=== PATIENT | female | born 1975 | race Caucasian/White ===

== ENCOUNTER 2016-05-23 21:46 | Inpatient (IN) | payer OTHER ==
[~2016-05-23] VITALS: Ht 162.6 cm; Wt 83.9 kg
[~2016-05-23 21:46] MED LIST: ALLO100T PO; CIPR-255 PO; EPP3/2 IM; FLM4 PO; HYG/25 PO
[2016-05-23] MEDS ORDERED: MoRPHine SULFATE 4 MG/ML 1 ML CARP\\VIAL IV STA (21:54)
[2016-05-23] MEDS ORDERED: SODIUM CHLORIDE 0.9% 1000ML 1,000 ML IV STA (21:54)
[2016-05-23] MEDS ORDERED: SODIUM CHLORIDE 0.9% 500ML 500 ML IV STA (21:54)
[2016-05-23] MEDS ORDERED: ONDANSETRON INJ 2 MG/ML 2 ML VIAL IV STA (21:54)
[2016-05-23 22:22] LABS: BASO % 0.1 %; BASO ABS # 0.01 K/uL (0-0.2); COMPLETE YES; EOS % 2.2 %; HEMATOCRIT 42.8 % (37-47); IG% 0.2 %; LYMPH % 12.8 %; LYMPH ABS # 1.54 K/uL (1.2-3.4); MEAN CELL VOLUME 82.8 fL (80-100); MEAN CORPUSCULAR HEMOGLOBIN 27.7 pg (25-34); MEAN CORPUSCULAR HGB CONC 33.4 g/dl (32-36); MEAN PLATELET VOLUME 11.4 fL (7.4-10.4); MONO % 6.1 %; NEUT % 78.6 %; PLATELET COUNT 168 K/uL (130-400); RED BLOOD COUNT 5.17 M/uL (4.2-5.4); WHITE BLOOD COUNT 12.06 K/uL (4.8-10.8)
[2016-05-23 22:31] LABS: URINE APPEARANCE CLOUDY (CLEAR); URINE BILIRUBIN NEG (NEG); URINE COLOR YELLOW; URINE EPITHELIAL CELL AUTO >30 /lpf (0-5); URINE NITRITE POS (NEG); URINE SPECIFIC GRAVITY 1.014 (1.000-1.030); UROBILINOGEN NEG (NEG); ZZUR CULT IF INDIC CLEAN CATCH YES
[2016-05-23 22:35] LABS: MANUAL MICROSCOPIC REQUIRED? NO; REVIEW REQ? NO
[2016-05-23 22:39] LABS: ALT/SGPT 25 U/L (12-78); BLOOD UREA NITROGEN 15 mg/dl (7-18); BUN/CREATININE RATIO 13.9 (10-20); CALCIUM 9.2 mg/dl (8.5-10.1); CARBON DIOXIDE 24 mmol/L (21-32); CHLORIDE 105 mmol/L (98-107); GLUCOSE 124 mg/dl (70-99); POTASSIUM 3.6 mmol/L (3.5-5.1); SODIUM 143 mmol/L (136-145)
[2016-05-23 22:42] LABS: ALKALINE PHOSPHATASE 79 U/L (45-117); AST/SGOT 16 U/L (15-37)
--- NOTE | 2016-05-23 22:56 | DIAGNOSTIC IMAGING REPORT ---
ULTRASOUND KIDNEYS AND BLADDER CLINICAL HISTORY: Flank pain. COMPARISON STUDY: Abdominal CT dated 08/19/2015. TECHNIQUE: Real-time, grayscale, and color flow sonography of the kidneys and bladder is performed. Images are reviewed in the transverse and longitudinal planes. FINDINGS: Kidneys: The kidneys are normal in size and echotexture. The right kidney measures 12.1 cm in length and the left kidney measures 11.0 cm in length. There is moderate right-sided hydronephrosis. No hydronephrosis is seen in the left kidney. There are numerous shadowing right renal calculi. A 1.1 cm shadowing calculus is present in the right proximal ureter just below the ureteropelvic junction. The distal right ureter appears dilated. Shadowing left renal calculi are also identified. There is no sonographic evidence of contour deforming renal mass lesion. There is trace right-sided perinephric fluid. Bladder: The bladder is decompressed and not evaluated. Ureteral jets were not seen. IMPRESSION: 1. There are numerous bilateral shadowing renal calculi. 2. There is moderate right hydronephrosis, and a 1.1 cm shadowing stone is seen within the right proximal ureter. 3. There is no left-sided hydronephrosis. 4. The bladder was decompressed and not well assessed. Electronically signed by: Irvin Anderson M.D. 05/23/2016 10:54 PM Dictated Date/Time: 05/23/2016 10:52 PM
[2016-05-23] MEDS ORDERED: HYDROmorphone INJ 1 MG/ML SYR IV STA (23:03)
[2016-05-23] MEDS ORDERED: CEFTRIAXONE SOD INJ 1 GM ADDVIAL IV STA (23:04)
[2016-05-23 23:07] LABS: PREG INTERNAL NEGATIVE QC NEG CLEAR BACKGROUND; PREG INTERNAL POSITIVE QC POS CONTROL LINE
[2016-05-23] MEDS ORDERED: TAMSULOSIN HCL 0.4 MG CAP PO ONE (23:30)
[2016-05-24] VITALS (9 sets, daily range): BP systolic 97–133; BP diastolic 58–86; PULSE 79–92; TEMP 36.5–37.4; O2SAT 91–95; Ht 162.6 cm; Wt 83.9 kg
--- NOTE | 2016-05-24 00:14 | History and Physical ---
History & Physical Date & Time of Service: May 24, 2016 at 00:09 Chief Complaint: Kidney Stones Primary Care Physician: No Doctor, Assigned History of Present Illness Source: patient Mayra Guerra is a 41 yo F with history of kidney stones, pt of Dr Ryan, who presents with intractable right sided back / abdominal pain since 5pm today. She reports she took Oxycodone and Tamsulosin today and did not have much relief. She received multiple pain meds in the ED and reports they are currently wearing off. She reports her pain is now a 6/10. She reports her pain is sharp, on the right side, radiating to the back, and has no improvement with position. The pain is associated with nausea and she was vomiting at home initially. She has not had any fevers at any point. Past Medical/Surgical History Medical Problems: (1) Employee exposure to body fluids Status: Resolved (2) Exposure to blood or body fluid Status: Resolved (3) Kidney stone Status: Resolved Family History No pertinent family history Social History Smoking Status: Never Smoker Drug Use: none Marital Status: Housing status: lives with family Occupational Status: employed Immunizations History of Influenza Vaccine: Yes History of Tetanus Vaccine?: Yes History of Pneumococcal: No History of Hepatitis B Vaccine: No Multi-Drug Resistant Organisms History of MDRO: No Allergies Coded Allergies: NUTS (Verified Allergy, Severe, ANAPHYLAXIS, 01/08/15) Cat Dander (Verified Allergy, Unknown, CAT/DOG-ITCHY EYES RUNNY NOSE, 01/08) NO KNOWN DRUG ALLERGIES (Verified Allergy, Unknown, NONE, 01/08/15) Home Medications Scheduled Allopurinol (Zyloprim), 100 MG PO DAILY Chlorthalidone (Hygroton), 25 MG PO QAM Scheduled PRN Epinephrine (Epipen), 0.3 MG IM UD PRN for ALLERGIC REACTION Review of Systems See HPI for pertinent positives & negatives. A total of 10 systems reviewed and were otherwise negative. Physical Exam Vital Signs Date Time Temp Pulse Resp B/P Pulse Ox O2 Delivery O2 Flow Rate FiO2 05/23/16 22:57 84 05/23/16 22:55 84 18 113/70 100 Room Air 05/23/16 22:23 97 Room Air 05/23/16 21:50 36.6 79 18 118/82 97 Room Air General Appearance: WD/WN, + mild distress Head: normocephalic, atraumatic Eyes: normal inspection ENT: hearing grossly normal Neck: supple, no JVD Respiratory/Chest: lungs clear, normal breath sounds, no respiratory distress Cardiovascular: regular rate, rhythm, no murmur Abdomen/GI: soft, + tenderness, + pertinent finding (R CVA tenderness) Neurologic/Psych: alert, normal mood/affect, oriented x 3 Skin: no rash Diagnostics Laboratory Results Results Past 24 Hours Test 05/23/16 21:36 05/23/16 22:00 Range/Units White Blood Count 12.06 4.8-10.8 K/uL Red Blood Count 5.17 4.2-5.4 M/uL Hemoglobin 14.3 12.0-16.0 g/dL Hematocrit 42.8 37-47 % Mean Corpuscular Volume 82.8 80-100 fL Mean Corpuscular Hemoglobin 27.7 25-34 pg Mean Corpuscular Hemoglobin Concent 33.4 32-36 g/dl Platelet Count 168 130-400 K/uL Mean Platelet Volume 11.4 7.4-10.4 fL Neutrophils (%) (Auto) 78.6 % Lymphocytes (%) (Auto) 12.8 % Monocytes (%) (Auto) 6.1 % Eosinophils (%) (Auto) 2.2 % Basophils (%) (Auto) 0.1 % Neutrophils # (Auto) 9.50 1.4-6.5 K/uL Lymphocytes # (Auto) 1.54 1.2-3.4 K/uL Monocytes # (Auto) 0.73 0.11-0.59 K/uL Eosinophils # (Auto) 0.26 0-0.5 K/uL Basophils # (Auto) 0.01 0-0.2 K/uL RDW Standard Deviation 40.5 36.4-46.3 fL RDW Coefficient of Variation 13.4 11.5-14.5 % Immature Granulocyte % (Auto) 0.2 % Immature Granulocyte # (Auto) 0.02 0.00-0.02 K/uL Sodium Level 143 136-145 mmol/L Potassium Level 3.6 3.5-5.1 mmol/L Chloride Level 105 98-107 mmol/L Carbon Dioxide Level 24 21-32 mmol/L Anion Gap 14.0 3-11 mmol/L Blood Urea Nitrogen 15 7-18 mg/dl Creatinine 1.10 0.60-1.20 mg/dl Est Creatinine Clear Calc Drug Dose 69.1 ml/min Estimated GFR () 71.2 Estimated GFR (Non- 61.4 BUN/Creatinine Ratio 13.9 10-20 Random Glucose 124 70-99 mg/dl Calcium Level 9.2 8.5-10.1 mg/dl Total Bilirubin 0.3 0.2-1 mg/dl Direct Bilirubin < 0.1 0-0.2 mg/dl Aspartate Amino Transf (AST/SGOT) 16 15-37 U/L Alanine Aminotransferase (ALT/SGPT) 25 12-78 U/L Alkaline Phosphatase 79 45-117 U/L Total Protein 7.0 6.4-8.2 gm/dl Albumin 3.9 3.4-5.0 gm/dl Lipase 147 73-393 U/L Human Chorionic Gonadotropin, Qual NEG NEG Urine Color YELLOW Urine Appearance CLOUDY CLEAR Urine pH 6.0 4.5-7.5 Urine Specific [place] 1.014 1.000-1.030 Urine Protein 1+ NEG Urine Glucose (UA) NEG NEG Urine Ketones NEG NEG Urine Occult Blood 2+ NEG Urine Nitrite POS NEG Urine Bilirubin NEG NEG Urine Urobilinogen NEG NEG Urine Leukocyte Esterase MODERATE NEG Urine WBC (Auto) >30 0-5 /hpf Urine RBC (Auto) >30 0-4 /hpf Urine Hyaline Casts (Auto) 5-10 0-5 /lpf Urine Epithelial Cells (Auto) >30 0-5 /lpf Urine Bacteria (Auto) NEG NEG Microbiology Results 05/23/16 Urine Culture, Received Pending Diagnostic Radiology US: IMPRESSION: 1. There are numerous bilateral shadowing renal calculi. 2. There is moderate right hydronephrosis, and a 1.1 cm shadowing stone is seen within the right proximal ureter. 3. There is no left-sided hydronephrosis. 4. The bladder was decompressed and not well assessed. Impression Assessment and Plan 41 yo F with known nephrolithiasis, with intractable pain from a large R sided kidney stone. Plan: Kidney stone with hydronephrosis: Admit to Med/Surg NPO with IV fluids Continue Tamsulosin daily Dilaudid 0.5-1mg q2h for pain Zofran for nausea Hypertension: Hold home chlorthalidone Gout: Hold allopurinol VTE: SCDs CODE STATUS: FULL CODE DISPO: MED SURG VTE Prophylaxis VTE Risk Assessment Done? Y/N: Yes Risk Level: Moderate Resident Tracking Resident Involvement: Resident Care Provided Care Provided: [facility] Assessment and Plan ATTENDING ADDENDUM: I have seen and examined this patient, have directed their medical care, have supervised the resident and agree with the H&P as noted above. History Of Present Illness: The patient is a 41 old female with a known history of kidney stones, who was recently cleaned out by Dr. James Ryan from urology, who developed acute onset of intractable right sided back pain radiating toward the abdomen that began at 5 PM today prior to arrival. She tried her oxycodone and tamsulosin at home but did not have any significant relief, and thus presents emergency department for assessment. Imaging studies showed a 1.1 cm right proximal ureteral stone, and was thus presented to the hospitalist service for assessment admission. The pain was significant enough to cause nausea and vomiting as well, but the patient feels that she did not have any issues with aspiration. Review of Systems: The patient denies chest pain, palpitations, shortness of breath, cough, lower extremity swelling, vision change, hearing change, sore throat, fevers, chills, sweats, weight change, blood in urine or stool, dysuria, urinary frequency or urgency, memory loss, rash, abnormal bruising or bleeding, imbalance, focal or generalized weakness, numbness or tingling in arms or legs, neck pain, night sweats, or allergy symptoms. The review of systems is otherwise negative other than for that already noted above, and at least 10 systems have been reviewed. Past Medical History: Urolithiasis. Past Surgical History: Placement of ureteral stents. Allergies: Nuts Cat Dander No known drug allergies Medications on Admission: Allopurinol 100 mg by mouth daily. Chlorthalidone 25 mg by mouth every morning. EpiPen 0.3 mg IM as directed when necessary allergic reaction. Physical Examination: The patient is awake, well-developed and adequately nourished, alert and oriented 3, normocephalic and atraumatic, lying in bed and in no acute distress. HEENT--PERRL, mucous membranes moist, and oropharynx normal. Neck--supple, no JVD or bruits, thyroid normal, trachea midline, no adenopathy. Heart--normal S1 and S2, no extra beats, no murmurs, rubs or gallops. Lungs--clear bilaterally, no respiratory distress, no accessory muscle use. Abdomen--normal bowel sounds and soft, nontender and nondistended, no hernias or masses, no organomegaly. Extremities--no cyanosis, clubbing or edema. There are good distal pulses b/l. Dermatologic--normal skin turgor, normal color, warm and dry, no abnormal lymph nodes, no rash. Neurologic--cranial nerves II through XII grossly intact, motor and sensory examination normal. Rheumatologic--normal range of motion, nontender, muscles and joints. Psychiatric--normal affect. Imaging Studies: Renal ultrasound--1.1 cm proximal right ureteral obstructing stone with moderate right hydronephrosis. Assessment and Plan: 1.1 cm right proximal obstructing ureteral stone with moderate right hydronephrosis--patient will be admitted to the medical surgical floor, and made nothing by mouth status. We'll consult her urologist Dr. James Ryan for assessment and probable stent placement. We'll place her on ceftriaxone 1 g IV daily, normal saline with potassium chloride 20 mEq at 100 mils per hour, Zofran 4 mg IV every 6 hours when necessary nausea, and pantoprazole 40 mg IV daily. We will hold allopurinol 100 mg by mouth daily and chlorthalidone 25 mg by mouth until after surgery.
--- NOTE | 2016-05-24 00:14 | EMERGENCY ROOM VISIT NOTE ---
History First contact with patient: 21:51 Chief Complaint: KIDNEY STONE Stated Complaint: KIDNEY STONES History of Present Illness The patient is a 41 year old female who presents to the Emergency Room with complaints of sudden onset of right flank pain that radiates to her groin prescription as aching, ranging in severity 8 out of 10. Nothing makes it better or worse. Dr. Ryan is her urologist. She said multiple stones in the past along with lithotripsy and stents in the past. Patient denies chest pain, dyspnea, fever, chills, diarrhea, urinary symptoms, weakness. She is tolerated by mouth fluids and food. No injury to the area. Review of Systems See HPI for pertinent positives & negatives. A total of 10 systems reviewed and were otherwise negative. Past Medical/Surgical History Medical Problems: (1) Employee exposure to body fluids (2) Exposure to blood or body fluid (3) Hydroureter on right (4) Kidney stone (5) Right distal ureteral calculus Family History No pertinent family history Social History Smoking Status: Never Smoker Drug Use: none Marital Status: Housing Status: lives with family Occupation Status: employed Current/Historical Medications Scheduled Allopurinol (Zyloprim), 100 MG PO DAILY Chlorthalidone (Hygroton), 25 MG PO QAM Scheduled PRN Epinephrine (Epipen), 0.3 MG IM UD PRN for ALLERGIC REACTION Allergies Coded Allergies: NUTS (Verified Allergy, Severe, ANAPHYLAXIS, 01/08/15) Cat Dander (Verified Allergy, Unknown, CAT/DOG-ITCHY EYES RUNNY NOSE, 01/08) NO KNOWN DRUG ALLERGIES (Verified Allergy, Unknown, NONE, 01/08/15) Physical Exam Vital Signs Date Time Temp Pulse Resp B/P Pulse Ox O2 Delivery O2 Flow Rate FiO2 05/23/16 22:57 84 05/23/16 22:55 84 18 113/70 100 Room Air 05/23/16 22:23 97 Room Air 05/23/16 21:50 36.6 79 18 118/82 97 Room Air Physical Exam VITALS: Vitals are noted on the nurse's note and reviewed by myself. Vital signs stable. GENERAL: Pleasant female writhing in pain, nondiaphoretic, well-developed well- nourished. SKIN: The skin was without rashes, erythema, edema, or bruising. There is no tenting of the skin. Capillary reflex less than 2 seconds. HEAD: Normocephalic atraumatic. EARS: External auditory canals clear, tympanic membranes pearly [place] without erythema or effusion bilaterally. EYES: Pupils equal round and reactive to light and accommodation. Conjunctivae without injection, sclerae without icterus. Extraocular movements intact. NOSE: Patent, turbinates without inflammation or discharge. MOUTH: Mucous membranes moist. Pharynx without erythema or exudate. Uvula midline. Airway patent. Tongue does not deviate. NECK: Supple without nuchal rigidity. No lymphadenopathy. No thyromegaly. Cervical spine is nontender. No JVD. HEART: Regular rate and rhythm without murmurs gallops or rubs. LUNGS: Clear to auscultation bilaterally without wheezes, rales or rhonchi. No dullness to percussion. No retractions or accessory muscle use. ABDOMEN: Positive bowel sounds x 4. Normal tympanic percussion. Soft, nontender, without masses or organomegaly. Hdez sign negative. No guarding or rebound tenderness. No CVA tenderness MUSCULOSKELETAL: No muscle atrophy, erythema, or edema noted. NEURO: Patient was alert and oriented to person place and time. Normal sensation to light and sharp touch. No focal neurological deficits. Medical Decision & Procedures Laboratory Results 05/23/16 21:36 Red Blood Count 5.17, Mean Corpuscular Volume 82.8, Mean Corpuscular Hemoglobin 27.7, Mean Corpuscular Hemoglobin Concent 33.4, Mean Platelet Volume 11.4, Neutrophils (%) (Auto) 78.6, Lymphocytes (%) (Auto) 12.8, Monocytes (%) (Auto) 6.1, Eosinophils (%) (Auto) 2.2, Basophils (%) (Auto) 0.1, Neutrophils # (Auto) 9.50, Lymphocytes # (Auto) 1.54, Monocytes # (Auto) 0.73, Eosinophils # (Auto) 0.26, Basophils # (Auto) 0.01 05/23/16 21:36 Test 05/23/16 21:36 05/23/16 22:00 White Blood Count 12.06 K/uL (4.8-10.8) Red Blood Count 5.17 M/uL (4.2-5.4) Hemoglobin 14.3 g/dL (12.0-16.0) Hematocrit 42.8 % (37-47) Mean Corpuscular Volume 82.8 fL (80-100) Mean Corpuscular Hemoglobin 27.7 pg (25-34) Mean Corpuscular Hemoglobin Concent 33.4 g/dl (32-36) Platelet Count 168 K/uL (130-400) Mean Platelet Volume 11.4 fL (7.4-10.4) Neutrophils (%) (Auto) 78.6 % Lymphocytes (%) (Auto) 12.8 % Monocytes (%) (Auto) 6.1 % Eosinophils (%) (Auto) 2.2 % Basophils (%) (Auto) 0.1 % Neutrophils # (Auto) 9.50 K/uL (1.4-6.5) Lymphocytes # (Auto) 1.54 K/uL (1.2-3.4) Monocytes # (Auto) 0.73 K/uL (0.11-0.59) Eosinophils # (Auto) 0.26 K/uL (0-0.5) Basophils # (Auto) 0.01 K/uL (0-0.2) RDW Standard Deviation 40.5 fL (36.4-46.3) RDW Coefficient of Variation 13.4 % (11.5-14.5) Immature Granulocyte % (Auto) 0.2 % Immature Granulocyte # (Auto) 0.02 K/uL (0.00-0.02) Anion Gap 14.0 mmol/L (3-11) Est Creatinine Clear Calc Drug Dose 69.1 ml/min Estimated GFR () 71.2 Estimated GFR (Non- 61.4 BUN/Creatinine Ratio 13.9 (10-20) Calcium Level 9.2 mg/dl (8.5-10.1) Total Bilirubin 0.3 mg/dl (0.2-1) Direct Bilirubin < 0.1 mg/dl (0-0.2) Aspartate Amino Transf (AST/SGOT) 16 U/L (15-37) Alanine Aminotransferase (ALT/SGPT) 25 U/L (12-78) Alkaline Phosphatase 79 U/L (45-117) Total Protein 7.0 gm/dl (6.4-8.2) Albumin 3.9 gm/dl (3.4-5.0) Lipase 147 U/L (73-393) Human Chorionic Gonadotropin, Qual NEG (NEG) Urine Color YELLOW Urine Appearance CLOUDY (CLEAR) Urine pH 6.0 (4.5-7.5) Urine Specific [place] 1.014 (1.000-1.030) Urine Protein 1+ (NEG) Urine Glucose (UA) NEG (NEG) Urine Ketones NEG (NEG) Urine Occult Blood 2+ (NEG) Urine Nitrite POS (NEG) Urine Bilirubin NEG (NEG) Urine Urobilinogen NEG (NEG) Urine Leukocyte Esterase MODERATE (NEG) Urine WBC (Auto) >30 /hpf (0-5) Urine RBC (Auto) >30 /hpf (0-4) Urine Hyaline Casts (Auto) 5-10 /lpf (0-5) Urine Epithelial Cells (Auto) >30 /lpf (0-5) Urine Bacteria (Auto) NEG (NEG) Medications Administered Medications (Trade) Dose Ordered Sig/[place] Route Start Time Stop Time Status Last Admin Dose Admin Ondansetron HCl 4 mg 4 mg NOW STAT IV 05/23/16 21:54 05/23/16 21:56 DC 05/23/16 22:18 4 MG Sodium Chloride 1,000 ml @ 125 mls/hr Q8H STAT IV 05/23/16 21:54 05/24/16 05:53 05/23/16 22:19 125 MLS/HR Sodium Chloride (Nss 500ml) 500 ml @ 999 mls/hr Q31M STAT IV 05/23/16 21:54 05/23/16 22:24 DC 05/23/16 22:18 999 MLS/HR Morphine Sulfate (MoRPHine SULFATE INJ) 4 mg NOW STAT IV 05/23/16 21:54 05/23/16 21:56 DC 05/23/16 22:17 4 MG Hydromorphone HCl (Dilaudid Inj) 1 mg NOW STAT IV 05/23/16 23:03 05/23/16 23:04 DC 05/23/16 23:12 1 MG Ceftriaxone Sodium (Rocephin Inj) 1 gm NOW STAT IV 05/23/16 23:04 05/23/16 23:05 DC 05/23/16 23:13 1 GM Tamsulosin HCl (Flomax Cap) 0.4 mg NOW ONCE PO 05/23/16 23:30 05/23/16 23:31 DC 05/23/16 23:39 0.4 MG ED Course Prior records/ancillary studies reviewed. Triage Nursing notes reviewed. The patient's history was concerning for right flank pain. Differential diagnosis: Etiologies such as renal colic, appendicitis, diverticulitis, mesenteric ischemia, aortic pathology, infections, inflammatory bowel disease, PUD, biliary pathology, UTI, as well as others were entertained. Physical examination findings: As above. ER treatment provided: Morphine Zofran, IV fluids On reassessment the patient felt better. Diagnostic interpretation by me: The labs revealed leukocytosis, hyperglycemia without DKA. Urinalysis revealed UTI and sent for culture Imaging studies: CT of the abdomen and pelvis was reviewed from prior and shows multiple bilateral kidney stones ULTRASOUND KIDNEYS AND BLADDER CLINICAL HISTORY: Flank pain. COMPARISON STUDY: Abdominal CT dated 08/19/2015. TECHNIQUE: Real-time, grayscale, and color flow sonography of the kidneys and bladder is performed. Images are reviewed in the transverse and longitudinal planes. FINDINGS: Kidneys: The kidneys are normal in size and echotexture. The right kidney measures 12.1 cm in length and the left kidney measures 11.0 cm in length. There is moderate right-sided hydronephrosis. No hydronephrosis is seen in the left kidney. There are numerous shadowing right renal calculi. A 1.1 cm shadowing calculus is present in the right proximal ureter just below the ureteropelvic junction. The distal right ureter appears dilated. Shadowing left renal calculi are also identified. There is no sonographic evidence of contour deforming renal mass lesion. There is trace right-sided perinephric fluid. Bladder: The bladder is decompressed and not evaluated. Ureteral jets were not seen. IMPRESSION: 1. There are numerous bilateral shadowing renal calculi. 2. There is moderate right hydronephrosis, and a 1.1 cm shadowing stone is seen within the right proximal ureter. 3. There is no left-sided hydronephrosis. 4. The bladder was decompressed and not well assessed. Electronically signed by: Irvin Anderson M.D. 05/23/2016 10:54 PM Dictated Date/Time: 05/23/2016 10:52 PM Consultation: A consultation was placed with Dr. Palacios, hospitalist. The case was discussed and diagnostics were reviewed. The patient was evaluated in the ER for further treatment. It appears that the patient has isolated renal colic from a right sided stone. Patient also has UTI. She was still in severe amount of pain. She will be evaluated by medicine for possible admission. She started on Rocephin and urine was sent for culture. Patient has had multiple stents in the past. She follows with Dr. Ryan. By the evaluation outlined above emergent etiologies such as appendicitis, diverticulitis, mesenteric ischemia, aortic pathology inflammatory bowel disease, PUD, biliary pathology,as well as others were deemed relatively unlikely. The pt informed about the findings as listed above. All questions were answered and pleased with the treatment. Case reviewed with my attending Medical Decision As above Impression Primary Impression: Renal colic on right side Additional Impression: UTI (urinary tract infection) Departure Information Dispostion Being Evaluated By Hospitalist Condition FAIR Referrals No Doctor, Assigned (PCP) Patient Instructions My [facility] Problem Qualifiers Additional Impression: UTI (urinary tract infection) Urinary tract infection type: acute cystitis Hematuria presence: with hematuria Qualified Codes: N30.01 - Acute cystitis with hematuria
[2016-05-24] MEDS ORDERED: POLYETHYLENE (MIRALAX) 17 GM PACK PO PRN ×2 (00:15→08:45)
[2016-05-24] MEDS ORDERED: ACETAMINOPHEN 325 MG TAB PO PRN ×2 (00:15→08:45)
[2016-05-24] MEDS ORDERED: ALUMINUM/MAGNESIUM/SIMETH (MAALOX MAX) 30 ML UDC PO PRN ×2 (00:15→08:45)
[2016-05-24] MEDS ORDERED: ZOLPIDEM TARTRATE 5 MG TAB PO PRN ×2 (00:15→08:45)
[2016-05-24] MEDS: HYDROmorphone INJ 0.5 MG/0.5 ML SYR IV PRN ×3 (01:31→07:25)
[2016-05-24] MEDS: ONDANSETRON INJ 2 MG/ML 2 ML VIAL IV PRN ×2 (01:39→07:25)
[2016-05-24] MEDS ORDERED: NURSING VERBAL MED ORDER ONE (02:30)
[2016-05-24] MEDS ORDERED: SODIUM CHLOR 0.45% + 20MEQ KCL 1,000 ML IV SCH (02:45)
[2016-05-24] MEDS ORDERED: CIPROFLOXACIN 400MG / 200ML D5W IV SCH (06:00)
[2016-05-24] MEDS ORDERED: HydrALAZINE HCL 20 MG/ML VIAL IV PRN (08:00)
--- NOTE | 2016-05-24 08:36 | DIAGNOSTIC IMAGING REPORT ---
KUB CLINICAL HISTORY: Renal calculi COMPARISON STUDY: Renal ultrasound dated 05/23/2016 FINDINGS: There is no pathologic bowel dilatation. There are innumerable bilateral renal calculi. There is an equivocal 18 mm calculus within the right renal pelvis. There is a 4 mm calcification at the L3-4 level to the right of midline, possibly representing a proximal right ureteral calculus. IMPRESSION: 1. Extensive bilateral nephrolithiasis 2. Possible 18 mm calculus within the right renal pelvis 3. Possible 4 mm calculus within the proximal right ureter the L3-4 level. Electronically signed by: Jairo Dao M.D. 05/24/2016 8:34 AM Dictated Date/Time: 05/24/2016 8:32 AM
[2016-05-24] MEDS ORDERED: HYDROmorphone INJ 1 MG/ML SYR IV PRN (08:45)
[2016-05-24] MEDS ORDERED: HYDROmorphone INJ 0.5 MG/0.5 ML SYR IV PRN (08:45)
[2016-05-24] MEDS ORDERED: ONDANSETRON INJ 2 MG/ML 2 ML VIAL IV PRN ×2 (08:45→16:30)
--- NOTE | 2016-05-24 08:57 | Urology Consultation ---
History General Date of Service: May 24, 2016. Chief Complaint: R intractable flank pain and emesis Primary Care Physician: No Doctor, Assigned Pt seen a urologist before?: Yes If yes, why?: Myself for stone History of Present Illness 41 yo female, well known to our service, last intervention was in Jul 2015 in the form of R uscope and stent, last seen in the office Dec 2015 here for acute onset of intractable R flank pain and emesis. She has a longstanding history of stone disease, well known. Images reviewed, past notes reviewed. She currently has R hydro on US and a >1 cm R upper ureteral stone. She denies UTI or stone passage or pain since being seen in the Fall. She continues to follow with nephrology and is compliant with her outpatient therapy. Urology consultation is sought out to assist with her care. HPI - Stones Number: [id number] Size: Largest ~18 mm R UPJ Location: right, kidney, ureter, UPJ Pain: right flank, constant Patient has: + emesis, + nausea ER Visits: number (1) Prior stone composition: unknown (carbonate apatite) Imaging Imaging: [facility], Ultrasound Laboratory Last 24 Hours Test 05/23/16 21:36 05/23/16 22:00 White Blood Count 12.06 K/uL Red Blood Count 5.17 M/uL Hemoglobin 14.3 g/dL Hematocrit 42.8 % Mean Corpuscular Volume 82.8 fL Mean Corpuscular Hemoglobin 27.7 pg Mean Corpuscular Hemoglobin Concent 33.4 g/dl Platelet Count 168 K/uL Mean Platelet Volume 11.4 fL Neutrophils (%) (Auto) 78.6 % Lymphocytes (%) (Auto) 12.8 % Monocytes (%) (Auto) 6.1 % Eosinophils (%) (Auto) 2.2 % Basophils (%) (Auto) 0.1 % Neutrophils # (Auto) 9.50 K/uL Lymphocytes # (Auto) 1.54 K/uL Monocytes # (Auto) 0.73 K/uL Eosinophils # (Auto) 0.26 K/uL Basophils # (Auto) 0.01 K/uL RDW Standard Deviation 40.5 fL RDW Coefficient of Variation 13.4 % Immature Granulocyte % (Auto) 0.2 % Immature Granulocyte # (Auto) 0.02 K/uL Sodium Level 143 mmol/L Potassium Level 3.6 mmol/L Chloride Level 105 mmol/L Carbon Dioxide Level 24 mmol/L Anion Gap 14.0 mmol/L Blood Urea Nitrogen 15 mg/dl Creatinine 1.10 mg/dl Est Creatinine Clear Calc Drug Dose 69.1 ml/min Estimated GFR () 71.2 Estimated GFR (Non- 61.4 BUN/Creatinine Ratio 13.9 Random Glucose 124 mg/dl Calcium Level 9.2 mg/dl Total Bilirubin 0.3 mg/dl Direct Bilirubin < 0.1 mg/dl Aspartate Amino Transf (AST/SGOT) 16 U/L Alanine Aminotransferase (ALT/SGPT) 25 U/L Alkaline Phosphatase 79 U/L Total Protein 7.0 gm/dl Albumin 3.9 gm/dl Lipase 147 U/L Human Chorionic Gonadotropin, Qual NEG Urine Color YELLOW Urine Appearance CLOUDY Urine pH 6.0 Urine Specific [place] 1.014 Urine Protein 1+ Urine Glucose (UA) NEG Urine Ketones NEG Urine Occult Blood 2+ Urine Nitrite POS Urine Bilirubin NEG Urine Urobilinogen NEG Urine Leukocyte Esterase MODERATE Urine WBC (Auto) >30 /hpf Urine RBC (Auto) >30 /hpf Urine Hyaline Casts (Auto) 5-10 /lpf Urine Epithelial Cells (Auto) >30 /lpf Urine Bacteria (Auto) NEG Problem List Medical Problems: (1) Renal colic on right side Status: Acute (2) Right lower quadrant abdominal pain Status: Acute (3) UTI (urinary tract infection) Status: Acute (4) UTI (urinary tract infection) Status: Acute Past History GERD, kidney stones, urinary tract infection, other Pt had a problem w anesthesia?: No Past Surgical History: lithotripsy, tubal ligation, ureteral stent, other Family History No pertinent family history Father with stones Social History Hx Tobacco Use In Past Year?: No Smoking: non-smoker Alcohol: never Drug use: none Marital status: Housing status: lives with family Occupation status: employed Immunizations History of Influenza Vaccine: Yes History of Tetanus Vaccine?: Yes History of Pneumococcal: No History of Hepatitis B Vaccine: No History of MDRO No Allergies Coded Allergies: NUTS (Verified Allergy, Severe, ANAPHYLAXIS, 01/08/15) Cat Dander (Verified Allergy, Unknown, CAT/DOG-ITCHY EYES RUNNY NOSE, 01/08) NO KNOWN DRUG ALLERGIES (Verified Allergy, Unknown, NONE, 01/08/15) Medications Home Medications: Home Meds and Scripts Medications Dose Route/Sig Max Daily Dose Days Date Category Epipen (Epinephrine) 0.3 Mg/0.3 Ml Inj 0.3 Mg IM UD PRN 12/25/14 Reported [place] (Chlorthalidone) 25 Mg Tab 25 Mg PO QAM 12/25/14 Reported Zyloprim (Allopurinol) 100 Mg Tab 100 Mg PO DAILY 12/25/14 Reported Inpatient Medications: Current Inpatient Medications Medications (Trade) Dose Ordered Sig/[place] Route Start Time Stop Time Status Last Admin Dose Admin Sodium Chloride (Nss 1000ml) 1,000 ml @ 200 mls/hr Q5H IV 05/24/16 08:00 06/23/16 07:59 Hydralazine HCl (HydrALAZINE INJ) 10 mg Q4H PRN IV 05/24/16 08:00 06/23/16 07:59 Acetaminophen (Tylenol Tab) 650 mg Q4H PRN PO 05/24/16 08:45 06/23/16 08:44 Al Hydrox/Mg Hydrox/Simethicone (Maalox Max Susp) 15 ml Q4H PRN PO 05/24/16 08:45 06/23/16 08:44 Polyethylene (Miralax Powder Packet) 17 gm DAILY PRN PO 05/24/16 08:45 06/23/16 08:44 Zolpidem Tartrate (Ambien Tab) 5 mg HSZ PRN PO 05/24/16 08:45 06/23/16 08:44 Ondansetron HCl (Zofran Inj) 4 mg Q6H PRN IV 05/24/16 08:45 06/23/16 08:44 Hydromorphone HCl (Dilaudid Inj) 0.5 mg Q2H PRN IV 05/24/16 08:45 06/07/16 08:44 Hydromorphone HCl (Dilaudid Inj) 1 mg Q2H PRN IV 05/24/16 08:45 06/07/16 08:44 Review of Systems Review of Systems Constitutional: No fever Eyes: No double vision, No eye pain Neurological: + dizzy, No numbness/tingling Endocrine: + tired/sluggish Gastrointestinal: + abdominal pain, + nausea, + vomiting Cardiovascular: No irregular heartbeat, No palpitations Respiratory: No coughing up blood Skin: No boils Musculoskeletal: + back pain Blood / Lymphatic: No bruise easily, No swollen glands Ears / Nose / Throat: No hoarse voice, No sinus Psychologic / Mental: No trouble remembering Female : + kidney stones, + see HPI Physical Exam Vital Signs: Vital Signs Past 12 Hours Date Time Temp Pulse Resp B/P Pulse Ox O2 Delivery O2 Flow Rate FiO2 05/24/16 07:04 36.5 92 18 120/72 92 Room Air 05/24/16 01:25 Room Air 05/24/16 01:25 36.6 79 16 133/86 Room Air 05/24/16 01:10 36.6 79 16 133/86 91 Room Air 05/24/16 01:03 72 16 117/70 92 Room Air 05/23/16 22:57 84 05/23/16 22:55 84 18 113/70 100 Room Air 05/23/16 22:23 97 Room Air 05/23/16 21:50 36.6 79 18 118/82 97 Room Air Physical Exam: General Appearance: WD/WN, + moderate distress ENT: normal ENT inspection, hearing grossly normal Neck: supple, no adenopathy Respiratory/Chest: no respiratory distress, no accessory muscle use Cardiovascular: no JVD Gastrointestinal: Abdomen: normal abdomen Bladder: normal bladder Renal: cva tenderness (right) Liver: normal liver Spleen: normal spleen Extremities: non-tender Neurologic/Psychiatric: alert, oriented x 3 Skin: normal color Assessment & Plan Assessment & Plan Treatment Planned: ureteroscopy w/ laser A/P 41 yo female with intractable symptoms, R large proximal ureteral stone. Findings reviewed. Will add on for OR later today - stent, possible uscope, laser. Will ensure antibiotic coverage, arrange for preop labs. Case by myself or Dr. Jane depending on logistics. Consent obtained, patient vocalizes understanding of the treatment plan.
[2016-05-24] MEDS ORDERED: METOCLOPRAMIDE HCL INJ 20 MG in SODIUM CHLORIDE 0.9% 50ML 50 ML IV PRN (09:00)
[2016-05-24] MEDS: SODIUM CHLORIDE 0.9% 1000ML 1,000 ML IV SCH ×4 (09:37→23:11)
--- NOTE | 2016-05-24 10:49 | DIAGNOSTIC IMAGING REPORT ---
CHEST 2 VIEWS ROUTINE CLINICAL HISTORY: Preop COMPARISON STUDY: 08/21/2014 FINDINGS: The heart is the upper limits of normal in size. There is no failure. There is no focal pulmonary consolidation. There are no significant pleural effusions.[ IMPRESSION: No active disease in the chest. Electronically signed by: Jairo Dao M.D. 05/24/2016 10:47 AM Dictated Date/Time: 05/24/2016 10:46 AM
[2016-05-24] MEDS ORDERED: KETOROLAC TROMETHAMINE 30 MG/ML VIAL IV STA (12:31)
[2016-05-24] MEDS ORDERED: MIDAZOLAM HCL 1 MG/ML 2ML VIAL ONE (15:38)
[2016-05-24] MEDS ORDERED: ONDANSETRON INJ 2 MG/ML 2 ML VIAL ONE (15:38)
[2016-05-24] MEDS ORDERED: LIDOCAINE HCL 2% 2 ML VIAL (20MG/ML) ONE (15:38)
[2016-05-24] MEDS ORDERED: DEXAMETHASONE SOD INJ 4 MG/ML VIAL ONE (15:38)
[2016-05-24] MEDS ORDERED: PROPOFOL IV EMULSION 10 MG/ML 20 ML VIAL IV ONE ×4 (15:38→16:51)
[2016-05-24] MEDS ORDERED: FENTANYL CITRATE INJ 50 MCG/1 ML 2 ML VIAL ONE ×2 (15:39→16:45)
--- NOTE | 2016-05-24 16:13 | Progress Note ---
Subjective Date of Service: May 24, 2016. Subjective pt was seen pre procedure she is looking forward to having renal colic resolved , planned for cystoscopy this afternoon Problem List Medical Problems: (1) Renal colic on right side Status: Acute (2) Right lower quadrant abdominal pain Status: Acute (3) UTI (urinary tract infection) Status: Acute (4) UTI (urinary tract infection) Status: Acute Review of Systems Constitutional: No chills, No fever Respiratory: No cough, No shortness of breath Cardiac: No chest pain, No edema Abdomen: + nausea, + pain, No constipation, No diarrhea, No vomiting Female : + dysuria, + hematuria Neurologic: No memory loss, No paralysis Objective Vital Signs Date Time Temp Pulse Resp B/P Pulse Ox O2 Delivery O2 Flow Rate FiO2 05/24/16 07:04 36.5 92 18 120/72 92 Room Air 05/24/16 01:25 Room Air 05/24/16 01:25 36.6 79 16 133/86 Room Air 05/24/16 01:10 36.6 79 16 133/86 91 Room Air 05/24/16 01:03 72 16 117/70 92 Room Air 05/23/16 22:57 84 05/23/16 22:55 84 18 113/70 100 Room Air 05/23/16 22:23 97 Room Air 05/23/16 21:50 36.6 79 18 118/82 97 Room Air Physical Exam General Appearance: WD/WN, + moderate distress Neck: supple, no JVD Respiratory/Chest: chest non-tender, lungs clear, + decreased breath sounds ( bases) Cardiovascular: regular rate, rhythm, no murmur Abdomen: normal bowel sounds, soft, + guarding, + tenderness Extremities: no pedal edema, no calf tenderness Laboratory Results Last 24 Hours Test 05/23/16 21:36 05/23/16 22:00 White Blood Count 12.06 K/uL Red Blood Count 5.17 M/uL Hemoglobin 14.3 g/dL Hematocrit 42.8 % Mean Corpuscular Volume 82.8 fL Mean Corpuscular Hemoglobin 27.7 pg Mean Corpuscular Hemoglobin Concent 33.4 g/dl Platelet Count 168 K/uL Mean Platelet Volume 11.4 fL Neutrophils (%) (Auto) 78.6 % Lymphocytes (%) (Auto) 12.8 % Monocytes (%) (Auto) 6.1 % Eosinophils (%) (Auto) 2.2 % Basophils (%) (Auto) 0.1 % Neutrophils # (Auto) 9.50 K/uL Lymphocytes # (Auto) 1.54 K/uL Monocytes # (Auto) 0.73 K/uL Eosinophils # (Auto) 0.26 K/uL Basophils # (Auto) 0.01 K/uL RDW Standard Deviation 40.5 fL RDW Coefficient of Variation 13.4 % Immature Granulocyte % (Auto) 0.2 % Immature Granulocyte # (Auto) 0.02 K/uL Sodium Level 143 mmol/L Potassium Level 3.6 mmol/L Chloride Level 105 mmol/L Carbon Dioxide Level 24 mmol/L Anion Gap 14.0 mmol/L Blood Urea Nitrogen 15 mg/dl Creatinine 1.10 mg/dl Est Creatinine Clear Calc Drug Dose 69.1 ml/min Estimated GFR () 71.2 Estimated GFR (Non- 61.4 BUN/Creatinine Ratio 13.9 Random Glucose 124 mg/dl Calcium Level 9.2 mg/dl Total Bilirubin 0.3 mg/dl Direct Bilirubin < 0.1 mg/dl Aspartate Amino Transf (AST/SGOT) 16 U/L Alanine Aminotransferase (ALT/SGPT) 25 U/L Alkaline Phosphatase 79 U/L Total Protein 7.0 gm/dl Albumin 3.9 gm/dl Lipase 147 U/L Human Chorionic Gonadotropin, Qual NEG Urine Color YELLOW Urine Appearance CLOUDY Urine pH 6.0 Urine Specific [place] 1.014 Urine Protein 1+ Urine Glucose (UA) NEG Urine Ketones NEG Urine Occult Blood 2+ Urine Nitrite POS Urine Bilirubin NEG Urine Urobilinogen NEG Urine Leukocyte Esterase MODERATE Urine WBC (Auto) >30 /hpf Urine RBC (Auto) >30 /hpf Urine Hyaline Casts (Auto) 5-10 /lpf Urine Epithelial Cells (Auto) >30 /lpf Urine Bacteria (Auto) NEG Assessment and Plan 41 yo F with known nephrolithiasis, with intractable pain from a large R sided kidney stone. Kidney stone with hydronephrosis: NPO with IV fluids for possible cysto, Tamsulosin. parenteral pain/nausea control imaging suggests some perinephric inflammation, culture pending, given rocephin Hypertension: Hold chlorthalidone; prn hydralazine Gout:Hold allopurinol VTE: SCDs
[2016-05-24] MEDS ORDERED: SCOPOLAMINE 1.5 MG TDSY TD ONE (16:15)
[2016-05-24] MEDS ORDERED: ATROPINE SULFATE 0.1 MG/ML 5ML SYR IV PRN ×2 (16:30)
[2016-05-24] MEDS ORDERED: PROMETHAZINE HCL INJ 12.5 MG in SODIUM CHLORIDE 0.9% 50ML 50 ML IV PRN (16:30)
[2016-05-24] MEDS ORDERED: FENTANYL CITRATE INJ 50 MCG/1 ML 2 ML VIAL IV PRN (16:30)
[2016-05-24] MEDS ORDERED: EpHEDrine SULFATE INJ 50 MG/ML AMP IV PRN (16:30)
[2016-05-24] MEDS ORDERED: HYDROmorphone INJ 2 MG/ML SYR/VIAL IV PRN (16:30)
[2016-05-24] MEDS ORDERED: METOCLOPRAMIDE HCL INJ 5 MG/ML 2 ML VIAL ONE (16:52)
[2016-05-24] MEDS ORDERED: DiphenhydrAMINE HCL 50 MG/ML VIAL ONE (16:52)
[2016-05-24] MEDS ORDERED: CONRAY 30% 150ML BOTTLE INSTIL ONE (17:11)
--- NOTE | 2016-05-24 17:27 | [facility] Post Operative Brief Note ---
Immediate Operative Summary Operative Date May 24, 2016. Pre-Operative Diagnosis Left ureteral and renal stones Post-Operative Diagnosis Same as preop. Procedure(s) Performed Cystoscopy, Retrograde, Right Ureteroscopy, Laser Lithotripsy, right stent placement ([id number] looped) Surgeon Dr. Jane Processing Clerk Surgeon(s) None Estimated Blood Loss 5 ml Findings Large, soft stone pushed retrograde into the renal pelvis. Smaller stones present in the renal pelvis as well. Some matrix/protein stone around the main stones. All true stones were fragmented completely. Careful exit ureteroscopy without evidence of other ureteral stones. Specimens None. Drains 6F x24cm looped stent Anesthesia Gen Complication(s) None Disposition Recovery Room / PACU (stable)
--- NOTE | 2016-05-24 17:51 | Anesthesiology Progress Note ---
Anesthesia Post Op Note Date & Time May 24, 2016 at 17:50 Vital Signs Vital Signs Past 12 Hours Date Time Temp Pulse Resp B/P Pulse Ox O2 Delivery O2 Flow Rate FiO2 05/24/16 17:45 77 16 98/60 100 Mask 10 05/24/16 17:35 75 16 97/61 100 Mask 10 05/24/16 17:25 38.1 86 16 80/56 100 Mask 10 05/24/16 08:00 Room Air 05/24/16 07:04 36.5 92 18 120/72 92 Room Air Notes Mental Status: alert / awake / arousable, participated in evaluation Pt Amnestic to Procedure: Yes Nausea / Vomiting: adequately controlled Pain: adequately controlled Airway Patency, RR, SpO2: stable & adequate BP & HR: stable & adequate Hydration State: stable & adequate Anesthetic Complications: no major complications apparent
--- NOTE | 2016-05-24 20:26 | OPERATIVE REPORT ---
DATE OF OPERATION: 05/24/2016 PREOPERATIVE DIAGNOSIS: Right renal and ureteral calculi. POSTOPERATIVE DIAGNOSIS: Same. PROCEDURE PERFORMED: Cystoscopy, right ureteroscopy, right laser lithotripsy, right retrograde pyelogram and right ureteral stent placement. ANESTHESIA: General. ESTIMATED BLOOD LOSS: 5 mL. URINE OUTPUT: Not recorded. SPECIMENS: There no specimens. COMPLICATIONS: There are no complications. DRAINS: Includes a 6 Welsh x 24 cm looped stent. DESCRIPTION OF THE PROCEDURE: Mayra Guerra was identified in the preoperative holding area, appropriate informed consents were reviewed and completed and the patient was transported to the operating suite. Upon arrival, she received appropriate preoperative antibiotics in the form of ciprofloxacin. Adequate general anesthesia was achieved and she was placed in dorsal lithotomy position where she was sterilely prepped and draped in standard fashion. I began the case by passing a 22-Welsh cystoscope per urethra. Inspection of the urethra and bladder revealed no evidence of any mucosal abnormalities or other abnormalities. Ureteral orifices were in orthotopic position. I cannulated the right ureteral orifice with a 10-Welsh double-lumen catheter and a sensor wire. The wire was advanced to the kidney without difficulty. Of note, there were 2 moderately dense radiopaque stones in the presumed location of the proximal ureter. I then utilized a second wire via the second port of the 10-Welsh double lumen catheter and I passed this to the kidney as well. After removing the 10-Welsh double lumen catheter, I passed a flexible ureteroscope over one of the wires serving the other safety wire. There was no difficulty in passing the scope and upon encountering the stones, there was no resistance and these stones moved easily back retrograde into the kidney. I then performed a full renoscopy which revealed a very large yellow appearing calculus in the mid renal pelvis as well as a significant amount of what I would call matrix stone or protein debris around the stone. There were 2 several other smaller calculi floating around the kidney in other locations. After performing a full renoscopy, I passed a 400 micron laser fiber and I fragmented all the hard stones into dust. After additionally tried to break up the matrix stone as much as possible before concluding my kidney portion of the case. I performed a repeat renoscopy and saw no other large retained stone before performing a careful exit ureteroscopy which again revealed no ureteral stones and no significant evidence of ureteral trauma. After withdrawing the scope, I performed a retrograde pyelogram confirming dilation of the renal pelvis and proximal ureter and appropriate position of the wire. I placed a 6-Welsh x 24 cm looped stent with a curl seen going into the lower pole of the kidney as well as the loops protruding into the bladder. I emptied her bladder and concluded the case. The patient tolerated the procedure very well and was extubated and taken to the PACU in stable condition. I attest to the content of the Intraoperative Record and any orders documented therein. Any exceptio ns are noted below.
[2016-05-25] MEDS: SODIUM CHLORIDE 0.9% 1000ML 1,000 ML IV SCH (01:40)
[2016-05-25 04:05] VITALS: BP 100/58; PULSE 79; TEMP 36.9; O2SAT 92
[2016-05-25] MEDS ORDERED: SODIUM CHLORIDE 0.9% 1000ML 1,000 ML IV SCH (06:30)
[2016-05-25 06:50] VITALS: BP 90/58; PULSE 73; TEMP 36.8; O2SAT 93
[2016-05-25] MEDS ORDERED: RXC5 PO (07:36)
[2016-05-25] MEDS ORDERED: ONDA4TAB65 PO (07:36)
--- NOTE | 2016-05-25 07:38 | Discharge Instructions ---
Discharge Instructions Admission Reason for Admission: Kidney Stones Discharge Discharge Diagnosis / Problem: right kidney stone, laser destruction of stone, ureteral stent placement Discharge Goals Goal(s): Diagnostic testing, Therapeutic intervention Activity Recommendations Activity Limitations: as noted below Lifting Limitations: gradually increase as tolerated Exercise/Sports Limitations: gradually increase as tolerated . Current Hospital Diet Patient's current hospital diet: Regular Diet Discharge Diet Recommended Diet: Regular Diet Procedures Procedures Performed: Cystoscopy, Retrograde, Right Ureteroscopy, Laser Lithotripsy, right stent placement ([id number] looped) Pending Studies Studies pending at discharge: yes List of pending studies: Urine culture Medical Emergencies . Who to Call and When: Medical Emergencies: If at any time you feel your situation is an emergency, please call 911 immediately. . Non-Emergent Contact Non-Emergency issues call your: Urologist Call Non-Emergent contact if: temperature is above 101, your pain is worsening . . "Provider Documentation" section prepared by kT Billings. VTE Core Measure Inpt VTE Proph given/why not?: SCD's
--- NOTE | 2016-05-25 08:15 | Progress Note ---
Subjective Date of Service: May 25, 2016. (Umm Cassidy CRNP) Subjective Pt evaluation today including: conversation w/ patient, chart review, lab review Voiding: no voiding problems 41 yo female s/p right URS. Pt doing well this morning. Denies pain. Denies n/v. + gross hematuria. Noted to be hypotensive at 90/58. (Umm Cassidy CRNP) Problem List Medical Problems: (1) Renal colic on right side Status: Acute (2) Right lower quadrant abdominal pain Status: Acute (3) UTI (urinary tract infection) Status: Acute (4) UTI (urinary tract infection) Status: Acute (Umm Cassidy CRNP) Review of Systems Constitutional: No chills, No fever Respiratory: No shortness of breath Cardiac: No chest pain Abdomen: No nausea, No pain, No vomiting Female : + hematuria Heme: No abnormal bleeding/bruising (Umm Cassidy CRNP) Objective Vital Signs Date Time Temp Pulse Resp B/P Pulse Ox O2 Delivery O2 Flow Rate FiO2 05/25/16 06:50 36.8 73 18 90/58 93 Room Air 05/25/16 04:05 36.9 79 14 100/58 92 Room Air 05/24/16 23:34 37.4 80 16 99/58 93 Room Air 05/24/16 23:15 Room Air 05/24/16 21:50 37.0 80 16 107/67 91 Room Air 05/24/16 20:38 36.8 85 20 102/64 95 Room Air 05/24/16 19:23 36.9 85 16 97/62 94 Room Air 05/24/16 19:11 37.1 86 16 103/68 94 Room Air 05/24/16 18:16 Room Air 05/24/16 18:02 36.9 05/24/16 17:55 77 16 96/69 94 Room Air 05/24/16 17:45 77 16 98/60 100 Mask 10 05/24/16 17:35 75 16 97/61 100 Mask 10 05/24/16 17:25 38.1 86 16 80/56 100 Mask 10 05/24/16 16:00 95 Room Air (Umm Cassidy CRNP) Physical Exam General Appearance: no apparent distress Eyes: normal inspection ENT: hearing grossly normal Neck: no JVD Respiratory/Chest: no respiratory distress, no accessory muscle use Cardiovascular: no JVD Extremities: normal inspection Neurologic/Psychiatric: alert, normal mood/affect, oriented x 3 Skin: normal color (Umm Cassidy CRNP) Laboratory Results Last 24 Hours Test 05/25/16 07:33 (Umm Cassidy CRNP) Assessment and Plan POD #1 s/p right URS. Pt doing well post-op. Encouraged PO fluids. Management of hypotension per primary service. Pt OK for d/c home from [facility] when OK with primary service. Recommend d /c home on Colace, Pyridium, oral pain medication, and 3 days of Cipro. Can also d/c home with Flomax if hypotension improves. Will arrange for outpatient f/u in 7-[address] Ryan for a cysto, stent removal. Discharge planning: home (Umm Cassidy CRNP) Doing much better this AM. Should be set for d/c home later today - tolerating the stent well so far. (Duong Jane M.D.)
[2016-05-25 08:21] LABS: HEMATOCRIT 36.5 % (37-47); MEAN CELL VOLUME 84.5 fL (80-100); MEAN CORPUSCULAR HEMOGLOBIN 27.8 pg (25-34); MEAN CORPUSCULAR HGB CONC 32.9 g/dl (32-36); MEAN PLATELET VOLUME 11.5 fL (7.4-10.4); PLATELET COUNT 127 K/uL (130-400); RED BLOOD COUNT 4.32 M/uL (4.2-5.4); WHITE BLOOD COUNT 8.34 K/uL (4.8-10.8)
[2016-05-25 08:56] LABS: BUN/CREATININE RATIO 11.3 (10-20); CALCIUM 8.2 mg/dl (8.5-10.1); CREATININE 0.98 mg/dl (0.60-1.20); POTASSIUM 3.8 mmol/L (3.5-5.1)
[2016-05-25 08:58] VITALS: BP 117/74; PULSE 65
[2016-05-25] MEDS: CHECK SCOPOLAMINE PATCH PLACEMENT SCH ×2 (08:59)
--- NOTE | 2016-05-25 10:25 | Anesthesiology Progress Note ---
Anesthesia Post Op Note Date & Time May 25, 2016 at 10:25 Vital Signs Pain Intensity: 4.0 Vital Signs Past 12 Hours Date Time Temp Pulse Resp B/P Pulse Ox O2 Delivery O2 Flow Rate FiO2 05/25/16 08:58 65 117/74 05/25/16 06:50 36.8 73 18 90/58 93 Room Air 05/25/16 04:05 36.9 79 14 100/58 92 Room Air 05/24/16 23:34 37.4 80 16 99/58 93 Room Air 05/24/16 23:15 Room Air Notes Mental Status: alert / awake / arousable, participated in evaluation Pt Amnestic to Procedure: Yes Nausea / Vomiting: adequately controlled Pain: adequately controlled Airway Patency, RR, SpO2: stable & adequate BP & HR: stable & adequate Hydration State: stable & adequate Anesthetic Complications: no major complications apparent
[2016-05-25 11:39] VITALS: BP 117/74; PULSE 65; TEMP 36.8; O2SAT 93
--- NOTE | 2016-05-25 14:58 | Discharge Summary ---
Discharge Summary Admission Date: May 24, 2016 at 00:08 Discharge Date: May 25, 2016 Discharge Disposition: Home Principal Diagnosis: right renal colic Immunizations: Have You Had Influenza Vaccine: Yes History of Tetanus Vaccine?: Yes History of Pneumococcal: No History of Hepatitis B Vaccine: No Medication Reconciliation New Medications: Ondansetron Hcl (Zofran) 4 Mg Tab 4 MG PO PRN PRN for Nausea, #20 TAB may substitute odt if no regular available Oxycodone HCl (Oxycodone HCl) 5 Mg Tab 5-10 MG PO Q6H PRN for Pain, #20 Continued Medications: Allopurinol (Zyloprim) 100 Mg Tab 100 MG PO DAILY, TAB Chlorthalidone (Hygroton) 25 Mg Tab 25 MG PO QAM, TAB Epinephrine (Epipen) 0.3 Mg/0.3 Ml Inj 0.3 MG IM UD PRN for ALLERGIC REACTION Discharge Exam Review of Systems: Constitutional: No chills, No fever Respiratory: No cough, No sputum Cardiovascular: No PND, No chest pain, No orthopnea Abdomen: No nausea, No pain Musculoskeletal: No joint pain, No muscle pain Genitourinary - Female: + hematuria, + urinary frequency, No dysuria Physical Exam: General Appearance: WD/WN, + mild distress ENT: normal ENT inspection, pharynx normal Neck: supple, no JVD Respiratory/Chest: chest non-tender, lungs clear, normal breath sounds Cardiovascular: regular rate, rhythm, no murmur Abdomen / GI: normal bowel sounds, non tender, soft Extremities: no pedal edema, normal range of motion Hospital Course 41 yo F with known nephrolithiasis, with intractable pain from a large R sided kidney stone. Kidney stone with hydronephrosis: cystoscopy by Dr Jane, stone destruction with laser, stent placed, Tamsulosin. parenteral pain/nausea control culture pending at time of discharge, given rx of oxycodone and zofran Hypertension: Hold chlorthalidone; prn hydralazine Gout: allopurinol Total Time Spent: Greater than 30 minutes This includes examination of the patient, discharge planning, medication reconciliation, and communication with other providers. Discharge Instructions Please refer to the electronic Patient Visit Report (Discharge Instructions) for additional information.
== END 2016-05-25 12:00 | disposition home or self-care (01) | DRG 694 ==
LOC: ENRESERVDT → ENRESERVTM → C.EDB 21:47 → C.MSW 05-24 00:08
PROVIDERS: ADMIT Hospitalist; ATTEND Internal Medicine
PROC: 0T768DZ Dilation of Right Ureter with Intraluminal Device, Via Natural or Artificial Opening Endoscopic (ICD-10-PCS; principal; 2016-05-24 16:15)
PROC: BT1D0ZZ Fluoroscopy of Right Kidney, Ureter and Bladder using High Osmolar Contrast (ICD-10-PCS; principal; 2016-05-24 16:15)
PROC: 0TF38ZZ Fragmentation in Right Kidney Pelvis, Via Natural or Artificial Opening Endoscopic (ICD-10-PCS; principal; 2016-05-24 16:15)
DX: N13.2 Hydronephrosis with renal and ureteral calculous obstruction (principal); I10 Essential (primary) hypertension; M10.9 Gout, unspecified; Z87.442 Personal history of urinary calculi; Z79.899 Other long term (current) drug therapy

== ENCOUNTER → 2016-06-10 | Outpatient (CLI) | payer OTHER ==
[~2016-06-10] MED LIST changes: -CIPR-255 PO; -FLM4 PO; +RXC5 PO
== END | disposition home or self-care (01) ==
LOC: C.LABSPEC 15:01
PROVIDERS: ATTEND Urology
DX: N20.1 Calculus of ureter (principal); N20.0 Calculus of kidney; N39.0 Urinary tract infection, site not specified

== ENCOUNTER → 2016-06-10 | Outpatient (CLI) | payer OTHER ==
--- NOTE | 2016-06-10 11:23 | DIAGNOSTIC IMAGING REPORT ---
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 Fragmentation of the large calcification previously described in the right paravertebral line. Several poorly defined calcifications adjacent to the distal aspect of the right ureteral stent. Multiple bilateral nonobstructing renal calcifications bilaterally. IMPRESSION: 1. Interval placement of a right ureteral stent. 2. Large calcification previous described medial to the right kidney has been fragmented with several closely aligned residual fragments within the distal right ureter Electronically signed by: Vickey Sutton M.D. 06/10/2016 11:21 AM Dictated Date/Time: 06/10/2016 11:20 AM
== END | disposition home or self-care (01) ==
LOC: C.RAD 10:52
PROVIDERS: ATTEND Nurse Practitioner Adult Health
DX: N20.0 Calculus of kidney (principal)

== ENCOUNTER → 2016-08-03 | Outpatient (CLI) | payer OTHER ==
[~2016-08-03] MED LIST changes: +OPTIRAY 300 IV PRN
[2016-08-03 10:10] LABS: BLOOD UREA NITROGEN 17 mg/dl (7-18); BUN/CREATININE RATIO 19.4 (10-20); CREATININE 0.88 mg/dl (0.60-1.20)
--- NOTE | 2016-08-03 14:49 | DIAGNOSTIC IMAGING REPORT ---
IVP W/OR W/O TOMOGRAMS CLINICAL HISTORY: Nephrolithiasis. COMPARISON STUDY: KUB 06/10/2016. FINDINGS: Icu Specialist images demonstrate extensive bilateral nephrolithiasis. Dominant stone within the right kidney measures 6 mm. No ureteral or bladder calculi identified. Following the intravenous administration of contrast there is prompt and symmetric perfusion of the kidneys. The kidneys are normal in size. No hydronephrosis. No suspicious filling defects seen within the bilateral renal collecting systems, ureters, or bladder. No significant post void residual. IMPRESSION: Extensive bilateral nephrolithiasis consistent with medullary nephrocalcinosis. No ureteral stones or hydronephrosis. Electronically signed by: Alex Valenzuela M.D. 08/03/2016 2:47 PM Dictated Date/Time: 08/03/2016 2:45 PM
== END | disposition home or self-care (01) ==
LOC: C.RAD 07:18
PROVIDERS: ATTEND Urology
DX: Z00.00 Encounter for general adult medical examination without abnormal findings (principal); N20.0 Calculus of kidney

== ENCOUNTER → 2017-01-26 | Outpatient (CLI) | payer OTHER ==
[~2017-01-26] MED LIST changes: -OPTIRAY 300 IV PRN
--- NOTE | 2017-01-26 13:53 | DIAGNOSTIC IMAGING REPORT ---
KUB CLINICAL HISTORY: N20.0 LEFT URETERAL CALCULUS COMPARISON STUDY: IVP dated 08/03/2016 FINDINGS: There are innumerable bilateral renal calculi. There are 2 new tangential pelvic basin calcifications on the left, each of which measuring 3 mm. The findings are viewed as suspicious for distal left ureteral calculi. There is no pathologic bowel dilatation. IMPRESSION: 1. Extensive bilateral nephrolithiasis 2. 2 new tangential left pelvic basin calcifications, each of which measures 3 mm. The findings are viewed as suspicious for distal left ureteral calculi Electronically signed by: Jairo Dao M.D. 01/26/2017 1:52 PM Dictated Date/Time: 01/26/2017 1:48 PM
== END | disposition home or self-care (01) ==
LOC: C.LAB 13:07
PROVIDERS: ATTEND Urology
DX: N20.0 Calculus of kidney (principal); N28.89 Other specified disorders of kidney and ureter

== ENCOUNTER → 2017-06-27 | Outpatient (CLI) | payer OTHER ==
[2017-06-27 12:12] LABS: BASO % 0.3 %; BASO ABS # 0.02 K/uL (0-0.2); EOS ABS # 0.28 K/uL (0-0.5); HEMATOCRIT 42.3 % (37-47); HEMOGLOBIN 14.5 g/dL (12.0-16.0); IG# 0.01 K/uL (0.00-0.02); LYMPH % 23.4 %; LYMPH ABS # 1.63 K/uL (1.2-3.4); MEAN CELL VOLUME 84.4 fL (80-100); MEAN CORPUSCULAR HEMOGLOBIN 28.9 pg (25-34); MEAN CORPUSCULAR HGB CONC 34.3 g/dl (32-36); MONO % 7.4 %; MONO ABS # 0.52 K/uL (0.11-0.59); NEUT % 64.8 %; NEUT ABS # 4.52 K/uL (1.4-6.5); PLATELET COUNT 188 K/uL (130-400); RED CELL DISTRIBUTION WIDTH CV 13.5 % (11.5-14.5); RED CELL DISTRIBUTION WIDTH SD 41.4 fL (36.4-46.3); WHITE BLOOD COUNT 6.98 K/uL (4.8-10.8)
[2017-06-27 12:29] LABS: ALBUMIN 3.8 gm/dl (3.4-5.0); ALT/SGPT 40 U/L (12-78); AST/SGOT 21 U/L (15-37); BLOOD UREA NITROGEN 14 mg/dl (7-18); CALCIUM 9.1 mg/dl (8.5-10.1); CARBON DIOXIDE 26 mmol/L (21-32); CHOLESTEROL 185 mg/dl (0-200); GLUCOSE 89 mg/dl (70-99); POTASSIUM 4.1 mmol/L (3.5-5.1); SODIUM 138 mmol/L (136-145)
[2017-06-27 12:39] LABS: ALKALINE PHOSPHATASE 90 U/L (45-117); LDL CHOLESTEROL (DIRECT) 112 mg/dl; TOTAL PROTEIN 7.2 gm/dl (6.4-8.2)
== END | disposition home or self-care (01) ==
LOC: C.LAB 10:09
PROVIDERS: ATTEND Physician Assistant Medical
DX: Z00.00 Encounter for general adult medical examination without abnormal findings (principal)

== ENCOUNTER → 2017-07-06 | Outpatient (CLI) | payer OTHER | END | disposition home or self-care (01) | LOC: C.LAB 12:50 | PROVIDERS: ATTEND Physician Assistant Medical | DX: Z11.59 Encounter for screening for other viral diseases (principal) ==

== ENCOUNTER 2017-08-13 22:24 | Emergency (ER) | payer OTHER ==
[~2017-08-13] VITALS: Ht 162.6 cm; Wt 86.5 kg
[2017-08-13 22:26] VITALS: TEMP 36.7; Ht 162.6 cm; Wt 86.5 kg
[2017-08-13] MEDS ORDERED: KETOROLAC TROMETHAMINE 30 MG/ML VIAL IV STA (22:36)
[2017-08-13] MEDS ORDERED: MoRPHine SULFATE 4 MG/ML 1 ML CARP\\VIAL IV STA (22:36)
[2017-08-13] MEDS ORDERED: ONDANSETRON INJ 2 MG/ML 2 ML VIAL IV STA (22:36)
[2017-08-13] MEDS ORDERED: ONDANSETRON HOME PACK 4MG OD TAB PO ONE (22:45)
[2017-08-13 23:00] LABS: BASO % 0.4 %; BASO ABS # 0.03 K/uL (0-0.2); EOS % 5.2 %; EOS ABS # 0.43 K/uL (0-0.5); HEMATOCRIT 41.8 % (37-47); HEMOGLOBIN 14.1 g/dL (12.0-16.0); IG# 0.02 K/uL (0.00-0.02); LYMPH % 26.6 %; LYMPH ABS # 2.19 K/uL (1.2-3.4); MEAN CELL VOLUME 83.6 fL (80-100); MEAN CORPUSCULAR HEMOGLOBIN 28.2 pg (25-34); MEAN CORPUSCULAR HGB CONC 33.7 g/dl (32-36); MONO % 6.9 %; MONO ABS # 0.57 K/uL (0.11-0.59); NEUT % 60.7 %; PLATELET COUNT 180 K/uL (130-400); RED CELL DISTRIBUTION WIDTH CV 13.5 % (11.5-14.5); RED CELL DISTRIBUTION WIDTH SD 40.8 fL (36.4-46.3); WHITE BLOOD COUNT 8.24 K/uL (4.8-10.8)
[2017-08-13 23:16] LABS: CALCIUM 8.6 mg/dl (8.5-10.1); POTASSIUM 3.7 mmol/L (3.5-5.1)
[2017-08-14] MEDS ORDERED: ONDA4TAB10 SL (00:28)
[2017-08-14] MEDS ORDERED: OXYC1TAB3 PO ×2 (00:28→10:39)
[2017-08-14] MEDS ORDERED: ONDANSETRON HOME PACK 4MG OD TAB PO ONE (00:30)
[2017-08-14] MEDS ORDERED: OXYCODONE IR HOME PACK PO ONE (00:30)
[2017-08-14 00:52] VITALS: BP 132/85; PULSE 66; O2SAT 99
--- NOTE | 2017-08-14 04:54 | EMERGENCY ROOM VISIT NOTE ---
History First contact with patient: 22:31 Chief Complaint: KIDNEY STONE Stated Complaint: KIDNEY STONES R SIDE History of Present Illness The patient is a 42 year old female who presents to the Emergency Room with complaints of sudden onset of right flank pain described as aching, ranging severity 8 out of 10. Nothing makes it better or worse. It occasionally radiates to her groin. She has a history of kidney stones and sees Dr. Ryan. She has had lithotripsy and stents before. She tried OxyIR with minimal relief of symptoms. Patient denies chest pain, dyspnea, fever, chills, diarrhea , dysuria, urinary frequency or urgency, vaginal itching or discharge, abdominal pain. Review of Systems An 10 system review of systems was completed with positives and pertinent negatives listed in the HPI. Past Medical/Surgical History Medical Problems: (1) Employee exposure to body fluids (2) Exposure to blood or body fluid (3) Hydroureter on right (4) Kidney stone (5) Right distal ureteral calculus Family History No pertinent family history Social History Smoking Status: Never Smoker Drug Use: none Marital Status: Housing Status: lives with family Occupation Status: employed Current/Historical Medications Scheduled Allopurinol (Zyloprim), 100 MG PO DAILY Chlorthalidone (Hygroton), 25 MG PO QAM Ondasetron Odt (Zofran Odt), 4 MG SL Q6H Scheduled PRN Epinephrine (Epipen), 0.3 MG IM UD PRN for ALLERGIC REACTION Oxycodone Immediate Rel Tab (Roxicodone Ir), 1-2 TAB PO Q4H PRN for Severe Pain Physical Exam Vital Signs Date Time Temp Pulse Resp B/P (MAP) Pulse Ox O2 Delivery O2 Flow Rate FiO2 08/14/17 00:52 66 20 132/85 99 Room Air 08/13/17 22:26 36.7 68 20 137/89 99 Room Air Physical Exam VITALS: Vitals are noted on the nurse's note and reviewed by myself. Vital signs stable. GENERAL: Pleasant female who appears in pain, in no acute distress, nondiaphoretic, well-developed well-nourished. SKIN: Capillary reflex less than 2 seconds. HEENT: Normocephalic. PERRLA. EOMI. Nares patent. Mucous membranes moist. Neck is supple without nuchal rigidity. HEART: Regular rate and rhythm without murmurs gallops or rubs. LUNGS: Clear to auscultation bilaterally without wheezes, rales or rhonchi. No retractions or accessory muscle use. ABDOMEN: Positive bowel sounds x 4. Normal tympanic percussion. Soft, nontender, without masses or organomegaly. Hdez sign negative. No guarding or rebound tenderness. No CVA tenderness MUSCULOSKELETAL: No gross musculoskeletal defects. No pedal edema. No calf tenderness. NEURO: Patient was alert and oriented to person place and time. Normal sensation to light and sharp touch. No focal neurological deficits. Medical Decision & Procedures Laboratory Results 08/13/17 22:45 Red Blood Count 5.00, Mean Corpuscular Volume 83.6, Mean Corpuscular Hemoglobin 28.2, Mean Corpuscular Hemoglobin Concent 33.7, Mean Platelet Volume 11.0, Neutrophils (%) (Auto) 60.7, Lymphocytes (%) (Auto) 26.6, Monocytes (%) (Auto) 6.9, Eosinophils (%) (Auto) 5.2, Basophils (%) (Auto) 0.4, Neutrophils # (Auto) 5.00, Lymphocytes # (Auto) 2.19, Monocytes # (Auto) 0.57, Eosinophils # (Auto) 0.43, Basophils # (Auto) 0.03 08/13/17 22:45 Test 08/13/17 22:36 08/13/17 22:40 08/13/17 22:45 Urine Test NEG (NEG) Urine Color YELLOW Urine Appearance CLEAR (CLEAR) Urine pH 6.0 (4.5-7.5) Urine Specific [place] 1.017 (1.000-1.030) Urine Protein NEG (NEG) Urine Glucose (UA) NEG (NEG) Urine Ketones NEG (NEG) Urine Occult Blood NEG (NEG) Urine Nitrite POS (NEG) Urine Bilirubin NEG (NEG) Urine Urobilinogen NEG (NEG) Urine Leukocyte Esterase SMALL (NEG) Urine WBC (Auto) 10-30 /hpf (0-5) Urine RBC (Auto) 0-4 /hpf (0-4) Urine Hyaline Casts (Auto) 1-5 /lpf (0-5) Urine Epithelial Cells (Auto) 20-30 /lpf (0-5) Urine Bacteria (Auto) NEG (NEG) White Blood Count 8.24 K/uL (4.8-10.8) Red Blood Count 5.00 M/uL (4.2-5.4) Hemoglobin 14.1 g/dL (12.0-16.0) Hematocrit 41.8 % (37-47) Mean Corpuscular Volume 83.6 fL (80-100) Mean Corpuscular Hemoglobin 28.2 pg (25-34) Mean Corpuscular Hemoglobin Concent 33.7 g/dl (32-36) Platelet Count 180 K/uL (130-400) Mean Platelet Volume 11.0 fL (7.4-10.4) Neutrophils (%) (Auto) 60.7 % Lymphocytes (%) (Auto) 26.6 % Monocytes (%) (Auto) 6.9 % Eosinophils (%) (Auto) 5.2 % Basophils (%) (Auto) 0.4 % Neutrophils # (Auto) 5.00 K/uL (1.4-6.5) Lymphocytes # (Auto) 2.19 K/uL (1.2-3.4) Monocytes # (Auto) 0.57 K/uL (0.11-0.59) Eosinophils # (Auto) 0.43 K/uL (0-0.5) Basophils # (Auto) 0.03 K/uL (0-0.2) RDW Standard Deviation 40.8 fL (36.4-46.3) RDW Coefficient of Variation 13.5 % (11.5-14.5) Immature Granulocyte % (Auto) 0.2 % Immature Granulocyte # (Auto) 0.02 K/uL (0.00-0.02) Anion Gap 4.0 mmol/L (3-11) Est Creatinine Clear Calc Drug Dose 76.4 ml/min Estimated GFR () 79.4 Estimated GFR (Non- 68.5 BUN/Creatinine Ratio 14.2 (10-20) Calcium Level 8.6 mg/dl (8.5-10.1) Medications Administered Medications (Trade) Dose Ordered Sig/[place] Route Start Time Stop Time Status Last Admin Dose Admin Ketorolac Tromethamine (Toradol Inj) 10 mg NOW STAT IV 08/13/17 22:36 08/13/17 22:39 DC 08/13/17 22:57 10 MG Morphine Sulfate (MoRPHine SULFATE INJ) 4 mg NOW STAT IV 08/13/17 22:36 08/13/17 22:39 DC 08/13/17 22:59 4 MG Ondansetron HCl (Zofran Inj) 4 mg NOW STAT IV 08/13/17 22:36 08/13/17 22:39 DC 08/13/17 22:55 4 MG Ondansetron HCl (ZOFRAN ODT 4MG Home Pack) 1 homepack UD ONCE PO 08/13/17 22:45 08/13/17 22:46 DC 08/14/17 00:45 1 HOMEPACK Oxycodone HCl (Roxicodone Immediate Rel 5MG Home Pack) 1 homepack UD ONCE PO 08/14/17 00:30 08/14/17 00:31 DC 08/14/17 00:45 1 HOMEPACK ED Course Prior records/ancillary studies reviewed. Triage Nursing notes reviewed. The patient's history was concerning for right flank pain. Differential diagnosis: Etiologies such as renal colic, appendicitis, diverticulitis, mesenteric ischemia, aortic pathology, infections, inflammatory bowel disease, PUD, biliary pathology, UTI, as well as others were entertained. Physical examination findings: As above. ER treatment provided: Toradol, morphine, Zofran, home back OxyIR and Zofran On reassessment the patient felt better. Diagnostic interpretation by me: The labs revealed stable H&H. Urinalysis revealed no signs of infection. Imaging studies: Ultrasound concerning for right hydronephrosis per stat radiology It appears that the patient has isolated renal colic from a right sided stone. Patient's pain was under control. She is a long-standing history of stones. She follows with Dr. Ryan. She is advised to follow-up with him this week and take medications as directed. She is advised to continue to strain her urine. She is advised to return to the ER immediately for severe pain, fevers, vomiting, worsening signs or symptoms or as needed. By the evaluation outlined above emergent etiologies such as appendicitis, diverticulitis, mesenteric ischemia, aortic pathology, infections, inflammatory bowel disease, PUD, biliary pathology, UTI, as well as others were deemed relatively unlikely. The pt informed about the findings as listed above. All questions were answered and pleased with the treatment. Return instructions were outlined and the patient was discharged in stable condition. Outpatient prescription management: Oxy IR 5mg 1-2 po Q4 hrs prn Zofran Referral: The pt was referred to [facility] for follow up care regarding their stone. or The patient was referred back to their primary care physician for follow-up in 2 to 3 days for a recheck of the current condition. Case reviewed with my attending The chart was completed utilizing [employer] Speech voice recognition software. Grammatical errors, random word insertions, pronoun errors, and incomplete sentences are an occassional consequence of this system due to software limitations, ambient noise, and hardware issues. Any formal questions or concerns about the content, text, or information contained within the body of this dictation should be directly addressed to the physician credit assistant for clarification. Medical Decision As above [place] Drug Monitoring Program Search Results: patient reviewed within database, no issues identified Medication Reconcilliation Current Medication List: was personally reviewed by me Blood Pressure Screening Patient's blood pressure: Normal blood pressure Impression Primary Impression: Renal colic on right side Additional Impression: Hydroureter on right Departure Information Dispostion Home / Self-Care Condition GOOD Prescriptions Oxycodone Immediate Rel Tab (ROXICODONE IR) 5 Mg Tab 1-2 TAB PO Q4H Y for Severe Pain, #24 TAB initial course Prov: Mayra Riojas .APARNA 08/14/17 Ondasetron Odt (ZOFRAN ODT) 4 Mg Tab 4 MG SL Q6H, #10 TAB Prov: Mayra Riojas .APARNA 08/14/17 Forms HOME CARE DOCUMENTATION FORM, IMPORTANT VISIT INFORMATION Patient Instructions Kidney Stones - [facility], My [facility] Additional Instructions DO NOT drive, drink alcohol, operate machinery, or perform dangerous activities today. You were given medications in the ER that can affect your ability to safely function or operate a vehicle. Oxycodone Immediate Release (OxyIR) 5mg: Take 1-2 pills every four hours for pain. Avoid alcohol, operating machinery or dangerous equipment, working on ladders or roofs, DRIVING, or situations where being under the influence may be dangerous. It is recommended to use an [id number] stool softener such as Colace, 100mg twice daily while taking this medication to avoid constipation. Zofran 4 mg: Take one every six hours as needed for nausea. Avoid alcohol, operating machinery or dangerous equipment, working on ladders or roofs, DRIVING , or situations where being under the influence may be dangerous. Ibuprofen(Motrin, Advil) may be used for fever or pain. Use 600mg every six hours as needed. Take with food. Avoid using more than 2400mg in a 24 hour period. Do not use 2400mg per day for more than three consecutive days without physician direction. Prolonged inappropriate use can lead to stomach upset or ulcers. This medication can be taken if you need to drive, work, or perform activities which may be dangerous when taking narcotic pain medication. (AND/OR) Acetaminophen(Tylenol) may be used for fever or pain. Use 1000mg every six hours as needed. Avoid using more than 3000mg in a 24 hour period. This medication can be taken if you need to drive, work, or perform activities which may be dangerous when taking narcotic pain medication. Strain your urine and collect all the stones or debris for the urologists. Rest and avoid strenuous activity until your stone passes and symptoms resolve. Drink plenty of fluids. Continue current medications. Return to the ER for worsening abdominal or back pain, vomiting, fevers, passing out, or as needed. Follow up with your urology in 2-3 days, call for an appointment. Problem Qualifiers
--- NOTE | 2017-08-14 07:29 | DIAGNOSTIC IMAGING REPORT ---
RENAL ULTRASOUND HISTORY: right flank pain COMPARISON: KUB 01/26/2017. Renal ultrasound 05/23/2016. FINDINGS: Right kidney: 10.7 cm. Multiple small stones consistent with medullary nephrocalcinosis. Trace perinephric fluid. Moderate cortical renal thinning. Moderate hydronephrosis. Left kidney: 11.6 cm. No hydronephrosis. Multiple small stones consistent with medullary nephrocalcinosis. Moderate cortical thinning. Bladder: Not well visualized due to decompression. Miscellaneous: The spleen measures 13.5 cm in length. IMPRESSION: 1. Moderate right hydronephrosis. 2. Medullary nephrocalcinosis demonstrated by multiple bilateral renal calculi. 3. Splenomegaly. Electronically signed by: lAex Valenzuela M.D. 08/14/2017 7:28 AM Dictated Date/Time: 08/14/2017 7:19 AM
[2017-08-14] MEDS ORDERED: CIPR-255 PO (10:39)
[2017-08-14] MEDS ORDERED: TAMS0.4C38 PO (10:39)
[2017-08-14] MEDS ORDERED: PHEN-775 PO (10:39)
[2017-08-14] MEDS ORDERED: KETO10TA PO (10:39)
[2017-08-16] MEDS ORDERED: OXYC1TAB3 PO (14:50)
[2017-08-16] MEDS ORDERED: ALLO100T PO (14:50)
[2017-08-16] MEDS ORDERED: EPP3/2 IM (14:50)
[2017-08-16] MEDS ORDERED: ONDA4TAB46 PO (14:50)
[2017-08-16] MEDS ORDERED: HYG25 PO (14:50)
== END 2017-08-14 00:55 | disposition home or self-care (01) ==
LOC: C.EDB 22:25 → C.EDC 08-14 00:55
DX: N20.0 Calculus of kidney (principal); Z87.442 Personal history of urinary calculi

== ENCOUNTER → 2017-08-14 | Day surgery (SDC) | payer OTHER ==
[~2017-08-14] VITALS: Ht 162.6 cm; Wt 85.0 kg
[~2017-08-14] MED LIST changes: +ATROPINE SULFATE 0.1 MG/ML 5ML SYR IV PRN; +CIPR-255 PO; +CIPROFLOXACIN 400MG / 200ML D5W IV ONE; +Cysto-Conray II 17.2% 250ML BOTTLE ONE; +DEXAMETHASONE SOD INJ 4 MG/ML VIAL ONE; +EpHEDrine SULFATE INJ 50 MG/ML AMP IV PRN; +FENTANYL CITRATE INJ 50 MCG/1 ML 2 ML VIAL IV PRN; +FENTANYL CITRATE INJ 50 MCG/1 ML 2 ML VIAL ONE; +HYG25 PO; +KETO10TA PO; +LIDOCAINE HCL 2% 2 ML VIAL (20MG/ML) ONE; +METOCLOPRAMIDE HCL INJ 5 MG/ML 2 ML VIAL ONE; +MIDAZOLAM HCL 1 MG/ML 2ML VIAL ONE; +NURSING VERBAL MED ORDER ONE; +ONDA4TAB10 SL; +ONDA4TAB46 PO; +ONDANSETRON INJ 2 MG/ML 2 ML VIAL IV PRN; +ONDANSETRON INJ 2 MG/ML 2 ML VIAL ONE; +OXYC1TAB3 PO; +OXYCODONE/ACETAMINOPHEN 7.5-325 TAB PO PRN; +PHEN-775 PO; +PROPOFOL IV EMULSION 10 MG/ML 20 ML VIAL IV ONE; +RANITIDINE HCL 25 MG/ML INJ ONE; -RXC5 PO; +SCOPOLAMINE 1.5 MG TDSY TD ONE; +TAMS0.4C38 PO
[2017-08-14 10:36] VITALS: BP 116/65; PULSE 82; TEMP 36.5; Ht 162.6 cm; Wt 85.0 kg
--- NOTE | 2017-08-14 11:05 | History and Physical ---
History Date of Service: Aug 14, 2017. Chief Complaint: right flank pain Primary Care Physician: No Doctor, Assigned Pt seen a urologist before?: Yes (Dr. James Ryan) If yes, why?: nephrolithiais History of Present Illness 42 yo female with extenstive hx of nephrolithiasis presents with c/o right flank pain and n/v that started last evening. KUB this morning showing a 1cm proximal right ureteral stone. She has a hx of stones requiring multiple procedures for ESWL, URS, and stent placement in the past. She denies any dysuria, hematuria, or fevers today. Imaging KUB Laboratory Labs were reviewed and are within normal limits unless listed below. Labs are available in the chart and at [facility] Problem List Medical Problems: (1) Renal colic on right side Status: Acute (2) Renal colic on right side Status: Acute (3) Right lower quadrant abdominal pain Status: Acute (4) UTI (urinary tract infection) Status: Acute (5) UTI (urinary tract infection) Status: Acute Past History Past Medical History: GERD, kidney stones, urinary tract infection, other ( gastric ulcer) Pt had a problem w anesthesia?: No Past Surgical History: lithotripsy, tubal ligation, ureteral stent Family History No pertinent family history Social History Hx Tobacco Use In Past Year?: No Smoking: non-smoker Alcohol: never Drug use: none Marital status: Housing status: lives with family Occupation status: employed Immunizations History of Influenza Vaccine: Yes History of Tetanus Vaccine?: Yes History of Pneumococcal: No History of Hepatitis B Vaccine: No History of MDRO No Allergies Coded Allergies: NUTS (Verified Allergy, Severe, ANAPHYLAXIS, 08/13/17) Cat Dander (Verified Allergy, Unknown, CAT/DOG-ITCHY EYES RUNNY NOSE, 08/13) NO KNOWN DRUG ALLERGIES (Verified Allergy, Unknown, NONE, 08/13/17) Medications Home Medications: Home Meds and Scripts Medications Dose Route/Sig Max Daily Dose Days Date Category Dose Instructions Toradol (Ketorolac Tromethamine) 10 Mg Tab 10 Mg PO Q6 08/14/17 Rx Pyridium (Phenazopyridine Hcl) 200 Mg Tab 200 Mg PO TID 08/14/17 Rx Flomax (Tamsulosin Hcl) 0.4 Mg Cap 0.4 Mg PO DAILY 08/14/17 Rx Cipro (Ciprofloxacin Hcl) 500 Mg Tab 500 Mg PO BID 08/14/17 Rx Roxicodone Ir (Oxycodone HCl) 5 Mg Tab 1-2 Tab PO Q4H PRN 4 08/14/17 Rx initial course Zofran Odt (Ondansetron HCl) 4 Mg Tab 4 Mg SL Q6H 08/14/17 Rx Epipen (Epinephrine) 0.3 Mg/0.3 Ml Inj 0.3 Mg IM UD PRN 12/25/14 Reported Hygroton (Chlorthalidone) 25 Mg Tab 25 Mg PO QAM 12/25/14 Reported Zyloprim (Allopurinol) 100 Mg Tab 100 Mg PO DAILY 12/25/14 Reported Review of Systems Review of Systems Constitutional: No fever, No chills Eyes: No blurred vision, No double vision Neurological: No dizzy Endocrine: No excessive thirst Gastrointestinal: + abdominal pain, + nausea, + vomiting Cardiovascular: No chest pain Respiratory: No shortness of breath Skin: No rash Musculoskeletal: + back pain (right back ) Female : + kidney stones, No painful urination, No blood in urine Physical Exam Physical Exam: General Appearance: no apparent distress Eyes: bilateral eyes normal inspection ENT: hearing grossly normal Neck: supple, no JVD Respiratory/Chest: lungs clear, normal breath sounds, no respiratory distress, no accessory muscle use Cardiovascular: regular rate, rhythm, no JVD Extremities: normal inspection Neurologic/Psychiatric: alert, normal mood/affect, oriented x 3 Skin: normal color Assessment & Plan Assessment & Plan Treatment Planned: cystoscopy w/ stent A/P: 1cm proximal right ureteral stone Will plan to proceed to the OR for a cysto with right ureteral stent placement. Risks and benefits of the procedure discussed with the pt. All questions answered. Pt agrees to the procedure at this time. Will order Cipro pre-op. She will be discharged home today. Plan for outpatient ESWL this Monday on 08-18.
[2017-08-14] MEDS: KETOROLAC TROMETHAMINE 30 MG/ML VIAL ONE ×2 (11:32→11:35)
--- NOTE | 2017-08-14 11:33 | Medical Student: [facility] ---
Med Student History & Physical Date & Time of Service: Aug 14, 2017 at 11:08 Chief Complaint: Kidney Stones Primary Care Physician: No Doctor, Assigned History of Present Illness Source: patient, clinic records, hospital records Ms. Guerra is a 42yo female with a hx of medullary sponge kidney, nephrolithiasis requiring bilateral stent placement, ESWL and URS in the past. She developed right flank pain last evening approximately 8pm, chills/nausea/ vomitting. KUB reveals 1cm obstructing proximal ureteral stone. 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 [employer] Smoking Status: Never Smoker Drug Use: none Marital Status: Housing status: lives with family Occupational Status: employed Immunizations History of Influenza Vaccine: Yes History of Tetanus Vaccine?: Yes History of Pneumococcal: No History of Hepatitis B Vaccine: No Allergies Coded Allergies: NUTS (Verified Allergy, Severe, ANAPHYLAXIS, 08/13/17) Cat Dander (Verified Allergy, Unknown, CAT/DOG-ITCHY EYES RUNNY NOSE, 08/13) NO KNOWN DRUG ALLERGIES (Verified Allergy, Unknown, NONE, 08/13/17) Medications Allopurinol (Zyloprim), 100 MG PO DAILY Chlorthalidone (Hygroton), 25 MG PO QAM Ciprofloxacin Hcl (Cipro), 500 MG PO BID Epinephrine (Epipen), 0.3 MG IM UD PRN for ALLERGIC REACTION Ketorolac Tromethamine (Toradol), 10 MG PO Q6 Ondasetron Odt (Zofran Odt), 4 MG SL Q6H Oxycodone Immediate Rel Tab (Roxicodone Ir), 1-2 TAB PO Q4H PRN for Severe Pain Phenazopyridine Hcl (Pyridium), 200 MG PO TID Tamsulosin Hcl (Flomax), 0.4 MG PO DAILY Review of Systems Constitutional: + chills, No fever, No sweats Respiratory: No shortness of breath Cardiovascular: No chest pain Abdomen: + nausea, + vomiting, No pain, No diarrhea, No constipation Genitourinary - Female: No dysuria, No urinary frequency, No urinary urgency, No hematuria Endocrine: No fatigue Allergic / Immunologic: + food allergies (nuts) Physical Exam Vital Signs (24 Hours) Date Time Temp Pulse Resp B/P (MAP) Pulse Ox O2 Delivery O2 Flow Rate FiO2 08/14/17 10:36 36.5 82 20 116/65 (82) Room Air General Appearance: WD/WN, + mild distress (renal colic ) ENT: hearing grossly normal Neck: no JVD Respiratory/Chest: chest non-tender, lungs clear, normal breath sounds, no respiratory distress Cardiovascular: regular rate, rhythm, no murmur Abdomen/GI: non tender, soft Back: + pertinent finding (right flank pain ) Neurologic/Psych: alert, normal mood/affect, oriented x 3 Skin: normal color, warm/dry, no rash Lymphatic: no adenopathy Diagnostics Diagnostic Radiology CXR and EKG not needed per anesthesia, Elmer Petersen CRNA Impression Assessment and Plan A/P: 1 cm right proximal ureteral stone Plan: Cystoscopy with right retrograde, ureteral stent placement - EKG and CXR not needed per anesthesia - Cipro IV to be given preoperatively Plan for ESWL on Monday08/18/17
--- NOTE | 2017-08-14 12:31 | DIAGNOSTIC IMAGING REPORT ---
RETROGRADE INCLUDES KUB CLINICAL HISTORY: RT CYSTO/LASER/STENT stent placement TECHNIQUE: Image intensifier COMPARISON STUDY: None FINDINGS: Image intensifier was utilized for retrograde placement of a right ureteral stent. Stent is in good position on the final 2 images. IMPRESSION: Successful right ureteral stent placement. The above report was generated using voice recognition software. It may contain grammatical, syntax or spelling errors. Electronically signed by: Vickey Sutton M.D. 08/14/2017 12:30 PM Dictated Date/Time: 08/14/2017 12:28 PM
[2017-08-14 13:15] VITALS: BP 111/59; PULSE 69; TEMP 37; O2SAT 96
--- NOTE | 2017-08-14 13:29 | Anesthesiology Progress Note ---
Anesthesia Post Op Note Date & Time Aug 14, 2017 at 13:29 Vital Signs Pain Intensity: 0 Vital Signs Past 12 Hours Date Time Temp Pulse Resp B/P (MAP) Pulse Ox O2 Delivery O2 Flow Rate FiO2 08/14/17 13:00 37.1 74 16 107/70 96 Room Air 08/14/17 12:50 68 14 110/71 98 Room Air 08/14/17 12:40 71 15 106/59 100 Oxymask 10 08/14/17 12:30 75 15 95/65 (75) 100 Oxymask 10 08/14/17 12:23 37.0 78 16 95/64 (75) 95 Oxymask 10 08/14/17 10:36 36.5 82 20 116/65 (82) Room Air Notes Mental Status: alert / awake / arousable, participated in evaluation Pt Amnestic to Procedure: Yes Nausea / Vomiting: adequately controlled Pain: adequately controlled Airway Patency, RR, SpO2: stable & adequate BP & HR: stable & adequate Hydration State: stable & adequate Anesthetic Complications: no major complications apparent
[2017-08-14 13:45] VITALS: BP 110/61; PULSE 85; TEMP 37; O2SAT 94
[2017-08-14 14:15] VITALS: BP 112/61; PULSE 84; TEMP 37; O2SAT 95
== END | disposition home or self-care (01) ==
LOC: C.ACU 17:00
PROVIDERS: ATTEND Urology
DX: N20.1 Calculus of ureter (principal); K21.9 Gastro-esophageal reflux disease without esophagitis; K25.9 Gastric ulcer, unspecified as acute or chronic, without hemorrhage or perforation; Z91.010 Allergy to peanuts; Z79.899 Other long term (current) drug therapy

== ENCOUNTER → 2017-08-14 | Outpatient (CLI) | payer OTHER ==
[~2017-08-14] MED LIST changes: -ATROPINE SULFATE 0.1 MG/ML 5ML SYR IV PRN; -CIPROFLOXACIN 400MG / 200ML D5W IV ONE; -Cysto-Conray II 17.2% 250ML BOTTLE ONE; -DEXAMETHASONE SOD INJ 4 MG/ML VIAL ONE; -EpHEDrine SULFATE INJ 50 MG/ML AMP IV PRN; -FENTANYL CITRATE INJ 50 MCG/1 ML 2 ML VIAL IV PRN; -FENTANYL CITRATE INJ 50 MCG/1 ML 2 ML VIAL ONE; -LIDOCAINE HCL 2% 2 ML VIAL (20MG/ML) ONE; -METOCLOPRAMIDE HCL INJ 5 MG/ML 2 ML VIAL ONE; -MIDAZOLAM HCL 1 MG/ML 2ML VIAL ONE; -NURSING VERBAL MED ORDER ONE; -ONDANSETRON INJ 2 MG/ML 2 ML VIAL IV PRN; -ONDANSETRON INJ 2 MG/ML 2 ML VIAL ONE; -PROPOFOL IV EMULSION 10 MG/ML 20 ML VIAL IV ONE; -RANITIDINE HCL 25 MG/ML INJ ONE; -SCOPOLAMINE 1.5 MG TDSY TD ONE
--- NOTE | 2017-08-14 09:28 | DIAGNOSTIC IMAGING REPORT ---
KUB HISTORY: Right hydronephrosis. N20.0 [id number] COMPARISON: KUB 01/26/2017. Renal ultrasound 08/13/2017. FINDINGS: The bowel gas pattern is unremarkable. There are no dilated loops of small bowel to suggest an obstruction. Multiple bilateral renal calculi consistent with medullary nephrocalcinosis. There is a 1 cm stone within the proximal right ureter. This overlies the right L3 transverse process. This is new from the prior study. No pneumoperitoneum or pneumatosis. IMPRESSION: 1. A 1 cm stone within the proximal right ureter. 2. Multiple bilateral renal calculi consistent with medullary nephrocalcinosis. Electronically signed by: Alex Valenzuela M.D. 08/14/2017 9:26 AM Dictated Date/Time: 08/14/2017 9:25 AM
--- NOTE | 2017-08-14 10:41 | Discharge Instructions ---
Discharge Instructions Date of Service Aug 14, 2017. Admission Reason for Admission: N20.0 Discharge Discharge Diagnosis / Problem: Right Stone Discharge Goals Goal(s): Decrease discomfort, Improve function Activity Recommendations Activity Limitations: resume your previous activity Lifting Limitations: gradually increase as tolerated Exercise/Sports Limitations: gradually increase as tolerated Shower/Bathe: no limitations . Instructions / Follow-Up Instructions / Follow-Up May have blood in urine. May have pelvic discomfort. Call if any fevers or chills. Current Hospital Diet Patient's current hospital diet: Discharge Diet Recommended Diet: Regular Diet Procedures Procedures Performed: Cystoscopy with Right Stent Pending Studies Studies pending at discharge: no Laboratory Results Lipid Panel Test 06/27/17 10:17 Range/Units Triglycerides Level 103 0-150 mg/dl Cholesterol Level 185 0-200 mg/dl HDL Cholesterol 46 mg/dl LDL Cholesterol Direct 112 mg/dl Cholesterol/HDL Ratio 4.0 LDL Cholesterol, Calculated mg/dl Medical Emergencies . Who to Call and When: Medical Emergencies: If at any time you feel your situation is an emergency, please call 911 immediately. . Non-Emergent Contact Non-Emergency issues call your: Primary Care Provider, Urologist Call Non-Emergent contact if: you have a fever, temperature is above 101, temperature is above 101.5, your pain is not controlled, your pain is worsening , your pain is unusual for you . . "Provider Documentation" section prepared by Ketan Bhakta. .
--- NOTE | 2017-08-14 12:17 | [facility] Operative Report ---
Operative Report Operative Date Aug 14, 2017. Pre-Operative Diagnosis Stone, right proximal ureter Post-Operative Diagnosis Same Procedure(s) Performed Cystoscopy with right retrograde pyelogram and right stent placement Surgeon Yony Estimated Blood Loss Minimal Findings Large proximal right stone with large purulent debris Specimens Urine Right kidney Drains 6 Fr Multilength Stent on Right Anesthesia Type MAC Complication(s) none Disposition Recovery Room / PACU Indications Large obstructing stone with severe pain. Risks and benefits discussed at length. Description of Procedure Patient was consented and brought back to the operating room. Patient was placed under anesthesia in the supine position and moved to the dorsal lithotomy position. Patient was prepped and draped in the regular sterile fashion. A time out was completed. A 30degree Cystoscope was placed into the bladder and the entire bladder was examined. The UO's were identified. The Right was cannulized with a catheter, an aspiration was completed, and a retrograde pyelogram was completed. The urine behind the obstructed stone had a purulent debris. A wire was then placed. With the wire in place, a 6 Fr Multilength Double J stent was placed. It was confirmed with fluoroscopy. With the stent in place, the bladder was emptied. The scope was removed. The patient was cleaned, aroused from anesthesia, and transferred to the pacu in stable condition having tolerated the procedure well with no complications. I was present and participated in all aspects of the procedure. The patient will be monitored in the PACU until transferred. I attest to the content of the Intraoperative Record and any orders documented therein. Any exceptions are noted below.
== END | disposition home or self-care (01) ==
LOC: C.RAD 09:02
PROVIDERS: ATTEND Urology
DX: N20.0 Calculus of kidney (principal); N20.1 Calculus of ureter

== ENCOUNTER → 2017-08-24 | Outpatient (CLI) | payer OTHER ==
[~2017-08-24] MED LIST changes: -CIPR-255 PO; -HYG/25 PO; -KETO10TA PO; -ONDA4TAB10 SL; -OXYCODONE/ACETAMINOPHEN 7.5-325 TAB PO PRN; -PHEN-775 PO; -TAMS0.4C38 PO
--- NOTE | 2017-08-24 12:46 | DIAGNOSTIC IMAGING REPORT ---
KUB CLINICAL HISTORY: N20.0 [id number] COMPARISON STUDY: 08/14/2017 FINDINGS: There are innumerable bilateral renal calculi. There is been interval placement of a right-sided nephroureteral stent. There is a 9 mm proximal right ureteral calculus at the L3 level. There is a second calculus measuring approximately 2 mm at the L2-3 level. IMPRESSION: 1. Innumerable bilateral renal calculi consistent with medullary nephrocalcinosis 2. There are 2 proximal right ureteral calculi the largest of which measures 9 mm 3. Interval placement of a right-sided nephroureteral stent Electronically signed by: Jairo Dao M.D. 08/24/2017 12:45 PM Dictated Date/Time: 08/24/2017 12:44 PM
== END | disposition home or self-care (01) ==
LOC: C.RAD 12:19
PROVIDERS: ATTEND Urology
DX: N20.2 Calculus of kidney with calculus of ureter (principal)

== ENCOUNTER → 2017-08-25 | Day surgery (SDC) | payer OTHER ==
--- NOTE | 2017-08-14 16:14 | [facility] History and Physical ---
History General Date of Service: Aug 14, 2017. Chief Complaint: right flank pain Primary Care Physician: No Doctor, Assigned Pt seen a urologist before?: Yes (Dr. James Ryan) If yes, why?: nephrolithiasis History of Present Illness 42 yo female with hx of medullary sponge kidney presents with right flank pain and n/v that started last evening. She was seen at [facility] ED for this issue last evening. Pain persists today. KUB showing a 1cm proximal right ureteral stone. Denies dysuria, hematuria, or fevers. She is s/p right ureteral stent placement with Dr. Bhakta earlier today. She has an extensive hx of stones requiring URS, ESWL, and stent placement in the past. Imaging Imaging: KUB Laboratory Labs were reviewed and are within normal limits unless listed below. Labs are available in the chart and at [facility] Problem List Medical Problems: (1) Renal colic on right side Status: Acute (2) Renal colic on right side Status: Acute (3) Right lower quadrant abdominal pain Status: Acute (4) UTI (urinary tract infection) Status: Acute (5) UTI (urinary tract infection) Status: Acute Past History Past Medical History: GERD, kidney stones, urinary tract infection, other ( gastric ulcer) Pt had a problem w anesthesia?: No Past Surgical History: lithotripsy, tubal ligation, ureteral stent Family History diabetes, other Social History Hx Tobacco Use In Past Year?: No Smoking Status: Never Smoker Alcohol: never Drug use: none Marital status: Housing status: lives with family Occupation status: employed Immunizations History of Influenza Vaccine: Yes History of Tetanus Vaccine?: Yes History of Pneumococcal: No History of Hepatitis B Vaccine: No History of MDRO No Allergies Coded Allergies: NUTS (Verified Allergy, Severe, ANAPHYLAXIS, 08/13/17) Cat Dander (Verified Allergy, Unknown, CAT/DOG-ITCHY EYES RUNNY NOSE, 08/13) NO KNOWN DRUG ALLERGIES (Verified Allergy, Unknown, NONE, 08/13/17) Medications Home Medications: Home Meds and Scripts Medications Dose Route/Sig Max Daily Dose Days Date Category Dose Instructions Roxicodone Ir (Oxycodone HCl) 5 Mg Tab 1-2 Tab PO Q4H PRN 4 08/14/17 Rx initial course Zofran Odt (Ondansetron HCl) 4 Mg Tab 4 Mg SL Q6H 08/14/17 Rx Epipen (Epinephrine) 0.3 Mg/0.3 Ml Inj 0.3 Mg IM UD PRN 12/25/14 Reported Hygroton (Chlorthalidone) 25 Mg Tab 25 Mg PO QAM 12/25/14 Reported Zyloprim (Allopurinol) 100 Mg Tab 100 Mg PO DAILY 12/25/14 Reported Review of Systems Review of Systems Constitutional: + chills, No fever Eyes: No double vision Neurological: No dizzy Endocrine: No excessive thirst Gastrointestinal: + abdominal pain (RLQ), + nausea, + vomiting Cardiovascular: No chest pain Respiratory: No shortness of breath Skin: No rash Musculoskeletal: + back pain (right low back ) Female : + kidney stones, No painful urination, No blood in urine Physical Exam Physical Exam: General Appearance: no apparent distress Eyes: bilateral eyes normal inspection ENT: hearing grossly normal Neck: supple, no JVD Respiratory/Chest: lungs clear, normal breath sounds, no respiratory distress, no accessory muscle use Cardiovascular: regular rate, rhythm Gastrointestinal: Abdomen: normal abdomen, pertinent finding (bowel sounds present all four quadrants, no HSM on exam) Extremities: normal inspection Neurologic/Psychiatric: alert, normal mood/affect, oriented x 3 Skin: normal color Assessment & Plan Assessment & Plan Treatment Planned: ESWL Assessment & Plan: A/P: 1cm proximal right ureteral stone S/p right ureteral stent placement earlier today. Will plan for right ESWL later this week on 08-18-17. Risks and benefits of the procedure discussed with the pt. All questions answered. Pt agrees to the procedure at this time.
--- NOTE | 2017-08-16 14:45 | DIAGNOSTIC IMAGING REPORT ---
CHEST 2 VIEWS ROUTINE CLINICAL HISTORY: N20.0 Nephrolithiasis nephrocalcinosis. COMPARISON STUDY: 05/24/2016 FINDINGS: The bones soft tissues and hemidiaphragms are normal. The cardiomediastinal silhouette is normal. The lungs are clear. The pulmonary vasculature is normal. IMPRESSION: Negative chest. The above report was generated using voice recognition software. It may contain grammatical, syntax or spelling errors. Electronically signed by: Vickey Sutton M.D. 08/16/2017 2:44 PM Dictated Date/Time: 08/16/2017 2:44 PM
[2017-08-16 14:50] VITALS: Ht 162.6 cm; Wt 84.5 kg
[~2017-08-25] VITALS: Ht 162.6 cm; Wt 84.5 kg
[~2017-08-25] MED LIST changes: +ATROPINE SULFATE 0.1 MG/ML 5ML SYR IV PRN; +DEXAMETHASONE SOD INJ 4 MG/ML VIAL ONE; +EpHEDrine SULFATE INJ 50 MG/ML AMP IV PRN; +FENTANYL CITRATE INJ 50 MCG/1 ML 2 ML VIAL IV PRN; +KETOROLAC TROMETHAMINE 30 MG/ML VIAL ONE; +LACTATED RINGER'S 1000ML 1,000 ML IV SCH; +LIDOCAINE HCL 2% 2 ML VIAL (20MG/ML) ONE; +METOCLOPRAMIDE HCL INJ 5 MG/ML 2 ML VIAL ONE; +MIDAZOLAM HCL 1 MG/ML 2ML VIAL ONE; +ONDANSETRON INJ 2 MG/ML 2 ML VIAL IV PRN; +ONDANSETRON INJ 2 MG/ML 2 ML VIAL ONE; +OXYCODONE/ACETAMINOPHEN 5-325 TAB PO PRN; +PROPOFOL IV EMULSION 10 MG/ML 20 ML VIAL IV ONE; +RANITIDINE HCL 25 MG/ML INJ ONE; +SCOPOLAMINE 1.5 MG TDSY TD ONE; +VANCOMYCIN HCL 1000MG/20ML VIAL IV SCH; +WATER, STERILE FOR INJ 10 ML VIAL ONE
--- NOTE | 2017-08-25 09:11 | History & Physical Bridge Note ---
H&P Re-Evaluation Bridge Note: I have examined the patient, reviewed the History & Physical and in the interval since the performance of the History & Physical I have noted the following changes of clinical significance: No changes noted
--- NOTE | 2017-08-25 10:13 | Discharge Instructions ---
Discharge Instructions Date of Service Aug 25, 2017. Admission Reason for Admission: Stones Discharge Discharge Diagnosis / Problem: R Stone Discharge Goals Goal(s): Decrease discomfort, Improve function Activity Recommendations Activity Limitations: resume your previous activity Lifting Limitations: gradually increase as tolerated Exercise/Sports Limitations: gradually increase as tolerated . Instructions / Follow-Up Instructions / Follow-Up May have blood in urine. May have pain. May have flank pain. Call if any fevers or chills. Current Hospital Diet Patient's current hospital diet: Discharge Diet Recommended Diet: Regular Diet Procedures Procedures Performed: R ESWL Pending Studies Studies pending at discharge: no Laboratory Results Lipid Panel Test 06/27/17 10:17 Range/Units Triglycerides Level 103 0-150 mg/dl Cholesterol Level 185 0-200 mg/dl HDL Cholesterol 46 mg/dl LDL Cholesterol Direct 112 mg/dl Cholesterol/HDL Ratio 4.0 LDL Cholesterol, Calculated mg/dl Medical Emergencies . Who to Call and When: Medical Emergencies: If at any time you feel your situation is an emergency, please call 911 immediately. . Non-Emergent Contact Non-Emergency issues call your: Primary Care Provider, Urologist Call Non-Emergent contact if: you have a fever, temperature is above 101, temperature is above 101.5, your pain is not controlled, your pain is worsening . . "Provider Documentation" section prepared by Ketan Bahkta. .
--- NOTE | 2017-08-25 11:13 | [facility] Operative Report ---
Operative Report Operative Date Aug 25, 2017. Pre-Operative Diagnosis Right Ureteral Stone Post-Operative Diagnosis Same Procedure(s) Performed R ESWL Surgeon Yony Estimated Blood Loss None Findings Large proximal ureteral stone on right. Drains None Anesthesia Type General Complication(s) none Disposition Recovery Room / PACU Indications Large right stone with stent in place. Patient had course of antibiotics. Here for stone treatment. Description of Procedure Patient was consented and brought back to the operating room. Patient was placed under anesthesia in the supine position. Patient was prepped and draped in the regular sterile fashion. A time out was completed. With the time out completed, The patient was assessed with fluoroscopy. The stone was identified and position was triangulated. At this point, the shock waves commenced. The stone was monitored throughout the process with fluoroscopy to assess progression and maintain position. The stone was pulverized with 2500 shocks at a maximum voltage of 5 with a total fluoroscopic time of 1:52. With the stone treated, the procedure ended. The patient was cleaned, aroused from anesthesia, and transferred to the pacu in stable condition having tolerated the procedure well with no complications. I was present and participated in all aspects of the procedure. The patient will be monitored in the PACU until transferred. I attest to the content of the Intraoperative Record and any orders documented therein. Any exceptions are noted below.
--- NOTE | 2017-08-25 11:35 | Anesthesia Progress Nt - [facility] ---
Anesthesia Post Op Note Date & Time Aug 25, 2017 at 11:35 Vital Signs Pain Intensity: 0 Vital Signs Past 12 Hours Date Time Temp Pulse Resp B/P (MAP) Pulse Ox O2 Delivery O2 Flow Rate FiO2 08/25/17 11:18 36.6 63 16 116/76 100 Mask 6 08/25/17 08:28 37.2 68 16 122/79 (93) 98 Room Air Notes Mental Status: alert / awake / arousable, participated in evaluation Pt Amnestic to Procedure: Yes Nausea / Vomiting: adequately controlled Pain: adequately controlled Airway Patency, RR, SpO2: stable & adequate BP & HR: stable & adequate Hydration State: stable & adequate Anesthetic Complications: no major complications apparent
[2017-08-25 12:02] VITALS: TEMP 36.6
[2017-08-25 12:24] VITALS: BP 109/71; PULSE 64; O2SAT 96
== END | disposition home or self-care (01) ==
LOC: X.SURG 07:48
PROVIDERS: ATTEND Urology
DX: N20.1 Calculus of ureter (principal); N39.0 Urinary tract infection, site not specified; K21.9 Gastro-esophageal reflux disease without esophagitis; Z83.3 Family history of diabetes mellitus; E78.5 Hyperlipidemia, unspecified

== ENCOUNTER → 2017-09-05 | Outpatient (CLI) | payer OTHER ==
[~2017-09-05] MED LIST changes: -ATROPINE SULFATE 0.1 MG/ML 5ML SYR IV PRN; -DEXAMETHASONE SOD INJ 4 MG/ML VIAL ONE; -EpHEDrine SULFATE INJ 50 MG/ML AMP IV PRN; -FENTANYL CITRATE INJ 50 MCG/1 ML 2 ML VIAL IV PRN; -KETOROLAC TROMETHAMINE 30 MG/ML VIAL ONE; -LACTATED RINGER'S 1000ML 1,000 ML IV SCH; -LIDOCAINE HCL 2% 2 ML VIAL (20MG/ML) ONE; -METOCLOPRAMIDE HCL INJ 5 MG/ML 2 ML VIAL ONE; -MIDAZOLAM HCL 1 MG/ML 2ML VIAL ONE; -ONDANSETRON INJ 2 MG/ML 2 ML VIAL IV PRN; -ONDANSETRON INJ 2 MG/ML 2 ML VIAL ONE; -OXYCODONE/ACETAMINOPHEN 5-325 TAB PO PRN; -PROPOFOL IV EMULSION 10 MG/ML 20 ML VIAL IV ONE; -RANITIDINE HCL 25 MG/ML INJ ONE; -SCOPOLAMINE 1.5 MG TDSY TD ONE; -VANCOMYCIN HCL 1000MG/20ML VIAL IV SCH; -WATER, STERILE FOR INJ 10 ML VIAL ONE
--- NOTE | 2017-09-05 13:45 | DIAGNOSTIC IMAGING REPORT ---
KUB HISTORY: Follow-up study in a patient with nephrolithiasis N20.0 [id number] Ureteral [id number] NephrolithiasisRA COMPARISON: KUB 08/24/2017 FINDINGS: The bowel gas pattern is non-obstructive. There is no organomegaly. Calcifications of the medullary pyramids redemonstrated compatible with medullary nephrocalcinosis. Right-sided ureteral stent appears to be in satisfactory positioning. The proximal calculi seen on prior study are not definitively seen. There are tiny punctate calculi along the course of the distal right ureter. No pneumoperitoneum or pneumatosis. No fracture. IMPRESSION: 1. Right ureteral stent in satisfactory positioning with several punctate calculi along the distal portion of the stent. 2. Medullary nephrocalcinosis. Electronically signed by: Rustam Small M.D. 09/05/2017 1:43 PM Dictated Date/Time: 09/05/2017 1:41 PM
== END | disposition home or self-care (01) ==
LOC: C.RAD 13:20
PROVIDERS: ATTEND Urology
DX: E83.59 Other disorders of calcium metabolism (principal); N29 Other disorders of kidney and ureter in diseases classified elsewhere

== ENCOUNTER → 2017-09-05 | Outpatient (CLI) | payer OTHER | END | disposition home or self-care (01) | LOC: C.LABSPEC 10:36 | PROVIDERS: ATTEND Urology | DX: N20.0 Calculus of kidney (principal); N20.1 Calculus of ureter; N39.0 Urinary tract infection, site not specified ==

== ENCOUNTER 2018-10-15 17:08 | Inpatient (IN) ==
[2018-10-15 18:19] LABS: Basophils # (auto) 0.03 K/uL (0-0.2); Basophils % (auto) 0.3 %; Eosinophils # (auto) 0.31 K/uL (0-0.5); Eosinophils % (auto) 2.7 %; Hematocrit (blood only) 43.7 % (37-47); Immature Granulocytes # (auto) 0.03 K/uL (0.00-0.02); Immature Granulocytes % (auto) 0.3 %; Lymphocytes # (auto) 1.89 K/uL (1.2-3.4); Lymphocytes % (auto) 16.5 %; Mean Corpuscular Volume 83.2 fL (80-100); Mean Platelet Volume 11.6 fL (7.4-10.4); Monocytes # (auto) 0.76 K/uL (0.11-0.59); Monocytes % (auto) 6.6 %; Neutrophils # (auto) 8.43 K/uL (1.4-6.5); Neutrophils % (auto) 73.6 %; Platelet Count 226 K/uL (130-400); RDW Coefficient of Variation 14.4 % (11.5-14.5); RDW Standard Deviation 43.9 fL (36.4-46.3); Red Blood Count 5.25 M/uL (4.2-5.4); White Blood Count 11.45 K/uL (4.8-10.8)
[2018-10-15] MEDS ORDERED: ONDANSETRON INJ 2 MG/ML 2 ML VIAL IV STA (18:27)
[2018-10-15] MEDS ORDERED: SODIUM CHLORIDE 0.9% 1000ML 1,000 ML IV ONE (18:27)
[2018-10-15] MEDS ORDERED: KETOROLAC 30 MG/ML VIAL IV STA (18:27)
[2018-10-15] MEDS: HYDROmorphone INJ 1 MG/ML SYRINGE IV PRN ×2 (18:31→19:48)
[2018-10-15 18:34] LABS: Albumin Level 3.8 gm/dl (3.4-5.0); Calcium 9.6 mg/dl (8.5-10.1); Creatinine Clr Calc Pharmacy 77.5 ml/min; Est GFR (African American) 79.8; Est GFR (Non-African American) 68.8; Potassium 4.2 mmol/L (3.5-5.1)
[2018-10-15 18:37] LABS: Bilirubin,Total 0.3 mg/dl (0.2-1); Globulin 3.6 gm/dl (2.5-4.0); Total Protein 7.4 gm/dl (6.4-8.2)
[2018-10-15] MEDS ORDERED: IOVERSOL 100ml IV PRN (18:47)
--- NOTE | 2018-10-15 18:57 | CT Scan Report ---
CT abd pelvis IV con only CT DOSE: 599.72 mGy.cm HISTORY: Flank pain Pt c/o Rt sided flank pain TECHNIQUE: Multiaxial CT images of the abdomen and pelvis were performed following the use of intrave nous contrast. A dose lowering technique was utilized adhering to the principles of ALARA. COMPARISON STUDY: 01/12/2018 FINDINGS: Lung bases are clear. Liver spleen and pancreas are unremarkable. Bilateral nonobstructing renal calcifications which of been described previously. Moderate right hydroureteronephrosis. 5 mm obstructing calculus proximal right ureter. This is unchan ged in location from the prior study. Nonobstructive bowel pattern. Normal appendix. Uterus is anteflexed. Endometrium is somewhat prominen t level of uterine fundus. Small bilateral ovarian follicular cyst. Normal appendix. IMPRESSION: 1. 5 mm obstructing calculus proximal right ureter most likely unchanged from the prior study. 2. Chronic right hydroureteronephrosis with several nonobstructing calcifications within the posterio r aspect of the distended renal pelvis. 3. Bilateral nonobstructing renal cortical calcifications unchanged. 4. Nonobstructive bowel pattern. The above report was generated using voice recognition software. It may contain grammatical, syntax or spelling errors. Electronically signed by: Vickey Sutton M.D. 10/15/2018 6:56 PM
[2018-10-15 19:21] LABS: iSTAT Creatinine 0.9 mg/dl (0.6-1.3); iSTAT Ionized Calcium 1.26 mmol/l (1.12-1.32); iSTAT Potassium 4.1 mEq/L (3.3-5.0)
[2018-10-15 19:37] LABS: Appearance Urine Clear (Clear); Bacteria Urine Automated 1+ (Negative); Bilirubin Urine Negative (Negative); Blood Urine 3+ (Negative); Color Urine Yellow; Glucose Urine UA Negative (Negative); Ketones Urine Negative (Negative); Leukocyte Esterase Urine 1+ (Negative); Nitrite Urine Positive (Negative); Protein Urine Negative (Negative); RBC Urine Automated >30 /hpf (0-4); Specific Gravity Urine 1.041 (1.000-1.030); Urobilinogen Urine Negative (Negative); WBC Urine Automated >30 /hpf (0-5)
[2018-10-15] MEDS ORDERED: METOCLOPRAMIDE HCL INJ 5 MG/ML 2 ML VIAL IV STA (19:40)
[2018-10-15] MEDS ORDERED: cefTRIAXone SODIUM 1,000 MG/50 ML BAG IV STA (19:49)
--- NOTE | 2018-10-15 20:47 | History & Physical Report ---
Date of Service October 15, 2018 Assessment & Plan (1) UTI (urinary tract infection): 43 yo F with history of kidney stones, on Allopurinol, chlorthalidone presenting with right flank pain, n/v. Patient reports 2 wk history of progressive right flank pain. Patient arrived afebrile, VSS, mild leukocytosis (WBC Ct 11.45), bmp unremarkable, UA consistent with UTI, CT abdomen showing 5m obstructing calculus, chronic , right hydroureteronephrosis. Patient was given Dilaudid, Reglan, Zofran, IV NS x 1 L bolus,Toradol, Rocpehin in ED. -UTI in setting of obstructing ureteral stone -Start Rocephin -IV NS at 125 mls/hr -Urology consulted -Urine strainer ordered -Continue Allopurinol, Chlorthalidone -Toradol prn for pain, Zofran prn for nausea (2) Hydronephrosis concurrent with and due to calculi of kidney and ureter: as above (3) Calculus of proximal left ureter: as above History of Present Illness Chief Complaint: Right flank pain Primary Care Provider: NO PCP This is a 43 yo F with history of kidney stones, on Allopurinol, chlorthalidone presenting with right flank pain, n/v.Patient reports 2 wk history of progressive right flank pain described as burning sensation . Pain is constant, around 4/10.intensity. She denies urinary urgency, frequency dysuria, hematuria. She denies fevers, chills, diarrhea, abdominal pain. She reports 1 episode n/v only while in the ED. Patient reports 15 yr history of stones. In the ED, patient arrived afebrile, VSS, mild leukocytosis (WBC Ct 11.45), bmp unremarkable, UA consistent with UTI, CT abdomen showing 5m obstructing calculus, chronic , right hydroureteronephrosis. Patient was given Rocpehin, Dilaudid, Reglan, Zofran, IV NS x 1 L bolus,Toradol. Patient was admitted 01/2018 for left flank pain, with finding of 8 mm left ureteral stone found and managed with, uteroscopy with Laser lithotripsy by Dr. Ryan. Allergies Allergy/AdvReac Type Severity Reaction Status Date / Time nut - unspecified Allergy Severe ANAPHYLAXIS Verified 10/15/18 18:12 cat dander Allergy Intermediate CAT/DOG-ITCHY Verified 10/15/18 18:12 EYES RUNNY NOSE Home Medications Home Medications Medication Instructions Recorded Confirmed Type allopurinol 100 mg PO DAILY 01/12/18 10/15/18 History chlorthalidone 25 mg PO DAILY 01/12/18 10/15/18 History epinephrine [EpiPen] 0.3 mg IM Q3H PRN 01/12/18 10/15/18 History Past Med/Surg History Medical History Kidney stone (Acute) Calculus of proximal right ureter (Inactive) Family history of reaction to anesthesia MOTHER NAUSEA Kidney stones Nausea and vomiting after administration of anesthetic agent Surgical History H/O lithotripsy Right ESWL 12/2017-LMA #4 used without complications History of bilateral tubal ligation History of tooth extraction Uterine polyp Family History Family/Other Family hx of colon cancer Social History Preferred Language: [place] Communication Ability: Effective Visual Impairment: No Limitations Lasting Floorworker Required: No Beliefs That Will Affect Care: None Current Living Situation: Spouse Current Living Situation Comment: CHILDREN Other Information That Helps Us Care for You: No Feels Safe at Home: Yes Safety Concerns: Feels Safe At This Time Smoking Status: Never smoker Do You Dip or Chew Tobacco: No Second Hand Exposure: No Hx Alcohol Use: No Hx Substance Use: No Review of Systems Review of Systems: All systems reviewed & are unremarkable except as noted in HPI & below Physical Exam Physical Exam: GENERAL APPEARANCE: alert and cooperative, and appears to be in no acute distress. HEAD: normocephalic. EYES: PERRL, EOMI. vision is grossly intact. EARS: hearing grossly intact. NOSE: No nasal discharge. NECK: Neck supple, non-tender without lymphadenopathy CARDIAC: Normal S1 and S2. No S3, S4 or murmurs. Rhythm is regular LUNGS: Clear to auscultation and percussion without rales, rhonchi, wheezing or diminished breath sounds. ABDOMEN: Positive bowel sounds. Soft, nondistended, nontender. No guarding or rebound. No masses. BACK: no cva tenderness EXTREMITIES: No edema. NEUROLOGICAL: CN II-XII grossly intact. Strength and sensation symmetric and grossly intact throughout. SKIN: Skin normal color, texture and turgor with no lesions or eruptions. Results & Data Vital Signs (Past 12 Hours) Vital Signs Temp Pulse Pulse Resp BP BP Pulse Ox 10/15/18 20:44 68 16 116/70 95 10/15/18 18:53 77 78 20 95 10/15/18 17:10 36.8 C 79 20 145/88 H 99 Laboratory Results Laboratory Results WBC 11.45 K/uL (4.8-10.8) H 10/15/18 18:07 RBC 5.25 M/uL (4.2-5.4) 10/15/18 18:07 Hgb 14.0 g/dL (12.0-16.0) 10/15/18 18:07 POC Hgb 15.0 g/dl (12.0-16.0) 10/15/18 18:12 Hct 43.7 % (37-47) 10/15/18 18:07 POC Hct 44 % (37-47) 10/15/18 18:12 MCV 83.2 fL (80-100) 10/15/18 18:07 MCH 26.7 pg (25-34) 10/15/18 18:07 MCHC 32.0 g/dL (32-36) 10/15/18 18:07 RDW Std Deviation 43.9 fL (36.4-46.3) 10/15/18 18:07 RDW Coeff of Agusto 14.4 % (11.5-14.5) 10/15/18 18:07 Plt Count 226 K/uL (130-400) 10/15/18 18:07 MPV 11.6 fL (7.4-10.4) H 10/15/18 18:07 Immature Gran % (Auto) 0.3 % 10/15/18 18:07 Neut % (Auto) 73.6 % 10/15/18 18:07 Lymph % (Auto) 16.5 % 10/15/18 18:07 [place] % (Auto) 6.6 % 10/15/18 18:07 Eos % (Auto) 2.7 % 10/15/18 18:07 Baso % (Auto) 0.3 % 10/15/18 18:07 Immature Gran # (Auto) 0.03 K/uL (0.00-0.02) H 10/15/18 18:07 Neut # (Auto) 8.43 K/uL (1.4-6.5) H 10/15/18 18:07 Lymph # (Auto) 1.89 K/uL (1.2-3.4) 10/15/18 18:07 [place] # (Auto) 0.76 K/uL (0.11-0.59) H 10/15/18 18:07 Eos # (Auto) 0.31 K/uL (0-0.5) 10/15/18 18:07 Baso # (Auto) 0.03 K/uL (0-0.2) 10/15/18 18:07 POC Sodium 140 mEq/L (135-144) 10/15/18 18:12 Sodium 141 mmol/L (136-145) 10/15/18 18:07 POC Potassium 4.1 mEq/L (3.3-5.0) 10/15/18 18:12 Potassium 4.2 mmol/L (3.5-5.1) 10/15/18 18:07 POC Chloride 105 mEq/L (101-112) 10/15/18 18:12 Chloride 108 mmol/L (98-107) H 10/15/18 18:07 Carbon Dioxide 26 mmol/L (21-32) 10/15/18 18:07 POC Total CO2 24 mEq/l (24-31) 10/15/18 18:12 Anion Gap 7.0 (3-11) 10/15/18 18:07 POC Anion Gap 17.0 mmol/L (16-25) 10/15/18 18:12 POC BUN 18 mg/dl (7-18) 10/15/18 18:12 BUN 17 mg/dl (7-18) 10/15/18 18:07 Creatinine 0.99 mg/dl (0.6-1.2) 10/15/18 18:07 POC Creatinine 0.9 mg/dl (0.6-1.3) 10/15/18 18:12 Est Cr Clr Drug Dosing 77.5 ml/min 10/15/18 18:07 Est GFR ( Amer) 79.8 10/15/18 18:07 Est GFR (Non-Af Amer) 68.8 10/15/18 18:07 BUN/Creatinine Ratio 17.0 (10-20) 10/15/18 18:07 Glucose 100 mg/dl (70-99) H 10/15/18 18:07 POC Glucose (other) 104 mg/dl (70-99) H 10/15/18 18:12 Calcium 9.6 mg/dl (8.5-10.1) 10/15/18 18:07 POC Ioniz Calcium Ruma 1.26 mmol/l (1.12-1.32) 10/15/18 18:12 Total Bilirubin 0.3 mg/dl (0.2-1) 10/15/18 18:07 AST 19 U/L (15-37) 10/15/18 18:07 ALT 35 U/L (12-78) 10/15/18 18:07 Alkaline Phosphatase 96 U/L (45-117) 10/15/18 18:07 Total Protein 7.4 gm/dl (6.4-8.2) 10/15/18 18:07 Albumin 3.8 gm/dl (3.4-5.0) 10/15/18 18:07 Globulin 3.6 gm/dl (2.5-4.0) 10/15/18 18:07 Albumin/Globulin Ratio 1.0 (0.9-2) 10/15/18 18:07 Lipase 180 U/L (73-393) 10/15/18 18:07 Urine Color Yellow 10/15/18 19:05 Urine Appearance Clear (Clear) 10/15/18 19:05 Urine pH 6.0 (4.5-7.5) 10/15/18 19:05 Ur Specific [place] 1.041 (1.000-1.030) H 10/15/18 19:05 Urine Protein Negative (Negative) 10/15/18 19:05 Urine Glucose (UA) Negative (Negative) 10/15/18 19:05 Urine Ketones Negative (Negative) 10/15/18 19:05 Urine Blood 3+ (Negative) H 10/15/18 19:05 Urine Nitrite Positive (Negative) A 10/15/18 19:05 Urine Bilirubin Negative (Negative) 10/15/18 19:05 Urine Urobilinogen Negative (Negative) 10/15/18 19:05 Ur Leukocyte Esterase 1+ (Negative) H 10/15/18 19:05 Urine WBC (Auto) >30 /hpf (0-5) H 10/15/18 19:05 Urine RBC (Auto) >30 /hpf (0-4) H 10/15/18 19:05 U Hyaline Cast (Auto) 5-10 /lpf (0-5) H 10/15/18 19:05 U Epithel Cells (Auto) 5-10 /lpf (0-5) H 10/15/18 19:05 Urine Bacteria (Auto) 1+ (Negative) H 10/15/18 19:[address] abd pelvis IV con only CT DOSE: 599.72 mGy.cm HISTORY: Flank pain Pt c/o Rt sided flank pain TECHNIQUE: Multiaxial CT images of the abdomen and pelvis were performed following the use of intravenous contrast. A dose lowering technique was utilized adhering to the principles of ALARA. COMPARISON STUDY: 01/12/2018 FINDINGS: Lung bases are clear. Liver spleen and pancreas are unremarkable. Bilateral nonobstructing renal calcifications which of been described previously. Moderate right hydroureteronephrosis. 5 mm obstructing calculus proximal right ureter. This is unchanged in location from the prior study. Nonobstructive bowel pattern. Normal appendix. Uterus is anteflexed. Endometrium is somewhat prominent level of uterine fundus. Small bilateral ovarian follicular cyst. Normal appendix. IMPRESSION: 1. 5 mm obstructing calculus proximal right ureter most likely unchanged from the prior study. 2. Chronic right hydroureteronephrosis with several nonobstructing calcifications within the posterior aspect of the distended renal pelvis. 3. Bilateral nonobstructing renal cortical calcifications unchanged. 4. Nonobstructive bowel pattern. Medications Administered Discontinued Medications Hydromorphone HCl (Dilaudid) 1 mg IV Q15M PRN PRN Reason: Pain Stop: 10/29/18 18:26 Last Admin: 10/15/18 19:48 Dose: 1 mg Documented by: [id number] Admin: 10/15/18 18:31 Dose: 1 mg Documented by: [id number] Sodium Chloride (Nss 1000ml) 1,000 mls @ 999 mls/hr IV .Q1H1M ONE Stop: 10/15/18 19:27 Last Admin: 10/15/18 18:31 Dose: 999 mls/hr Documented by: [id number] Ceftriaxone Sodium (Rocephin) 1,000 mg in 50 mls @ 100 mls/hr IV NOW STA Stop: 10/15/18 20:18 Last Infusion: 10/15/18 21:15 Dose: 0 mls/hr Documented by: [id number] Admin: 10/15/18 20:45 Dose: 100 mls/hr Documented by: [id number] Ioversol (Optiray 320 100ml) 91 ml IV ONCE PRN PRN Reason: Interaction Checking Stop: 10/19/18 18:46 Last Admin: 10/15/18 18:50 Dose: 91 ml Documented by: [id number] Ketorolac Tromethamine (Toradol) 30 mg IV NOW STA Stop: 10/15/18 18:28 Last Admin: 10/15/18 18:31 Dose: 30 mg Documented by: [id number] Metoclopramide HCl (Reglan) 10 mg IV NOW STA Stop: 10/15/18 19:41 Last Admin: 10/15/18 19:48 Dose: 10 mg Documented by: [id number] Ondansetron HCl (Zofran) 4 mg IV NOW STA Stop: 10/15/18 18:28 Last Admin: 10/15/18 18:31 Dose: 4 mg Documented by: [id number] ECG Rate (beats per minute): 83 Rhythm: normal sinus Findings: + nonspecific-ST abn Comparison ECG Date: from (May 24 2016) Change: no significant change Code Status & VTE Plan Code Status Full code VTE Prophylaxis Plan VTE Prophylaxis will be ordered: Yes Supervising Physician Co-Signing Physician Notes Pt sen/examined in conjunction with resident MD Emilie Fong. Orders and plan of admission formulated with resident. 43 y/o with an extensive history of nephrolithiasis. Presenting with progressive R flank pain over 2 wks, one episode of N/V. A CT of the abdomen confirmed a 5mm stone in the R ureter. A UA was +. OE AAO x 3 S1,2 R CTAB NT No R CVA tenderness No CCE No deficits P: IVF, analgesics, antiemetics Urology consult requested Placed on Ceftriaxone PG Care Time/CCT Total # of Minutes Spent Total Time Spent with Patient: Total time spent is greater than 50% in coordination of care (as documented) at patient's floor/unit and/or counseling patient: Resident Activity Tracking Resident Involvement: Resident Care Provided Care Provided: Adult Hospital Medicine (1) UTI (urinary tract infection) Hematuria presence: with hematuria Urinary tract infection type: site unspecified Qualified Code(s): N39.0 - Urinary tract infection, site not specified; R31.9 - Hematuria, unspecified
[2018-10-15] MEDS ORDERED: ACETAMINOPHEN 325 MG TAB PO PRN (22:07)
[2018-10-15] MEDS ORDERED: ONDANSETRON INJ 2 MG/ML 2 ML VIAL IV PRN (22:07)
[2018-10-15] MEDS ORDERED: POLYETHYLENE (MIRALAX) 17 GM PACK PO PRN (22:07)
[2018-10-15] MEDS ORDERED: ALUMINUM/MAGNESIUM SUSP 30 ML UDC PO PRN (22:07)
[2018-10-15] MEDS: SODIUM CHLORIDE 0.9% 1000ML 1,000 ML IV SCH (23:32)
--- NOTE | 2018-10-16 00:20 | Emergency Department Note ---
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 The patient states that she was referred by Dr. Celis for her flank pain. She states that she has had a history of kidney stones, but this pain is not similar. She reports that her pain radiates to the right side of her abdomen. The patient notes that she has been experiencing nausea and vomiting. Home Medications Home Medications Medication Instructions Recorded Confirmed Type allopurinol 100 mg PO DAILY 01/12/18 10/15/18 History chlorthalidone 25 mg PO DAILY 01/12/18 10/15/18 History epinephrine [EpiPen] 0.3 mg IM Q3H PRN 01/12/18 10/15/18 History Allergies Allergy/AdvReac Type Severity Reaction Status Date / Time nut - unspecified Allergy Severe ANAPHYLAXIS Verified 10/15/18 18:12 cat dander Allergy Intermediate CAT/DOG-ITCHY Verified 10/15/18 18:12 EYES RUNNY NOSE Past Med/Surg History Medical History Kidney stone (Acute) Calculus of proximal right ureter (Inactive) Family history of reaction to anesthesia MOTHER NAUSEA Kidney stones Nausea and vomiting after administration of anesthetic agent Surgical History H/O lithotripsy Right ESWL 12/2017-LMA #4 used without complications History of bilateral tubal ligation History of tooth extraction Uterine polyp Family History Family/Other Family hx of colon cancer Social History Preferred Language: Mauritian Communication Ability: Effective Visual Impairment: No Limitations 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 and A total of 10 systems reviewed and were otherwise negative Physical Exam Vital Signs Vital Signs - 24 hr 10/15/18 17:10 10/15/18 18:53 10/15/18 20:44 Temperature 36.8 C Temperature Source Oral Sepsis Recent Fever Within 48 Hours No Sepsis New/Unexplained Change in Mental Status No Sepsis Action Taken by Nursing No Action Required Pulse Rate 79 77 Pulse Rate [Right] 78 68 Pulse Rhythm Regular Pulse Strength Normal Respiratory Rate 20 20 16 Respiratory Effort / Characteristics Non-Labored Spontaneous Non-Labored Non-Labored Spontaneous Respiratory Depth Normal Normal Normal Respiratory Pattern Regular Blood Pressure 145/88 H Blood Pressure [Left Arm] 116/70 Blood Pressure Mean 107 Blood Pressure Mean [Left Arm] 85 Blood Pressure Position Sitting Blood Pressure Position [Left Arm] Lying Pulse Oximetry 99 95 95 Oxygen Delivery Method Room Air Room Air Room Air GENERAL: Awake, alert, actively vomiting, well-appearing, in no acute distress HENT: Normocephalic, atraumatic. Oropharynx unremarkable. EYES: Normal conjunctiva. Sclera non-icteric. NECK: Supple. No nuchal rigidity. FROM. No JVD. RESPIRATORY: Clear to auscultation. CARDIAC: Regular rate, normal rhythm. Extremities warm and well perfused. Pulses equal. ABDOMEN: Soft, non-distended. No tenderness to palpation. No rebound or guarding. No masses. RECTAL: Deferred. MUSCULOSKELETAL: Chest examination reveals no tenderness. The back is symmetrical on inspection without obvious abnormality. There is no CVA tenderne ss to palpation. No joint edema. LOWER EXTREMITIES: Calves are equal size bilaterally and non-tender. No edema. No discoloration. NEURO: Normal sensorium. No sensory or motor deficits noted. SKIN: No rash or jaundice noted. Course 1757: The patient was evaluated in room D7, and a complete history and physical examination were performed. 1954: I [facility] the [facility] He will evaluate the patient for further management. Consultations Consultation #1: Dr. Andino- [facility] Hospitalist Time: 19:55 Administered Medications Sodium Chloride (Nss 1000ml) 1,000 mls @ 125 mls/hr IV .Q8H ISABELLA Stop: 11/14/18 22:19 Last Admin: 10/15/18 23:32 Dose: 125 mls/hr Documented by: [id number] Discontinued Medications Hydromorphone HCl (Dilaudid) 1 mg IV Q15M PRN PRN Reason: Pain Stop: 10/29/18 18:26 Last Admin: 10/15/18 19:48 Dose: 1 mg Documented by: [id number] Admin: 10/15/18 18:31 Dose: 1 mg Documented by: [id number] Sodium Chloride (Nss 1000ml) 1,000 mls @ 999 mls/hr IV .Q1H1M ONE Stop: 10/15/18 19:27 Last Infusion: 10/15/18 23:55 Dose: 0 mls/hr Documented by: [id number] Admin: 10/15/18 18:31 Dose: 999 mls/hr Documented by: [id number] Ceftriaxone Sodium (Rocephin) 1,000 mg in 50 mls @ 100 mls/hr IV NOW STA Stop: 10/15/18 20:18 Last Infusion: 10/15/18 21:15 Dose: 0 mls/hr Documented by: [id number] Admin: 10/15/18 20:45 Dose: 100 mls/hr Documented by: [id number] Ioversol (Optiray 320 100ml) 91 ml IV ONCE PRN PRN Reason: Interaction Checking Stop: 10/19/18 18:46 Last Admin: 10/15/18 18:50 Dose: 91 ml Documented by: [id number] Ketorolac Tromethamine (Toradol) 30 mg IV NOW STA Stop: 10/15/18 18:28 Last Admin: 10/15/18 18:31 Dose: 30 mg Documented by: [id number] Metoclopramide HCl (Reglan) 10 mg IV NOW STA Stop: 10/15/18 19:41 Last Admin: 10/15/18 19:48 Dose: 10 mg Documented by: [id number] Ondansetron HCl (Zofran) 4 mg IV NOW STA Stop: 10/15/18 18:28 Last Admin: 10/15/18 18:31 Dose: 4 mg Documented by: [id number] Medical Decision Making Differential Diagnosis Differential diagnosis: Etiologies such as renal colic, appendicitis, diverticulitis, mesenteric ischemia, aortic pathology, infections, inflammatory bowel disease, PUD, biliary pathology, UTI, as well as others were entertained. Medical Records Attestation: I reviewed the patient's medical records. Home Medications Current Medication List: was personally reviewed by me Laboratory Data Attestation: I reviewed the patient's lab results. Result diagrams: 10/15/18 18:07 10/15/18 18:07 Lab Results 10/15/18 10/15/18 10/15/18 Range/Units 18:07 18:07 18:12 WBC 11.45 H (4.8-10.8) K/uL RBC 5.25 (4.2-5.4) M/uL Hgb 14.0 (12.0-16.0) g/dL POC Hgb 15.0 (12.0-16.0) g/dl Hct 43.7 (37-47) % POC Hct 44 (37-47) % MCV 83.2 (80-100) fL MCH 26.7 (25-34) pg MCHC 32.0 (32-36) g/dL RDW Std Deviation 43.9 (36.4-46.3) fL RDW Coeff of Agusto 14.4 (11.5-14.5) % Plt Count 226 (130-400) K/uL MPV 11.6 H (7.4-10.4) fL Immature Gran % (Auto) 0.3 % Neut % (Auto) 73.6 % Lymph % (Auto) 16.5 % Roane % (Auto) 6.6 % Eos % (Auto) 2.7 % Baso % (Auto) 0.3 % Immature Gran # (Auto) 0.03 H (0.00-0.02) K/uL Neut # (Auto) 8.43 H (1.4-6.5) K/uL Lymph # (Auto) 1.89 (1.2-3.4) K/uL [place] # (Auto) 0.76 H (0.11-0.59) K/uL Eos # (Auto) 0.31 (0-0.5) K/uL Baso # (Auto) 0.03 (0-0.2) K/uL POC Sodium 140 (135-144) mEq/L Sodium 141 (136-145) mmol/L POC Potassium 4.1 (3.3-5.0) mEq/L Potassium 4.2 (3.5-5.1) mmol/L POC Chloride 105 (101-112) mEq/L Chloride 108 H (98-107) mmol/L Carbon Dioxide 26 (21-32) mmol/L POC Total CO2 24 (24-31) mEq/l Anion Gap 7.0 (3-11) POC Anion Gap 17.0 (16-25) mmol/L POC BUN 18 (7-18) mg/dl BUN 17 (7-18) mg/dl Creatinine 0.99 (0.6-1.2) mg/dl POC Creatinine 0.9 (0.6-1.3) mg/dl Est Cr Clr Drug Dosing 77.5 ml/min Est GFR ( Amer) 79.8 Est GFR (Non-Af Amer) 68.8 BUN/Creatinine Ratio 17.0 (10-20) Glucose 100 H (70-99) mg/dl POC Glucose (other) 104 H (70-99) mg/dl Calcium 9.6 (8.5-10.1) mg/dl POC Ioniz Calcium Ruma 1.26 (1.12-1.32) mmol/l Total Bilirubin 0.3 (0.2-1) mg/dl AST 19 (15-37) U/L ALT 35 (12-78) U/L Alkaline Phosphatase 96 (45-117) U/L Total Protein 7.4 (6.4-8.2) gm/dl Albumin 3.8 (3.4-5.0) gm/dl Globulin 3.6 (2.5-4.0) gm/dl Albumin/Globulin Ratio 1.0 (0.9-2) Lipase 180 (73-393) U/L Urine Color Urine Appearance (Clear) Urine pH (4.5-7.5) Ur Specific [place] (1.000-1.030) Urine Protein (Negative) Urine Glucose (UA) (Negative) Urine Ketones (Negative) Urine Blood (Negative) Urine Nitrite (Negative) Urine Bilirubin (Negative) Urine Urobilinogen (Negative) Ur Leukocyte Esterase (Negative) Urine WBC (Auto) (0-5) /hpf Urine RBC (Auto) (0-4) /hpf U Hyaline Cast (Auto) (0-5) /lpf U Epithel Cells (Auto) (0-5) /lpf Urine Bacteria (Auto) (Negative) 10/15/18 Range/Units 19:05 WBC (4.8-10.8) K/uL RBC (4.2-5.4) M/uL Hgb (12.0-16.0) g/dL POC Hgb (12.0-16.0) g/dl Hct (37-47) % POC Hct (37-47) % MCV (80-100) fL MCH (25-34) pg MCHC (32-36) g/dL RDW Std Deviation (36.4-46.3) fL RDW Coeff of Agusto (11.5-14.5) % Plt Count (130-400) K/uL MPV (7.4-10.4) fL Immature Gran % (Auto) % Neut % (Auto) % Lymph % (Auto) % [place] % (Auto) % Eos % (Auto) % Baso % (Auto) % Immature Gran # (Auto) (0.00-0.02) K/uL Neut # (Auto) (1.4-6.5) K/uL Lymph # (Auto) (1.2-3.4) K/uL [place] # (Auto) (0.11-0.59) K/uL Eos # (Auto) (0-0.5) K/uL Baso # (Auto) (0-0.2) K/uL POC Sodium (135-144) mEq/L Sodium (136-145) mmol/L POC Potassium (3.3-5.0) mEq/L Potassium (3.5-5.1) mmol/L POC Chloride (101-112) mEq/L Chloride (98-107) mmol/L Carbon Dioxide (21-32) mmol/L POC Total CO2 (24-31) mEq/l Anion Gap (3-11) POC Anion Gap (16-25) mmol/L POC BUN (7-18) mg/dl BUN (7-18) mg/dl Creatinine (0.6-1.2) mg/dl POC Creatinine (0.6-1.3) mg/dl Est Cr Clr Drug Dosing ml/min Est GFR ( Amer) Est GFR (Non-Af Amer) BUN/Creatinine Ratio (10-20) Glucose (70-99) mg/dl POC Glucose (other) (70-99) mg/dl Calcium (8.5-10.1) mg/dl POC Ioniz Calcium Ruma (1.12-1.32) mmol/l Total Bilirubin (0.2-1) mg/dl AST (15-37) U/L ALT (12-78) U/L Alkaline Phosphatase (45-117) U/L Total Protein (6.4-8.2) gm/dl Albumin (3.4-5.0) gm/dl Globulin (2.5-4.0) gm/dl Albumin/Globulin Ratio (0.9-2) Lipase (73-393) U/L Urine Color Yellow Urine Appearance Clear (Clear) Urine pH 6.0 (4.5-7.5) Ur Specific [place]de 1.041 H (1.000-1.030) Urine Protein Negative (Negative) Urine Glucose (UA) Negative (Negative) Urine Ketones Negative (Negative) Urine Blood 3+ H (Negative) Urine Nitrite Positive A (Negative) Urine Bilirubin Negative (Negative) Urine Urobilinogen Negative (Negative) Ur Leukocyte Esterase 1+ H (Negative) Urine WBC (Auto) >30 H (0-5) /hpf Urine RBC (Auto) >30 H (0-4) /hpf U Hyaline Cast (Auto) 5-10 H (0-5) /lpf U Epithel Cells (Auto) 5-10 H (0-5) /lpf Urine Bacteria (Auto) 1+ H (Negative) Imaging Data Radiologist's Impression: Radiology results as stated below per my review and the radiologist's interpretation: CT abd pelvis IV con only CT DOSE: 599.72 mGy.cm HISTORY: Flank pain Pt c/o Rt sided flank pain TECHNIQUE: Multiaxial CT images of the abdomen and pelvis were performed following the use of intravenous contrast. A dose lowering technique was utilized adhering to the principles of ALARA. COMPARISON STUDY: 01/12/2018 FINDINGS: Lung bases are clear. Liver spleen and pancreas are unremarkable. Bilateral nonobstructing renal calcifications which of been described previously. Moderate right hydroureteronephrosis. 5 mm obstructing calculus proximal right ureter. This is unchanged in location from the prior study. Nonobstructive bowel pattern. Normal appendix. Uterus is anteflexed. Endometrium is somewhat prominent level of uterine fundus. Small bilateral ovarian follicular cyst. Normal appendix. IMPRESSION: 1. 5 mm obstructing calculus proximal right ureter most likely unchanged from the prior study. 2. Chronic right hydroureteronephrosis with several nonobstructing calcifications within the posterior aspect of the distended renal pelvis. 3. Bilateral nonobstructing renal cortical calcifications unchanged. 4. Nonobstructive bowel pattern. The above report was generated using voice recognition software. It may contain grammatical, syntax or spelling errors. Electronically signed by: Vickey Sutton M.D. 10/15/2018 6:56 PM Blood Pressure Blood Pressure Findings: Elevated blood pressure Blood Pressure Disposition: elevated BP felt to be situational MDM Narrative This is a 43-year-old female who presents emergency department complaining of severe right flank pain. Using shared medical decision-making with the patient the decision was made to send patient for CAT scan of the abdomen pelvis. This was concerning for a chronic stone in the right ureter. The patient does have an elevation in her white blood cell count and her urine is concerning for infection for this reason the patient was started on IV antibiotics. She was given Dilaudid Toradol and Zofran in the emergency department. Repeat examination revealed improvement patient's symptoms. Unfortunately the patient began vomiting and was unable to keep any medicines down for this reason I did discuss the case with the hospitalist service who agreed to admit the patient. Patient was in agreement with the treatment plan. Impression & Plan Pyelonephritis Discharge Plan Visit Data *Final* Discharge Date/Time: 10/15/18 21:49 Chief Complaint: Flank Pain Stated Complaint: R FLANK PAIN ED Provider: Francois Fontanez Discharge Problem: Pyelonephritis Patient Disposition: Admitted As Inpatient Discharge Instructions Interventions: ED Discharge Assessment Last Done: 10/15/18 21:49 The scribe's documentation has been prepared under my direction and personally reviewed by me in its entirety. I confirm that the note above accurately reflects all work, treatment, procedures, and medical decision making performed by me.
[2018-10-16] MEDS: KETOROLAC 30 MG/ML VIAL IV PRN ×2 (00:54→07:54)
[2018-10-16] MEDS ORDERED: HYDROmorphone INJ 1 MG/ML SYRINGE IV PRN (03:21)
[2018-10-16] MEDS: SODIUM CHLORIDE 0.9% 1000ML 1,000 ML IV SCH ×2 (07:50→21:17)
--- NOTE | 2018-10-16 08:07 | Urology Consultation ---
Date of Consultation October 16, 2018 Assessment & Plan (1) Ureteral stone: Obstructing right proximal ureteral stone with resulting hydronephrosis, UTI. Patient is febrile and looks unwell, tearful, chilled, nauseated, pain. Will add to OR schedule promptly for ureteral stent placement. Understands that stone likely not treated at this time due to infection. History of Present Illness Attending Physician: Nicholas Freitas History of Present Illness 43 YO female, known history of stones with a 5mm obstructing proximal right ureteral stone and likely UTI. Established with Dr. Ryan. Patient is recently febrile this morning. She is chilled and very uncomfortable upon my evaluation. Remains on empiric Rocephin. Remains NPO. Allergies Allergy/AdvReac Type Severity Reaction Status Date / Time nut - unspecified Allergy Severe ANAPHYLAXIS Verified 10/15/18 18:12 cat dander Allergy Intermediate CAT/DOG-ITCHY Verified 10/15/18 18:12 EYES RUNNY NOSE Home Medications Home Medications Medication Instructions Recorded Confirmed Type allopurinol 100 mg PO DAILY 01/12/18 10/15/18 History chlorthalidone 25 mg PO DAILY 01/12/18 10/15/18 History epinephrine [EpiPen] 0.3 mg IM Q3H PRN 01/12/18 10/15/18 History Patient History Medical History Kidney stone (Acute) Calculus of proximal right ureter (Inactive) Family history of reaction to anesthesia MOTHER NAUSEA Kidney stones Nausea and vomiting after administration of anesthetic agent Surgical History H/O lithotripsy Right ESWL 12/2017-LMA #4 used without complications History of bilateral tubal ligation History of tooth extraction Uterine polyp Family History Family/Other Family hx of colon cancer Social History Preferred Language: Emirati Communication Ability: Effective Visual Impairment: No Limitations Group Tester Required: No Beliefs That Will Affect Care: None Current Living Situation: Spouse Current Living Situation Comment: CHILDREN Other Information That Helps Us Care for You: No Feels Safe at Home: Yes Safety Concerns: Feels Safe At This Time Smoking Status: Never smoker Do You Dip or Chew Tobacco: No Second Hand Exposure: No Hx Alcohol Use: No Hx Substance Use: No Review of Systems Constitutional: + fever and + chills Eyes: no worsening vision Ear, Nose, Mouth, Throat: no hearing loss Respiratory: no dyspnea Cardiovascular: no chest pain Gastrointestinal: + abdominal pain, + nausea and + vomiting Genitourinary: no difficulty urinating Musculoskeletal: + back pain Neurologic: no tingling and no numbness Psychiatric: + anxiety Endocrine: no fatigue Physical Exam Physical Exam: +Mild distress. Resp effort normal. No JVD. Abd soft +diffusely tender. : bladder non distended. A&O x3, +anxious +tearful Results & Data Vital Signs (Past 12 Hours) Vital Signs Temp Pulse Pulse Pulse Resp BP BP 10/16/18 07:02 37.8 C H 104 H 19 114/76 10/15/18 22:00 36.6 C 78 20 131/78 10/15/18 21:49 75 18 128/60 10/15/18 20:44 68 16 116/70 Pulse Ox 10/16/18 07:02 97 10/15/18 22:00 95 10/15/18 21:49 99 10/15/18 20:44 95
--- NOTE | 2018-10-16 08:27 | History & Physical Bridge Note ---
Date of Service October 16, 2018 History & Physical Bridge Note I have examined the patient, reviewed the History & Physical and in the interval since the performance of the History & Physical I have noted the following changes of clinical significance: no changes noted
--- NOTE | 2018-10-16 08:32 | Anesthesiology Consultation ---
Date of Service October 16, 2018 Assessment & Plan (1) Encounter for pre-operative examination: Chart Review Chart Review: Acceptable Risk for Surgery and Patient NOT seen in Pre Admission Testing Consults Requested none History Surgery Operation Date: 10/16/18 07:00 Proposed Procedures p Cystoscopy, Right Ureteral Stent Insertion - Aramis Jane MD Height/Weight Height: 5 ft 4 in Weight: 89 kg Allergies Allergy/AdvReac Type Severity Reaction Status Date / Time nut - unspecified Allergy Severe ANAPHYLAXIS Verified 10/15/18 18:12 cat dander Allergy Intermediate CAT/DOG-ITCHY Verified 10/15/18 18:12 EYES RUNNY NOSE Medications Home Medications Medication Instructions Recorded Confirmed Last Taken allopurinol 100 mg PO DAILY 01/12/18 10/15/18 02/27/18 chlorthalidone 25 mg PO DAILY 01/12/18 10/15/18 10/15/18 epinephrine [EpiPen] 0.3 mg IM Q3H PRN 01/12/18 10/15/18 Unknown Active Medications Generic Name Dose Route Start Last Admin Trade Name Freq PRN Reason Stop Dose Admin Hydromorphone HCl 1 mg 10/16/18 03:21 10/16/18 04:03 Dilaudid IV 10/30/18 03:20 1 mg Q4H PRN Administration Pain Sodium Chloride 1,000 mls @ 125 mls/hr 10/15/18 22:20 10/16/18 07:50 Nss 1000ml IV 11/14/18 22:19 125 mls/hr .Q8H ISABELLA Administration Ketorolac Tromethamine 30 mg 10/15/18 22:07 10/16/18 07:54 Toradol IV 10/20/18 22:06 30 mg Q6H PRN Administration Pain Ondansetron HCl 4 mg 10/15/18 22:07 10/16/18 07:54 Zofran IV 11/14/18 22:06 4 mg Q6H PRN Administration Nausea NPO Date Last Intake of Fluids: 10/16/18 Time Last Intake of Fluids: 00:00 Date Last Intake of Solids: 10/16/18 Time Last Intake of Solids: 00:00 Past Medical History Medical History Kidney stone (Acute) Calculus of proximal right ureter (Inactive) Family history of reaction to anesthesia MOTHER NAUSEA Kidney stones Nausea and vomiting after administration of anesthetic agent Exercise / Class Metabolic Activity II 4-5 Yardwork/Stairs/Walk up hill Past Family History Family History Family/Other Family hx of colon cancer Past Surgical History Surgical History H/O lithotripsy Right ESWL 12/2017-LMA #4 used without complications History of bilateral tubal ligation History of tooth extraction Uterine polyp Past Anesthesia History No Hx of Anesthesia Complications and No Family Hx of Anesthesia Complications History of PONV No Hx of PONV and No Hx of Motion Sickness Social History Smoking Status: Never smoker Do You Dip or Chew Tobacco: No Hx Alcohol Use: No Hx Substance Use: No substance use type: does not use Physical Exam Vital Signs Last Vital Signs Temp 37.8 C H 10/16/18 07:02 Pulse 104 H 10/16/18 07:02 Resp 19 10/16/18 07:02 BP 114/76 10/16/18 07:02 Pulse Ox 97 10/16/18 07:02 Testing Laboratory Results 10/15/18 18:07 10/15/18 18:07 Urine Color Yellow 10/15/18 19:05 Urine Appearance Clear (Clear) 10/15/18 19:05 Urine pH 6.0 (4.5-7.5) 10/15/18 19:05 Ur Specific [place] 1.041 (1.000-1.030) H 10/15/18 19:05 Urine Protein Negative (Negative) 10/15/18 19:05 Urine Glucose (UA) Negative (Negative) 10/15/18 19:05 Urine Ketones Negative (Negative) 10/15/18 19:05 Urine Nitrite Positive (Negative) A 10/15/18 19:05 Ur Leukocyte Esterase 1+ (Negative) H 10/15/18 19:05 Urine WBC (Auto) >30 /hpf (0-5) H 10/15/18 19:05 Urine RBC (Auto) >30 /hpf (0-4) H 10/15/18 19:05 U Hyaline Cast (Auto) 5-10 /lpf (0-5) H 10/15/18 19:05 U Epithel Cells (Auto) 5-10 /lpf (0-5) H 10/15/18 19:05 Urine Bacteria (Auto) 1+ (Negative) H 10/15/18 19:05
[2018-10-16] MEDS ORDERED: ePHEDrine sulfate 50 MG/ML AMP IV PRN (08:39)
[2018-10-16] MEDS ORDERED: fentaNYL citrate 100 MCG/2 ML VIAL IV PRN (08:39)
[2018-10-16] MEDS ORDERED: ATROPINE SULFATE 0.1 MG/ML 10ML SYR IV PRN (08:39)
[2018-10-16] MEDS ORDERED: ONDANSETRON INJ 2 MG/ML 2 ML VIAL IV PRN (08:39)
[2018-10-16] MEDS ORDERED: SCOPOLAMINE 1.5 MG TDSY ONE (08:39)
[2018-10-16] MEDS ORDERED: PROMETHAZINE HCL 12.5 MG in SODIUM CHLORIDE 0.9% 50 ML IV PRN (08:39)
[2018-10-16] MEDS ORDERED: SCOPOLAMINE 1.5 MG TDSY TD STA (08:40)
[2018-10-16] MEDS ORDERED: MIDAZOLAM HCL 1 MG/ML 2ML VIAL ONE (08:44)
[2018-10-16] MEDS ORDERED: IOTHALAMATE MEGLUMINE II 17.2% 250 ML VIAL ONE (08:45)
[2018-10-16] MEDS ORDERED: fentaNYL citrate 100 MCG/2 ML VIAL ONE ×2 (08:45→09:07)
[2018-10-16] MEDS ORDERED: PROPOFOL IV EMULSION 10 MG/ML 20 ML VIAL IV ONE (08:46)
[2018-10-16] MEDS ORDERED: SUCCINYLCHOLINE CHLORIDE 20 MG/ML 10 ML VIAL ONE (08:46)
[2018-10-16] MEDS ORDERED: METOCLOPRAMIDE HCL INJ 5 MG/ML 2 ML VIAL ONE (09:12)
[2018-10-16] MEDS ORDERED: ONDANSETRON INJ 2 MG/ML 2 ML VIAL ONE (09:12)
[2018-10-16] MEDS ORDERED: LIDOCAINE HCL 2% 2 ML VIAL/AMP(20MG/ML) INFIL ONE (09:12)
[2018-10-16] MEDS ORDERED: DEXAMETHASONE SOD INJ 4 MG/ML VIAL ONE (09:12)
[2018-10-16] MEDS ORDERED: DiphenhydrAMINE HCL 50 MG/ML VIAL ONE (09:12)
--- NOTE | 2018-10-16 09:19 | Operative Report ---
Post Operative Report Pre & Post Diagnosis Operation Date: 10/16/18 07:00 Pre-Op Diagnosis: URETERAL STONE,UTI Post-Op Diagnosis: URETERAL STONE,UTI Procedure Operation Date: 10/16/18 07:00 Actual Procedures p Cystoscopy, Right Ureteral Stent Insertion(Right) - Aramis Jane MD Surgeon Duong Jane MD [employer] none Estimated Blood Loss 0 Findings Consistent with Post-Op Diagnosis Specimens none Description of Procedure The patient was identified in the preopertive holding area, appropriate informed consents were reviewed and completed and the patient was transferred to the operative suite. Upon arrival, appropriate antibiotics (she received a dose of ceftriaxone prior to surgery) and anesthesia were administered and the patient was placed in dorsal lithotomy position and prepped and draped in sterile fashion. To begin the case I passed a 22 [place]an cystoscope with 30 degree lens and inspected the bladder. Inspection revealed some debris within the bladder, but no stones. Ureteral orifices were in orthotopic position. I turned my attention of the right ureteral orifice and cannulated with a 5 [place]an open-ende d catheter and sensor wire. Of note, on fluoroscopy she still had contrast within the right collecting system opacifying the entire upper tract. I was able to pass a wire beyond the stone into the upper pole of the kidney and then placed a 6 [place]an by 24 cm looped ureteral stent. There was good curl felt towards the lower pole as well as a good letter. Bladder and concluded the case. She was extubated and taken to the PACU in stable condition. I attest to the content of the Intraoperative Record and any orders documented therein. Any exceptions are noted below.
--- NOTE | 2018-10-16 09:50 | Fluoroscopy Report ---
FL KUB CLINICAL HISTORY: STONES COMPARISON STUDY: 06/24/2018 FLUOROSCOPY TIME: 6 seconds. NUMBER OF FLUOROSCOPIC IMAGES: 1 FINDINGS: A single fluoroscopic spot image demonstrates the proximal pigtail of a right-sided nephrou reteral stent. There is contrast within the right collecting system which demonstrates mild calyceal distention. IMPRESSION: Intraprocedural fluoroscopic spot image demonstrating the proximal portion of a right-si ded nephroureteral stent Electronically signed by: Jairo Dao M.D. 10/16/2018 9:48 AM
--- NOTE | 2018-10-16 09:54 | Anesthesiology Progress Note ---
Date of Service October 16, 2018 Anesthesia Post Procedure Vital Signs Vital Signs: Temp Pulse Pulse Pulse Pulse Resp BP 10/16/18 09:50 104 H 19 10/16/18 09:40 107 H 20 10/16/18 09:30 111 H 27 H 10/16/18 09:22 38.0 C H 122 H 22 10/16/18 08:47 37.8 C H 106 H 20 10/16/18 07:02 37.8 C H 104 H 19 10/15/18 22:00 36.6 C 78 20 10/15/18 21:49 75 18 128/60 10/15/18 20:44 68 16 10/15/18 18:53 77 78 20 10/15/18 17:10 36.8 C 79 20 145/88 H BP Pulse Ox 10/16/18 09:50 91/59 L 97 10/16/18 09:40 87/53 L 97 10/16/18 09:30 93/54 L 96 10/16/18 09:22 78/49 L 93 10/16/18 08:47 129/71 96 10/16/18 07:02 114/76 97 10/15/18 22:00 131/78 95 10/15/18 21:49 99 10/15/18 20:44 116/70 95 10/15/18 18:53 95 10/15/18 17:10 99 Pain Intensity Right Flank: Pain Intensity: 7 Transfer of Care Handoff Completed per policy Notes Mental Status: alert / awake / arousable and participated in evaluation Patient Amnestic to Procedure: Yes Nausea / Vomiting: adequately controlled Pain: adequately controlled Airway Patency, RR, SpO2: stable & adequate BP & HR: stable & adequate Hydration State: stable & adequate Anesthetic Complications: no major complications apparent and Pt Satisfied with anesthetic care Notes: hr improving with fluid replacement, bp improving as well
[2018-10-16] MEDS: cefTRIAXone SODIUM 2,000 MG in DEXTROSE 5% 50 ML IV SCH (11:06)
[2018-10-16 11:24] LABS: Hemoglobin 11.7 g/dL (12.0-16.0); Mean Corpuscular Hgb Conc 32.5 g/dL (32-36); Mean Corpuscular Volume 81.4 fL (80-100); Mean Platelet Volume 11.6 fL (7.4-10.4); Platelet Count 124 K/uL (130-400); RDW Coefficient of Variation 14.1 % (11.5-14.5); RDW Standard Deviation 42.6 fL (36.4-46.3); Red Blood Count 4.42 M/uL (4.2-5.4); White Blood Count 16.81 K/uL (4.8-10.8)
[2018-10-16 11:45] LABS: BUN Creatinine Ratio 11.8 (10-20); Calcium 8.5 mg/dl (8.5-10.1); Est GFR (African American) 64.5; Est GFR (Non-African American) 55.7; Potassium 3.9 mmol/L (3.5-5.1)
[2018-10-16] MEDS: ALLOPURINOL 100 MG TAB PO SCH (12:46)
[2018-10-16] MEDS: CHLORTHALIDONE 25 MG TAB PO SCH (12:48)
--- NOTE | 2018-10-16 13:37 | Hospitalist Progress Note ---
Date of Service October 16, 2018 Assessment & Plan (1) Pyelonephritis: - Febrile, tachycardic, right flank pain with +urinalysis on admission. - Urine is pending; no blood cultures were collected. - Continue Ceftriaxone 1 gm IV q24hr. - IV fluid hydration with NS at 80 cc/hr. - Urology following, appreciate input. (2) Ureteral stone: - 5 mm obstructing calculus of the proximal right ureter; chronic right hydroureteronephrosis with several nonobstructing calcifications within renal pelvis. - Urology consulted, s/p right sided stent placement today. - Continue home allopurinol as prescribed. - Tylenol, Toradol and Dilaudid for pain. - Zofran prn nausea/vomiting. (3) Leukocytosis: - Related to UTI, monitor CBC qAM. (4) HTN (hypertension): - Continue home Chlorthalidone as prescribed. (5) DVT prophylaxis: - SCDs; holding pharmacologic ppx for procedure. Dispo: Med/surg; discharge possibly on 10/17/18 pending improvement in fevers, tachycardia. Supervising Physician Co-Signing Physician Notes Attending Attestation: Chart reviewed, care plan d/w LANRE Huang. I agree w/ the cisneros components of her documentation. Obstructing right-sided kidney stone s/p stent placement today. Remains on antibiotics for suspected UTI/questionable right-sided pyelonephritis. Labs in am. Follow cultures. Nicholas Freitas MD Subjective Pt. is lethargic following procedure. She denies flank pain, chest pain, SOB, N/V. Plan to monitor over next 24 hours. Review of Systems Review of Systems: All systems reviewed & are unremarkable except as noted in HPI & below Constitutional: no fever, no chills, no fatigue, no weakness and no anorexia Respiratory: no cough, no dyspnea, no dyspnea on exertion and no wheezing Cardiovascular: no chest pain, no palpitations and no edema Gastrointestinal: no abdominal pain, no nausea, no vomiting, no constipation and no diarrhea/loose stools Genitourinary: no dysuria, no difficulty urinating, no hematuria and no flank pain Musculoskeletal: no back pain and no joint pain Integumentary: no non-healing lesions Allergy / Immunological: no rash Physical Exam Physical Exam: General: Resting comfortably in no apparent distress HEENT: NC/AT; PERRLA with EOMI; [place] conjunctiva, MMM. No erythema of posterior pharynx Neck: Supple and nontender Cardiac: RRR w/o murmurs, gallops or rubs Lungs: CTA bilaterally; No rhonchi, wheezing, or rales Abdomen: Bowel normoactive X 4; Nontender to palpation Extremities: Warm. No edema present Neuro: No focal weakness Skin: No rash Results & Data Vital Signs (Past 12 Hours) Vital Signs Temp Pulse Pulse Resp BP Pulse Ox 10/16/18 12:46 36.3 C L 95 H 16 109/70 95 10/16/18 11:31 36.8 C 89 16 109/69 95 10/16/18 11:05 36.9 C 97 H 16 110/65 94 10/16/18 10:37 36.9 C 105 H 18 113/64 94 10/16/18 10:15 101 H 22 104/61 95 10/16/18 10:10 102 H 20 102/57 L 96 10/16/18 10:02 37.3 C 108 H 24 112/53 L 96 10/16/18 09:50 104 H 19 91/59 L 97 10/16/18 09:40 107 H 20 87/53 L 97 10/16/18 09:30 111 H 27 H 93/54 L 96 10/16/18 09:22 38.0 C H 122 H 22 78/49 L 93 10/16/18 08:47 37.8 C H 106 H 20 129/71 96 10/16/18 07:02 37.8 C H 104 H 19 114/76 97 Laboratory Results 10/16/18 10/16/18 10/15/18 Range/Units 11:10 11:10 19:05 WBC 16.81 H (4.8-10.8) K/uL RBC 4.42 (4.2-5.4) M/uL Hgb 11.7 L (12.0-16.0) g/dL POC Hgb (12.0-16.0) g/dl Hct 36.0 L (37-47) % POC Hct (37-47) % MCV 81.4 (80-100) fL MCH 26.5 (25-34) pg MCHC 32.5 (32-36) g/dL RDW Std Deviation 42.6 (36.4-46.3) fL RDW Coeff of Agusto 14.1 (11.5-14.5) % Plt Count 124 L (130-400) K/uL MPV 11.6 H (7.4-10.4) fL Immature Gran % (Auto) % Neut % (Auto) % Lymph % (Auto) % Alexander % (Auto) % Eos % (Auto) % Baso % (Auto) % Immature Gran # (Auto) (0.00-0.02) K/uL Neut # (Auto) (1.4-6.5) K/uL Lymph # (Auto) (1.2-3.4) K/uL Alexander # (Auto) (0.11-0.59) K/uL Eos # (Auto) (0-0.5) K/uL Baso # (Auto) (0-0.2) K/uL POC Sodium (135-144) mEq/L Sodium 139 (136-145) mmol/L POC Potassium (3.3-5.0) mEq/L Potassium 3.9 (3.5-5.1) mmol/L POC Chloride (101-112) mEq/L Chloride 111 H (98-107) mmol/L Carbon Dioxide 23 (21-32) mmol/L POC Total CO2 (24-31) mEq/l Anion Gap 5.0 (3-11) POC Anion Gap (16-25) mmol/L POC BUN (7-18) mg/dl BUN 14 (7-18) mg/dl Creatinine 1.18 (0.6-1.2) mg/dl POC Creatinine (0.6-1.3) mg/dl Est Cr Clr Drug Dosing 65.0 ml/min Est GFR ( Amer) 64.5 Est GFR (Non-Af Amer) 55.7 BUN/Creatinine Ratio 11.8 (10-20) Glucose 111 H (70-99) mg/dl POC Glucose (other) (70-99) mg/dl Calcium 8.5 (8.5-10.1) mg/dl POC Ioniz Calcium Ruma (1.12-1.32) mmol/l Total Bilirubin (0.2-1) mg/dl AST (15-37) U/L ALT (12-78) U/L Alkaline Phosphatase (45-117) U/L Total Protein (6.4-8.2) gm/dl Albumin (3.4-5.0) gm/dl Globulin (2.5-4.0) gm/dl Albumin/Globulin Ratio (0.9-2) Lipase (73-393) U/L Urine Color Yellow Urine Appearance Clear (Clear) Urine pH 6.0 (4.5-7.5) Ur Specific George 1.041 H (1.000-1.030) Urine Protein Negative (Negative) Urine Glucose (UA) Negative (Negative) Urine Ketones Negative (Negative) Urine Blood 3+ H (Negative) Urine Nitrite Positive A (Negative) Urine Bilirubin Negative (Negative) Urine Urobilinogen Negative (Negative) Ur Leukocyte Esterase 1+ H (Negative) Urine WBC (Auto) >30 H (0-5) /hpf Urine RBC (Auto) >30 H (0-4) /hpf U Hyaline Cast (Auto) 5-10 H (0-5) /lpf U Epithel Cells (Auto) 5-10 H (0-5) /lpf Urine Bacteria (Auto) 1+ H (Negative) 10/15/18 10/15/18 10/15/18 Range/Units 18:12 18:07 18:07 WBC 11.45 H (4.8-10.8) K/uL RBC 5.25 (4.2-5.4) M/uL Hgb 14.0 (12.0-16.0) g/dL POC Hgb 15.0 (12.0-16.0) g/dl Hct 43.7 (37-47) % POC Hct 44 (37-47) % MCV 83.2 (80-100) fL MCH 26.7 (25-34) pg MCHC 32.0 (32-36) g/dL RDW Std Deviation 43.9 (36.4-46.3) fL RDW Coeff of Agusto 14.4 (11.5-14.5) % Plt Count 226 (130-400) K/uL MPV 11.6 H (7.4-10.4) fL Immature Gran % (Auto) 0.3 % Neut % (Auto) 73.6 % Lymph % (Auto) 16.5 % Alexander % (Auto) 6.6 % Eos % (Auto) 2.7 % Baso % (Auto) 0.3 % Immature Gran # (Auto) 0.03 H (0.00-0.02) K/uL Neut # (Auto) 8.43 H (1.4-6.5) K/uL Lymph # (Auto) 1.89 (1.2-3.4) K/uL Alexander # (Auto) 0.76 H (0.11-0.59) K/uL Eos # (Auto) 0.31 (0-0.5) K/uL Baso # (Auto) 0.03 (0-0.2) K/uL POC Sodium 140 (135-144) mEq/L Sodium 141 (136-145) mmol/L POC Potassium 4.1 (3.3-5.0) mEq/L Potassium 4.2 (3.5-5.1) mmol/L POC Chloride 105 (101-112) mEq/L Chloride 108 H (98-107) mmol/L Carbon Dioxide 26 (21-32) mmol/L POC Total CO2 24 (24-31) mEq/l Anion Gap 7.0 (3-11) POC Anion Gap 17.0 (16-25) mmol/L POC BUN 18 (7-18) mg/dl BUN 17 (7-18) mg/dl Creatinine 0.99 (0.6-1.2) mg/dl POC Creatinine 0.9 (0.6-1.3) mg/dl Est Cr Clr Drug Dosing 77.5 ml/min Est GFR ( Amer) 79.8 Est GFR (Non-Af Amer) 68.8 BUN/Creatinine Ratio 17.0 (10-20) Glucose 100 H (70-99) mg/dl POC Glucose (other) 104 H (70-99) mg/dl Calcium 9.6 (8.5-10.1) mg/dl POC Ioniz Calcium Ruma 1.26 (1.12-1.32) mmol/l Total Bilirubin 0.3 (0.2-1) mg/dl AST 19 (15-37) U/L ALT 35 (12-78) U/L Alkaline Phosphatase 96 (45-117) U/L Total Protein 7.4 (6.4-8.2) gm/dl Albumin 3.8 (3.4-5.0) gm/dl Globulin 3.6 (2.5-4.0) gm/dl Albumin/Globulin Ratio 1.0 (0.9-2) Lipase 180 (73-393) U/L Urine Color Urine Appearance (Clear) Urine pH (4.5-7.5) Ur Specific George (1.000-1.030) Urine Protein (Negative) Urine Glucose (UA) (Negative) Urine Ketones (Negative) Urine Blood (Negative) Urine Nitrite (Negative) Urine Bilirubin (Negative) Urine Urobilinogen (Negative) Ur Leukocyte Esterase (Negative) Urine WBC (Auto) (0-5) /hpf Urine RBC (Auto) (0-4) /hpf U Hyaline Cast (Auto) (0-5) /lpf U Epithel Cells (Auto) (0-5) /lpf Urine Bacteria (Auto) (Negative) PG Care Time/CCT Total # of Minutes Spent Total Time Spent with Patient: Total time spent is greater than 50% in coordination of care (as documented) at patient's floor/unit and/or counseling patient:
--- NOTE | 2018-10-16 15:22 | Progress Note ---
Date of Service October 16, 2018 Subjective Patient seen in PM rounds. Pain improved. Currently afebrile, + temp this AM. She reports she feels better, no nausea, pain improved, no stent discomfort. NAD S1 S2 Good respiratory excursion. A/P 43 yo female POD#0 s/p cysto, R stent Doing well Monitor until afebrile x 24 hours. Outpatient antibiotics x 1-2 weeks for complex UTI with stone. Will plan on outpatient definitive stone management. Results & Data Vital Signs (Past 12 Hours) Vital Signs Temp Pulse Pulse Resp BP Pulse Ox 10/16/18 15:13 36.9 C 101 H 16 95/59 L 95 10/16/18 13:30 95 H 18 100/64 92 10/16/18 12:46 36.3 C L 95 H 16 109/70 95 10/16/18 11:31 36.8 C 89 16 109/69 95 10/16/18 11:05 36.9 C 97 H 16 110/65 94 10/16/18 10:37 36.9 C 105 H 18 113/64 94 10/16/18 10:15 101 H 22 104/61 95 10/16/18 10:10 102 H 20 102/57 L 96 10/16/18 10:02 37.3 C 108 H 24 112/53 L 96 10/16/18 09:50 104 H 19 91/59 L 97 10/16/18 09:40 107 H 20 87/53 L 97 10/16/18 09:30 111 H 27 H 93/54 L 96 10/16/18 09:22 38.0 C H 122 H 22 78/49 L 93 10/16/18 08:47 37.8 C H 106 H 20 129/71 96 10/16/18 07:02 37.8 C H 104 H 19 114/76 97
[2018-10-16] MEDS: CHECK SCOPOLAMINE PATCH PLACEMENT SCH ×2 (16:47→23:20)
[2018-10-17] MEDS: SODIUM CHLORIDE 0.9% 1000ML 1,000 ML IV SCH (05:44)
[2018-10-17 07:31] LABS: Hematocrit (blood only) 35.5 % (37-47); Hemoglobin 11.2 g/dL (12.0-16.0); Mean Corpuscular Hgb Conc 31.5 g/dL (32-36); Mean Corpuscular Volume 82.4 fL (80-100); Mean Platelet Volume 11.8 fL (7.4-10.4); Platelet Count 127 K/uL (130-400); RDW Coefficient of Variation 14.4 % (11.5-14.5); RDW Standard Deviation 43.8 fL (36.4-46.3); Red Blood Count 4.31 M/uL (4.2-5.4); White Blood Count 12.09 K/uL (4.8-10.8)
[2018-10-17 08:06] LABS: BUN Creatinine Ratio 14.6 (10-20); Calcium 8.6 mg/dl (8.5-10.1); Est GFR (African American) 77.9; Est GFR (Non-African American) 67.2; Potassium 3.5 mmol/L (3.5-5.1)
--- NOTE | 2018-10-17 08:06 | Anesthesiology Progress Note ---
Date of Service October 17, 2018 Anesthesia Post Procedure Vital Signs Vital Signs: Temp Pulse Pulse Resp BP Pulse Ox 10/17/18 03:29 36.8 C 75 16 106/61 94 10/16/18 23:14 37.0 C 85 16 99/64 L 93 10/16/18 19:17 36.9 C 89 16 108/65 94 10/16/18 15:13 36.9 C 101 H 16 95/59 L 95 10/16/18 13:30 95 H 18 100/64 92 10/16/18 12:46 36.3 C L 95 H 16 109/70 95 10/16/18 11:31 36.8 C 89 16 109/69 95 10/16/18 11:05 36.9 C 97 H 16 110/65 94 10/16/18 10:37 36.9 C 105 H 18 113/64 94 10/16/18 10:15 101 H 22 104/61 95 10/16/18 10:10 102 H 20 102/57 L 96 10/16/18 10:02 37.3 C 108 H 24 112/53 L 96 10/16/18 09:50 104 H 19 91/59 L 97 10/16/18 09:40 107 H 20 87/53 L 97 10/16/18 09:30 111 H 27 H 93/54 L 96 10/16/18 09:22 38.0 C H 122 H 22 78/49 L 93 10/16/18 08:47 37.8 C H 106 H 20 129/71 96 Pain Intensity Right Flank: Pain Intensity: 0 Notes Mental Status: alert / awake / arousable and participated in evaluation Nausea / Vomiting: adequately controlled Pain: adequately controlled Airway Patency, RR, SpO2: stable & adequate BP & HR: stable & adequate Hydration State: stable & adequate Anesthetic Complications: Pt Satisfied with anesthetic care
[2018-10-17] MEDS: cefTRIAXone SODIUM 2,000 MG in DEXTROSE 5% 50 ML IV SCH (08:48)
[2018-10-17] MEDS: ALLOPURINOL 100 MG TAB PO SCH (08:49)
[2018-10-17] MEDS: CHECK SCOPOLAMINE PATCH PLACEMENT SCH (08:49)
[2018-10-17] MEDS: CHLORTHALIDONE 25 MG TAB PO SCH (08:50)
--- NOTE | 2018-10-17 11:53 | Discharge Summary ---
Date of Service October 17, 2018 Admission HPI Per Admitting Provider This is a 43 yo F with history of kidney stones, on Allopurinol, chlorthalidone presenting with right flank pain, n/v.Patient reports 2 wk history of progressive right flank pain described as burning sensation . Pain is constant, around 4/10.intensity. She denies urinary urgency, frequency dysuria, hematuria. She denies fevers, chills, diarrhea, abdominal pain. She reports 1 episode n/v only while in the ED. Patient reports 15 yr history of stones. In the ED, patient arrived afebrile, VSS, mild leukocytosis (WBC Ct 11.45), bmp unremarkable, UA consistent with UTI, CT abdomen showing 5m obstructing jc culus, chronic , right hydroureteronephrosis. Patient was given Rocpehin, Dilaudid, Reglan, Zofran, IV NS x 1 L bolus,Toradol. Patient was admitted 01/2018 for left flank pain, with finding of 8 mm left ureteral stone found and managed with, uteroscopy with Laser lithotripsy by Dr. Ryan. Admission Exam Per Admitting Provider GENERAL APPEARANCE: alert and cooperative, and appears to be in no acute distress. HEAD: normocephalic. EYES: PERRL, EOMI. vision is grossly intact. EARS: hearing grossly intact. NOSE: No nasal discharge. NECK: Neck supple, non-tender without lymphadenopathy CARDIAC: Normal S1 and S2. No S3, S4 or murmurs. Rhythm is regular LUNGS: Clear to auscultation and percussion without rales, rhonchi, wheezing or diminished breath sounds. ABDOMEN: Positive bowel sounds. Soft, nondistended, nontender. No guarding or rebound. No masses. BACK: no cva tenderness EXTREMITIES: No edema. NEUROLOGICAL: CN II-XII grossly intact. Strength and sensation symmetric and grossly intact throughout. SKIN: Skin normal color, texture and turgor with no lesions or eruptions. Principal Diagnosis Right ureter stone, UTI Discharge Exam General: Resting comfortably in no apparent distress HEENT: NC/AT; PERRLA with EOMI; [place] conjunctiva, MMM. No erythema of posterior pharynx Neck: Supple and nontender Cardiac: RRR w/o murmurs, gallops or rubs Lungs: CTA bilaterally; No rhonchi, wheezing, or rales Abdomen: Bowel normoactive X 4; Nontender to palpation Extremities: Warm. No edema present Neuro: No focal weakness Skin: No rash Discharge Data Allergies Allergy/AdvReac Type Severity Reaction Status Date / Time nut - unspecified Allergy Severe ANAPHYLAXIS Verified 10/15/18 18:12 cat dander Allergy Intermediate CAT/DOG-ITCHY Verified 10/15/18 18:12 EYES RUNNY NOSE Consultations 10/15/18 19:55 ED Decision to Admit Stat 10/15/18 22:07 Consult Case Management - Discharge Planning Routine Consult Urology Routine Procedures Performed Operation Date: 10/16/18 07:00 Actual Procedures p Cystoscopy, Right Ureteral Stent Insertion(Right) - Aramis Jane MD Ordered Studies 10/15/18 17:15 CT abd pelvis IV con only Stat 10/16/18 08:12 FL KUB Routine 10/16/18 09:41 FL fluoroscopy <1hr Routine Hospital Course (1) Pyelonephritis: Febrile, tachycardic, right flank pain with +urinalysis on admission -- tachycardia now resolved, afebrile >24 hours. Urine is negative; no blood cultures were collected. Ceftriaxone 1 gm IV q24hr -- will convert to PO abx at discharge and complete 2 week course. Received IV fluid hydration. Urology following, appreciate input. Will need to follow up as outpatient. (2) Ureteral stone: 5 mm obstructing calculus of the proximal right ureter; chronic right hydroureteronephrosis with several nonobstructing calcifications within renal pelvis. Urology consulted, s/p right sided stent placement on 10/16/18. Continued home allopurinol. Tylenol, Toradol and Dilaudid for pain. Zofran prn nausea/vomiting. (3) Leukocytosis: Related to UTI, now trending down. (4) HTN (hypertension): Continued home Chlorthalidone as prescribed. (5) DVT prophylaxis: SCDs; held pharmacologic ppx for procedure. Discharge to home today, will need to follow up with urology. Total Time Total Time Spent Total Time Spent (In Minutes): >30 minutes Total Time Includes: Examination of the Patient, Discharge Planning, Medication Reconciliation, Communication With Other Providers and Other Discharge Plan Discharge Items Patient Disposition: Home - Self-Care Reason For Visit: URETERAL STONE,UTI Discharge Diagnosis: Right ureter stone, UTI Condition: Good Discharge Goals: Decrease discomfort, Diagnostic testing, Improve disease control, Improve function, Increase independence and Therapeutic intervention Activity: As commented below Exercise/Sports: Wait until after follow-up appointment Non-emergency contact: Primary Care Provider and Urologist Call non-emergency contact if: you have any medication questions, your symptoms worsen, your pain is not controlled, your pain is worsening, your pain is unusual for you, your pain is concerning for you and you have a fever Follow-up/Referrals: PCP,NO [Primary Care Provider] - Diet: Regular Addtl Provider Instructions: 1. Pyelonephritis/Right ureter stone * Please follow up with urology as scheduled for stone removal/stent removal. * Please continue Keflex 500 mg every 12 hours for coverage of UTI. You will need to complete a 14 day course. Prescription was sent to your pharmacy. * Continue to drink plenty of fluids at home - at least 8-10 glasses of water per day. * Continue Tylenol 650 mg every 4-6 hours for pain relief; avoid NSAIDs (Ibuprofen, Aleve, Motrin, etc) as you will likely need procedure next week - can increase risk of bleeding. Prescriptions: New acetaminophen [Mapap (acetaminophen)] 325 mg Tablet 650 mg PO Q4H PRN (Reason: mild pain) Qty: 1 RF: 0 cephalexin [Keflex] 500 mg capsule 500 mg PO BID 14 Days Qty: 28 RF: 0 Continued chlorthalidone 25 mg Tablet 25 mg PO DAILY RF: 0 allopurinol 100 mg Tablet 100 mg PO DAILY RF: 0 epinephrine [EpiPen] 0.3 mg/0.3 mL Auto-Injector 0.3 mg IM Q3H PRN (Reason: Allergic Reaction) RF: 0 Stand-Alone Forms: [employer], Work/School Release (Inpt) [employer]/Other Patient Handouts: Stents Ureteral, Pyelonephritis Dc Discharge Orders: Discharge Order (Routine); Ordered 10/17/18 Ordered By: Vero Huang Admission Data Admit Date/Time: 10/15/18 21:10 Attending Provider: Nicholas Freitas Admit Provider: Jameson Andino Primary Care Provider: PCP,NO Other Providers: Aramis Jane Service: Medical Other Interventions: Discharge Summary Assessment (RN) Last Done: 10/17/18 15:05 Pending Studies at Discharge: Yes Studies:: Urine culture is pending. DC Date/Time DO NOT enter until pt leaves facility: 10/17/18 16:00 Supervising Physician Co-Signing Physician Notes Attending Attestation and Discharge Note: Pt seen/examined, chart reviewed, care plan d/w LANRE Huang. I agree w/ the cisneros components of her discharge documentation. 43yo female with past h/o kidney stones. Presented with obstructing right-sided kidney stone s/p stent placement. Received antibiotics for suspected UTI/questionable right-sided pyelonephritis but urine cx ultimately was negative. [id number] we elected to continue Rx for UTI. Creatinine stable at 1 at discharge. She will f/u with urology post-d/c for stone & stent management. Discharge exam - gen - NAD heart - RRR, s1, s2 lungs - CTA b/l abd - soft, NT, no flank pain, BS+, no HSM ext - no edema Nicholas Freitas MD
--- NOTE | 2018-10-17 12:22 | Urology Progress Note ---
Date of Service October 17, 2018 Assessment & Plan (1) Ureteral stone: POD #1 s/p cysto, ureteral stent placement. Tolerating stent. Continue antibiotics. Outpatient URO follow up has been arranged. Thank you for allowing us to participate in the inpatient care of Ms. Guerra. Please contact our service if we can be of further assistance during hospitalization. (2) Renal colic on right side: Subjective 43 YO female POD #1 s/p cystoscopy, right ureteral stent placement. Patient reports feeling much better this morning. No pain. Stent is not bothersome. Urinating spontaneously without difficulty. Has remained afebrile. No nausea/vomiting. Review of Systems Review of Systems: All systems reviewed & are unremarkable except as noted in HPI & below Physical Exam Physical Exam: WN/WD NAD. Resp effort normal. No JVD. Abd soft, nontender. : bladder nondistended. A&O x3, appropriate affect. Results & Data Vital Signs (Past 12 Hours) Vital Signs Temp Pulse Resp BP Pulse Ox 10/17/18 08:06 36.9 C 82 18 103/68 95 10/17/18 03:29 36.8 C 75 16 106/61 94
[2018-10-17] MEDS: KETOROLAC 30 MG/ML VIAL IV PRN (13:48)
== END 2018-10-17 16:00 | disposition home or self-care (01) | DRG 661 ==
LOC: ED 17:08 → SUATTDRO 21:10 → 3W 21:10
DX: Z79.899 Other long term (current) drug therapy; N13.6 Pyonephrosis; I10 Essential (primary) hypertension; Z91.018 Allergy to other foods; Z91.048 Other nonmedicinal substance allergy status; Z87.442 Personal history of urinary calculi

== ENCOUNTER 2018-11-26 22:03 | Inpatient (IN) ==
[2018-11-26] MEDS ORDERED: SODIUM CHLORIDE 0.9% 1000ML 1,000 ML IV ONE (22:21)
[2018-11-26] MEDS ORDERED: ONDANSETRON INJ 2 MG/ML 2 ML VIAL IV STA (22:21)
[2018-11-26] MEDS ORDERED: KETOROLAC TROMETHAMINE 15 MG/ML VIAL IV STA (22:21)
[2018-11-26 23:00] LABS: Basophils # (auto) 0.02 K/uL (0-0.2); Basophils % (auto) 0.2 %; Eosinophils % (auto) 0.8 %; Hematocrit (blood only) 41.4 % (37-47); Hemoglobin 13.6 g/dL (12.0-16.0); Immature Granulocytes # (auto) 0.01 K/uL (0.00-0.02); Immature Granulocytes % (auto) 0.1 %; Lymphocytes # (auto) 1.14 K/uL (1.2-3.4); Lymphocytes % (auto) 9.2 %; Mean Corpuscular Hgb Conc 32.9 g/dL (32-36); Mean Corpuscular Volume 80.7 fL (80-100); Mean Platelet Volume 11.3 fL (7.4-10.4); Monocytes # (auto) 0.58 K/uL (0.11-0.59); Monocytes % (auto) 4.7 %; Neutrophils # (auto) 10.54 K/uL (1.4-6.5); Platelet Count 213 K/uL (130-400); RDW Coefficient of Variation 13.6 % (11.5-14.5); RDW Standard Deviation 40.3 fL (36.4-46.3); Red Blood Count 5.13 M/uL (4.2-5.4); White Blood Count 12.39 K/uL (4.8-10.8)
[2018-11-26 23:05] LABS: Appearance Urine Cloudy (Clear); Bacteria Urine Automated Negative (Negative); Bilirubin Urine Negative (Negative); Blood Urine Trace (Negative); Color Urine Yellow; Glucose Urine UA Negative (Negative); Ketones Urine Negative (Negative); Leukocyte Esterase Urine 2+ (Negative); Nitrite Urine Positive (Negative); Protein Urine Trace (Negative); Specific Gravity Urine 1.016 (1.000-1.030); Urobilinogen Urine Negative (Negative); WBC Urine Automated >30 /hpf (0-5)
--- NOTE | 2018-11-26 23:07 | Emergency Department Note ---
History of Present Illness General Chief complaint: Flank Pain Stated complaint: RT HYDRONEPHROLASIS Source: patient Mode of arrival: ambulatory Limitations: no limitations History of Present Illness Maximum Pain Intensity: 8 This patient is a 43-year-old female who presents the emergency department complaining of right flank pain. The patient states that she had recent stent placement and stone extraction due to kidney stones. She states her last surgery was 2 weeks ago. Over the past 1 week, she has had gradually worsening right flank and right upper abdominal pain. She denies urinary symptoms or fevers. She had some vomiting today. 1 dose of oxycodone without relief. She rates her current discomfort a 7/10. She states that this feels similar to when she has had hydronephrosis in the past. She states she sees Dr. Jane. She contacted him and he was going to order her a KUB. She states that the pain was too severe and she decided to come in. Home Medications Home Medications Medication Instructions Recorded Confirmed Type allopurinol 100 mg PO DAILY 01/12/18 11/26/18 History chlorthalidone 25 mg PO DAILY 01/12/18 11/26/18 History epinephrine [EpiPen] 0.3 mg IM DIRECTED PRN 01/12/18 11/26/18 History Allergies Allergy/AdvReac Type Severity Reaction Status Date / Time nut - unspecified Allergy Severe Anaphylaxis Verified 11/26/18 22:38 cat dander Allergy Intermediate CAT/DOG-ITCHY Verified 11/26/18 22:38 EYES RUNNY NOSE cephalexin Allergy Intermediate Hives Verified 11/26/18 22:39 Past Med/Surg History Medical History Calculus of proximal right ureter Kidney stones Obesity Urinary tract infection Surgical History H/O lithotripsy History of bilateral tubal ligation History of tooth extraction Nausea and vomiting after administration of anesthetic agent Social History Preferred Language: Albanian Communication Ability: Effective Visual Impairment: No Limitations Box Sorter Required: No Beliefs That Will Affect Care: None marital status: Current Living Situation: Spouse Current Living Situation Comment: CHILDREN Feels Safe at Home: Yes Safety Concerns: Feels Safe At This Time Smoking Status: Never smoker Second Hand Exposure: No Hx Alcohol Use: No Hx Substance Use: No Review of Systems A total of 10 systems reviewed and were otherwise negative Physical Exam Vital Signs Vital Signs - 24 hr 11/26/18 22:05 11/26/18 23:52 11/27/18 00:53 Temperature 36.4 C L Temperature Source Oral Sepsis Recent Fever Within 48 Hours No Sepsis Action Taken by Nursing No Action Required Pulse Rate 72 Pulse Rate [Finger] 78 76 Respiratory Rate 16 20 12 Respiratory Effort / Characteristics Non-Labored Spontaneous Non-Labored Spontaneous Respiratory Depth Normal Normal Normal Respiratory Pattern Regular Regular Blood Pressure 119/77 Blood Pressure [Right Arm] 114/72 106/57 L Blood Pressure Mean 91 Blood Pressure Mean [Right Arm] 86 73 Blood Pressure Position [Right Arm] Sitting Lying Pulse Oximetry 98 95 97 Oxygen Delivery Method Room Air Room Air Room Air VITALS: Vitals are noted on the nurse's note and reviewed by myself. Vital signs stable. GENERAL: This is a 43-year-old female, in no acute distress, nondiaphoretic, well-developed well-nourished. SKIN: The skin was without rashes. EYES: Pupils equal round and reactive to light and accommodation. MOUTH: Mucous membranes moist. Tonsils are not enlarged. Pharynx without erythema or exudate. NECK: Supple without nuchal rigidity. No lymphadenopathy. HEART: Regular rate and rhythm without murmurs gallops or rubs. LUNGS: Clear to auscultation bilaterally without wheezes, rales or rhonchi. ABDOMEN: Positive bowel sounds x 4. Soft, mild tenderness to palpation in the right upper quadrant. No guarding or rebound tenderness. No CVA tenderness. NEURO: Patient was alert and oriented to person place and time. Course Reevaluation(s) Reevaluation #1: I was notified by nursing staff that the patient had return of pain after returning from ultrasound. A dose of morphine was ordered. Reevaluation #2: Patient was reevaluated and is feeling much better. She is agreeable to admission. Consultations Consultation #1: I spoke with Dr. Jane regarding the patient. He states that he would like the patient to be [facility]. Consultation #2: Dr. Sina Espinal [facility] [place] hospitalist Administered Medications Potassium Chloride/Dextrose/Sod Cl (D5nss + 20meq Kcl) 20 meq in 1,000 mls @ 150 mls/hr IV .Q6H40M ISABELLA Stop: 11/27/18 15:49 Last Admin: 11/27/18 02:50 Dose: 150 mls/hr Documented by: [id number] Ondansetron HCl (Zofran) 4 mg IV Q6H PRN PRN Reason: Nausea Stop: 12/27/18 02:11 Last Admin: 11/27/18 02:25 Dose: 4 mg Documented by: [id number] Discontinued Medications Sodium Chloride (Nss 1000ml) 1,000 mls @ 999 mls/hr IV .Q1H1M ONE Stop: 11/26/18 23:21 Last Infusion: 11/27/18 00:01 Dose: 0 mls/hr Documented by: [id number] Admin: 11/26/18 23:00 Dose: 999 mls/hr Documented by: [id number] Ciprofloxacin (Cipro) 400 mg in 200 mls @ 200 mls/hr IV NOW STA Stop: 11/27/18 01:41 Last Infusion: 11/27/18 01:59 Dose: 0 mls/hr Documented by: [id number] Admin: 11/27/18 00:48 Dose: 200 mls/hr Documented by: [id number] Ketorolac Tromethamine (Toradol) 15 mg IV NOW STA Stop: 11/26/18 22:22 Last Admin: 11/26/18 23:00 Dose: 15 mg Documented by: [id number] Morphine Sulfate (Morphine Sulfate) 6 mg IV NOW STA Stop: 11/26/18 23:53 Last Admin: 11/26/18 23:57 Dose: 6 mg Documented by: [id number] Morphine Sulfate (Morphine Sulfate) Confirm Administered Dose 2 mg .ROUTE .STK- MED ONE Stop: 11/26/18 23:56 Last Admin: 11/26/18 23:58 Dose: Not Given Documented by: [id number] Morphine Sulfate (Morphine Sulfate) Confirm Administered Dose 4 mg .ROUTE .STK- MED ONE Stop: 11/26/18 23:57 Last Admin: 11/26/18 23:58 Dose: Not Given Documented by: [id number] Ondansetron HCl (Zofran) 4 mg IV NOW STA Stop: 11/26/18 22:22 Last Admin: 11/26/18 23:00 Dose: 4 mg Documented by: [id number] Medical Decision Making Differential Diagnosis Differential diagnosis includes kidney stone, UTI, pyelonephritis, cholecystitis, peptic ulcer disease, herpes zoster, among others. Medical Records Attestation: I reviewed the patient's medical records. Home Medications Current Medication List: was personally reviewed by me Laboratory Data Attestation: I reviewed the patient's lab results. Result diagrams: 11/26/18 22:41 11/26/18 22:41 Lab Results 11/26/18 11/26/18 11/26/18 Range/Units 22:41 22:41 22:49 WBC 12.39 H (4.8-10.8) K/uL RBC 5.13 (4.2-5.4) M/uL Hgb 13.6 (12.0-16.0) g/dL Hct 41.4 (37-47) % MCV 80.7 (80-100) fL MCH 26.5 (25-34) pg MCHC 32.9 (32-36) g/dL RDW Std Deviation 40.3 (36.4-46.3) fL RDW Coeff of Agusto 13.6 (11.5-14.5) % Plt Count 213 (130-400) K/uL MPV 11.3 H (7.4-10.4) fL Immature Gran % (Auto) 0.1 % Neut % (Auto) 85.0 % Lymph % (Auto) 9.2 % [place] % (Auto) 4.7 % Eos % (Auto) 0.8 % Baso % (Auto) 0.2 % Immature Gran # (Auto) 0.01 (0.00-0.02) K/uL Neut # (Auto) 10.54 H (1.4-6.5) K/uL Lymph # (Auto) 1.14 L (1.2-3.4) K/uL [place] # (Auto) 0.58 (0.11-0.59) K/uL Eos # (Auto) 0.10 (0-0.5) K/uL Baso # (Auto) 0.02 (0-0.2) K/uL Sodium 140 (136-145) mmol/L Potassium 3.4 L (3.5-5.1) mmol/L Chloride 100 (98-107) mmol/L Carbon Dioxide 31 (21-32) mmol/L Anion Gap 9.0 (3-11) BUN 12 (7-18) mg/dl Creatinine 0.98 (0.6-1.2) mg/dl Est Cr Clr Drug Dosing 77.1 ml/min Est GFR ( Amer) 80.7 Est GFR (Non-Af Amer) 69.7 BUN/Creatinine Ratio 12.5 (10-20) Glucose 130 H (70-99) mg/dl Calcium 9.1 (8.5-10.1) mg/dl Total Bilirubin 0.5 (0.2-1) mg/dl AST 17 (15-37) U/L ALT 28 (12-78) U/L Alkaline Phosphatase 104 (45-117) U/L Total Protein 7.5 (6.4-8.2) gm/dl Albumin 4.1 (3.4-5.0) gm/dl Globulin 3.4 (2.5-4.0) gm/dl Albumin/Globulin Ratio 1.2 (0.9-2) Urine Color Urine Appearance (Clear) Urine pH (4.5-7.5) Ur Specific [place] (1.000-1.030) Urine Protein (Negative) Urine Glucose (UA) (Negative) Urine Ketones (Negative) Urine Blood (Negative) Urine Nitrite (Negative) Urine Bilirubin (Negative) Urine Urobilinogen (Negative) Ur Leukocyte Esterase (Negative) Urine WBC (Auto) (0-5) /hpf Urine RBC (Auto) (0-4) /hpf U Hyaline Cast (Auto) (0-5) /lpf U Epithel Cells (Auto) (0-5) /lpf Urine Bacteria (Auto) (Negative) POC Ur Test NEG (NEG) 11/26/18 Range/Units 22:49 WBC (4.8-10.8) K/uL RBC (4.2-5.4) M/uL Hgb (12.0-16.0) g/dL Hct (37-47) % MCV (80-100) fL MCH (25-34) pg MCHC (32-36) g/dL RDW Std Deviation (36.4-46.3) fL RDW Coeff of Agusto (11.5-14.5) % Plt Count (130-400) K/uL MPV (7.4-10.4) fL Immature Gran % (Auto) % Neut % (Auto) % Lymph % (Auto) % [place] % (Auto) % Eos % (Auto) % Baso % (Auto) % Immature Gran # (Auto) (0.00-0.02) K/uL Neut # (Auto) (1.4-6.5) K/uL Lymph # (Auto) (1.2-3.4) K/uL [place] # (Auto) (0.11-0.59) K/uL Eos # (Auto) (0-0.5) K/uL Baso # (Auto) (0-0.2) K/uL Sodium (136-145) mmol/L Potassium (3.5-5.1) mmol/L Chloride (98-107) mmol/L Carbon Dioxide (21-32) mmol/L Anion Gap (3-11) BUN (7-18) mg/dl Creatinine (0.6-1.2) mg/dl Est Cr Clr Drug Dosing ml/min Est GFR ( Amer) Est GFR (Non-Af Amer) BUN/Creatinine Ratio (10-20) Glucose (70-99) mg/dl Calcium (8.5-10.1) mg/dl Total Bilirubin (0.2-1) mg/dl AST (15-37) U/L ALT (12-78) U/L Alkaline Phosphatase (45-117) U/L Total Protein (6.4-8.2) gm/dl Albumin (3.4-5.0) gm/dl Globulin (2.5-4.0) gm/dl Albumin/Globulin Ratio (0.9-2) Urine Color Yellow Urine Appearance Cloudy A (Clear) Urine pH 7.0 (4.5-7.5) Ur Specific [place] 1.016 (1.000-1.030) Urine Protein Trace H (Negative) Urine Glucose (UA) Negative (Negative) Urine Ketones Negative (Negative) Urine Blood Trace H (Negative) Urine Nitrite Positive A (Negative) Urine Bilirubin Negative (Negative) Urine Urobilinogen Negative (Negative) Ur Leukocyte Esterase 2+ H (Negative) Urine WBC (Auto) >30 H (0-5) /hpf Urine RBC (Auto) 5-10 H (0-4) /hpf U Hyaline Cast (Auto) 10-30 H (0-5) /lpf U Epithel Cells (Auto) 10-20 H (0-5) /lpf Urine Bacteria (Auto) Negative (Negative) POC Ur Test (NEG) Imaging Data Attestation: I personally reviewed and interpreted this imaging study as follows: My Impression: KUB: Possible right UPJ stone. Moderate constipation. No free air or bowel obstruction. Radiologist's Impression: US RENAL: 1 cm stone in the proximal right ureter. Hydronephrosis is present. Radiologist: Juanito Sarmiento MD Blood Pressure Blood Pressure Findings: Normal blood pressure Blood Pressure Disposition: did not require urgent referral MDM Narrative The patient is a 43-year-old female who presents today complaining of right flank pain. Labs revealed a mild leukocytosis of 12,000 which appears to be fairly baseline for the patient. Creatinine within normal limits. Urinalysis does show positive nitrite, leukocyte esterase, and white blood cells but negative bacteria. On review of the patient's records, it seems that her urinalysis is typically similar to this. Her last several cultures have not bee n positive. Ultrasound and KUB were performed and show a 1 cm stone in the proximal ureter. I did speak with the patient's urologist, Dr. Jane, who recommended that the patient be admitted for surgery in the morning. Patient was given 1 dose of ciprofloxacin in the emergency department. [facility] and care. Impression & Plan Calculus of proximal right ureter Discharge Plan Visit Data *Final* Discharge Date/Time: 11/27/18 01:57 Chief Complaint: Flank Pain Stated Complaint: RT HYDRONEPHROLASIS ED Provider: Francois Fontanez ED Midlevel Provider: Joya Champagne Discharge Problem: Calculus of proximal right ureter Patient Disposition: Admitted As Inpatient Discharge Instructions Interventions: ED Discharge Assessment Last Done: 11/27/18 01:57
[2018-11-26 23:18] LABS: Albumin Level 4.1 gm/dl (3.4-5.0); BUN Creatinine Ratio 12.5 (10-20); Calcium 9.1 mg/dl (8.5-10.1); Creatinine Clr Calc Pharmacy 77.1 ml/min; Est GFR (African American) 80.7; Est GFR (Non-African American) 69.7; Potassium 3.4 mmol/L (3.5-5.1)
[2018-11-26 23:21] LABS: Albumin Globulin Ratio 1.2 (0.9-2); Bilirubin,Total 0.5 mg/dl (0.2-1); Globulin 3.4 gm/dl (2.5-4.0); Total Protein 7.5 gm/dl (6.4-8.2)
[2018-11-26] MEDS ORDERED: MoRPHine SULFATE 10 MG/ML CARP/VIAL IV STA (23:52)
[2018-11-26] MEDS ORDERED: MoRPHine SULFATE 2 MG/ML CARP ONE (23:55)
[2018-11-26] MEDS ORDERED: MoRPHine SULFATE 4 MG/ML 1 ML CARP\\VIAL ONE (23:56)
[2018-11-27] MEDS ORDERED: CIPROFLOXACIN 400 MG/200 ML BAG IV STA (00:42)
--- NOTE | 2018-11-27 00:56 | History & Physical Report ---
Date of Service November 27, 2018 Assessment & Plan (1) UTI (urinary tract infection): 43 y/o F Hx gout, nephrolithiasis with multiple ureteral obstructions requiring stenting/lithotripsy. Last underwent lithotripsy 11/16. Presents with R flank pain. An US confirms a 1cm proximal R ureteral stone. UA is +. 1) Obstructing calculus - IVF, pain control, antiemetic - urology consulted as unfortunately she is likely to need intervention again. 2) UTI - placed on Cipro 3) Gout - cont Allopurinol Full code - SCDs Total time for this admit including review of labs, meds, imaging, records - discussion with pt and ER attending - 33 min Present on Admission?: Yes History of Present Illness Chief Complaint: R flank pain Primary Care Provider: NO PCP 43 y/o F Hx gout, nephrolithiasis with multiple ureteral obstructions requiring stenting/lithotripsy. Last underwent lithotripsy 11/16. Presents with R flank pain. An US confirms a 1cm proximal R ureteral stone. UA is +. PMH: 1) Nephrolithiasis, multiple obstructions 2) PUD 3) Gout Surgical: Multiple ureteral stents, lithotripsy Social: Does not smoke or drink Family: Parents alive and well Allergies Allergy/AdvReac Type Severity Reaction Status Date / Time nut - unspecified Allergy Severe Anaphylaxis Verified 11/26/18 22:38 cat dander Allergy Intermediate CAT/DOG-ITCHY Verified 11/26/18 22:38 EYES RUNNY NOSE cephalexin Allergy Intermediate Hives Verified 11/26/18 22:39 Home Medications Home Medications Medication Instructions Recorded Confirmed Type allopurinol 100 mg PO DAILY 01/12/18 11/26/18 History chlorthalidone 25 mg PO DAILY 01/12/18 11/26/18 History epinephrine [EpiPen] 0.3 mg IM DIRECTED PRN 01/12/18 11/26/18 History Past Med/Surg History Medical History Calculus of proximal right ureter Kidney stones Obesity Urinary tract infection Surgical History H/O lithotripsy History of bilateral tubal ligation History of tooth extraction Nausea and vomiting after administration of anesthetic agent Social History Preferred Language: Algerian Communication Ability: Effective Visual Impairment: No Limitations Beliefs That Will Affect Care: None marital status: Current Living Situation: Spouse Current Living Situation Comment: CHILDREN Feels Safe at Home: Yes Smoking Status: Never smoker Second Hand Exposure: No Hx Alcohol Use: No Hx Substance Use: No Review of Systems Review of Systems: Gen: Denies fevers, night sweats - chills confirmed ENT: Denies congestion, throat pain, hearing loss Eyes: Denies acute visual changes CV: Denies CP, palpitations Pulmonary: Denies SOB, cough, wheezing GI: Denies N/V, diarrhea, constipation : R flank pain Neuro: Denies acute or unilateral weakness, acute gait impairment, headache or acute visual changes Musculoskeletal: Denies joint pain, inflammation Endocrine: Denies polydipsia, polyuria Skin: Denies acute rashes or ulcers Physical Exam Physical Exam: General: AAO x 3, no distress ENT: No erythema or exudates, no thrush Eyes: EMANUEL, EOMI Head and neck: Normocephalic, atraumatic, No JVD, neck is supple. Chest/heart: Nontender, S1,2, RRR, no murmurs, no gallops Lungs: CTAB, no wheezing or crackles Abdomen: Mild R flank tenderness Neuro: AAO x 3, speech is clear, no unilateral weakness or loss of sensation, coordination intact Musculoskeletal: No joint inflammation, muscle tenderness, FROM Skin: No acute rashes or ulcers Extremities: No clubbing, cyanosis, edema Results & Data Vital Signs (Past 12 Hours) Vital Signs Temp Pulse Pulse Resp BP BP Pulse Ox 11/27/18 00:53 76 12 106/57 L 97 11/26/18 23:52 78 20 114/72 95 11/26/18 22:05 97.5 F L 72 16 119/77 98 Diagnostic Findings Renal US: 1 CM proximal R ureteral stone PG Care Time/CCT Total # of Minutes Spent Total Time Spent with Patient: Total time spent is greater than 50% in coordination of care (as documented) at patient's floor/unit and/or counseling patient: (1) UTI (urinary tract infection) Hematuria presence: with hematuria Urinary tract infection type: site unspecified Qualified Code(s): N39.0 - Urinary tract infection, site not specified; R31.9 - Hematuria, unspecified
[2018-11-27] MEDS ORDERED: ONDANSETRON INJ 2 MG/ML 2 ML VIAL IV PRN ×2 (02:12→11:07)
[2018-11-27] MEDS ORDERED: ACETAMINOPHEN 325 MG TAB PO PRN (02:12)
[2018-11-27] MEDS ORDERED: HYDROmorphone INJ 0.5 MG/0.5 ML SYR IV PRN (02:12)
[2018-11-27] MEDS: D5NSS + 20MEQ KCL 20 MEQ/1,000 ML BAG IV SCH ×2 (02:50→09:06)
[2018-11-27] MEDS ORDERED: CIPROFLOXACIN 400 MG/200 ML BAG IV SCH ×2 (06:00→12:00)
[2018-11-27 07:22] LABS: Basophils # (auto) 0.02 K/uL (0-0.2); Basophils % (auto) 0.2 %; Eosinophils # (auto) 0.11 K/uL (0-0.5); Eosinophils % (auto) 1.3 %; Hematocrit (blood only) 37.4 % (37-47); Hemoglobin 11.9 g/dL (12.0-16.0); Immature Granulocytes # (auto) 0.02 K/uL (0.00-0.02); Immature Granulocytes % (auto) 0.2 %; Lymphocytes # (auto) 1.24 K/uL (1.2-3.4); Lymphocytes % (auto) 14.3 %; Mean Corpuscular Hgb Conc 31.8 g/dL (32-36); Mean Corpuscular Volume 81.3 fL (80-100); Mean Platelet Volume 11.2 fL (7.4-10.4); Monocytes # (auto) 0.65 K/uL (0.11-0.59); Monocytes % (auto) 7.5 %; Neutrophils # (auto) 6.65 K/uL (1.4-6.5); Neutrophils % (auto) 76.5 %; Platelet Count 191 K/uL (130-400); RDW Coefficient of Variation 13.8 % (11.5-14.5); RDW Standard Deviation 41.1 fL (36.4-46.3); White Blood Count 8.69 K/uL (4.8-10.8)
--- NOTE | 2018-11-27 07:35 | XRay Report ---
KUB HISTORY: right flank pain COMPARISON: KUB 10/29/2018. FINDINGS: The bowel gas pattern is unremarkable. There are no dilated loops of small bowel to suggest an obstruction. Bilateral nephrolithiasis. There is a 1 cm stone at the right ureteropelvic junctio n. Calcifications in the right deep pelvis remains stable and likely represent phleboliths. The urete ral stent has been removed. No pneumoperitoneum or pneumatosis. IMPRESSION: 1. A 1 cm stone within the right ureteropelvic junction. 2. Extensive bilateral nephrolithiasis. Electronically signed by: Alex Valenzuela M.D. 11/27/2018 7:34 AM
--- NOTE | 2018-11-27 07:37 | Ultrasound Report ---
RENAL ULTRASOUND HISTORY: right flank pain COMPARISON: KUB 11/26/2018. Abdomen and pelvis CT 10/15/2018. FINDINGS: Right kidney: 11.0 cm. Mild right hydronephrosis. There is a 1 cm stone at the right ureteropelvic ju nction. Moderate cortical thinning. Multiple stones and increased echogenicity within the renal sinus consistent with medullary nephrocalcinosis. Left kidney: 11.2 cm. No hydronephrosis. Moderate cortical thinning. Multiple stones and increased ec hogenicity within the renal sinus consistent with medullary nephrocalcinosis. Bladder: Not well-distended. No bladder wall thickening. The ureteral jets are not identified at this time. IMPRESSION: 1. Mild right hydronephrosis with a 1 cm stone at the right ureteropelvic junction. 2. Moderate cortical thinning. Multiple bilateral renal calculi and increased echogenicity within the renal sinuses consistent with medullary nephrocalcinosis. Electronically signed by: Alex Valenzuela M.D. 11/27/2018 7:36 AM
[2018-11-27 07:52] LABS: BUN Creatinine Ratio 11.6 (10-20); Calcium 8.4 mg/dl (8.5-10.1); Creatinine Clr Calc Pharmacy 80.7 ml/min; Est GFR (African American) 84.9; Est GFR (Non-African American) 73.3; Potassium 3.4 mmol/L (3.5-5.1)
--- NOTE | 2018-11-27 07:53 | Urology Consultation ---
Date of Consultation November 27, 2018 Assessment & Plan (1) Calculus of proximal right ureter: 43yo F with 1cm Right UPJ stone, mild hydro. Afebrile, VSS stable. Pain controlled with IV medication. UA nitrite positive Continue IV ciprofloxacin. Findings reviewed with Dr. Jane, Given her illl appearance and required IV pain control in the context of an obstructing right stone, will proceed with OR for cysto, right RPG and right stent placement, possible ureteroscopy, laser litho, stone basketing, possible dilation depending on findings. Risks and benefits to be reviewed with patient by Dr. Jane. OR notified. Will cover with IV ciprofloxacin preoperatively. ADDENDUM: discussed options with Alysha - plan for OR now, attempt to treat stone if urine is not grossly purulent. History of Present Illness Reason for Consultation: obstructing right stone Requesting Physician: Dr. Andino Attending Physician: Jameson Andino MD History of Present Illness 43yo F welll known to our practicewith nephrolithiasis presents to [facility] last evening with R flank pain and R abdominal pain, persisting for a couple days, then worsening last evening prompting admission. Recent right sided lithotripsy for extensive right sided stone burden by Dr. Jane on 10/30 with stent subsequently stent removal in office on 11/07. Pt denies fever/chills/n/v. Denies dysuria, urgency/frequency. Denies gross hematuria. ANGI and KUB reveal obstructing 1cm stone to right UPJ, bilateral stones, mild hydro. Pt currently afebrile, VS stable. UA nitrite positive - on Ciprofloxacin empirically. Allergies Allergy/AdvReac Type Severity Reaction Status Date / Time nut - unspecified Allergy Severe Anaphylaxis Verified 11/26/18 22:38 cat dander Allergy Intermediate CAT/DOG-ITCHY Verified 11/26/18 22:38 EYES RUNNY NOSE cephalexin Allergy Intermediate Hives Verified 11/26/18 22:39 Home Medications Home Medications Medication Instructions Recorded Confirmed Type allopurinol 100 mg PO DAILY 01/12/18 11/26/18 History chlorthalidone 25 mg PO DAILY 01/12/18 11/26/18 History epinephrine [EpiPen] 0.3 mg IM DIRECTED PRN 01/12/18 11/26/18 History Patient History Medical History Calculus of proximal right ureter Kidney stones Obesity Urinary tract infection Surgical History H/O lithotripsy History of bilateral tubal ligation History of tooth extraction Nausea and vomiting after administration of anesthetic agent Family History Family/Other Family hx of colon cancer Social History Preferred Language: Hungarian Communication Ability: Effective Visual Impairment: No Limitations [employer] Required: No Beliefs That Will Affect Care: None marital status: Current Living Situation: Spouse Current Living Situation Comment: CHILDREN Feels Safe at Home: Yes Safety Concerns: Feels Safe At This Time Smoking Status: Never smoker Second Hand Exposure: No Hx Alcohol Use: No Hx Substance Use: No Review of Systems Review of Systems: All systems reviewed & are unremarkable except as noted in HPI & below Physical Exam Physical Exam: A&Ox3, ill appearing RRR abd soft, nontender on palpation - mildly distended right CVA tenderness no Le edema Results & Data Vital Signs (Past 12 Hours) Vital Signs Temp Pulse Pulse Resp BP BP Pulse Ox 11/27/18 07:18 36.6 C 58 L 16 102/70 96 11/27/18 02:16 36.4 C L 67 16 117/77 96 11/27/18 00:53 76 12 106/57 L 97 11/26/18 23:52 78 20 114/72 95 11/26/18 22:05 36.4 C L 72 16 119/77 98 Laboratory Results Laboratory Results - last 48 hr 11/26/18 11/26/18 11/26/18 22:41 22:41 22:49 WBC 12.39 H RBC 5.13 Hgb 13.6 Hct 41.4 MCV 80.7 MCH 26.5 MCHC 32.9 RDW Std Deviation 40.3 RDW Coeff of Agusto 13.6 Plt Count 213 MPV 11.3 H Immature Gran % (Auto) 0.1 Neut % (Auto) 85.0 Lymph % (Auto) 9.2 [place] % (Auto) 4.7 Eos % (Auto) 0.8 Baso % (Auto) 0.2 Immature Gran # (Auto) 0.01 Neut # (Auto) 10.54 H Lymph # (Auto) 1.14 L [place] # (Auto) 0.58 Eos # (Auto) 0.10 Baso # (Auto) 0.02 Sodium 140 Potassium 3.4 L Chloride 100 Carbon Dioxide 31 Anion Gap 9.0 BUN 12 Creatinine 0.98 Est Cr Clr Drug Dosing 77.1 Est GFR ( Amer) 80.7 Est GFR (Non-Af Amer) 69.7 BUN/Creatinine Ratio 12.5 Glucose 130 H Calcium 9.1 Total Bilirubin 0.5 AST 17 ALT 28 Alkaline Phosphatase 104 Total Protein 7.5 Albumin 4.1 Globulin 3.4 Albumin/Globulin Ratio 1.2 Urine Color Urine Appearance Urine pH Ur Specific [place] Urine Protein Urine Glucose (UA) Urine Ketones Urine Blood Urine Nitrite Urine Bilirubin Urine Urobilinogen Ur Leukocyte Esterase Urine WBC (Auto) Urine RBC (Auto) U Hyaline Cast (Auto) U Epithel Cells (Auto) Urine Bacteria (Auto) POC Ur Test NEG 11/26/18 11/27/18 22:49 07:09 WBC 8.69 RBC 4.60 Hgb 11.9 L Hct 37.4 MCV 81.3 MCH 25.9 MCHC 31.8 L RDW Std Deviation 41.1 RDW Coeff of Agusto 13.8 Plt Count 191 MPV 11.2 H Immature Gran % (Auto) 0.2 Neut % (Auto) 76.5 Lymph % (Auto) 14.3 [place] % (Auto) 7.5 Eos % (Auto) 1.3 Baso % (Auto) 0.2 Immature Gran # (Auto) 0.02 Neut # (Auto) 6.65 H Lymph # (Auto) 1.24 [place] # (Auto) 0.65 H Eos # (Auto) 0.11 Baso # (Auto) 0.02 Sodium Potassium Chloride Carbon Dioxide Anion Gap BUN Creatinine Est Cr Clr Drug Dosing Est GFR ( Amer) Est GFR (Non-Af Amer) BUN/Creatinine Ratio Glucose Calcium Total Bilirubin AST ALT Alkaline Phosphatase Total Protein Albumin Globulin Albumin/Globulin Ratio Urine Color Yellow Urine Appearance Cloudy A Urine pH 7.0 Ur Specific [place] 1.016 Urine Protein Trace H Urine Glucose (UA) Negative Urine Ketones Negative Urine Blood Trace H Urine Nitrite Positive A Urine Bilirubin Negative Urine Urobilinogen Negative Ur Leukocyte Esterase 2+ H Urine WBC (Auto) >30 H Urine RBC (Auto) 5-10 H U Hyaline Cast (Auto) 10-30 H U Epithel Cells (Auto) 10-20 H Urine Bacteria (Auto) Negative POC Ur Test
[2018-11-27] MEDS ORDERED: ALLOPURINOL 100 MG TAB PO SCH (09:00)
[2018-11-27] MEDS ORDERED: POTASSIUM CHLORIDE 20 MEQ TABCR PO ONE (09:00)
[2018-11-27] MEDS ORDERED: IOTHALAMATE MEGLUMINE II 17.2% 250 ML VIAL ONE (10:18)
[2018-11-27] MEDS ORDERED: MIDAZOLAM HCL 1 MG/ML 2ML VIAL ONE (10:45)
[2018-11-27] MEDS ORDERED: LIDOCAINE HCL 2% 2 ML VIAL/AMP(20MG/ML) INFIL ONE ×3 (10:45→11:41)
[2018-11-27] MEDS ORDERED: PROPOFOL IV EMULSION 10 MG/ML 20 ML VIAL IV ONE ×4 (10:45→12:01)
[2018-11-27] MEDS ORDERED: fentaNYL citrate 100 MCG/2 ML VIAL ONE ×2 (10:46→12:08)
[2018-11-27] MEDS ORDERED: SCOPOLAMINE 1.5 MG TDSY ONE (10:55)
--- NOTE | 2018-11-27 11:03 | Anesthesiology Consultation ---
Date of Service November 27, 2018 Assessment & Plan Chart Review Chart Review: Acceptable Risk for Surgery and Patient NOT seen in Pre Admission Testing Consults Requested none ASA ASA2 Proposed Anesthesia Anesthesia Type: General Risk / Benefits Reviewed With: PT / POA / Parent / Guardian, Accepts Plan and Informed Consent Obtained History Surgery Operation Date: 11/27/18 07:00 Proposed Procedures p Cystoscopy ,Right Retrograde Pyelogram, Right Stent Placement, Laser Litotripsy, Possible Ureteroscopy - Aramis Jane MD Height/Weight Height: 5 ft 4 in Weight: 87.1 kg Allergies Allergy/AdvReac Type Severity Reaction Status Date / Time nut - unspecified Allergy Severe Anaphylaxis Verified 11/26/18 22:38 cat dander Allergy Intermediate CAT/DOG-ITCHY Verified 11/26/18 22:38 EYES RUNNY NOSE cephalexin Allergy Intermediate Hives Verified 11/26/18 22:39 Medications Home Medications Medication Instructions Recorded Confirmed Last Taken allopurinol 100 mg PO DAILY 01/12/18 11/26/18 10/28/18 08:00 chlorthalidone 25 mg PO DAILY 01/12/18 11/26/18 10/28/18 08:00 epinephrine [EpiPen] 0.3 mg IM DIRECTED PRN 01/12/18 11/26/18 Unknown Active Medications Generic Name Dose Route Start Last Admin Trade Name Freq PRN Reason Stop Dose Admin Allopurinol 100 mg 11/27/18 09:00 11/27/18 09:04 Zyloprim PO 12/27/18 08:59 100 mg DAILY ISABELLA Administration Potassium Chloride/Dextrose/Sod Cl 20 meq in 1,000 mls @ 150 mls/hr 11/27/18 02:30 11/27/18 09:06 D5nss + 20meq Kcl IV 11/27/18 15:49 150 mls/hr .Q6H40M ISABELLA Administration Ondansetron HCl 4 mg 11/27/18 02:12 11/27/18 02:25 Zofran IV 12/27/18 02:11 4 mg Q6H PRN Administration Nausea NPO Date Last Intake of Fluids: 11/27/18 Time Last Intake of Fluids: 20:00 Last Intake of Fluids Comment: prior to admission to floor. Date Last Intake of Solids: 11/27/18 Time Last Intake of Solids: 19:30 Last Intake of Solids Comment: prior to admission to floor. Past Medical History Medical History Calculus of proximal right ureter Kidney stones Obesity Urinary tract infection Exercise / Class Metabolic Activity II 4-5 Yardwork/Stairs/Walk up hill Past Family History Family History Family/Other Family hx of colon cancer Past Surgical History Surgical History H/O lithotripsy History of bilateral tubal ligation History of tooth extraction Nausea and vomiting after administration of anesthetic agent Past Anesthesia History No Hx of Anesthesia Complications and No Family Hx of Anesthesia Complications History of PONV History of PONV and Hx of Motion Sickness Social History Smoking Status: Never smoker Hx Alcohol Use: No Hx Substance Use: No substance use type: does not use Review of Systems no chest pain or sob Physical Exam Vital Signs Last Vital Signs Temp 36.7 C 11/27/18 10:31 Pulse 72 11/27/18 10:31 Resp 20 11/27/18 10:31 BP 127/73 11/27/18 10:31 Pulse Ox 99 11/27/18 10:31 Constitutional + obese ENMT Mouth: no TMJ abnormality Thyromental Distance: > or= 3.5 Finger Breadths Mallampati Class: II Neck normal visual inspection Respiratory normal respiratory effort Auscultation: lungs clear to auscultation bilaterally Cardiovascular Rate/Rhythm: regular rate and regular rhythm Musculoskeletal Spine: normal cervical ROM Neurologic moves all extremities Psychiatric Orientation: alert and oriented x 3 Testing Laboratory Results 11/27/18 07:09 11/27/18 07:09 Urine Color Yellow 11/26/18 22:49 Urine Appearance Cloudy (Clear) A 11/26/18 22:49 Urine pH 7.0 (4.5-7.5) 11/26/18 22:49 Ur Specific [place] 1.016 (1.000-1.030) 11/26/18 22:49 Urine Protein Trace (Negative) H 11/26/18 22:49 Urine Glucose (UA) Negative (Negative) 11/26/18 22:49 Urine Ketones Negative (Negative) 11/26/18 22:49 Urine Nitrite Positive (Negative) A 11/26/18 22:49 Ur Leukocyte Esterase 2+ (Negative) H 11/26/18 22:49 Urine WBC (Auto) >30 /hpf (0-5) H 11/26/18 22:49 Urine RBC (Auto) 5-10 /hpf (0-4) H 11/26/18 22:49 U Hyaline Cast (Auto) 10-30 /lpf (0-5) H 11/26/18 22:49 U Epithel Cells (Auto) 10-20 /lpf (0-5) H 11/26/18 22:49 Urine Bacteria (Auto) Negative (Negative) 11/26/18 22:49 11/26/18 22:49 POC Ur Test NEG
[2018-11-27] MEDS ORDERED: fentaNYL citrate 100 MCG/2 ML VIAL IV PRN (11:07)
[2018-11-27] MEDS ORDERED: LABETALOL HCL IV 5 MG/ML 20ML IV PRN (11:07)
[2018-11-27] MEDS ORDERED: ATROPINE SULFATE 0.1 MG/ML 10ML SYR IV PRN (11:07)
[2018-11-27] MEDS ORDERED: MEPERIDINE HCL 25 MG/ML CARP IV PRN (11:07)
[2018-11-27] MEDS ORDERED: ePHEDrine sulfate 50 MG/ML AMP IV PRN (11:07)
[2018-11-27] MEDS ORDERED: PROMETHAZINE HCL INJ 25 MG/ML 1 ML VIAL ONE (11:33)
[2018-11-27] MEDS ORDERED: DEXAMETHASONE SOD INJ 4 MG/ML VIAL ONE (11:33)
[2018-11-27] MEDS ORDERED: ONDANSETRON INJ 2 MG/ML 2 ML VIAL ONE ×2 (11:33→12:05)
[2018-11-27] MEDS ORDERED: PHENYLEPHRINE 100MCG/ML 5ML SYR ONE (11:45)
[2018-11-27] MEDS ORDERED: KETOROLAC 30 MG/ML VIAL ONE (12:28)
--- NOTE | 2018-11-27 12:40 | Operative Report ---
Post Operative Report Pre & Post Diagnosis Operation Date: 11/27/18 07:00 Pre-Op Diagnosis: Obstructing right ureteral stone Post-Op Diagnosis: Obstructing right ureteral stone Procedure Operation Date: 11/27/18 07:00 Actual Procedures p Cystoscopy ,Right Ureteroscopy, Right Stent Placement, Laser Litotripsy(Right) - Aramis Jane MD Surgeon Duong Jane MD Graining Operator none Estimated Blood Loss 0 Findings Consistent with Post-Op Diagnosis Specimens none Description of Procedure The patient was identified in the preopertive holding area, appropriate informed consents were reviewed and completed and the patient was transferred to the operative suite. Upon arrival, appropriate antibiotics and anesthesia were administered and the patient was placed in dorsal lithotomy position and prepped and draped in sterile fashion. Inserted a 20 [place] cystoscope and performed a full cystoscopy. There were no abnormalities of the bladder. Cannulated the right UO and advanced a wire to the kidney. And then passed a semirigid ureteroscope and encountered a yellow appearing calculus in the mid ureter. Utilizing a 270 m laser fiber I fragmented the stone and irrigated all pieces out of the ureter. Then advanced the scope to its maximal extent identifying a calculus at the UPJ. Unfortunately, I could not quite reach this with this semirigid scope so I exchanged it for a flexible ureteroscope. I moved the stone retrograde into the kidney and I fragmented it. It was a large calculus of at least 1 cm. There were other moderate-sized calculi in several calyces. I attempted to fragment all visible stones in the pieces deemed safe for spontaneous passage. I then performed a very careful exit ureteroscopy identifying no retained stones within the ureter. I placed a 6 [place] by 24 cm loop ureteral stent and concluded the case. She was extubated and taken to the PACU in stable condition. There were no complications. I attest to the content of the Intraoperative Record and any orders documented therein. Any exceptions are noted below.
--- NOTE | 2018-11-27 12:55 | Anesthesiology Progress Note ---
Date of Service November 27, 2018 Anesthesia Post Procedure Vital Signs Vital Signs: Temp Pulse Pulse Pulse Resp BP BP 11/27/18 12:50 36.7 C 61 16 103/58 L 11/27/18 12:40 59 L 16 104/64 11/27/18 12:30 57 L 16 102/61 11/27/18 12:22 36.2 C L 61 12 95/67 L 11/27/18 10:31 36.7 C 72 20 127/73 11/27/18 07:18 36.6 C 58 L 16 102/70 11/27/18 02:16 36.4 C L 67 16 117/77 11/27/18 00:53 76 12 106/57 L 11/26/18 23:52 78 20 114/72 11/26/18 22:05 36.4 C L 72 16 119/77 Pulse Ox 11/27/18 12:50 100 11/27/18 12:40 100 11/27/18 12:30 100 11/27/18 12:22 100 11/27/18 10:31 99 11/27/18 07:18 96 11/27/18 02:16 96 11/27/18 00:53 97 11/26/18 23:52 95 11/26/18 22:05 98 Pain Intensity Right Flank: Pain Intensity: 3 Transfer of Care Handoff Completed per policy Notes Mental Status: alert / awake / arousable Patient Amnestic to Procedure: Yes Nausea / Vomiting: adequately controlled Pain: adequately controlled Airway Patency, RR, SpO2: stable & adequate BP & HR: stable & adequate Hydration State: stable & adequate Anesthetic Complications: no major complications apparent and Pt Satisfied with anesthetic care
--- NOTE | 2018-11-27 14:40 | Fluoroscopy Report ---
FL KUB HISTORY: 43 years-old Female RT STONE right-sided cystourethrogram COMPARISON: KUB 11/26/2018 TECHNIQUE: 3 spot fluoroscopic images of the right abdomen and pelvis were obtained utilizing 6.0 sec onds fluoroscopy time FINDINGS: Guidewire noted about the right ureter. Subsequent images show deployment of a right ureteral stent, proximal portion appearing to be in satisfactory positioning. The distal portion of the stent is not imaged. Bilateral nephrolithiasis is better appreciated on comparison studies. IMPRESSION: Fluoroscopic assistance as above. Please see procedural report for further details. The above report was generated using voice recognition software. It may contain grammatical, syntax o r spelling errors. Electronically signed by: Rustam Small M.D. 11/27/2018 2:39 PM
--- NOTE | 2018-11-27 18:12 | Discharge Summary ---
Date of Service November 27, 2018 Admission HPI Per Admitting Provider 43 y/o F Hx gout, nephrolithiasis with multiple ureteral obstructions requiring stenting/lithotripsy. Last underwent lithotripsy 11/16. Presents with R flank pain. An US confirms a 1cm proximal R ureteral stone. UA is +. Admission Exam Per Admitting Provider General: AAO x 3, no distress ENT: No erythema or exudates, no thrush Eyes: EMANUEL, EOMI Head and neck: Normocephalic, atraumatic, No JVD, neck is supple. Chest/heart: Nontender, S1,2, RRR, no murmurs, no gallops Lungs: CTAB, no wheezing or crackles Abdomen: Mild R flank tenderness Neuro: AAO x 3, speech is clear, no unilateral weakness or loss of sensation, coordination intact Musculoskeletal: No joint inflammation, muscle tenderness, FROM Skin: No acute rashes or ulcers Extremities: No clubbing, cyanosis, edema Principal Diagnosis Right kidney stone Discharge Exam General: Resting comfortably HEENT: NC/AT; PERRLA with EOMI; [place] conjunctiva, MMM. No erythema of posterior pharynx Neck: Supple and nontender Cardiac: RRR Lungs: CTA bilaterally; No rhonchi, wheezing, or rales Abdomen: Bowel normoactive X 4; Nontender to palpation Extremities: Warm. No edema present Neuro: No focal weakness Skin: No rash Discharge Data Allergies Allergy/AdvReac Type Severity Reaction Status Date / Time nut - unspecified Allergy Severe Anaphylaxis Verified 11/26/18 22:38 cat dander Allergy Intermediate CAT/DOG-ITCHY Verified 11/26/18 22:38 EYES RUNNY NOSE cephalexin Allergy Intermediate Hives Verified 11/26/18 22:39 Consultations 11/27/18 00:42 ED Decision to Admit Stat 11/27/18 02:12 Consult Urology Routine Procedures Performed Operation Date: 11/27/18 07:00 Actual Procedures p Cystoscopy ,Right Ureteroscopy, Laser Litotripsy(Right) - Aramis Jane MD s Right Stent Placement(Right) - Aramis Jane MD Ordered Studies 11/26/18 22:19 US renal/blad retro comp Urgent KUB 11/27/18 10:30 FL KUB Routine 11/27/18 10:45 FL fluoroscopy <1hr Routine Hospital Course (1) Calculus of proximal right ureter: Mild right hydronephrosis with 1 cm stone at right UPJ. S/p right sided lithotripsy and right stent placement this afternoon. UC is pending. Will continue Cipro 500 mg BID for 10 day course. F/u with urology. Continue chlorthalidone and allopurinol as prescribed. (2) Electrolyte abnormality: Replaced as needed. Pt. was stable for discharge on 11/27/18. Total Time Total Time Spent Total Time Spent (In Minutes): >30 minutes Total Time Includes: Examination of the Patient, Discharge Planning, Medication Reconciliation, Communication With Other Providers and Other Discharge Plan Discharge Items Patient Disposition: Home - Self-Care Reason For Visit: OBSTRUCTING STONE Discharge Diagnosis: Right Kidney Stone Condition: Good Discharge Goals: Diagnostic testing, Improve disease control, Improve function, Increase independence and Prevent disease Activity: As commented below Exercise/Sports: Wait until after follow-up appointment Non-emergency contact: Primary Care Provider and Urologist Call non-emergency contact if: you have any medication questions, your symptoms worsen, your pain is not controlled, your pain is worsening, your pain is unusual for you, your pain is concerning for you and you have a fever Follow-up/Referrals: PCP,NO [Primary Care Provider] - Diet: Regular Addtl Provider Instructions: 1. Right Kidney Stone * Please take Ciprofloxacin 500 mg twice daily for treatment of UTI. * Please follow up with urology as an outpatient for evaluation. * Drink plenty of fluids at home to avoid dehydration. * Advance to regular diet as tolerated. 2. Please schedule a follow up appointment with your primary care provider in 7- 10 days. Prescriptions: New ciprofloxacin HCl [Cipro] 500 mg tablet 500 mg PO BID Qty: 20 RF: 0 Continued chlorthalidone 25 mg Tablet 25 mg PO DAILY RF: 0 allopurinol 100 mg Tablet 100 mg PO DAILY RF: 0 epinephrine [EpiPen] 0.3 mg/0.3 mL Auto-Injector 0.3 mg IM DIRECTED PRN (Reason: Allergic Reaction) RF: 0 Stand-Alone Forms: [employer]/Other Patient Handouts: Kidney Stones Discharge Orders: Discharge Order (Routine); Ordered 11/27/18 Ordered By: Heather Bass Admission Data Admit Date/Time: 11/27/18 01:05 Attending Provider: Heather Bass Admit Provider: Jameson Andino Primary Care Provider: PCP,NO Other Providers: Aramis Jane ; Jameson Andino Service: Surgical Services Other Interventions: Discharge Summary Assessment (RN) Last Done: 11/27/18 18:28 Pending Studies at Discharge: Yes Studies:: Urine culture is pending. DC Date/Time DO NOT enter until pt leaves facility: 11/27/18 19:17 Supervising Physician Co-Signing Physician Notes PA Supervision Note: I personally saw and examined the patient. I verified all cisneros points and agree with LANRE Huang with the following exceptions and/or additions: Doing well, no pain, soraya po, no N/V Vitals reviewed NAD RRR no mgr CTAB no wcr Abd soft NT ND +BS Ext no calf pain or edema Stable for dc to home with Urology f/u, continue CIpro until stent removed
== END 2018-11-27 19:17 | disposition home or self-care (01) | DRG 661 ==
LOC: ED 22:03 → 3W 11-27 01:05 → SUATTDRO 11-27 01:05 → 3W 11-27 01:57

== ENCOUNTER 2020-06-12 14:02 | Inpatient (IN) ==
[2020-06-12] MEDS ORDERED: MoRPHine SULFATE 10 MG/ML CARP/VIAL IV PRN (14:12)
[2020-06-12] MEDS ORDERED: ONDANSETRON INJ 2 MG/ML 2 ML VIAL IV STA (14:12)
[2020-06-12 14:39] LABS: Hematocrit (blood only) 40.8 % (37-47); Hemoglobin 12.9 g/dL (12.0-16.0); Mean Corpuscular Hemoglobin 25.7 pg (25-34); Mean Corpuscular Hgb Conc 31.6 g/dL (32-36); Mean Corpuscular Volume 81.4 fL (80-100); Mean Platelet Volume 11.6 fL (7.4-10.4); Platelet Count 260 K/uL (130-400); RDW Coefficient of Variation 14.2 % (11.5-14.5); RDW Standard Deviation 42.1 fL (36.4-46.3); Red Blood Count 5.01 M/uL (4.2-5.4); White Blood Count 10.77 K/uL (4.8-10.8)
[2020-06-12] MEDS ORDERED: METOCLOPRAMIDE HCL INJ 5 MG/ML 2 ML VIAL IV STA (14:51)
[2020-06-12] MEDS ORDERED: HYDROmorphone INJ 1 MG/ML SYRINGE IV PRN (14:51)
[2020-06-12] MEDS ORDERED: ACETAMINOPHEN 1,000 MG/100 ML VIAL IV STA (14:51)
[2020-06-12 14:53] LABS: BUN Creatinine Ratio 11.9 (10-20); Blood Urea Nitrogen 12 mg/dl (7-18); Calcium 9.3 mg/dl (8.5-10.1); Carbon Dioxide 26 mmol/L (21-32); Chloride 106 mmol/L (98-107); Est GFR (African American) 75.9; Est GFR (Non-African American) 65.5; Glucose 105 mg/dl (70-99); Potassium 3.6 mmol/L (3.5-5.1); Sodium 139 mmol/L (136-145)
--- NOTE | 2020-06-12 15:11 | Emergency Department Note ---
History of Present Illness General Chief complaint: Kidney Stone Stated complaint: KIDNEY STONES VOMITING Time Seen by Provider: 06/12/20 14:47 Source: patient, RN notes reviewed and old records reviewed Mode of arrival: ambulatory Limitations: no limitations History of Present Illness Provider complaint: Rt sided flank pain Onset (ago): day(s) 1 Location: abdomen Radiation: flank Severity: severe Pain Consistency: + intermittent Maximum Pain Intensity: 8 Current Pain Intensity: 8 Quality: + aching Relieved By: + none Exacerbated By: + none Associated symptoms: + nausea/vomiting; no cough, no fever/chills, no headaches, no shortness of breath and no weakness Treatments prior to arrival: none This is a 45-year-old feel female who presents emergency department complaining of right-sided flank pain. The patient reports she has a history of kidney stones. She reports she began having flank pain yesterday. She was sent for a KUB by her urologist today. She began vomiting due to the pain and came to the emergency department. She describes the pain as an ache with radiation into her back. She denies any fevers or chills. She reports nothing makes the pain better or worse. She has not taken anything for the pain prior to arrival. Home Medications Medication Instructions Recorded Confirmed Type sulfamethoxazole 400 1 tab PO DAILY #90 tab 05/18/20 06/12/20 Rx mg-trimethoprim 80 mg tablet chlorthalidone 25 mg PO DAILY 05/28/20 06/12/20 History multivitamin 1 tab PO DAILY 05/28/20 06/12/20 History Allergies Allergy/AdvReac Type Severity Reaction Status Date / Time cat dander Allergy Unknown CAT/DOG-ITCHY Verified 06/12/20 15:36 EYES RUNNY NOSE cephalexin Allergy Unknown Hives Verified 06/12/20 15:36 tree nut Allergy Unknown Anaphylaxis Verified 06/12/20 15:36 ciprofloxacin [From Cipro] AdvReac Unknown HIVES, Verified 06/12/20 15:36 THROAT SWELLING Past Med/Surg History Medical History Bilateral nephrolithiasis HX KIDNEY STONES - MULTIPLE ? IF ANY PRESENT CURRENTLY -NO PROBLEM WITH CURRENTLY Duodenal ulcer NO CURRENT PROBLEM WITH Fibrocystic breast disease (FCBD) in female Gynecological complaint ABNORMAL PAP, HEAVY MENSTRUAL BLEEDING WITH PERIODS - REASON FOR UPCOMING PROCEDURE Obesity Surgical History H/O lithotripsy MULTIPLE HX LASER LITHO History of bilateral tubal ligation History of tooth extraction wisdom teeth History of ureter stent Hx of cystoscopy MULTIPLE Nausea and vomiting after administration of anesthetic agent Family History Family/Other No problems noted. Uncle Family hx of colon cancer Social History Smoking Status: Never smoker Second Hand Exposure: No; Hx Alcohol Use: No Hx Substance Use: No Preferred Language: Samoan Communication Ability: Effective Visual Impairment: No Limitations Collective Bargaining Specialist Required: No Beliefs That Will Affect Care: None marital status: Current Living Situation: Spouse Current Living Situation Comment: CHILDREN Other Information That Helps Us Care for You: No Feels Safe at Home: Yes Safety Concerns: Feels Safe At This Time Assistive Devices: Glasses Review of Systems A total of 10 systems reviewed and were otherwise negative Physical Exam Vital Signs Vital Signs - 24 hr 06/12/20 14:09 06/12/20 15:10 06/12/20 15:25 Temperature 36.1 C L Temperature Source Temporal Artery Scan Pulse Rate 99 H Pulse Rate [Apical] Pulse Rate [Left Finger] 76 81 Pulse Rhythm [Apical] Respiratory Rate 18 18 16 Respiratory Effort / Characteristics Non-Labored Spontaneous Respiratory Depth Normal Respiratory Pattern Blood Pressure 132/88 Blood Pressure [Left Arm] 152/82 H 131/80 Blood Pressure [Right Arm] Blood Pressure Mean 102 Blood Pressure Mean [Left Arm] 105 97 Blood Pressure Mean [Right Arm] Blood Pressure Position Sitting Blood Pressure Position [Right Arm] Pulse Oximetry 97 99 82 L Oxygen Delivery Method Room Air Room Air Room Air Oxygen Flow Rate 4 Sepsis Recent Fever Within 48 Hours No Sepsis New/Unexplained Change in Mental Status No Sepsis Action Taken by Nursing No Action Required 06/12/20 16:00 06/12/20 16:33 06/12/20 16:46 Temperature 36.7 C Temperature Source Oral Pulse Rate 80 Pulse Rate [Apical] Pulse Rate [Left Finger] 84 85 Pulse Rhythm [Apical] Respiratory Rate 18 18 20 Respiratory Effort / Characteristics Respiratory Depth Respiratory Pattern Blood Pressure 134/86 Blood Pressure [Left Arm] 135/77 117/67 Blood Pressure [Right Arm] Blood Pressure Mean Blood Pressure Mean [Left Arm] 96 83 Blood Pressure Mean [Right Arm] Blood Pressure Position Blood Pressure Position [Right Arm] Pulse Oximetry 93 93 95 Oxygen Delivery Method Room Air Room Air Room Air Oxygen Flow Rate Sepsis Recent Fever Within 48 Hours Sepsis New/Unexplained Change in Mental Status Sepsis Action Taken by Nursing 06/12/20 18:05 06/12/20 18:15 06/12/20 18:20 Temperature 36.2 C L 36.4 C L Temperature Source Temporal Artery Scan Temporal Artery Scan Pulse Rate Pulse Rate [Apical] 92 H 81 86 Pulse Rate [Left Finger] Pulse Rhythm [Apical] Regular Regular Regular Respiratory Rate 16 15 18 Respiratory Effort / Characteristics Non-Labored Spontaneous Non-Labored Spontaneous Non-Labored Spontaneous Respiratory Depth Normal Normal Normal Respiratory Pattern Regular Regular Regular Blood Pressure Blood Pressure [Left Arm] Blood Pressure [Right Arm] 100/79 94/65 L 97/71 L Blood Pressure Mean Blood Pressure Mean [Left Arm] Blood Pressure Mean [Right Arm] 86 74 79 Blood Pressure Position Blood Pressure Position [Right Arm] Semi-fowlers Semi-fowlers Semi-fowlers Pulse Oximetry 92 96 97 Oxygen Delivery Method Room Air Nasal Cannula Nasal Cannula Oxygen Flow Rate 2 2 2 Sepsis Recent Fever Within 48 Hours Sepsis New/Unexplained Change in Mental Status Sepsis Action Taken by Nursing 06/12/20 18:35 06/12/20 18:50 Temperature Temperature Source Pulse Rate Pulse Rate [Apical] 74 85 Pulse Rate [Left Finger] Pulse Rhythm [Apical] Regular Regular Respiratory Rate 16 17 Respiratory Effort / Characteristics Non-Labored Spontaneous Non-Labored Spontaneous Respiratory Depth Normal Normal Respiratory Pattern Regular Regular Blood Pressure Blood Pressure [Left Arm] Blood Pressure [Right Arm] 99/51 L 106/77 Blood Pressure Mean Blood Pressure Mean [Left Arm] Blood Pressure Mean [Right Arm] 67 86 Blood Pressure Position Blood Pressure Position [Right Arm] Semi-fowlers Semi-fowlers Pulse Oximetry 99 96 Oxygen Delivery Method Nasal Cannula Room Air Oxygen Flow Rate 2 Sepsis Recent Fever Within 48 Hours Sepsis New/Unexplained Change in Mental Status Sepsis Action Taken by Nursing VITAL SIGNS - Vital signs and nursing notes were reviewed. GENERAL - 45-year-old female appearing stated age who is in no acute distress. Communicates well with provider and answers questions appropriately. SKIN - Without rashes. HEAD - NC/AT. EYES - PERRL with EOMI bilaterally. Sclera anicteric. Palpebral conjunctiva pink and moist with no injection noted. EARS - No deformities of external structures noted on gross examination bilaterally. NOSE - Midline and without cyanosis. No epistaxis or purulent drainage noted. Septum midline without deviation or septal hematoma noted. MOUTH/OROPHARYNX - Without perioral cyanosis. Buccal mucosa pink and moist and without leukoplakia. Tongue midline with equal elevation of palate bilaterally. No tonsillar hypertrophy, erythema, or exudates noted. dentition noted. NECK - Neck with FROM. Supple to palpation. lymphadenopathy noted. No nuchal rigidity. LUNGS - Chest wall symmetric without accessory muscle use, intercostals retractions, or central cyanosis. Normal vesicular breath sounds CTA B/L. No wheezes, rales, or rhonchi appreciated. CARDIAC - RRR with S1/S2. No murmur, rubs, or gallops appreciated. ABDOMEN - Abdominal contour without pulsations or visible masses. BS normoactive all four quadrants. No tenderness, palpable masses, hepatosplenomegaly, or ascites noted. EXTREMITIES - No clubbing or peripheral cyanosis. No pretibial edema present. +3/5 radial, posterior tibial, and dorsalis pedis pulses palpated throughout. +5/5 strength noted in UE/LE bilaterally. NEUROLOGIC - Cranial nerves II through XII grossly intact. Sensory intact to light touch throughout. Patellar reflexes +2/4. PSYCH - A&Ox3 and cooperates fully with examiner. Pt is very pleasant and interacts well with examiner. Course Administered Medications Diatrizoate Meglumine (Diatrizoate Meglumine 30% 100ml Vial) 10 ml INSTIL UD PRN PRN Reason: surgical Stop: 06/16/20 17:55 Last Admin: 06/12/20 17:57 Dose: 10 ml Documented by: [id number] Hydromorphone HCl (Hydromorphone Inj 1 Mg/Ml Syringe) 1 mg IV Q15M PRN PRN Reason: Pain Stop: 06/26/20 14:50 Last Admin: 06/12/20 15:04 Dose: 1 mg Documented by: [id number] Morphine Sulfate (Morphine Sulfate 10 Mg/Ml Carp/Vial) 6 mg IV Q10M PRN PRN Reason: Pain Last Admin: 06/12/20 14:24 Dose: 6 mg Documented by: [id number] Discontinued Medications Acetaminophen (Ofirmev) 1,000 mg in 100 mls @ 400 mls/hr IV NOW STA Stop: 06/12/20 15:05 Last Infusion: 06/12/20 15:33 Dose: 0 mls/hr Documented by: [id number] Admin: 06/12/20 15:07 Dose: 400 mls/hr Documented by: [id number] Gentamicin Sulfate 80 mg/ (Dextrose) 102 mls @ 100 mls/hr IV PREOP@1650 ISABELLA Stop: 06/12/20 17:52 Last Admin: 06/12/20 17:36 Dose: 100 mls/hr Documented by: [id number] Ketorolac Tromethamine (Ketorolac 30 Mg/Ml Vial) 30 mg IV NOW ONE Stop: 06/12/20 16:09 Last Admin: 06/12/20 20:13 Dose: Not Given Documented by: [id number] Metoclopramide HCl (Metoclopramide Hcl Inj 5 Mg/Ml 2 Ml Vial) 10 mg IV NOW STA Stop: 06/12/20 14:52 Last Admin: 06/12/20 15:04 Dose: 10 mg Documented by: [id number] Ondansetron HCl (Ondansetron Inj 2 Mg/Ml 2 Ml Vial) 4 mg IV NOW STA Stop: 06/12/20 14:13 Last Admin: 06/12/20 14:24 Dose: 4 mg Documented by: [id number] Tamsulosin HCl (Tamsulosin Hcl 0.4 Mg Cap) 0.4 mg PO NOW ONE Stop: 06/12/20 16:11 Last Admin: 06/12/20 20:14 Dose: Not Given Documented by: [id number] Medical Decision Making Differential Diagnosis Appendicitis, ovarian cyst, ovarian torsion, ectopic , TOA, PID, infections, diverticulitis, UTI, obstruction, mesenteric ischemia, aortic pathology, inflammatory bowel disease, renal colic, PUD, pancreatitis, biliary pathology, hernia, volvulus, constipation, as well as other pathologies. Medical Records Attestation: I reviewed the patient's medical records. Home Medications Current Medication List: was personally reviewed by me Laboratory Data Attestation: I reviewed the patient's lab results. Result diagrams: 06/12/20 14:15 06/12/20 14:15 Lab Results 06/12/20 06/12/20 06/12/20 Range/Units 14:15 14:15 16:24 WBC 10.77 (4.8-10.8) K/uL RBC 5.01 (4.2-5.4) M/uL Hgb 12.9 (12.0-16.0) g/dL Hct 40.8 (37-47) % MCV 81.4 (80-100) fL MCH 25.7 (25-34) pg MCHC 31.6 L (32-36) g/dL RDW Std Deviation 42.1 (36.4-46.3) fL RDW Coeff of Agusto 14.2 (11.5-14.5) % Plt Count 260 (130-400) K/uL MPV 11.6 H (7.4-10.4) fL Sodium 139 (136-145) mmol/L Potassium 3.6 (3.5-5.1) mmol/L Chloride 106 (98-107) mmol/L Carbon Dioxide 26 (21-32) mmol/L Anion Gap 7.0 (3-11) BUN 12 (7-18) mg/dl Creatinine 1.02 (0.6-1.2) mg/dl Est Cr Clr Drug Dosing Not Reportable Est GFR ( Amer) 75.9 Est GFR (Non-Af Amer) 65.5 BUN/Creatinine Ratio 11.9 (10-20) Glucose 105 H (70-99) mg/dl Calcium 9.3 (8.5-10.1) mg/dl Urine Color Yellow Urine Appearance Clear (Clear) Urine pH 7.0 (4.5-7.5) POC Urine pH (4.5-7.5) Ur Specific [place] 1.016 (1.000-1.030) Urine Protein Negative (Negative) POC Urine Protein (Negative) Urine Glucose (UA) Negative (Negative) POC Ur Glucose (UA) (Normal) Urine Ketones 1+ H (Negative) POC Urine Ketones (Negative) Urine Blood 3+ H (Negative) POC Urine Blood (Negative) Urine Nitrite Positive A (Negative) POC Urine Nitrite (Negative) Urine Bilirubin Negative (Negative) POC Urine Bilirubin (Negative) Urine Urobilinogen Negative (Negative) POC Urine Urobilinogen (Normal) Ur Leukocyte Esterase 1+ H (Negative) POC U Leukocyte Esteras (Negative) Urine WBC (Auto) >30 H (0-5) /hpf Urine RBC (Auto) 10-30 H (0-4) /hpf U Hyaline Cast (Auto) 1-5 (0-5) /lpf U Epithel Cells (Auto) >30 H (0-5) /lpf Urine Bacteria (Auto) Negative (Negative) Urine Yeast Not Reportable POC Ur Test (NEG) COVID-19 Eval Order SARS-CoV-2, RNA, NAAT (NEGATIVE) 06/12/20 06/12/20 06/12/20 Range/Units 16:24 16:30 16:30 WBC (4.8-10.8) K/uL RBC (4.2-5.4) M/uL Hgb (12.0-16.0) g/dL Hct (37-47) % MCV (80-100) fL MCH (25-34) pg MCHC (32-36) g/dL RDW Std Deviation (36.4-46.3) fL RDW Coeff of Agusto (11.5-14.5) % Plt Count (130-400) K/uL MPV (7.4-10.4) fL Sodium (136-145) mmol/L Potassium (3.5-5.1) mmol/L Chloride (98-107) mmol/L Carbon Dioxide (21-32) mmol/L Anion Gap (3-11) BUN (7-18) mg/dl Creatinine (0.6-1.2) mg/dl Est Cr Clr Drug Dosing Est GFR ( Amer) Est GFR (Non-Af Amer) BUN/Creatinine Ratio (10-20) Glucose (70-99) mg/dl Calcium (8.5-10.1) mg/dl Urine Color Urine Appearance (Clear) Urine pH (4.5-7.5) POC Urine pH 7 (4.5-7.5) Ur Specific [place] (1.000-1.030) Urine Protein (Negative) POC Urine Protein Negative (Negative) Urine Glucose (UA) (Negative) POC Ur Glucose (UA) Normal (Normal) Urine Ketones (Negative) POC Urine Ketones 2+ (Moderate) H (Negative) Urine Blood (Negative) POC Urine Blood 250 H (Negative) Urine Nitrite (Negative) POC Urine Nitrite Positive A (Negative) Urine Bilirubin (Negative) POC Urine Bilirubin Negative (Negative) Urine Urobilinogen (Negative) POC Urine Urobilinogen Normal (Normal) Ur Leukocyte Esterase (Negative) POC U Leukocyte Esteras 1+ H (Negative) Urine WBC (Auto) (0-5) /hpf Urine RBC (Auto) (0-4) /hpf U Hyaline Cast (Auto) (0-5) /lpf U Epithel Cells (Auto) (0-5) /lpf Urine Bacteria (Auto) (Negative) Urine Yeast POC Ur Test NEG (NEG) COVID-19 Eval Order Covid19 IDNow [facility] SARS-CoV-2, RNA, NAAT NEGATIVE (NEGATIVE) Imaging Data Attestation: I personally reviewed and interpreted this imaging study as follows: My Impression: KUB from earlier today was reviewed. [facility], [id number] Ultrasound Report Patient: AROLDO TOLLIVER Date: 06/12/20MR#: [id number]: [address] RDAcct ID:[id number]: Date: 1975[facility] Zip: [place] [id number]: 45Location: EDSex: FRoom/Bed:Att Phy:Diagnosis: KIDNEY STONES VOMITINGPri Phy: PCP,NOService Date: 06/12/20Fam Phy:Interpreting Phy: Herb Kaiser MDAdmit Phy: Ordering Phy: Francois Fontanez MD cc: ~ RENAL ULTRASOUND CLINICAL HISTORY: Right flank pain. COMPARISON STUDY: CT of the abdomen and pelvis February 14, 2020. KUB performed earlier today. TECHNIQUE: Sonography of the kidneys and the urinary bladder was performed. FINDINGS: Innumerable bilateral renal calculi are noted. The right kidney star sures 11.3 x 6.6 x 5.9 cm and the left measures 10.3 x 4.8 x 5.3 cm. There is no left hydronephrosis. Note is made of mild to moderate right hydronephrosis. Neither ureteral jet was identified. No ureteral calculi are identified although these are often occult by sonography. IMPRESSION: 1. Mild to moderate right hydronephrosis. No ureteral calculi identified although these are often occult by sonography. 2. Extensive bilateral nephrolithiasis. ACT 112: Negative or not required by law. Electronically signed by: Herb Kaiser M.D. 06/12/2020 3:57 PM Dictated: 06/12/20 1555Transcribed: 06/12/20 1555 [facility] Narrative Patient was seen and evaluated as above in room D8. Review was performed of nursing notes and vital signs. I did review pertinent previous visits and patient history. After obtaining a thorough history and physical examination the above work up was performed. This is a 45-year-old female who presents with intractable nausea vomiting and pain from a kidney stone. She is using shared medical decision making with the patient she was sent for an ultrasound which shows right-sided hydronephrosis. She does not show any evidence of a kidney stone. She was given a normal saline bolus as well as Tylenol and Dilaudid. Repeat examination revealed no improvement the patient's symptoms. I did discuss the case with Dr. Jane who did agree to admit the patient. The patient does have a slight elevation in her white blood cell count however her kidney function remains normal. An order was placed for continuous cardiac monitoring. The monitor shows a rate of 74 with Normal SInus rhythm. The patient was evaluated during a period of high volume and high acuity while the hospital was at overcapacity during the global COVID-19 pandemic, and that diagnosis was suspected/considered upon their initial presentation. Their evaluation, treatment and testing was consistent with current guidelines for patients who present with complaints or symptoms that may be related to COVID- 19. Impression & Plan Abdominal pain, Kidney stone Discharge Plan Visit Data Chief Complaint: Kidney Stone Stated Complaint: KIDNEY STONES VOMITING ED Provider: Francois Fontanez Discharge Problem: Abdominal pain, Kidney stone Patient Disposition: Still a Patient Discharge Instructions Interventions: ED Discharge Assessment Last Done: 06/12/20 16:33 Discharge Problem: Abdominal pain Qualifiers: Abdominal location: unspecified location Qualified Code(s): R10.9 - Unspecified abdominal pain
--- NOTE | 2020-06-12 15:58 | Ultrasound Report ---
RENAL ULTRASOUND CLINICAL HISTORY: Right flank pain. COMPARISON STUDY: CT of the abdomen and pelvis February 14, 2020. KUB performed earlier today. TECHNIQUE: Sonography of the kidneys and the urinary bladder was performed. FINDINGS: Innumerable bilateral renal calculi are noted. The right kidney measures 11.3 x 6.6 x 5.9 c m and the left measures 10.3 x 4.8 x 5.3 cm. There is no left hydronephrosis. Note is made of mild to moderate right hydronephrosis. Neither ureteral jet was identified. No ureteral calculi are identifi ed although these are often occult by sonography. IMPRESSION: 1. Mild to moderate right hydronephrosis. No ureteral calculi identified although these are often occ ult by sonography. 2. Extensive bilateral nephrolithiasis. ACT 112: Negative or not required by law. Electronically signed by: Herb Kaiser M.D. 06/12/2020 3:57 PM
[2020-06-12] MEDS ORDERED: KETOROLAC 30 MG/ML VIAL IV ONE (16:08)
[2020-06-12] MEDS ORDERED: TAMSULOSIN HCL 0.4 MG CAP PO ONE (16:10)
--- NOTE | 2020-06-12 16:21 | Urology Consultation ---
Date of Consultation June 12, 2020 Assessment & Plan (1) Bilateral nephrolithiasis: Extensive kidney stone history Right renal colic Plan for cystoscopy right ureteral stent placement now Risks, benefits, expectations discussed We will hold on a CT Obtain Covid testing, plan for OR immediately History of Present Illness History of Present Illness Very well-known to our serviceextensive kidney stone history She was working today and started to feel symptoms of kidney stone again Severe nausea and vomiting Severe right flank pain Evaluated in the ERKUB does not definitively show ureteral stone despite her symptoms Ultrasound does show hydronephrosis on the right Continues to feel ill overall Allergies Allergy/AdvReac Type Severity Reaction Status Date / Time cat dander Allergy Unknown CAT/DOG-ITCHY Verified 06/12/20 15:36 EYES RUNNY NOSE cephalexin Allergy Unknown Hives Verified 06/12/20 15:36 tree nut Allergy Unknown Anaphylaxis Verified 06/12/20 15:36 ciprofloxacin [From Cipro] AdvReac Unknown HIVES, Verified 06/12/20 15:36 THROAT SWELLING Home Medications Medication Instructions Recorded Confirmed Type sulfamethoxazole 400 1 tab PO DAILY #90 tab 05/18/20 06/12/20 Rx mg-trimethoprim 80 mg tablet chlorthalidone 25 mg PO DAILY 05/28/20 06/12/20 History multivitamin 1 tab PO DAILY 05/28/20 06/12/20 History Patient History Medical History Bilateral nephrolithiasis HX KIDNEY STONES - MULTIPLE ? IF ANY PRESENT CURRENTLY -NO PROBLEM WITH CURRENTLY Duodenal ulcer NO CURRENT PROBLEM WITH Fibrocystic breast disease (FCBD) in female Gynecological complaint ABNORMAL PAP, HEAVY MENSTRUAL BLEEDING WITH PERIODS - REASON FOR UPCOMING PROCEDURE Obesity Surgical History H/O lithotripsy MULTIPLE HX LASER LITHO History of bilateral tubal ligation History of tooth extraction wisdom teeth History of ureter stent Hx of cystoscopy MULTIPLE Nausea and vomiting after administration of anesthetic agent Family History Family/Other No problems noted. Uncle Family hx of colon cancer Social History Smoking Status: Never smoker Second Hand Exposure: No; Hx Alcohol Use: Yes Hx Substance Use: No Preferred Language: Azeri Communication Ability: Effective Visual Impairment: No Limitations Section Hand Required: No Beliefs That Will Affect Care: None marital status: Current Living Situation: Spouse and Family Current Living Situation Comment: CHILDREN Feels Safe at Home: Yes Assistive Devices: Glasses Review of Systems Constitutional: no fever, no chills and no fatigue Eyes: no worsening vision Ear, Nose, Mouth, Throat: no facial pain and no pain with swallowing Respiratory: no cough and no dyspnea Cardiovascular: no chest pain and no palpitations Gastrointestinal: + abdominal pain, + nausea and + vomiting Genitourinary: + problem reported; no dysuria, no difficulty urinating, no urinary frequency and no hematuria Musculoskeletal: no back pain Integumentary: no rash and no urticaria Neurologic: no gait abnormality and no unsteadiness Psychiatric: no behavioral changes and no depression Endocrine: no fatigue Physical Exam Constitutional: well developed and well nourished Uncomfortable appearing Neck: neck nontender Respiratory: normal respiratory effort; no respiratory distress and does not use accessory muscles Cardiovascular: Rate/Rhythm: regular rate Vessels: radial pulses present Extremities: no edema Gastrointestinal (Abdomen): Inspection/Auscultation: abdomen normal to inspection Percussion/Palpation: abdomen soft; abdomen nontender and no guarding Musculoskeletal: Head/Neck/Chest: normocephalic and head atraumatic Extremities: extremities normal to inspection Skin: no rashes and no lesions Trauma: no evidence of skin trauma Neurologic: awake; not obtunded Speech / Cognition: normal speech Motor/Sensory: no tremor Psychiatric: Orientation: alert and oriented x 3 Lymphatic: no lymphadenopathy Results & Data ([facility]) Vital Signs (Past 12 Hours) Vital Signs Temp Pulse Pulse Resp BP BP Pulse Ox 06/12/20 16:00 84 18 135/77 93 06/12/20 15:25 81 16 131/80 82 L 06/12/20 15:10 76 18 152/82 H 99 06/12/20 14:09 36.1 C L 99 H 18 132/88 97 PG Care Time/CCT Total # of Minutes Spent Total Time Spent with Patient: Total time spent is greater than 50% in coordination of care (as documented) at patient's floor/unit and/or counseling patient: Coding Level of Care Code 05376 Inpt Consult Level 3 Diagnoses Bilateral nephrolithiasis N20.0
[2020-06-12 16:33] LABS: POC Urine Bilirubin Negative (Negative); POC Urine Blood 250 (Negative); POC Urine Glucose Normal (Normal); POC Urine Leukocytes 1+ (Negative); POC Urine Nitrite Positive (Negative); POC Urine Protein Negative (Negative); POC Urine Urobilinogen Normal (Normal); POC Urine pH 7 (4.5-7.5)
[2020-06-12 16:41] LABS: Appearance Urine Clear (Clear); Bacteria Urine Automated Negative (Negative); Bilirubin Urine Negative (Negative); Blood Urine 3+ (Negative); Color Urine Yellow; Epithelial Cell Urine Auto >30 /lpf (0-5); Glucose Urine UA Negative (Negative); Ketones Urine 1+ (Negative); Leukocyte Esterase Urine 1+ (Negative); Nitrite Urine Positive (Negative); Protein Urine Negative (Negative); Specific Gravity Urine 1.016 (1.000-1.030); Urobilinogen Urine Negative (Negative); WBC Urine Automated >30 /hpf (0-5)
[2020-06-12] MEDS ORDERED: GENTAMICIN SULFATE 80 MG in DEXTROSE 5% 100 ML IV SCH (16:50)
--- NOTE | 2020-06-12 16:57 | Anesthesiology Consultation ---
Date of Service June 12, 2020 Assessment & Plan (1) Encounter for pre-operative examination: Chart Review Chart Review: Acceptable Risk for Surgery History Surgery Operation Date: 06/12/20 15:55 Proposed Procedures p Cystoscopy Right Stent Insertion - Aramis Jane MD Height/Weight Height: 5 ft 4 in Weight: 87 kg Allergies Allergy/AdvReac Type Severity Reaction Status Date / Time cat dander Allergy Unknown CAT/DOG-ITCHY Verified 06/12/20 15:36 EYES RUNNY NOSE cephalexin Allergy Unknown Hives Verified 06/12/20 15:36 tree nut Allergy Unknown Anaphylaxis Verified 06/12/20 15:36 ciprofloxacin [From Cipro] AdvReac Unknown HIVES, Verified 06/12/20 15:36 THROAT SWELLING Medications Home Medications Medication Instructions Recorded Confirmed Last Taken sulfamethoxazole 400 1 tab PO DAILY #90 tab 05/18/20 06/12/20 06/12/20 mg-trimethoprim 80 mg tablet chlorthalidone 25 mg PO DAILY 05/28/20 06/12/20 06/11/20 multivitamin 1 tab PO DAILY 05/28/20 06/12/20 06/11/20 Active Medications Generic Name Dose Route Start Last Admin Trade Name Freq PRN Reason Stop Dose Admin Hydromorphone HCl 1 mg 06/12/20 14:51 06/12/20 15:04 Hydromorphone Inj 1 Mg/Ml Syringe IV 06/26/20 14:50 1 mg Q15M PRN Administration Pain Morphine Sulfate 6 mg 06/12/20 14:12 06/12/20 14:24 Morphine Sulfate 10 Mg/Ml Carp/Vial IV 6 mg Q10M PRN Administration Pain NPO Date Last Intake of Fluids: 06/12/20 Time Last Intake of Fluids: 12:00 Date Last Intake of Solids: 06/12/20 Time Last Intake of Solids: 12:00 Past Medical History Medical History Bilateral nephrolithiasis HX KIDNEY STONES - MULTIPLE ? IF ANY PRESENT CURRENTLY -NO PROBLEM WITH CURRENTLY Duodenal ulcer NO CURRENT PROBLEM WITH Fibrocystic breast disease (FCBD) in female Gynecological complaint ABNORMAL PAP, HEAVY MENSTRUAL BLEEDING WITH PERIODS - REASON FOR UPCOMING PROCEDURE Obesity Past Family History Family History Family/Other No problems noted. Uncle Family hx of colon cancer Past Surgical History Surgical History H/O lithotripsy MULTIPLE HX LASER LITHO History of bilateral tubal ligation History of tooth extraction wisdom teeth History of ureter stent Hx of cystoscopy MULTIPLE Nausea and vomiting after administration of anesthetic agent Social History Smoking Status: Never smoker Hx Alcohol Use: Yes alcohol intake frequency: holidays/special occasions only Hx Substance Use: No substance use type: does not use Physical Exam Vital Signs Last Vital Signs Temp 36.7 C 06/12/20 16:46 Pulse 85 06/12/20 16:46 Resp 20 06/12/20 16:46 BP 117/67 06/12/20 16:46 Pulse Ox 95 06/12/20 16:46 Testing Laboratory Results 06/12/20 14:15 06/12/20 14:15 Urine Color Yellow 06/12/20 16:24 Urine Appearance Clear (Clear) 06/12/20 16:24 Urine pH 7.0 (4.5-7.5) 06/12/20 16:24 Ur Specific [place] 1.016 (1.000-1.030) 06/12/20 16:24 Urine Protein Negative (Negative) 06/12/20 16:24 Urine Glucose (UA) Negative (Negative) 06/12/20 16:24 Urine Ketones 1+ (Negative) H 06/12/20 16:24 Urine Nitrite Positive (Negative) A 06/12/20 16:24 Ur Leukocyte Esterase 1+ (Negative) H 06/12/20 16:24 Urine WBC (Auto) >30 /hpf (0-5) H 06/12/20 16:24 Urine RBC (Auto) 10-30 /hpf (0-4) H 06/12/20 16:24 U Hyaline Cast (Auto) 1-5 /lpf (0-5) 06/12/20 16:24 U Epithel Cells (Auto) >30 /lpf (0-5) H 06/12/20 16:24 Urine Bacteria (Auto) Negative (Negative) 06/12/20 16:24 06/12/20 16:24 POC Ur Test NEG
[2020-06-12] MEDS ORDERED: fentaNYL citrate 100 MCG/2 ML VIAL ONE (16:58)
[2020-06-12] MEDS ORDERED: PROPOFOL IV EMULSION 10 MG/ML 20 ML VIAL IV ONE ×2 (16:58→17:48)
[2020-06-12] MEDS ORDERED: ONDANSETRON INJ 2 MG/ML 2 ML VIAL ONE (16:58)
[2020-06-12] MEDS ORDERED: MIDAZOLAM HCL 1 MG/ML 2ML VIAL ONE (16:58)
[2020-06-12] MEDS ORDERED: PROMETHAZINE HCL 12.5 MG in SODIUM CHLORIDE 0.9% 50 ML IV PRN (17:14)
[2020-06-12] MEDS ORDERED: ONDANSETRON INJ 2 MG/ML 2 ML VIAL IV PRN (17:14)
[2020-06-12] MEDS ORDERED: ATROPINE SULFATE 0.1 MG/ML 10ML SYR IV PRN (17:14)
[2020-06-12] MEDS ORDERED: fentaNYL citrate 100 MCG/2 ML VIAL IV PRN (17:14)
[2020-06-12] MEDS ORDERED: KETOROLAC 30 MG/ML VIAL ONE (17:46)
[2020-06-12] MEDS ORDERED: METOCLOPRAMIDE HCL INJ 5 MG/ML 2 ML VIAL ONE (17:46)
[2020-06-12] MEDS ORDERED: DIATRIZOATE MEGLUMINE 30% 100ML VIAL INSTIL PRN (17:56)
--- NOTE | 2020-06-12 18:03 | Operative Report ---
[facility] Post Operative Report Pre & Post Diagnosis Operation Date: 06/12/20 15:55 Pre-Op Diagnosis: Right Ureteral Stone Post-Op Diagnosis: Right Ureteral Stone I identified the patient and participated in the time-out.: Yes Procedure Operation Date: 06/12/20 15:55 Actual Procedures p Cystoscopy Right Stent Insertion(Right) - Aramis Jane MD Surgeon Duong Jane MD Case Resolution Specialist none Estimated Blood Loss 0 Findings Consistent with Post-Op Diagnosis Specimens none Description of Procedure Alysha was identified in the preoperative holding area, appropriate informed consents were reviewed and completed. Upon arrival in the operative suite she received gentamicin and sedation. After sterile prep and drape ice passed a 22 Kenyan cystoscope with 30 degree lens. Inspection revealed a healthy-appearing bladder. I cannulated the right UO with a 5 Kenyan open-ended catheter. I could feel resistance several centimeters above the UO. This felt consistent with a stone. The stone was not readily appreciated on fluoroscopy, however it was also overlying the bone. I did opacify the collecting system with a small amount of contrast. I then positioned a wire into the kidney and placed a 6 Kenyan by 24 cm double-J stent seeing a good curl in the kidney as well as the bladder. The case was subsequently concluded and she was reversed of anesthesia and taken to the recovery room in stable condition. There were no complications. I attest to the content of the Intraoperative Record and any orders documented therein. Any exceptions are noted below.
--- NOTE | 2020-06-12 18:15 | Anesthesiology Progress Note ---
Date of Service June 12, 2020 Anesthesia Post Procedure Vital Signs Vital Signs: Temp Pulse Pulse Pulse Resp BP BP 06/12/20 18:05 36.2 C L 92 H 16 06/12/20 16:46 36.7 C 85 20 117/67 06/12/20 16:33 80 18 134/86 06/12/20 16:00 84 18 135/77 06/12/20 15:25 81 16 131/80 06/12/20 15:10 76 18 152/82 H 06/12/20 14:09 36.1 C L 99 H 18 132/88 BP Pulse Ox 06/12/20 18:05 100/79 92 06/12/20 16:46 95 06/12/20 16:33 93 06/12/20 16:00 93 06/12/20 15:25 82 L 06/12/20 15:10 99 06/12/20 14:09 97 Pain Intensity Right Abdomen: Pain Intensity: 3 Transfer of Care Handoff Completed per policy Notes Mental Status: alert / awake / arousable Patient Amnestic to Procedure: Yes Nausea / Vomiting: adequately controlled Pain: adequately controlled Airway Patency, RR, SpO2: stable & adequate BP & HR: stable & adequate Hydration State: stable & adequate Anesthetic Complications: no major complications apparent and Pt Satisfied with anesthetic care
--- NOTE | 2020-06-12 18:19 | Fluoroscopy Report ---
FL retrograde includes kub CLINICAL HISTORY: CYSTO RT SIDE COMPARISON STUDY: KUB dated 06/12/2020 FLUOROSCOPY TIME: 18 seconds. NUMBER OF FLUOROSCOPIC IMAGES: 2 FINDINGS: 2 intraprocedural fluoroscopic spot images reveal a double pigtail right-sided nephroureter al stent IMPRESSION: Intraprocedural fluoroscopic spot images demonstrating a double pigtail right-sided neph roureteral stent ACT 112: Negative or not required by law. Electronically signed by: Jairo Dao M.D. 06/12/2020 6:18 PM
[2020-06-12] MEDS ORDERED: HYDROCODONE/ACETAMOPHEN 5/325MG TAB PO PRN (20:10)
[2020-06-12] MEDS ORDERED: ACETAMINOPHEN 500 MG TAB PO PRN (20:10)
[2020-06-12] MEDS ORDERED: KETOROLAC TROMETHAMINE 15 MG/ML VIAL IV PRN (20:10)
[2020-06-12] MEDS: LACTATED RINGER'S 1,000 ML IV SCH (21:28)
[2020-06-12] MEDS: SULFAMETHOXAZOLE/TRIMETHOPRIM DS 800/160MG TAB PO SCH (22:27)
[2020-06-13] MEDS: LACTATED RINGER'S 1,000 ML IV SCH (01:30)
[2020-06-13 07:16] LABS: Basophils # (auto) 0.02 K/uL (0-0.2); Basophils % (auto) 0.2 %; Eosinophils % (auto) 2.4 %; Hematocrit (blood only) 36.1 % (37-47); Hemoglobin 11.3 g/dL (12.0-16.0); Immature Granulocytes # (auto) 0.02 K/uL (0.00-0.02); Immature Granulocytes % (auto) 0.2 %; Lymphocytes # (auto) 1.22 K/uL (1.2-3.4); Lymphocytes % (auto) 14.6 %; Mean Corpuscular Hemoglobin 25.7 pg (25-34); Mean Corpuscular Hgb Conc 31.3 g/dL (32-36); Mean Platelet Volume 11.4 fL (7.4-10.4); Monocytes # (auto) 0.61 K/uL (0.11-0.59); Monocytes % (auto) 7.3 %; Neutrophils % (auto) 75.3 %; Platelet Count 176 K/uL (130-400); RDW Coefficient of Variation 14.2 % (11.5-14.5); RDW Standard Deviation 42.8 fL (36.4-46.3); White Blood Count 8.37 K/uL (4.8-10.8)
[2020-06-13 07:45] LABS: BUN Creatinine Ratio 8.9 (10-20); Calcium 8.7 mg/dl (8.5-10.1); Creatinine Clr Calc Pharmacy 79.8 ml/min; Est GFR (African American) 83.7; Est GFR (Non-African American) 72.2; Potassium 3.7 mmol/L (3.5-5.1)
--- NOTE | 2020-06-13 08:44 | Urology Progress Note ---
Date of Service June 13, 2020 Assessment & Plan (1) Kidney stone: POD#1 s/p stent - recovering appropriately - plan for d/c home this AM Admission and Anticipated Discharge Date Admission Date: June 12, 2020 Subjective substantially improved this AM moderate stent discomfort no vomiting anxious to go home Physical Exam Constitutional: well developed and well nourished Respiratory: no respiratory distress Cardiovascular: Extremities: no pedal edema Gastrointestinal (Abdomen): Inspection/Auscultation: abdomen normal to inspection Results & Data ([facility]) Vital Signs (Past 12 Hours) Vital Signs Temp Pulse Resp BP BP Pulse Ox 06/13/20 07:35 37.0 C 80 16 120/74 94 06/13/20 06:18 36.6 C 78 18 109/76 94 06/13/20 01:52 36.7 C 82 14 111/69 95 06/13/20 01:38 36.6 C 75 17 98/58 L 06/12/20 23:58 90/55 L 06/12/20 22:29 98/67 L 06/12/20 22:11 36.9 C 89 17 97/66 L 94 06/12/20 21:30 105/68 06/12/20 21:20 99/61 L 06/12/20 21:19 94/59 L 06/12/20 21:16 36.4 C L 84 17 81/50 L 93 PG Care Time/CCT Total # of Minutes Spent Total Time Spent with Patient: Total time spent is greater than 50% in coordination of care (as documented) at patient's floor/unit and/or counseling patient: Coding Level of Care Code 98485 Subseq Hosp Care Lvl 2 Diagnoses Kidney stone N20.0
--- NOTE | 2020-06-13 08:59 | Discharge Summary ---
Date of Service June 13, 2020 Admission HPI Per Admitting Provider admitted through the ER with severe right renal colic and hydro - long hx of stones with very similar presentation Principal Diagnosis kidney stones Discharge Data Allergies Allergy/AdvReac Type Severity Reaction Status Date / Time cat dander Allergy Unknown CAT/DOG-ITCHY Verified 06/12/20 15:36 EYES RUNNY NOSE cephalexin Allergy Unknown Hives Verified 06/12/20 15:36 tree nut Allergy Unknown Anaphylaxis Verified 06/12/20 15:36 ciprofloxacin [From Cipro] AdvReac Unknown HIVES, Verified 06/12/20 15:36 THROAT SWELLING Consultations 06/12/20 16:19 ED Decision to Admit Stat Procedures Performed Operation Date: 06/12/20 15:55 Actual Procedures p Cystoscopy Right Stent Insertion(Right) - Aramis Jane MD Ordered Studies 06/12/20 [place] retrograde includes kub Routine 06/12/20 14:51 US renal/blad retro comp Stat Hospital Course (1) Kidney stone: obstructing right ureteral stone - taken for emergency ureteral stent placement - stabilized overnight and was discharged home on the morning of POD #1 Total Time Total Time Spent Total Time Spent (In Minutes): 5 Total Time Includes: Examination of the Patient, Discharge Planning, Medication Reconciliation, Communication With Other Providers and Other Discharge Plan Discharge Items Patient Disposition: Home - Self-Care Reason For Visit: KIDNEY STONES VOMITING Discharge Diagnosis: kidney stones Activity: Resume your previous activity Lifting: Gradually increase as tolerated Bathing: No limitations Sexual Activity: When tolerated Exercise/Sports: Gradually increase as tolerated Driving/Machine Use: No limitations Non-emergency contact: Urologist Call non-emergency contact if: you have any medication questions, your pain is worsening, you have a fever and your temperature is above 101.5 Follow-up/Referrals: PCP,NO [Primary Care Provider] - Diet: Regular Addtl Attending Provider Instructions: Please take all medications as prescribed and keep all follow-ups as scheduled. Please call our office at [phone] with any questions, concerns or need to reschedule appointments for any reason. We are happy to assist you. While you have a ureteral stent in place: Some discomfort is normal. Certain movements may trigger pain or a feeling that you need to urinate. You may also feel mild soreness or pressure before or during urination. These symptoms should go away a few days after the stent is removed. Your urine may be slightly pink or red. This is due to bleeding caused by minor irritation from the stent. This may happen on and off while you have the stent, it is not harmful and is to be expected. Medication to help minimize discomfort or bladder spasms, or to prevent infection may be prescribed. Take this as directed. Drink plenty of fluids to help flush out your urinary tract. If you go home with a catheter, wash with soapy water and a fresh washcloth twice daily. We recommend mild bar soap such as Dial or Dove. How long will you need a stent? An appointment should already be made for you for stent removal, unless directed otherwise. The stent is often taken out after the blockage in the ureter is treated or the ureter has healed. This may take 1-2 weeks, or longer. If a stent is needed for a longer period of time, it may need to be exchanged every few months. Likely prior to your followup appointment you will be asked to get an X-ray, please complete this the night before or morning of your appointment. When to call [facility] at [phone]: Your urine contains heavy blood clots You are constantly leaking urine Fever of 101F or higher, chills, nausea, or vomiting Your pain is not relieved with medication The end of the stent comes out of your urethra Pending Studies at Discharge: No Stand-Alone Forms: [facility], Smoking Cessation Medications and DC Order Prescriptions: Continued sulfamethoxazole-trimethoprim 400-80 mg tablet 1 tab PO DAILY Qty: 90 RF: 3 chlorthalidone 25 mg Tablet 25 mg PO DAILY RF: 0 multivitamin Tablet 1 tab PO DAILY RF: 0 Discharge Orders: Discharge Order (Routine); Ordered 06/13/20 Ordered By: Aramis Jane Admission Data Admit Date/Time: 06/12/20 18:55 Attending Provider: Aramis Jane Admit Provider: Aramis Jane Primary Care Provider: PCP,NO Other Providers: Aramis Jane Coding Level of Care Code D/C Day Management <30 mins Diagnoses Kidney stone N20.0
[2020-06-13] MEDS ORDERED: CHLORTHALIDONE 25 MG TAB PO SCH (09:00)
[2020-06-13] MEDS ORDERED: MULTIVITAMIN TAB PO SCH (09:00)
[2020-06-13] MEDS: SULFAMETHOXAZOLE/TRIMETHOPRIM DS 800/160MG TAB PO SCH (09:10)
== END 2020-06-13 10:18 | disposition home or self-care (01) | DRG 661 ==
LOC: ED 14:02 → OR 16:37 → 3W 18:55

== ENCOUNTER 2020-10-08 21:47 | Observation (INO) ==
[2020-10-08] MEDS ORDERED: MoRPHine SULFATE 4 MG/ML 1 ML CARP\\VIAL IV STA (22:06)
[2020-10-08] MEDS ORDERED: ONDANSETRON INJ 2 MG/ML 2 ML VIAL IV STA ×2 (22:06→23:35)
[2020-10-08] MEDS ORDERED: SODIUM CHLORIDE 0.9% 500 ML IV STA (22:06)
[2020-10-08] MEDS ORDERED: FAMOTIDINE 20MG IV PUSH 20 MG/5 ML SYR IV STA (22:06)
[2020-10-08] MEDS ORDERED: KETOROLAC TROMETHAMINE 15 MG/ML VIAL IV STA (22:06)
--- NOTE | 2020-10-08 22:09 | Emergency Department Note ---
Impression & Plan Kidney stone on left side, Acute left flank pain, Nausea & vomiting, Acute UTI ED Provider Note Provider: Todd Urrutia MD DATE OF SERVICE: 10/08/2020 CHIEF COMPLAINT: Nausea, flank pain HISTORY OF PRESENT ILLNESS: Patient is a 45-year-old female with a history of hypertension, kidney stones, and pyelonephritis/UTI presenting today complaint of onset this morning of some left flank pain. Worsened significantly this evening around severe pain. Tried oxycodone at home but this made her quite nauseous and she believes he vomited the pill. In severe pain. Denies any Motrin usage today. Ports a little bit of discomfort in the mid stomach but severe pain in the left flank. Denies chest pain or difficulty breathing but states she is shaking and nauseous and vomiting related to the severe pain. Reports a history of significant kidney stones requiring stenting and lithotripsy in the past. Patient denies significant trauma. Patient follows with the [facility]. Patient reports he had an x-ray today ordered by urology here. REVIEW OF SYSTEMS: A total of 10 review of systems was obtained and negative except as stated above in the HPI. PAST MEDICAL HISTORY: As noted above MEDICATIONS: Reviewed home medications SOCIAL HISTORY: Non-smoker, lives at home PHYSICAL EXAM: GENERAL: alert and oriented lying on the stretcher appears uncomfortable moaning calling an emesis bag Head: normocephalic and atraumatic EYES: No injection, discharge or icterus. NECK: Trachea midline. ENT: Mucous membranes pink and moist. LUNGS: Airway patent. No retractions. Breath sounds clear anteriorly HEART: Regular rate and rhythm. No chest wall tenderness ABDOMEN: Soft with some slight mid upper abdominal tenderness. No peritonitis. BACK: No bilateral flank tenderness. SKIN: Acyanotic, warm, dry, without rashes EXTREMITIES: Without swelling, tenderness or deformity NEUROLOGICAL: No focal deficits moving all extremities. No aphasia. No facial droop or slurred speech. EK bpm normal sinus rhythm without PVC or PAC. No acute ST segment elevation or depression with a QTC of 483. CONTINUOUS CARDIAC MONITORING: was ordered and showed a heart rate of 70s to 90s bpm in normal sinus rhythm PDMP was checked without noted issue. Patient's laboratory studies and imaging reviewed. Differential includes Appendicitis, ovarian cyst, ovarian torsion, ectopic , TOA, PID, infections, diverticulitis, UTI, obstruction, mesenteric ischemia, aortic pathology, inflammatory bowel disease, renal colic, PUD, pancreatitis, biliary pathology, hernia, volvulus, constipation, as well as other pathologies. IMPRESSION/MEDICAL DECISION MAKING: Patient presents with severe pain and nausea and vomiting after trying some oxycodone at home for worsening flank pain. History of infections here as well as significant history of kidney stones requiring intervention in the past. Patient quite uncomfortable on exam and given antiemetics, pain medicine to help with symptoms. CT the abdomen pelvis with complete was basic laboratory studies. Urinalysis was ordered. Have a high suspicion for possible kidney stones given her history and presentation. KUB from earlier today reviewed without convincing ureterolithiasis noted per the x-ray interpretation. Patient denies any chills or fevers. Patient had some improvement of pain although she states her pain has begun to return on reevaluation. Blood work shows a mild leukocytosis of 14.8 but no anemia. No significant renal dysfunction noted or severe electrolyte abnormality. No labs consistent with acute hepatitis or pancreatitis noted. Negative . EKG without ischemic changes troponin is negative I think ACS is unlikely. Doubt this is acute PE. Location does not seem consistent with acute appendicitis or cholecystitis. Urinalysis concerning for infection with nitrates. With her leukocytosis and the urine sample will treat with ceftriaxone at this time (discussed with pharmacy she received this medication several times in the past without reaction). Patient with some difficult pain control and after additional morphine given some fentanyl here with decent effect although she is a bit drowsy. Patient with episodes of nausea still. CT scan as below shows evidence of a large left-sided kidney stone and urine is concerning for infection. Reviewing prior urine microbiology has a history of staph resistant to oxacillin and thus given a dose of daptomycin as well. Do not believe she is septic at this point requires emergent overnight urological intervention. Discussed the patient need for further urological treatment and given her significant pain treatment here at the hospital. She was in agreement this plan. Hospitalist consulted. The urology group overnight physician political science research assistant was consulted evaluate the patient here in the ER as well given her need for likely urological intervention in the morning. DIAGNOSIS: Left flank pain, nausea and vomiting, left-sided kidney stone, acute UTI DISPOSITION: Hospitalist will evaluate the patient was in agreement with this plan. Past Med/Surg History Medical History Bilateral nephrolithiasis HX KIDNEY STONES - MULTIPLE ? IF ANY PRESENT CURRENTLY -NO PROBLEM WITH CURRENTLY Duodenal ulcer NO CURRENT PROBLEM WITH Fibrocystic breast disease (FCBD) in female Gynecological complaint ABNORMAL PAP, HEAVY MENSTRUAL BLEEDING WITH PERIODS - REASON FOR UPCOMING PROCEDURE Obesity Surgical History H/O lithotripsy MULTIPLE HX LASER LITHO History of bilateral tubal ligation History of tooth extraction wisdom teeth History of ureter stent Hx of cystoscopy MULTIPLE Nausea and vomiting after administration of anesthetic agent Family History Uncle Family hx of colon cancer Colorectal cancer Grandmother Breast cancer Social History Smoking Status: Never smoker Second Hand Exposure: No; Hx Alcohol Use: No Hx Substance Use: No Preferred Language: Wallisian Communication Ability: Effective Visual Impairment: No Limitations Ethylene Compressor Operator Required: No Beliefs That Will Affect Care: None marital status: Current Living Situation: Spouse Current Living Situation Comment: CHILDREN current occupational status: employed current occupation: [employer] How many Children do You have: 2 Feels Safe at Home: Yes during the past year weight has: increased > 10 lbs Assistive Devices: Glasses Allergies Allergies Allergy/AdvReac Type Severity Reaction Status Date / Time cat dander Allergy Unknown CAT/DOG-ITCHY Verified 10/08/20 22:06 EYES RUNNY NOSE cephalexin Allergy Unknown Hives Verified 10/08/20 22:06 tree nut Allergy Unknown Anaphylaxis Verified 10/08/20 22:06 ciprofloxacin [From Cipro] AdvReac Unknown HIVES, Verified 10/08/20 22:06 THROAT SWELLING Home Meds Home Medications Medication Instructions Recorded Confirmed chlorthalidone 25 mg PO DAILY 10/08/20 10/08/20 Results & Data (ED) Vital Signs Vital Signs - 24 hr 10/08/20 21:50 10/08/20 22:38 10/08/20 22:40 Temperature 36.6 C Temperature Source Temporal Artery Scan Pulse Rate 84 87 Pulse Rate from SpO2 Sensor 86 Pulse Rhythm Regular Pulse Strength Normal Respiratory Rate 22 21 Respiratory Effort / Characteristics Non-Labored Spontaneous Respiratory Depth Normal Respiratory Pattern Regular Blood Pressure 142/72 H 139/85 Blood Pressure Mean 95 103 Blood Pressure Position Sitting Pulse Oximetry 95 93 88 L Oxygen Delivery Method Room Air Oxygen Flow Rate 0 Sepsis Recent Fever Within 48 Hours No Sepsis New/Unexplained Change in Mental Status No Sepsis Action Taken by Nursing No Action Required Oxygen Flow Rate - Titration 2 Pulse Oximetry Post Tiitration 96 10/08/20 22:45 10/08/20 23:49 10/09/20 00:31 Temperature Temperature Source Pulse Rate 76 88 Pulse Rate from SpO2 Sensor 75 89 Pulse Rhythm Pulse Strength Respiratory Rate 20 23 Respiratory Effort / Characteristics Respiratory Depth Respiratory Pattern Blood Pressure 121/81 164/104 H Blood Pressure Mean 94 124 Blood Pressure Position Pulse Oximetry 96 98 100 Oxygen Delivery Method Oxymask Oxygen Flow Rate 2 Sepsis Recent Fever Within 48 Hours Sepsis New/Unexplained Change in Mental Status Sepsis Action Taken by Nursing Oxygen Flow Rate - Titration Pulse Oximetry Post Tiitration 10/09/20 01:00 Temperature Temperature Source Pulse Rate 86 Pulse Rate from SpO2 Sensor 86 Pulse Rhythm Pulse Strength Respiratory Rate 20 Respiratory Effort / Characteristics Respiratory Depth Respiratory Pattern Blood Pressure 128/102 H Blood Pressure Mean 110 Blood Pressure Position Pulse Oximetry 97 Oxygen Delivery Method Oxygen Flow Rate Sepsis Recent Fever Within 48 Hours Sepsis New/Unexplained Change in Mental Status Sepsis Action Taken by Nursing Oxygen Flow Rate - Titration Pulse Oximetry Post Tiitration Laboratory Data Result diagrams: 10/08/20 22:30 10/08/20 22:30 Lab Results 10/08/20 10/08/20 10/08/20 Range/Units 22:30 22:30 22:30 WBC 14.89 H (4.8-10.8) K/uL RBC 5.19 (4.2-5.4) M/uL Hgb 13.7 (12.0-16.0) g/dL Hct 41.7 (37-47) % MCV 80.3 (80-100) fL MCH 26.4 (25-34) pg MCHC 32.9 (32-36) g/dL RDW Std Deviation 44.1 (36.4-46.3) fL RDW Coeff of Agusto 15.0 H (11.5-14.5) % Plt Count 189 (130-400) K/uL MPV 11.5 H (7.4-10.4) fL Immature Gran % (Auto) 0.2 % Neut % (Auto) 88.7 % Lymph % (Auto) 5.5 % Richardson % (Auto) 5.0 % Eos % (Auto) 0.5 % Baso % (Auto) 0.1 % Neut # (Auto) 13.22 H (1.4-6.5) K/uL Lymph # (Auto) 0.82 L (1.2-3.4) K/uL Richardson # (Auto) 0.74 H (0.11-0.59) K/uL Eos # (Auto) 0.07 (0-0.5) K/uL Baso # (Auto) 0.01 (0-0.2) K/uL Immature Gran # (Auto) 0.03 H (0.00-0.02) K/uL PT (9.0-12.0) Seconds INR (0.9-1.1) Sodium 139 (136-145) mmol/L Potassium 3.5 (3.5-5.1) mmol/L Chloride 108 H (98-107) mmol/L Carbon Dioxide 23 (21-32) mmol/L Anion Gap 8.0 (3-11) BUN 21 H (7-18) mg/dl Creatinine 1.10 (0.6-1.2) mg/dl Est Cr Clr Drug Dosing 68.6 ml/min Est GFR ( Amer) 69.2 ml/min Est GFR (Non-Af Amer) 59.7 ml/min BUN/Creatinine Ratio 18.8 (10-20) Glucose 149 H (70-99) mg/dl Calcium 9.1 (8.5-10.1) mg/dl Total Bilirubin 0.4 (0.2-1) mg/dl AST 20 (15-37) U/L ALT 33 (12-78) U/L Alkaline Phosphatase 95 (45-117) U/L Troponin I < 0.015 (0-0.045) ng/ml Total Protein 7.5 (6.4-8.2) gm/dl Albumin 4.0 (3.4-5.0) gm/dl Globulin 3.5 (2.5-4.0) gm/dl Albumin/Globulin Ratio 1.1 (0.9-2) Lipase 158 (73-393) U/L HCG, Qual Negative (Negative) Urine Color Urine Appearance (Clear) Urine pH (4.5-7.5) Ur Specific [place] (1.000-1.030) Urine Protein (Negative) Urine Glucose (UA) (Negative) Urine Ketones (Negative) Urine Blood (Negative) Urine Nitrite (Negative) Urine Bilirubin (Negative) Urine Urobilinogen (Negative) Ur Leukocyte Esterase (Negative) Urine WBC (Auto) (0-5) /hpf Urine RBC (Auto) (0-4) /hpf U Hyaline Cast (Auto) (0-5) /lpf U Epithel Cells (Auto) (0-5) /lpf Urine Bacteria (Auto) (Negative) COVID-19 Eval Order SARS-CoV-2 (PCR) (Negative) 10/08/20 10/08/20 10/08/20 Range/Units 23:16 23:16 23:33 WBC (4.8-10.8) K/uL RBC (4.2-5.4) M/uL Hgb (12.0-16.0) g/dL Hct (37-47) % MCV (80-100) fL MCH (25-34) pg MCHC (32-36) g/dL RDW Std Deviation (36.4-46.3) fL RDW Coeff of Agusto (11.5-14.5) % Plt Count (130-400) K/uL MPV (7.4-10.4) fL Immature Gran % (Auto) % Neut % (Auto) % Lymph % (Auto) % Richardson % (Auto) % Eos % (Auto) % Baso % (Auto) % Neut # (Auto) (1.4-6.5) K/uL Lymph # (Auto) (1.2-3.4) K/uL Richardson # (Auto) (0.11-0.59) K/uL Eos # (Auto) (0-0.5) K/uL Baso # (Auto) (0-0.2) K/uL Immature Gran # (Auto) (0.00-0.02) K/uL PT 9.8 (9.0-12.0) Seconds INR 1.0 (0.9-1.1) Sodium (136-145) mmol/L Potassium (3.5-5.1) mmol/L Chloride (98-107) mmol/L Carbon Dioxide (21-32) mmol/L Anion Gap (3-11) BUN (7-18) mg/dl Creatinine (0.6-1.2) mg/dl Est Cr Clr Drug Dosing ml/min Est GFR ( Amer) ml/min Est GFR (Non-Af Amer) ml/min BUN/Creatinine Ratio (10-20) Glucose (70-99) mg/dl Calcium (8.5-10.1) mg/dl Total Bilirubin (0.2-1) mg/dl AST (15-37) U/L ALT (12-78) U/L Alkaline Phosphatase (45-117) U/L Troponin I (0-0.045) ng/ml Total Protein (6.4-8.2) gm/dl Albumin (3.4-5.0) gm/dl Globulin (2.5-4.0) gm/dl Albumin/Globulin Ratio (0.9-2) Lipase (73-393) U/L HCG, Qual (Negative) Urine Color Urine Appearance (Clear) Urine pH (4.5-7.5) Ur Specific [place] (1.000-1.030) Urine Protein (Negative) Urine Glucose (UA) (Negative) Urine Ketones (Negative) Urine Blood (Negative) Urine Nitrite (Negative) Urine Bilirubin (Negative) Urine Urobilinogen (Negative) Ur Leukocyte Esterase (Negative) Urine WBC (Auto) (0-5) /hpf Urine RBC (Auto) (0-4) /hpf U Hyaline Cast (Auto) (0-5) /lpf U Epithel Cells (Auto) (0-5) /lpf Urine Bacteria (Auto) (Negative) COVID-19 Eval Order Covid19 at [facility] SARS-CoV-2 (PCR) NEGATIVE (Negative) 10/09/20 Range/Units 00:00 WBC (4.8-10.8) K/uL RBC (4.2-5.4) M/uL Hgb (12.0-16.0) g/dL Hct (37-47) % MCV (80-100) fL MCH (25-34) pg MCHC (32-36) g/dL RDW Std Deviation (36.4-46.3) fL RDW Coeff of Agusto (11.5-14.5) % Plt Count (130-400) K/uL MPV (7.4-10.4) fL Immature Gran % (Auto) % Neut % (Auto) % Lymph % (Auto) % Richardson % (Auto) % Eos % (Auto) % Baso % (Auto) % Neut # (Auto) (1.4-6.5) K/uL Lymph # (Auto) (1.2-3.4) K/uL Richardson # (Auto) (0.11-0.59) K/uL Eos # (Auto) (0-0.5) K/uL Baso # (Auto) (0-0.2) K/uL Immature Gran # (Auto) (0.00-0.02) K/uL PT (9.0-12.0) Seconds INR (0.9-1.1) Sodium (136-145) mmol/L Potassium (3.5-5.1) mmol/L Chloride (98-107) mmol/L Carbon Dioxide (21-32) mmol/L Anion Gap (3-11) BUN (7-18) mg/dl Creatinine (0.6-1.2) mg/dl Est Cr Clr Drug Dosing ml/min Est GFR ( Amer) ml/min Est GFR (Non-Af Amer) ml/min BUN/Creatinine Ratio (10-20) Glucose (70-99) mg/dl Calcium (8.5-10.1) mg/dl Total Bilirubin (0.2-1) mg/dl AST (15-37) U/L ALT (12-78) U/L Alkaline Phosphatase (45-117) U/L Troponin I (0-0.045) ng/ml Total Protein (6.4-8.2) gm/dl Albumin (3.4-5.0) gm/dl Globulin (2.5-4.0) gm/dl Albumin/Globulin Ratio (0.9-2) Lipase (73-393) U/L HCG, Qual (Negative) Urine Color Yellow Urine Appearance Clear (Clear) Urine pH 7.5 (4.5-7.5) Ur Specific [place] 1.015 (1.000-1.030) Urine Protein Trace H (Negative) Urine Glucose (UA) Negative (Negative) Urine Ketones 1+ H (Negative) Urine Blood 3+ H (Negative) Urine Nitrite Positive A (Negative) Urine Bilirubin Negative (Negative) Urine Urobilinogen Negative (Negative) Ur Leukocyte Esterase 2+ H (Negative) Urine WBC (Auto) >30 H (0-5) /hpf Urine RBC (Auto) >30 H (0-4) /hpf U Hyaline Cast (Auto) 1-5 (0-5) /lpf U Epithel Cells (Auto) 5-10 H (0-5) /lpf Urine Bacteria (Auto) Negative (Negative) COVID-19 Eval Order SARS-CoV-2 (PCR) (Negative) Administered Medications Discontinued Medications Fentanyl Citrate (Fentanyl Citrate 100 Mcg/2 Ml Vial) 50 mcg IV NOW STA Stop: 10/09/20 00:43 Last Admin: 10/09/20 00:54 Dose: 50 mcg Documented by: [id number] Sodium Chloride (Nss) 500 mls @ 999 mls/hr IV .Q31M STA Stop: 10/08/20 22:36 Last Infusion: 10/09/20 01:03 Dose: 0 mls/hr Documented by: [id number] Admin: 10/08/20 22:27 Dose: 999 mls/hr Documented by: [id number] Famotidine (Pepcid 20mg Iv Push) 20 mg in 5 mls @ 2.5 mls/min IV NOW STA Stop: 10/08/20 22:07 Last Admin: 10/08/20 22:26 Dose: 2.5 mls/min Documented by: [id number] Ceftriaxone Sodium (Rocephin) 2,000 mg in 70 mls @ 140 mls/hr IV NOW STA Stop: 10/09/20 01:36 Last Admin: 10/09/20 01:35 Dose: 140 mls/hr Documented by: [id number] Daptomycin 225 mg/ Syringe 4.5 mls @ 2.25 mls/min IV NOW ONE; Protocol Stop: 10/09/20 01:08 Last Admin: 10/09/20 01:35 Dose: 2.25 mls/min Documented by: [id number] Ioversol (Optiray 350 500ml) 125 ml IV ONCE ONE Stop: 10/09/20 00:37 Last Admin: 10/09/20 00:36 Dose: 103 ml Documented by: [id number] Ioversol (Optiray 320 100ml) 100 ml IV ONCE ONE Stop: 10/09/20 00:39 Last Admin: 10/09/20 00:38 Dose: 93 ml Documented by: [id number] Ketorolac Tromethamine (Ketorolac Tromethamine 15 Mg/Ml Vial) 10 mg IV NOW STA Stop: 10/08/20 22:07 Last Admin: 10/08/20 22:26 Dose: 10 mg Documented by: [id number] Morphine Sulfate (Morphine Sulfate 4 Mg/Ml 1 Ml Carp\Vial) 4 mg IV NOW STA Stop: 10/08/20 22:07 Last Admin: 10/08/20 22:27 Dose: 4 mg Documented by: [id number] Morphine Sulfate (Morphine Sulfate 2 Mg/Ml Carp) 2 mg IV NOW STA Stop: 10/08/20 23:36 Last Admin: 10/08/20 23:56 Dose: 2 mg Documented by: [id number] Ondansetron HCl (Ondansetron Inj 2 Mg/Ml 2 Ml Vial) 4 mg IV NOW STA Stop: 10/08/20 22:07 Last Admin: 10/08/20 22:27 Dose: 4 mg Documented by: [id number] Ondansetron HCl (Ondansetron Inj 2 Mg/Ml 2 Ml Vial) 4 mg IV NOW STA Stop: 10/08/20 23:36 Last Admin: 10/08/20 23:57 Dose: 4 mg Documented by: [id number] Discharge Plan Visit Data Chief Complaint: Flank Pain Stated Complaint: SIDE PAIN ED Provider: Todd Urrutia Discharge Problem: Kidney stone on left side, Acute left flank pain, Nausea & vomiting, Acute UTI Patient Disposition: Being Evaluated by Hospitalist Condition: Fair Forms Stand Alone Forms: [facility] [employer] Prescriptions Prescriptions: No Action chlorthalidone 25 mg Tablet 25 mg PO DAILY RF: 0 Referrals Referrals: PCP,NO [Primary Care Provider] -
[2020-10-08 22:41] LABS: Basophils # (auto) 0.01 K/uL (0-0.2); Basophils % (auto) 0.1 %; Eosinophils # (auto) 0.07 K/uL (0-0.5); Eosinophils % (auto) 0.5 %; Hematocrit (blood only) 41.7 % (37-47); Hemoglobin 13.7 g/dL (12.0-16.0); Immature Granulocytes # (auto) 0.03 K/uL (0.00-0.02); Immature Granulocytes % (auto) 0.2 %; Lymphocytes # (auto) 0.82 K/uL (1.2-3.4); Lymphocytes % (auto) 5.5 %; Mean Corpuscular Hemoglobin 26.4 pg (25-34); Mean Corpuscular Hgb Conc 32.9 g/dL (32-36); Mean Corpuscular Volume 80.3 fL (80-100); Mean Platelet Volume 11.5 fL (7.4-10.4); Monocytes # (auto) 0.74 K/uL (0.11-0.59); Neutrophils # (auto) 13.22 K/uL (1.4-6.5); Neutrophils % (auto) 88.7 %; Platelet Count 189 K/uL (130-400); RDW Standard Deviation 44.1 fL (36.4-46.3); Red Blood Count 5.19 M/uL (4.2-5.4); White Blood Count 14.89 K/uL (4.8-10.8)
[2020-10-08 22:57] LABS: Alanine Aminotransferase 33 U/L (12-78); Aspartate Aminotransferase 20 U/L (15-37); BUN Creatinine Ratio 18.8 (10-20); Blood Urea Nitrogen 21 mg/dl (7-18); Calcium 9.1 mg/dl (8.5-10.1); Carbon Dioxide 23 mmol/L (21-32); Chloride 108 mmol/L (98-107); Creatinine Clr Calc Pharmacy 68.6 ml/min; Est GFR (African American) 69.2 ml/min; Est GFR (Non-African American) 59.7 ml/min; Glucose 149 mg/dl (70-99); Lipase 158 U/L (73-393); Potassium 3.5 mmol/L (3.5-5.1); Sodium 139 mmol/L (136-145)
[2020-10-08 23:02] LABS: Albumin Globulin Ratio 1.1 (0.9-2); Alkaline Phosphatase 95 U/L (45-117); Bilirubin,Total 0.4 mg/dl (0.2-1); Globulin 3.5 gm/dl (2.5-4.0); Total Protein 7.5 gm/dl (6.4-8.2); Troponin I < 0.015 ng/ml (0-0.045)
[2020-10-08 23:03] LABS: Pregnancy Test, Serum Negative (Negative)
[2020-10-08] MEDS ORDERED: MoRPHine SULFATE 2 MG/ML CARP IV STA (23:35)
[2020-10-09 00:02] LABS: Prothrombin Time 9.8 Seconds (9.0-12.0)
[2020-10-09 00:22] LABS: Appearance Urine Clear (Clear); Bacteria Urine Automated Negative (Negative); Bilirubin Urine Negative (Negative); Blood Urine 3+ (Negative); Color Urine Yellow; Glucose Urine UA Negative (Negative); Ketones Urine 1+ (Negative); Leukocyte Esterase Urine 2+ (Negative); Nitrite Urine Positive (Negative); RBC Urine Automated >30 /hpf (0-4); Specific Gravity Urine 1.015 (1.000-1.030); Urobilinogen Urine Negative (Negative); WBC Urine Automated >30 /hpf (0-5); pH Urine 7.5 (4.5-7.5)
[2020-10-09 00:25] LABS: Protein Urine Trace (Negative)
[2020-10-09] MEDS ORDERED: OPTIRAY 350 500ml IV ONE (00:36)
[2020-10-09] MEDS ORDERED: OPTIRAY 320 100ml IV ONE (00:38)
[2020-10-09] MEDS ORDERED: fentaNYL citrate 100 MCG/2 ML VIAL IV STA (00:42)
[2020-10-09] MEDS ORDERED: cefTRIAXone SODIUM 2,000 MG/70 ML BAG IV STA (01:07)
[2020-10-09] MEDS ORDERED: DAPTOmycin 225 MG in SYRINGE 0 ML IV ONE (01:07)
--- NOTE | 2020-10-09 01:54 | Urology Consultation ---
Date of Consultation October 09, 2020 Assessment & Plan (1) Kidney stone: Patient is being admitted on the hospitalist service and we will proceed as follows: Provide analgesics Provide antiemetics Hydration with IV fluids Maintain the patient on antibiotics. She has been given Rocephin as well as daptomycin in the emergency department. A urine culture has been sent and is pending. Further antibiotic treatment can be based on culture results. Recommend initiating therapy with Flomax for expulsive therapy. Recommend straining all urine and any kidney stones obtained can be appropriately analyzed We will keep the patient n.p.o. in anticipation for the need for possible cystoscopy. The recommendation was made based on patient's clinical course as it unfolds as well as any findings at the time of cystoscopy Recommend utilizing SCDs for DVT prevention. Would avoid any chemical means due to possible need for cystoscopy. History of Present Illness Reason for Consultation: Nephrolithiasis History of Present Illness This is a 45-year-old female who presented to [facility] secondary to left-sided flank pain. Patient notes that she has a history of kidney stones in the past. She says she is required cystoscopy on numerous occasions the most recent being approximately in June of this year.. She notes that she was in her usual state of health yesterday however earlier today she developed left-sided flank pain with associated nausea vomiting. She has not had any fevers or rigors but does have occasional shakes. She denies any dysuria but has noted a small amount of hematuria. She notes that the pain does not radiate. She notes pain is somewhat palliated by medicines that were administered in the ER but does not note any other palliative factors. She denies any provocative factors. In the emergency department the patient had labs and imaging which I independently reviewed.CT scan of the abdomen and pelvis showed moderate sized left-sided hydronephrosis due to a 5 x 11 mm kidney stone in the left ureteropelvic junction. Patient was also noted to have a 5 mm stone proximal to this as well as numerous other additional stones noted throughout both kidneys. No right-sided hydronephrosis was noted. CBC revealed white blood cell count was 14.8. Her hemoglobin, hematocrit, and platelet count were noted to be within normal range. Coagulation studies were noted to be normal. Chemistry profile showed her sodium, potassium, and creatinine were normal. Her BUN was slightly elevated at 21. A test was performed and was noted to be negative. Urinalysis showed 3+ blood, positive nitrites, 2+ leukocyte esterase, and greater than 30 white blood cells per high-power field. A Covid test was performed and was noted to be negative. At the time of my interview the patient was in no distress but was in considerable discomfort. Allergies Allergy/AdvReac Type Severity Reaction Status Date / Time cat dander Allergy Unknown CAT/DOG-ITCHY Verified 10/08/20 22:06 EYES RUNNY NOSE cephalexin Allergy Unknown Hives Verified 10/08/20 22:06 tree nut Allergy Unknown Anaphylaxis Verified 10/08/20 22:06 ciprofloxacin [From Cipro] AdvReac Unknown HIVES, Verified 10/08/20 22:06 THROAT SWELLING Home Medications Medication Instructions Recorded Confirmed Type chlorthalidone 25 mg PO DAILY 10/08/20 10/08/20 History Patient History Medical History Bilateral nephrolithiasis HX KIDNEY STONES - MULTIPLE ? IF ANY PRESENT CURRENTLY -NO PROBLEM WITH CURRENTLY Duodenal ulcer NO CURRENT PROBLEM WITH Fibrocystic breast disease (FCBD) in female Gynecological complaint ABNORMAL PAP, HEAVY MENSTRUAL BLEEDING WITH PERIODS - REASON FOR UPCOMING PROCEDURE Obesity Surgical History H/O lithotripsy MULTIPLE HX LASER LITHO History of bilateral tubal ligation History of tooth extraction wisdom teeth History of ureter stent Hx of cystoscopy MULTIPLE Nausea and vomiting after administration of anesthetic agent Family History Uncle Family hx of colon cancer Colorectal cancer Grandmother Breast cancer Social History Smoking Status: Never smoker Second Hand Exposure: No; Hx Alcohol Use: No Hx Substance Use: No Preferred Language: Estonian Communication Ability: Effective Visual Impairment: No Limitations Concrete Curer Required: No Beliefs That Will Affect Care: None marital status: Current Living Situation: Spouse Current Living Situation Comment: CHILDREN current occupational status: employed current occupation: [employer] How many Children do You have: 2 Feels Safe at Home: Yes during the past year weight has: increased > 10 lbs Assistive Devices: Glasses Review of Systems Constitutional: no fever and no chills Eyes: no diplopia Ear, Nose, Mouth, Throat: no ear pain Respiratory: no cough and no dyspnea Cardiovascular: no chest pain Gastrointestinal: + nausea and + vomiting; no abdominal pain Genitourinary: + hematuria and + flank pain (left); no dysuria Musculoskeletal: + back pain (left flank) Integumentary: no rash Neurologic: no localized weakness Physical Exam Constitutional: well developed and well nourished; no acute distress Eyes: no conjunctival abnormality Wears glasses ENMT: Ears: no hearing impairment Neck: trachea midline Respiratory: normal respiratory effort, lungs clear to auscultation Cardiovascular: Rate/Rhythm: regular rate and regular rhythm Gastrointestinal (Abdomen): Percussion/Palpation: abdomen soft; abdomen nontender Musculoskeletal: No calf tenderness Skin: no rashes, warm and dry Neurologic: moves all extremities Psychiatric: A+Ox3, euthymic affect Genitourinary: + CVA tenderness (Left-sided) Results & Data ([facility]) Vital Signs (Past 12 Hours) Vital Signs Temp Pulse Resp BP Pulse Ox 10/09/20 01:00 86 20 128/102 H 97 10/09/20 00:31 88 23 164/104 H 100 10/08/20 23:49 76 20 121/81 98 10/08/20 22:45 96 10/08/20 22:40 88 L 10/08/20 22:38 87 21 139/85 93 10/08/20 21:50 36.6 C 84 22 142/72 H 95 PG Care Time/CCT Total # of Minutes Spent Total Time Spent with Patient: Total time spent is greater than 50% in coordination of care (as documented) at patient's floor/unit and/or counseling patient: Coding Level of Care Code 71540 Inpt Consult Level 5 Diagnoses Kidney stone N20.0
--- NOTE | 2020-10-09 02:27 | History & Physical Report ---
Date of Service October 09, 2020 Assessment & Plan (1) Kidney stone: 45yo C female with history of multiple renal stones with prior lithotripsy presenting with left sided nephrolithiasis with hydronephrosis, +UA. -Admit to medical -Pain control with Morphine 2mg IV q 2 hours PRN - may need to increase -Will use anti-emetics cautiously as QTc interval is prolonged at 483ms as well as patient somnolence with medications -Toradol 15mg IV q 6 hours -Flomax 0.4mg po daily -Strain urine -Daptomycin and Ceftriaxone. Urine cultures in the past with Coagulase negative staph - not saprophyticus - sensitive to Daptomycin -Follow cultures -Urology consultation appreciated -Patient with history of calcium stones - on Chlorthalidone at home. Will hold for now F/E/N - LR at 100mL/hr x 2 liters Ppx - low risk for DVT Code - Full Dispo - Admit to medical Present on Admission?: Yes History of Present Illness Chief Complaint: flank pain Primary Care Provider: NO PCP Mayra Guerra is a 45yo female with longstanding history of nephrolithiasis first starting around age 28, multiple Urological procedures in the past. Stones have been Carbonate apatite + Calcium oxalate in the past (report from 04/02/19). Patient presents with one day of severe left flank and back pain similar to prior episodes of kidney stones. She has had some chills and nausea. No fever/CP/SOB/dysuria. No additional complaints at this time. Patient became quite somnolent after receiving anti-emetics and pain medications. Temporary use of O2. Still with ongoing pain. ER Course: Daptomycin 225mg Ceftriaxone 2mg Fentanyl 50mcg x 1 Morphine 4mg + 2mg Toradol 10mg Zofran 4mg x 2 Pepcid 20mg Allergies Allergy/AdvReac Type Severity Reaction Status Date / Time cat dander Allergy Unknown CAT/DOG-ITCHY Verified 10/08/20 22:06 EYES RUNNY NOSE cephalexin Allergy Unknown Hives Verified 10/08/20 22:06 tree nut Allergy Unknown Anaphylaxis Verified 10/08/20 22:06 ciprofloxacin [From Cipro] AdvReac Unknown HIVES, Verified 10/08/20 22:06 THROAT SWELLING Home Medications Medication Instructions Recorded Confirmed Type chlorthalidone 25 mg PO DAILY 10/08/20 10/08/20 History Past Med/Surg History Medical History (Updated 10/09/20 @ 02:31 by Rizwana Alcala DO) Bilateral nephrolithiasis HX KIDNEY STONES - MULTIPLE Duodenal ulcer NO CURRENT PROBLEM WITH Fibrocystic breast disease (FCBD) in female Obesity Surgical History H/O lithotripsy MULTIPLE HX LASER LITHO History of bilateral tubal ligation History of tooth extraction wisdom teeth History of ureter stent Hx of cystoscopy MULTIPLE Nausea and vomiting after administration of anesthetic agent Family History Uncle Family hx of colon cancer Colorectal cancer Grandmother Breast cancer Social History Smoking Status: Never smoker Second Hand Exposure: No; Hx Alcohol Use: No Hx Substance Use: No Preferred Language: Lithuanian Communication Ability: Effective Visual Impairment: No Limitations Wildlife And Game Protector Required: No Beliefs That Will Affect Care: None marital status: Current Living Situation: Spouse Current Living Situation Comment: CHILDREN current occupational status: employed current occupation: [employer] How many Children do You have: 2 Feels Safe at Home: Yes during the past year weight has: increased > 10 lbs Assistive Devices: Glasses Review of Systems Review of Systems: All systems reviewed & are unremarkable except as noted in HPI & below Physical Exam Physical Exam: General: patient restless, uncomfortable, in mild distress secondary to pain, non-toxic in appearance, AA&O x 4 Skin: warm, dry, intact, no rashes or lesions HEENT: NC/AT, PERRL, EOMI, anicteric sclera, conjunctiva without injection, external ear normal to inspection and nontender, nares patent, moist mucus membranes, dentition intact, no oropharyngeal lesions, neck supple, trachea midline, no LAD, no thyromegaly, no JVD Heart: +S1/S2, regular, no m/r/g Lungs: equal air entry bilaterally, no rales/rhonchi/wheezes Abd: +BS, soft, NT/ND, no masses/organomegaly/ascites Ext: warm, 2+ pulses in UE/LE bilaterally, no clubbing/cyanosis or edema Neuro: nonfocal, patient AA&O x 4, speech intact, no facial droop, moving all extremities on command with equal strength 5/5 Results & Data Results & Data ([facility]) Vital Signs (Past 12 Hours) Vital Signs Temp Pulse Resp BP Pulse Ox 10/09/20 01:00 86 20 128/102 H 97 10/09/20 00:31 88 23 164/104 H 100 10/08/20 23:49 76 20 121/81 98 10/08/20 22:45 96 10/08/20 22:40 88 L 10/08/20 22:38 87 21 139/85 93 10/08/20 21:50 36.6 C 84 22 142/72 H 95 Laboratory Results Laboratory Results WBC 14.89 K/uL (4.8-10.8) H 10/08/20 22:30 RBC 5.19 M/uL (4.2-5.4) 10/08/20 22:30 Hgb 13.7 g/dL (12.0-16.0) 10/08/20 22:30 Hct 41.7 % (37-47) 10/08/20 22:30 MCV 80.3 fL (80-100) 10/08/20 22:30 MCH 26.4 pg (25-34) 10/08/20 22:30 MCHC 32.9 g/dL (32-36) 10/08/20 22:30 RDW Std Deviation 44.1 fL (36.4-46.3) 10/08/20 22:30 RDW Coeff of Agusto 15.0 % (11.5-14.5) H 10/08/20 22:30 Plt Count 189 K/uL (130-400) 10/08/20 22:30 MPV 11.5 fL (7.4-10.4) H 10/08/20 22:30 Immature Gran % (Auto) 0.2 % 10/08/20 22:30 Neut % (Auto) 88.7 % 10/08/20 22:30 Lymph % (Auto) 5.5 % 10/08/20 22:30 Mcleod % (Auto) 5.0 % 10/08/20 22:30 Eos % (Auto) 0.5 % 10/08/20 22:30 Baso % (Auto) 0.1 % 10/08/20 22:30 Neut # (Auto) 13.22 K/uL (1.4-6.5) H 10/08/20 22:30 Lymph # (Auto) 0.82 K/uL (1.2-3.4) L 10/08/20 22:30 Mcleod # (Auto) 0.74 K/uL (0.11-0.59) H 10/08/20 22:30 Eos # (Auto) 0.07 K/uL (0-0.5) 10/08/20 22:30 Baso # (Auto) 0.01 K/uL (0-0.2) 10/08/20 22:30 Immature Gran # (Auto) 0.03 K/uL (0.00-0.02) H 10/08/20 22:30 PT 9.8 Seconds (9.0-12.0) 10/08/20 23:33 INR 1.0 (0.9-1.1) 10/08/20 23:33 Sodium 139 mmol/L (136-145) 10/08/20 22:30 Potassium 3.5 mmol/L (3.5-5.1) 10/08/20 22:30 Chloride 108 mmol/L (98-107) H 10/08/20 22:30 Carbon Dioxide 23 mmol/L (21-32) 10/08/20 22:30 Anion Gap 8.0 (3-11) 10/08/20 22:30 BUN 21 mg/dl (7-18) H 10/08/20 22:30 Creatinine 1.10 mg/dl (0.6-1.2) 10/08/20 22:30 Est Cr Clr Drug Dosing 68.6 ml/min 10/08/20 22:30 Est GFR ( Amer) 69.2 ml/min 10/08/20 22:30 Est GFR (Non-Af Amer) 59.7 ml/min 10/08/20 22:30 BUN/Creatinine Ratio 18.8 (10-20) 10/08/20 22:30 Glucose 149 mg/dl (70-99) H 10/08/20 22:30 Calcium 9.1 mg/dl (8.5-10.1) 10/08/20 22:30 Total Bilirubin 0.4 mg/dl (0.2-1) 10/08/20 22:30 AST 20 U/L (15-37) 10/08/20 22: ALT 33 U/L (12-78) 10/08/20: Alkaline Phosphatase 95 U/L (45-117) 10/08/20: Troponin I < 0.015 ng/ml (0-0.045) 10/08/20: Total Protein 7.5 gm/dl (6.4-8.2) 10/08/20: Albumin 4.0 gm/dl (3.4-5.0) 10/08/20: Globulin 3.5 gm/dl (2.5-4.0) 10/08/20: Albumin/Globulin Ratio 1.1 (0.9-2) 10/08/20: Lipase 158 U/L (73-393) 10/08/20: HCG, Qual Negative (Negative) 10/08/20: Urine Color Yellow 10/09/20 00:00 Urine Appearance Clear (Clear) 10/09/20 00:00 Urine pH 7.5 (4.5-7.5) 10/09/20 00:00 Ur Specific [place] 1.015 (1.000-1.030) 10/09/20 00:00 Urine Protein Trace (Negative) H 10/09/20 00:00 Urine Glucose (UA) Negative (Negative) 10/09/20 00:00 Urine Ketones 1+ (Negative) H 10/09/20 00:00 Urine Blood 3+ (Negative) H 10/09/20 00:00 Urine Nitrite Positive (Negative) A 10/09/20 00:00 Urine Bilirubin Negative (Negative) 10/09/20 00:00 Urine Urobilinogen Negative (Negative) 10/09/20 00:00 Ur Leukocyte Esterase 2+ (Negative) H 10/09/20 00:00 Urine WBC (Auto) >30 /hpf (0-5) H 10/09/20 00:00 Urine RBC (Auto) >30 /hpf (0-4) H 10/09/20 00:00 U Hyaline Cast (Auto) 1-5 /lpf (0-5) 10/09/20 00:00 U Epithel Cells (Auto) 5-10 /lpf (0-5) H 10/09/20 00:00 Urine Bacteria (Auto) Negative (Negative) 10/09/20 00:00 COVID-19 Eval Order Covid19 at [facility] 10/08/20 23:16 SARS-CoV-2 (PCR) NEGATIVE (Negative) 10/08/20 23:[address] Abdomen and Pelvis with contrast: Per STAT rad - moderate left sided hydronephrosis due to a 5 x 11mm calculus in the left ureteropelvic junction. There is a second small calculus superior to this measuring 5mm. There are numerous calyceal calculi throughout both kidneys. No hydronephrosis on the right. The urinary bladder is completely decompressed. There is an IUD in the uterus. ECG Additional Comments: EKG with NSR at 86, normal axis, GD=502, QRS=80, QTc prolonged at 483 PG Care Time/CCT Total # of Minutes Spent Total Time Spent with Patient: Total time spent is greater than 50% in coordination of care (as documented) at patient's floor/unit and/or counseling patient: Coding Level of Care Code 51453 Initial Inpt Care Lvl 2 Diagnoses Kidney stone N20.0
[2020-10-09] MEDS ORDERED: KETOROLAC TROMETHAMINE 15 MG/ML VIAL IV PRN (03:12)
[2020-10-09 03:28] LABS: Magnesium 1.9 mg/dl (1.8-2.4)
[2020-10-09] MEDS: MoRPHine SULFATE 2 MG/ML CARP IV PRN ×2 (03:32→06:27)
[2020-10-09] MEDS: LACTATED RINGER'S 1,000 ML IV SCH ×2 (03:32→13:08)
--- NOTE | 2020-10-09 07:58 | CT Scan Report ---
CT abd pelvis IV con only CLINICAL HISTORY: L flank pain, nausea COMPARISON STUDY: 08/14/2020 TECHNIQUE: A dose lowering technique was utilized adhering to the principles of ALARA. CT DOSE: 879.38 mGy.cm FINDINGS: Lower chest: There is a 6 mm left breast nodule versus intramammary lymph node. There are bibasilar a telectatic changes. Liver: The contrast-enhanced liver is normal in size, contour, and attenuation. There is no intrahepa tic biliary ductal dilatation. The hepatic veins and portal veins are patent. Gallbladder: Unremarkable. Spleen: Spleen is mildly enlarged measuring 13 cm. Pancreas: Unremarkable. Adrenal glands: Unremarkable. Kidneys: There are innumerable bilateral renal calculi. There is a diminished left-sided nephrogram. There is left-sided hydronephrosis and left-sided perinephric stranding. There are 2 proximal left ur eteral calculi, the largest of which measures 9 mm. This results in renal obstruction. Bowel: There are no transition zones to indicate bowel obstruction. There is no evidence of acute div erticulitis. There is no evidence of acute appendicitis. Peritoneum: There is no intraperitoneal free air or abdominal ascites. There is a fat-containing umbi lical hernia. Vasculature: The abdominal aorta is normal in course and caliber. Adenopathy: None. Pelvic viscera: An IUD is visualized within the uterus. Skeletal structures: No destructive osseous lesions are seen. IMPRESSION: 1. No evidence of bowel obstruction. No evidence of free air 2. No evidence of acute appendicitis. No evidence of acute diverticulitis 3. Bilateral nephrolithiasis 4. Obstructing proximal left ureteral calculi, the largest of which measures 9 mm ACT 112: Negative or not required by law. Electronically signed by: Jairo Dao M.D. 10/09/2020 7:57 AM
[2020-10-09] MEDS ORDERED: KETOROLAC TROMETHAMINE 15 MG/ML VIAL IV ONE (10:47)
[2020-10-09] MEDS ORDERED: MoRPHine SULFATE 2 MG/ML CARP IV PRN (10:47)
[2020-10-09] MEDS ORDERED: PROPOFOL IV EMULSION 10 MG/ML 20 ML VIAL IV ONE (10:56)
[2020-10-09] MEDS ORDERED: MIDAZOLAM HCL 1 MG/ML 2ML VIAL ONE (11:00)
[2020-10-09] MEDS ORDERED: fentaNYL citrate 100 MCG/2 ML VIAL ONE (11:00)
[2020-10-09] MEDS ORDERED: LIDOCAINE 2% 2 ML VIAL/AMP(20MG/ML) INFIL ONE (11:03)
[2020-10-09] MEDS ORDERED: ONDANSETRON INJ 2 MG/ML 2 ML VIAL IV PRN (11:12)
[2020-10-09] MEDS ORDERED: KETOROLAC 30 MG/ML VIAL IV PRN (11:12)
[2020-10-09] MEDS ORDERED: SCOPOLAMINE 1 MG TDSY TD ONE (11:12)
[2020-10-09] MEDS ORDERED: ATROPINE SULFATE 0.1 MG/ML 10ML SYR IV PRN (11:12)
[2020-10-09] MEDS ORDERED: fentaNYL citrate 100 MCG/2 ML VIAL IV PRN (11:12)
[2020-10-09] MEDS ORDERED: PROMETHAZINE HCL 12.5 MG in SODIUM CHLORIDE 0.9% 50 ML IV PRN (11:12)
--- NOTE | 2020-10-09 11:12 | Anesthesiology Consultation ---
Date of Service October 09, 2020 Assessment & Plan (1) Encounter for pre-operative examination: Chart Review Chart Review: Acceptable Risk for Surgery History Surgery Operation Date: 10/09/20 11:15 Proposed Procedures p Cystoscopy with Possible Stent Placement - Aramis Jane MD Height/Weight Height: 5 ft 4 in Weight: 89.5 kg Allergies Allergy/AdvReac Type Severity Reaction Status Date / Time cat dander Allergy Unknown CAT/DOG-ITCHY Verified 10/08/20 22:06 EYES RUNNY NOSE cephalexin Allergy Unknown Hives Verified 10/08/20 22:06 tree nut Allergy Unknown Anaphylaxis Verified 10/08/20 22:06 ciprofloxacin [From Cipro] AdvReac Unknown HIVES, Verified 10/08/20 22:06 THROAT SWELLING Medications Home Medications Medication Instructions Recorded Confirmed Last Taken chlorthalidone 25 mg PO DAILY 10/08/20 10/08/20 10/08/20 Active Medications Generic Name Dose Route Start Last Admin Trade Name Freq PRN Reason Stop Dose Admin Lactated Ringer's 1,000 mls @ 100 mls/hr 10/09/20 03:30 10/09/20 03:32 Lr IV 10/09/20 23:29 100 mls/hr .Q10H ISABELLA Administration Morphine Sulfate 4 mg 10/09/20 10:47 10/09/20 10:57 Morphine Sulfate 2 Mg/Ml Carp IV 10/23/20 03:11 4 mg Q2H PRN Administration Pain NPO Date Last Intake of Fluids: 10/08/20 Time Last Intake of Fluids: 23:00 Date Last Intake of Solids: 10/08/20 Time Last Intake of Solids: 23:00 Past Medical History Medical History Bilateral nephrolithiasis HX KIDNEY STONES - MULTIPLE Duodenal ulcer NO CURRENT PROBLEM WITH Fibrocystic breast disease (FCBD) in female Obesity Past Family History Family History Uncle Family hx of colon cancer Colorectal cancer Grandmother Breast cancer Past Surgical History Surgical History H/O lithotripsy MULTIPLE HX LASER LITHO History of bilateral tubal ligation History of tooth extraction wisdom teeth History of ureter stent Hx of cystoscopy MULTIPLE Nausea and vomiting after administration of anesthetic agent Past Anesthesia History No Hx of Anesthesia Complications History of PONV No Hx of PONV and No Hx of Motion Sickness Social History Smoking Status: Never smoker Hx Alcohol Use: No alcohol intake frequency: holidays/special occasions only Hx Substance Use: No substance use type: does not use Physical Exam Vital Signs Last Vital Signs Temp 37.2 C 10/09/20 08:00 Pulse 86 10/09/20 08:00 Resp 18 10/09/20 08:00 BP 118/75 10/09/20 08:00 Pulse Ox 93 10/09/20 08:00 Testing Laboratory Results 10/08/20 22:30 10/08/20 22:30 PT 9.8 Seconds (9.0-12.0) 10/08/20 23:33 INR 1.0 (0.9-1.1) 10/08/20 23:33 Urine Color Yellow 10/09/20 00:00 Urine Appearance Clear (Clear) 10/09/20 00:00 Urine pH 7.5 (4.5-7.5) 10/09/20 00:00 Ur Specific [place] 1.015 (1.000-1.030) 10/09/20 00:00 Urine Protein Trace (Negative) H 10/09/20 00:00 Urine Glucose (UA) Negative (Negative) 10/09/20 00:00 Urine Ketones 1+ (Negative) H 10/09/20 00:00 Urine Nitrite Positive (Negative) A 10/09/20 00:00 Ur Leukocyte Esterase 2+ (Negative) H 10/09/20 00:00 Urine WBC (Auto) >30 /hpf (0-5) H 10/09/20 00:00 Urine RBC (Auto) >30 /hpf (0-4) H 10/09/20 00:00 U Hyaline Cast (Auto) 1-5 /lpf (0-5) 10/09/20 00:00 U Epithel Cells (Auto) 5-10 /lpf (0-5) H 10/09/20 00:00 Urine Bacteria (Auto) Negative (Negative) 10/09/20 00:00
--- NOTE | 2020-10-09 11:15 | Urology Progress Note ---
Date of Service October 09, 2020 Assessment & Plan (1) Kidney stone: Chronic nephrolithiasis Left proximal ureteral calculus I would like to attempt stone treatment today presuming she does not have visibly infected urine Plan for cystoscopy, left ureteroscopy and laser lithotripsy with stent p lacement Risks, benefits, expectations discussed Admission and Anticipated Discharge Date Admission Date: October 09, 2020 Subjective Doing okay this morning Still with severe pain and nausea Had a low-grade temp overnight but was solitary and had no other hemodynamic instability Ready now for stone treatment Physical Exam Constitutional: well developed and well nourished Neck: neck nontender Respiratory: normal respiratory effort; no respiratory distress and does not use accessory muscles Cardiovascular: Rate/Rhythm: regular rate Vessels: radial pulses present Extremities: no edema Gastrointestinal (Abdomen): Inspection/Auscultation: abdomen normal to inspection Percussion/Palpation: abdomen soft; abdomen nontender and no guarding Musculoskeletal: Head/Neck/Chest: normocephalic and head atraumatic Extremities: extremities normal to inspection Skin: no rashes and no lesions Trauma: no evidence of skin trauma Neurologic: awake; not obtunded Speech / Cognition: normal speech Motor/Sensory: no tremor Psychiatric: Orientation: alert and oriented x 3 Lymphatic: no lymphadenopathy Results & Data ([facility]) Vital Signs (Past 12 Hours) Vital Signs Temp Pulse Pulse Pulse Resp BP BP 10/09/20 08:00 37.2 C 86 18 118/75 10/09/20 07:47 37.4 C 107 H 20 106/66 10/09/20 04:00 37.6 C H 10/09/20 03:21 38.2 C H 20 10/09/20 02:00 87 18 151/111 H 10/09/20 01:00 86 20 128/102 H 10/09/20 00:31 88 23 164/104 H 10/08/20 23:49 76 20 121/81 Pulse Ox 10/09/20 08:00 93 10/09/20 07:47 91 10/09/20 04:00 10/09/20 03:21 96 10/09/20 02:00 95 10/09/20 01:00 97 10/09/20 00:31 100 10/08/20 23:49 98 PG Care Time/CCT Total # of Minutes Spent Total Time Spent with Patient: Total time spent is greater than 50% in coordination of care (as documented) at patient's floor/unit and/or counseling patient: Coding Level of Care Code 62259 Subseq Hosp Care Lvl 2 Diagnoses Kidney stone N20.0
[2020-10-09] MEDS ORDERED: ONDANSETRON INJ 2 MG/ML 2 ML VIAL ONE (11:16)
[2020-10-09] MEDS ORDERED: DEXAMETHASONE SOD INJ 4 MG/ML VIAL ONE (11:16)
--- NOTE | 2020-10-09 12:22 | Operative Report ---
PG Post Operative Report Pre & Post Diagnosis Operation Date: 10/09/20 11:15 Pre-Op Diagnosis: Left Kidney and Renal Stone Post-Op Diagnosis: Left Kidney and Renal Stone I identified the patient and participated in the time-out.: Yes Procedure Operation Date: 10/09/20 11:15 Actual Procedures p Cystoscopy, Ureteroscopy, Laser Lithotripsy, Left Ureteral Stent Placement(Left) - Aramis Jane MD Surgeon Duong Jane MD Bellows Tester none Estimated Blood Loss 0 Findings Consistent with Post-Op Diagnosis Specimens Stone for chemical analysis Description of Procedure The patient was identified in the preoperative holding area, appropriate informed consents were reviewed and completed and the patient was transferred to the operative suite. Upon arrival, appropriate antibiotics and anesthesia were administered and the patient was placed in dorsal lithotomy position and prepped and draped in sterile fashion. To be in the case I passed a 22 Bangladeshi cystoscope per urethra. Inspection revealed a healthy-appearing bladder with a slight cystocele. Inspection revealed ureteral orifices to be in orthotopic position. The urine was clear. I then intubated the left UO with a sensor wire and a 10 Bangladeshi double-lumen catheter. There was a discharge of clear urine after the wire was passed to the kidney. Given the clear urine I elected to proceed with ureteroscopy. Of note, she is chronically infected and typically manifest nitrite positive UAs. We discussed prior to the operation that if she had purulent urine I would not proceed with ureteroscopy, but given the clear appearance of her urine I thought it would be reasonable to attempt to treat her stones. I ultimately placed a second wire and then a ureteral access sheath to the UPJ. I passed the scope through the access sheath and immediately encountered a large yellow appearing calculus which had been pushed retrograde from the UPJ into the renal pelvis. I passed a 272 m laser fiber and fragmented the stone irrigating as many of the pieces out of the kidney as possible. I then proceeded to inspect the remainder of the kidney. She had a large fragment in the upper pole as well as the midpole. Both of these areas were treated. She has an additional large fragment in the extreme lower pole. I was able to visualize this but with mobility and access to the stone were limited and I elected not to treat it. I performed numerous repeat renoscopy is attempting to confirm a clear portion of the kidney without any large retained fragments. I then performed a careful exit ureteroscopy while simultaneously withdrawing access sheath and confirmed a clear ureter. A 6 Bangladeshi by 24 cm double-J stent was placed with a string left attached to the distal aspect. She was extubated and taken to the PACU in stable condition. She remained hemodynamically stable throughout the case. I would recommend that she remains in the hospital overnight to continue antibiotics and if she remained stable possibly discharged home tomorrow. I attest to the content of the Intraoperative Record and any orders documented therein. Any exceptions are noted below.
--- NOTE | 2020-10-09 12:51 | Fluoroscopy Report ---
FL KUB HISTORY: 45 years-old Female STENT status post placement of a left ureteral stent. COMPARISON: CT abdomen and pelvis of same day TECHNIQUE: 3 spot fluoroscopic images of the abdomen and pelvis were obtained utilizing 18.0 seconds fluoroscopy time FINDINGS: Status post placement of a left ureteral stent which appears to be in satisfactory positioning. IUD o f the mid pelvis. Left nephrolithiasis redemonstrated. IMPRESSION: Status post placement of a left ureteral stent which appears to be in satisfactory positi oning. ACT 112: Negative or not required by law. The above report was generated using voice recognition software. It may contain grammatical, syntax o r spelling errors. Electronically signed by: Favian Small M.D. 10/09/2020 12:50 PM
[2020-10-09] MEDS ORDERED: ePHEDrine sulfate 50 MG/ML AMP ONE (13:10)
--- NOTE | 2020-10-09 13:30 | Anesthesiology Progress Note ---
Date of Service October 09, 2020 Anesthesia Post Procedure Vital Signs Vital Signs: Temp Pulse Pulse Pulse Pulse Resp BP 10/09/20 13:25 106 H 12 10/09/20 13:10 37.2 C 108 H 14 10/09/20 12:55 36.7 C 110 H 17 10/09/20 12:45 114 H 18 10/09/20 12:35 115 H 18 10/09/20 12:27 36.8 C 117 H 17 10/09/20 11:15 37.2 C 104 H 18 10/09/20 08:00 37.2 C 86 18 10/09/20 07:47 37.4 C 107 H 20 10/09/20 04:00 37.6 C H 10/09/20 03:21 38.2 C H 20 10/09/20 02:00 87 18 151/111 H 10/09/20 01:00 86 20 128/102 H 10/09/20 00:31 88 23 164/104 H 10/08/20 23:49 76 20 121/81 10/08/20 22:45 10/08/20 22:40 10/08/20 22:38 87 21 139/85 10/08/20 21:50 36.6 C 84 22 142/72 H BP Pulse Ox 10/09/20 13:25 98/62 L 95 10/09/20 13:10 94/58 L 91 10/09/20 12:55 100/67 95 10/09/20 12:45 112/68 95 10/09/20 12:35 112/65 95 10/09/20 12:27 107/63 95 10/09/20 11:15 112/67 94 10/09/20 08:00 118/75 93 10/09/20 07:47 106/66 91 10/09/20 04:00 10/09/20 03:21 96 10/09/20 02:00 95 10/09/20 01:00 97 10/09/20 00:31 100 10/08/20 23:49 98 10/08/20 22:45 96 10/08/20 22:40 88 L 10/08/20 22:38 93 10/08/20 21:50 95 Pain Intensity Left Flank: Pain Intensity: 10 Transfer of Care Handoff Completed per policy Notes Mental Status: alert / awake / arousable Patient Amnestic to Procedure: Yes Nausea / Vomiting: adequately controlled Pain: adequately controlled Airway Patency, RR, SpO2: stable & adequate BP & HR: stable & adequate Hydration State: stable & adequate Anesthetic Complications: no major complications apparent
--- NOTE | 2020-10-09 15:18 | Hospitalist Progress Note ---
Date of Service October 09, 2020 Assessment & Plan (1) Kidney stone: S/p laser lithotripsy and stent placement with Dr. Jane on 10/09. - Continue ceftriaxone/daptomycin - Continue Flomax - Continue pain and nausea control - Follow urine culture - Urology consultation appreciated - Hold chlorthalidone for now (2) Duodenal ulcer: Hx of. - Avoid NSAIDs as able (3) DVT prophylaxis: SCDs - Low DVT risk per admission calculator & due to recent procedure Admission and Anticipated Discharge Date Admission Date: October 09, 2020 Subjective Visited twice. In AM, she was going for cystoscopy. She was in significant pain. On return in the afternoon, she is more comfortable. Reports no fevers/chills, chest pain, shortness of breath, abdominal pain, nausea, or vomiting. Physical Exam Constitutional: WD/WN, vitals as above + acute distress Eyes: EOM intact bilaterally; no conjunctival abnormality ENMT: external ear and nose normal, oropharynx normal Neck: trachea midline, no thyromegaly normal visual inspection Respiratory: normal respiratory effort, lungs clear to auscultation no respiratory distress Cardiovascular: RRR, no murmur, no edema Gastrointestinal (Abdomen): Inspection/Auscultation: abdomen normal to inspection; abdomen not distended Musculoskeletal: no cyanosis or clubbing, extremities motor strength 5/5 Skin: no rashes, warm and dry Neurologic: moves all extremities and awake Psychiatric: Orientation: alert, oriented to person and cooperative Results & Data Results & Data ([facility]) Vital Signs (Past 12 Hours) Vital Signs Temp Pulse Pulse Pulse Resp BP Pulse Ox 10/09/20 14:37 37.0 C 104 H 20 94/62 L 95 10/09/20 14:00 95 H 18 101/64 94 10/09/20 13:56 101 H 13 108/70 95 10/09/20 13:45 37.0 C 101 H 20 95/64 L 95 10/09/20 13:25 106 H 12 98/62 L 95 10/09/20 13:10 37.2 C 108 H 14 94/58 L 91 10/09/20 12:55 36.7 C 110 H 17 100/67 95 10/09/20 12:45 114 H 18 112/68 10/09/20 12:35 115 H 18 112/65 10/09/20 12:27 36.8 C 117 H 17 107/63 95 10/09/20 11:15 37.2 C 104 H 18 112/67 94 10/09/20 08:00 37.2 C 86 18 118/75 93 10/09/20 07:47 37.4 C 107 H 20 106/66 91 10/09/20 04:00 37.6 C H 10/09/20 03:21 38.2 C H 20 96 PG Care Time/CCT Total # of Minutes Spent Total Time Spent with Patient: Total time spent is greater than 50% in coordination of care (as documented) at patient's floor/unit and/or counseling patient: Coding Level of Care Code 49951 Subseq Hosp Care Lvl 3 Diagnoses Kidney stone N20.0 Duodenal ulcer K26.9 DVT prophylaxis Z29.9
[2020-10-09] MEDS ORDERED: TAMSULOSIN HCL 0.4 MG CAP PO SCH (21:00)
[2020-10-10] MEDS: DAPTOmycin 350 MG in SYRINGE 0 ML IV SCH ×2 (01:42→10:12)
[2020-10-10] MEDS ORDERED: cefTRIAXone SODIUM 2,000 MG in DEXTROSE 5% 50 ML IV SCH (02:00)
[2020-10-10] MEDS ORDERED: DAPTOmycin 225 MG in SYRINGE 0 ML IV SCH (02:00)
[2020-10-10] MEDS ORDERED: ACETAMINOPHEN 325 MG TAB PO PRN (02:11)
--- NOTE | 2020-10-10 07:49 | Electrocardiogram Report ---
Test Reason : Blood Pressure : / mmHG Vent. Rate : 086 BPM Atrial Rate : 086 BPM P-R Int : 144 ms QRS Dur : 080 ms QT Int : 404 ms P-R-T Axes : 053 008 024 degrees QTc Int : 483 ms Normal sinus rhythm Prolonged QT Nonspecific ST abnormality Abnormal ECG When compared with ECG of 16-AUG-2017 14:45, No significant change was found Confirmed by Job Kim ([id number]) on 10/10/2020 7:48:56 AM Referred By: REFERRED SELF Confirmed By:Job Kim
[2020-10-10 08:03] LABS: Basophils # (auto) 0.01 K/uL (0-0.2); Basophils % (auto) 0.1 %; Eosinophils # (auto) 0.12 K/uL (0-0.5); Eosinophils % (auto) 1.1 %; Hematocrit (blood only) 37.2 % (37-47); Hemoglobin 11.7 g/dL (12.0-16.0); Immature Granulocytes # (auto) 0.02 K/uL (0.00-0.02); Immature Granulocytes % (auto) 0.2 %; Lymphocytes # (auto) 0.92 K/uL (1.2-3.4); Lymphocytes % (auto) 8.2 %; Mean Corpuscular Hemoglobin 25.9 pg (25-34); Mean Corpuscular Hgb Conc 31.5 g/dL (32-36); Mean Corpuscular Volume 82.5 fL (80-100); Mean Platelet Volume 11.6 fL (7.4-10.4); Monocytes # (auto) 0.67 K/uL (0.11-0.59); Neutrophils # (auto) 9.47 K/uL (1.4-6.5); Neutrophils % (auto) 84.4 %; Platelet Count 134 K/uL (130-400); RDW Coefficient of Variation 15.9 % (11.5-14.5); RDW Standard Deviation 48.4 fL (36.4-46.3); Red Blood Count 4.51 M/uL (4.2-5.4); White Blood Count 11.21 K/uL (4.8-10.8)
[2020-10-10 08:20] LABS: BUN Creatinine Ratio 14.6 (10-20); Calcium 8.8 mg/dl (8.5-10.1); Creatinine Clr Calc Pharmacy 64.4 ml/min; Est GFR (African American) 64.3 ml/min; Est GFR (Non-African American) 55.4 ml/min; Potassium 3.3 mmol/L (3.5-5.1)
--- NOTE | 2020-10-10 17:31 | Discharge Summary ---
Date of Service October 10, 2020 Admission HPI Per Admitting Provider Mayra Guerra is a 45yo female with longstanding history of nephrolithiasis first starting around age 28, multiple Urological procedures in the past. Stones have been Carbonate apatite + Calcium oxalate in the past (report from 04/02/19). Patient presents with one day of severe left flank and back pain similar to prior episodes of kidney stones. She has had some chills and nausea. No fever/CP/SOB/dysuria. No additional complaints at this time. Patient became quite somnolent after receiving anti-emetics and pain medications. Temporary use of O2. Still with ongoing pain. ER Course: Daptomycin 225mg Ceftriaxone 2mg Fentanyl 50mcg x 1 Morphine 4mg + 2mg Toradol 10mg Zofran 4mg x 2 Pepcid 20mg Principal Diagnosis Kidney stone Discharge Exam Constitutional WD/WN, vitals as above + acute distress Eyes EOM intact bilaterally; no conjunctival abnormality ENMT external ear and nose normal, oropharynx normal Neck trachea midline, no thyromegaly normal visual inspection Respiratory normal respiratory effort, lungs clear to auscultation no respiratory distress Cardiovascular RRR, no murmur, no edema Gastrointestinal (Abdomen) Inspection/Auscultation: abdomen normal to inspection; abdomen not distended Musculoskeletal no cyanosis or clubbing, extremities motor strength 5/5 Skin no rashes, warm and dry Neurologic moves all extremities and awake Psychiatric Orientation: alert, oriented to person and cooperative Discharge Data Allergies Allergy/AdvReac Type Severity Reaction Status Date / Time cat dander Allergy Unknown CAT/DOG-ITCHY Verified 10/08/20 22:06 EYES RUNNY NOSE cephalexin Allergy Unknown Hives Verified 10/08/20 22:06 tree nut Allergy Unknown Anaphylaxis Verified 10/08/20 22:06 ciprofloxacin [From Cipro] AdvReac Unknown HIVES, Verified 10/08/20 22:06 THROAT SWELLING Consultations 10/09/20 01:23 Consult Urology Routine 10/09/20 01:24 ED Decision to Admit Stat Procedures Performed Operation Date: 10/09/20 11:15 Actual Procedures p Cystoscopy, Ureteroscopy, Left Ureteral Stent Placement(Left) - Aramis Jane MD s Laser Lithotripsy(Left) - Aramis Jane MD Ordered Studies 10/08/20 22:06 CT abd pelvis IV con only Urgent 10/09/20 [place] KUB Routine Hospital Course (1) Kidney stone: S/p laser lithotripsy and stent placement with Dr. Jane on 10/09. - Continued ceftriaxone/daptomycin -> Discharged on Bactrim x 5 days. This is not the ideal antibiotic given her kidney function, but best matches her prior cultures. - Continue Flomax on discharge. - Follow up with Urology for when to remove stent. She felt pain control was acceptable on Tylenol and she also had some oxycodone from her prior kidney stones. (2) Duodenal ulcer: Hx of. - Avoid NSAIDs as able (3) DVT prophylaxis: SCDs - Low DVT risk per admission calculator & due to recent procedure Total Time Total Time Spent Total Time Spent (In Minutes): 35 Discharge Plan Discharge Items Patient Disposition: Home - Self-Care Reason For Visit: KIDNEY STONE Discharge Diagnosis: Kidney stone Condition on Discharge: Fair Activity: Resume your previous activity Non-emergency contact: Primary Care Provider and Urologist Call non-emergency contact if: your symptoms worsen and your rectal temperature is above 100.4 Follow-up/Referrals: Aramis Jane MD [Physician] - (Please call the office on Monday for any further instructions.) PCP,NO [Primary Care Provider] - Diet: Regular Addtl Attending Provider Instructions: You were admitted with a kidney stone. Dr. Jane broke up the stone and put in a stent. The stent is meant to come out on your own (ie remove it at home); however, I do not see a recommendation for when Dr. Jane would like it out. Please call their office on Monday to determine with the Urology team when to remove the stent. We are sending you out with antibiotics to help cover any possible infection. The antibiotic is called Bactrim and is a good one for your prior bacterial infections and urinary/kidney infections in general. The biggest issue we see with this antibiotic is temporarily reduced kidney function, so it is very important that you drink plenty of fluids. Your urine sh ould be light yellow to indicate you are well hydrated. This will be a bit tough while traveling, but this is the best antibiotic for your prior cultures, so this is our best option. First dose of the antibiotic should be this evening (10/10/2020), then twice daily until gone. We are also sending you out on Flomax (tamsulosin) to help pass any tiny stone remnants. Pending Studies at Discharge: No Stand-Alone Forms: My [facility], Smoking Cessation Medications and DC Order Prescriptions: New tamsulosin 0.4 mg Capsule 0.4 mg PO HS Qty: 14 RF: 0 sulfamethoxazole-trimethoprim [Bactrim DS] 800-160 mg tablet 1 tab PO BID Qty: 10 RF: 0 Continued chlorthalidone 25 mg Tablet 25 mg PO DAILY RF: 0 Discharge Orders: Discharge Order (Routine); Ordered 10/10/20 Ordered By: Kevin Cheema/Other Patient Handouts: Renal Angioplasty and Stenting Admission Data Admit Date/Time: 10/09/20 02:20 Attending Provider: Kevin Ryan Admit Provider: Rizwana Alcala Primary Care Provider: PCP,NO Other Providers: Kevin Ryan ; Ketan Bhakta ; Rizwana Alcala Other Interventions: Discharge Summary Assessment (RN) Last Done: 10/10/20 10:26 Coding Level of Care Code D/C Day Management >30 mins Diagnoses Kidney stone N20.0 Duodenal ulcer K26.9 DVT prophylaxis Z29.9
[2020-10-14 15:01] LABS: Component 2 DNR; Source RIGHT RENAL STONE
== END 2020-10-10 11:55 | disposition home or self-care (01) | DRG 661 ==
LOC: ED 21:47 → 3N 10-09 02:20 → INTOOBSV 10-09 02:20 → SUATTDRO 10-09 02:20 → 3N 10-09 02:36

== ENCOUNTER 2022-09-20 15:47 | Inpatient (IN) ==
[2022-09-20] MEDS ORDERED: ONDANSETRON INJ 2 MG/ML 2 ML VIAL IV PRN (16:02)
[2022-09-20] MEDS ORDERED: HYDROmorphone INJ 1 MG/ML SYRINGE IV PRN (16:02)
[2022-09-20] MEDS ORDERED: HYDROmorphone INJ 1 MG/ML SYRINGE IV STA (16:02)
[2022-09-20] MEDS ORDERED: oxyCODONE/ACETAMINOPHEN 5mg/325mg TAB PO PRN (16:07)
[2022-09-20] MEDS ORDERED: CLINDAMYCIN/D5W 600 MG/50 ML BAG IV STA (16:16)
[2022-09-20] MEDS ORDERED: KETOROLAC 30 MG/ML VIAL IV PRN (16:24)
[2022-09-20 16:38] LABS: Basophils # (auto) 0.06 K/uL (0-0.2); Basophils % (auto) 0.7 %; Eosinophils # (auto) 0.24 K/uL (0-0.50); Eosinophils % (auto) 2.8 %; Hematocrit (blood only) 46.9 % (37.0-47.0); Hemoglobin 15.6 g/dl (12.0-16.0); Immature Granulocytes # (auto) 0.03 K/uL (0.01-0.20); Immature Granulocytes % (auto) 0.4 %; Lymphocytes # (auto) 1.82 K/uL (1.2-3.4); Lymphocytes % (auto) 21.5 %; Mean Corpuscular Hemoglobin 29.5 pg (25.0-34.0); Mean Corpuscular Hgb Conc 33.3 g/dL (32.0-36.0); Mean Corpuscular Volume 88.8 fL (80.0-100.0); Mean Platelet Volume 11.3 fL (9.4-12.4); Monocytes # (auto) 0.46 K/uL (0.11-0.59); Monocytes % (auto) 5.4 %; Neutrophils # (auto) 5.87 K/uL (1.40-6.50); Neutrophils % (auto) 69.2 %; Platelet Count 219 K/uL (130-400); RDW Coefficient of Variation 12.6 % (11.5-14.5); Red Blood Count 5.28 M/uL (4.20-5.40); White Blood Count 8.48 K/ul (4.8-10.8)
[2022-09-20 16:56] LABS: Calcium 9.7 mg/dl (8.6-10.3); Potassium 3.8 mmol/L (3.5-5.1)
[2022-09-20 17:02] LABS: Creatinine Clr Calc Pharmacy 73.1 ml/min; Est GFR (African American) 76.6 ml/min; Est GFR (Non-African American) 66.1 ml/min
--- NOTE | 2022-09-20 17:18 | History & Physical Report ---
Date of Service September 20, 2022 Assessment & Plan (1) Acute cholecystitis: Plan: This is a 47yF with a PMH of recurrent kidney stones and HTN who presents to the [facility] on 09/20/22 with acute onset of epigastric pain radiating into her back starting at 11 this AM. She was ordered for an output RUQ US which revealed findings of cholelithiasis and concern for acute cholecystitis. Patient's vitals signs are stable. Labs show WBC 8.4 and LFTs are within normal limits. On exam abdomen is soft with some discomfort elicited in the epigastric region. She is feeling a bit better after receiving some anti-nausea meds. Given history, imaging, and clinical findings we will plan on admitting the patient under the general surgery service. We will keep her NPO with IVF and start IV abx. Plan will be to proceed with laparoscopic cholecystectomy with Dr. Chase tomorrow AM. History of Present Illness Primary Care Provider: DIGNA Liao This is a 47yF with a PMH of recurrent kidney stones and HTN who presents to the [facility] on 09/20/22 after having an output RUQ US revealing evidence of cholecystitis. Of note the patient underwent colonoscopy yesterday without event. She presented to work today when she developed acute onset abdominal pain around 11am located in the epigastric region that radiated into the back. This occurred after eating some bites of fries for lunch. She took some Tums without relief. It was recommended she undergo a RUQ US for further evaluation. This showed + cholelithiasis with mild gallbladder wall thickening, gallbladder distention and sonographic Hdez sign. These findings raise the possibility of acute cholecystitis. Patient denies nausea/vomiting. No fevers/chills, CP/SOB, no prior abdominal surgical history outside of cystoscopy's and tubal ligation. No pain to this severity before. No issues with eating fatty/greasy foods in the past. Allergies Allergy/AdvReac Type Severity Reaction Status Date / Time cat dander Allergy Unknown CAT/DOG-ITCHY Verified 09/19/22 11:45 EYES RUNNY NOSE cephalexin Allergy Unknown Hives Verified 09/19/22 11:45 tree nut Allergy Unknown Anaphylaxis Verified 09/19/22 11:45 ciprofloxacin [From Cipro] AdvReac Unknown HIVES, Verified 09/19/22 11:45 THROAT SWELLING Home Medications Medication Instructions Recorded Confirmed Type tamsulosin 0.4 mg capsule 0.4 mg PO DAILY #30 caps 01/05/22 09/19/22 Rx oxycodone-acetaminophen 7.5 mg-325 1 tab PO Q6H PRN Pain 08/31/22 09/08/22 History mg tablet Past Med/Surg History Medical History Bilateral nephrolithiasis HX KIDNEY STONES - MULTIPLE Duodenal ulcer NO CURRENT PROBLEM WITH Fibrocystic breast disease (FCBD) in female History of COVID-19 2020- H; resolved Obesity Surgical History H/O lithotripsy MULTIPLE HX LASER LITHO H/O right breast biopsy Right breast biopsy. Dr. Vincent 11/03/2020 History of bilateral tubal ligation History of tooth extraction wisdom teeth History of ureter stent Hx of cystoscopy MULTIPLE Nausea and vomiting after administration of anesthetic agent Family History Uncle Family hx of colon cancer Colorectal cancer Grandmother Breast cancer Denies family history of Ovarian cancer Prostate cancer Myocardial infarction Social History Smoking Status: Never smoker Second Hand Exposure: No; Do You Dip or Chew Tobacco: No; Tobacco Cessation Education Requested by Patient: No Hx Alcohol Use: No Hx Substance Use: No Preferred Language: Samoan Communication Ability: Effective Visual Impairment: No Limitations Steam 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 Required: No Beliefs That Will Affect Care: None marital status: Current Living Situation: Spouse and Family Current Living Situation Comment: CHILDREN current occupational status: employed current occupation: [employer] How many Children do You have: 2 Other Information That Helps Us Care for You: No Feels Safe at Home: Yes Safety Concerns: Feels Safe At This Time during the past year weight has: increased > 10 lbs Assistive Devices: Glasses Review of Systems Constitutional: no fever and no chills Respiratory: no dyspnea Cardiovascular: no chest pain Gastrointestinal: + abdominal pain (upper abdomen that radiates into the back); no nausea and no vomiting Physical Exam Physical Exam: awake/alert Constitutional: well developed and well nourished; no acute distress Respiratory: normal respiratory effort Cardiovascular: Rate/Rhythm: regular rate Gastrointestinal (Abdomen): Inspection/Auscultation: + abdomen distended (mild) Percussion/Palpation: + abdomen tender (discomfort noted in epigastric region) and abdomen soft Results & Data Results & Data Vital Signs (Past 12 Hours) Vital Signs Temp Pulse Resp BP Pulse Ox O2 Del Method 09/20/22 15:56 36.6 C 76 20 130/84 98 Room Air Diagnostic Findings US gallbladder CLINICAL HISTORY: R10.13 - Epigastric pain COMPARISON STUDY: CT of the abdomen and pelvis October 09, 2020. KUB August 29, 2022. FINDINGS: No hepatic lesions are identified. There is no biliary ductal dilatation. Common bile duct measures 5 mm in caliber. Pancreas is obscured by overlying bowel gas. An 8 mm gallstone within the gallbladder is noted. There is mild gallbladder wall thickening. The gallbladder is mildly distended. Sonographic Hdez sign was reported by the technologist. Multiple right renal calculi are present. There is no right hydronephrosis. IMPRESSION: 1. Cholelithiasis with mild gallbladder wall thickening, gallbladder distention and sonographic Hdez sign. These findings raise the possibility of acute cholecystitis. A hepatobiliary scan could be obtained as indicated. 2. No biliary ductal dilatation. 3. Obscured pancreas. 4. Right-sided nephrolithiasis. ACT 112: Negative or not required by law. Electronically signed by: Herb Kaiser M.D. 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 she had had a colonoscopy the day before The patient developed acutely after eating pork and [place] fries earlier in the day She had an ultrasound the gallbladder approximately 2 years ago which was negative She may have had some history of some certain food intolerances attributed to gastritis possible ulcer When I saw her the pain was in the right upper quadrant tender to palpation with a positive Hdez sign He had undergone an ultrasound which shows cholelithiasis some wall thickening rest the labs were acceptable this was slightly creatinine elevation 1.28 which may have been secondary to dehydration from the colonoscopy prep Plan to admit the patient and proceed with laparoscopic cholecystectomy cholangiogram possible open today Other past medical history and other details as per Margy Foreman physician assistant gm of content & delivery PG Care Time/CCT Total # of Minutes Spent Total Time Spent with Patient: Total time spent is greater than 50% in coordination of care (as documented) at patient's floor/unit and/or counseling patient: Coding Level of Care Code 47263 INT INP/OBS CARE MIN Diagnoses Acute cholecystitis K81.0
[2022-09-20] MEDS: LACTATED RINGER'S 1,000 ML IV SCH (18:35)
[2022-09-21] MEDS: CLINDAMYCIN/D5W 600 MG/50 ML BAG IV SCH ×2 (01:39→11:09)
[2022-09-21] MEDS: LACTATED RINGER'S 1,000 ML IV SCH ×2 (01:40→10:30)
--- NOTE | 2022-09-21 06:48 | History & Physical Bridge Note ---
Date of Service September 21, 2022 History & Physical Bridge Note I have examined the patient, reviewed the History & Physical and in the interval since the performance of the History & Physical I have noted the following changes of clinical significance: no changes noted Patient feels much better this morning minimal right upper quadrant guarding We will proceed with laparoscopic cholecystectomy intraoperative cholangiogram possible open risk and complication patient is well aware all question answered Permit signed
--- NOTE | 2022-09-21 06:50 | History & Physical Bridge Note ---
Date of Service September 21, 2022 History & Physical Bridge Note I have examined the patient, reviewed the History & Physical and in the interval since the performance of the History & Physical I have noted the following changes of clinical significance: no changes noted Patient feels much better this morning minimal right upper quadrant guarding All question answered permit signed Lab pending Repeat creatinine yesterday 1.0
--- NOTE | 2022-09-21 06:53 | Anesthesiology Consultation ---
Date of Service September 21, 2022 Assessment & Plan Chart Review Chart Review: Acceptable Risk for Surgery and Patient NOT seen in Pre Admission Testing Consults Requested none ASA ASA2 Proposed Anesthesia Anesthesia Type: General Risk / Benefits Reviewed With: PT / POA / Parent / Guardian, Accepts Plan and Informed Consent Obtained History Surgery Operation Date: 09/21/22 07:15 Proposed Procedures p Laparoscopic Cholecystectomy with Cholangiogram - Rusyt Chase MD, FACS Height/Weight Height: 5 ft 4 in Weight: 87.1 kg Allergies Allergy/AdvReac Type Severity Reaction Status Date / Time cat dander Allergy Unknown CAT/DOG-ITCHY Verified 09/19/22 11:45 EYES RUNNY NOSE cephalexin Allergy Unknown Hives Verified 09/19/22 11:45 tree nut Allergy Unknown Anaphylaxis Verified 09/19/22 11:45 ciprofloxacin [From Cipro] AdvReac Unknown HIVES, Verified 09/19/22 11:45 THROAT SWELLING Medications Home Medications Medication Instructions Recorded Confirmed Last Taken tamsulosin 0.4 mg capsule 0.4 mg PO DAILY #30 caps 01/05/22 09/19/22 09/12/22 oxycodone-acetaminophen 7.5 mg-325 1 tab PO Q6H PRN Pain 08/31/22 09/08/22 Unknown mg tablet Active Medications Generic Name Dose Route Start Last Admin Trade Name Freq PRN Reason Stop Dose Admin Lactated Ringer's 1,000 mls @ 125 mls/hr 09/20/22 16:15 09/21/22 01:40 Lr IV 10/20/22 16:14 125 mls/hr .Q8H ISABELLA Administration Clindamycin Phosphate 600 mg in 50 mls @ 100 mls/hr 09/21/22 02:00 09/21/22 02:09 Cleocin/D5w IV 10/01/22 01:59 Infused Q8H ISABELLA Infusion Ondansetron HCl 4 mg 09/20/22 16:02 09/20/22 16:33 Ondansetron Inj 2 Mg/Ml 2 Ml Vial IV 10/20/22 16:01 4 mg Q6H PRN Administration Nausea NPO Date Last Intake of Fluids: 09/20/22 Time Last Intake of Fluids: 11:00 Date Last Intake of Solids: 09/20/22 Time Last Intake of Solids: 11:00 Past Medical History Medical History Bilateral nephrolithiasis HX KIDNEY STONES - MULTIPLE Duodenal ulcer NO CURRENT PROBLEM WITH Fibrocystic breast disease (FCBD) in female History of COVID-19 2020- H; resolved Obesity Exercise / Class Metabolic Activity II 4-5 Yardwork/Stairs/Walk up hill Past Family History Family History Uncle Family hx of colon cancer Colorectal cancer Grandmother Breast cancer Denies family history of Ovarian cancer Prostate cancer Myocardial infarction Past Surgical History Surgical History H/O lithotripsy MULTIPLE HX LASER LITHO H/O right breast biopsy Right breast biopsy. Dr. Vincent 11/03/2020 History of bilateral tubal ligation History of tooth extraction wisdom teeth History of ureter stent Hx of cystoscopy MULTIPLE Nausea and vomiting after administration of anesthetic agent Past Anesthesia History No Hx of Anesthesia Complications and No Family Hx of Anesthesia Complications History of PONV No Hx of PONV and No Hx of Motion Sickness Social History Smoking Status: Never smoker Do You Dip or Chew Tobacco: No Hx Alcohol Use: No alcohol intake frequency: holidays/special occasions only Hx Substance Use: No substance use type: does not use Physical Exam Vital Signs Last Vital Signs Temp 36.6 C 09/21/22 06:47 Pulse 71 09/21/22 06:47 Resp 18 09/21/22 06:47 BP 132/67 09/21/22 06:47 Pulse Ox 96 09/21/22 06:47 O2 Del Method Room Air 09/21/22 06:47 Constitutional + obese; no acute distress ENMT Mouth: no dentition abnormality Thyromental Distance: < 3.5 Finger Breadths Mallampati Class: II Neck normal visual inspection and trachea midline; neck extension not limited Respiratory normal respiratory effort Auscultation: lungs clear to auscultation bilaterally Cardiovascular Rate/Rhythm: regular rate and regular rhythm Heart Sounds: no murmur Vessels: no carotid bruit Musculoskeletal Spine: normal cervical ROM and no pain with cervical ROM Extremities: extremities normal to inspection; full ROM of extremities Neurologic moves all extremities Motor/Sensory: no sensory deficit Psychiatric Orientation: alert and oriented x 3 Testing Laboratory Results 09/20/22 16:28 09/20/22 16:28 Electrocardiogram Date: 10/08/20 Findings: + NSR @ (@ 86;prolonged QT)
[2022-09-21] MEDS ORDERED: MIDAZOLAM HCL 1 MG/ML 2ML VIAL ONE (06:57)
[2022-09-21] MEDS ORDERED: fentaNYL citrate PF 100 MCG/2 ML VIAL ONE ×3 (06:57→09:11)
[2022-09-21 07:07] LABS: Basophils # (auto) 0.03 K/uL (0-0.2); Basophils % (auto) 0.6 %; Eosinophils # (auto) 0.28 K/uL (0-0.50); Eosinophils % (auto) 5.4 %; Hematocrit (blood only) 43.1 % (37.0-47.0); Hemoglobin 14.4 g/dl (12.0-16.0); Immature Granulocytes # (auto) 0.01 K/uL (0.01-0.20); Immature Granulocytes % (auto) 0.2 %; Lymphocytes # (auto) 1.51 K/uL (1.2-3.4); Lymphocytes % (auto) 29.2 %; Mean Corpuscular Hemoglobin 29.5 pg (25.0-34.0); Mean Corpuscular Hgb Conc 33.4 g/dL (32.0-36.0); Mean Corpuscular Volume 88.3 fL (80.0-100.0); Mean Platelet Volume 11.4 fL (9.4-12.4); Monocytes # (auto) 0.44 K/uL (0.11-0.59); Monocytes % (auto) 8.5 %; Neutrophils # (auto) 2.91 K/uL (1.40-6.50); Neutrophils % (auto) 56.1 %; Platelet Count 172 K/uL (130-400); RDW Coefficient of Variation 12.6 % (11.5-14.5); RDW Standard Deviation 40.9 fL (36.4-46.3); Red Blood Count 4.88 M/uL (4.20-5.40); White Blood Count 5.18 K/ul (4.8-10.8)
[2022-09-21] MEDS ORDERED: LIDOCAINE 2% 2 ML VIAL/AMP(20MG/ML) INFIL ONE (07:12)
[2022-09-21] MEDS ORDERED: ONDANSETRON INJ 2 MG/ML 2 ML VIAL ONE (07:12)
[2022-09-21] MEDS ORDERED: DEXAMETHASONE SOD INJ 4 MG/ML VIAL ONE (07:12)
[2022-09-21] MEDS ORDERED: GLYCOPYRROLATE 0.2 MG/ML VIAL ONE (07:12)
[2022-09-21] MEDS ORDERED: PROPOFOL IV EMULSION 10 MG/ML 20 ML VIAL IV ONE (07:12)
[2022-09-21] MEDS ORDERED: LIDOCAINE 1%/EPINEPHRINE 1:100,000 20 ML VIAL ONE (07:13)
[2022-09-21] MEDS ORDERED: FAMOTIDINE/PF 20 MG/2 ML VIAL IV ONE (07:31)
[2022-09-21] MEDS ORDERED: SCOPOLAMINE 1 MG TDSY TD ONE (07:31)
[2022-09-21] MEDS ORDERED: IOVERSOL 50ml IV ONE (08:04)
[2022-09-21] MEDS ORDERED: SUGAMMADEX SODIUM 200 MG/2 ML VIAL IV ONE (08:31)
--- NOTE | 2022-09-21 08:37 | Post Operative Brief Note ---
Immediate Post Op Note v1 Date of Surgery September 21, 2022 Pre & Post Diagnosis Operation Date: 09/21/22 07:15 Pre-Op Diagnosis: Cholecystitis Post-Op Diagnosis: Cholecystitis I identified the patient and participated in the time-out.: Yes Procedure Operation Date: 09/21/22 07:15 Actual Procedures p Laparoscopic Cholecystectomy with Cholangiogram(Not Applicable) - Rusty Chase MD, FACS Surgeon Rusty Chase MD, FACS Twine Reeling Machine Operator Jim DE DIOS Estimated Blood Loss 5 Findings Consistent with Post-Op Diagnosis
--- NOTE | 2022-09-21 08:52 | Operative Report ---
PG Post Operative Report Pre & Post Diagnosis Operation Date: 09/21/22 07:15 Pre-Op Diagnosis: Cholecystitis Post-Op Diagnosis: Cholecystitis I identified the patient and participated in the time-out.: Yes Procedure Operation Date: 09/21/22 07:15 Actual Procedures p Laparoscopic Cholecystectomy with Cholangiogram(Not Applicable) - Rusty Chase MD, FACS The patient was brought into the operating theater general endotracheal anesthesia supine position the abdomen was prepped Betadine solution and properly draped systemic antibiotics on board patient identified a timeout was had made a small incision supraumbilically sufficient to accommodate a Veress needle followed by CO2 followed by 5 mm trocar point of entry specter no injury identified our attention was turned to the right upper quadrant where we could see that the patient had not fine clear adhesive bands between the right lobe of the liver and anterior abdominal wall reminiscent of Pavan-Alexis Milan appearance and direct visualization we placed a 5 mm epigastric to 5 mm support support patient was rotated to the left in reverse Trendelenburg position this point using scissors and cautery I took down all the bands between the right lobe of the liver and the anterior abdominal wall accomplishing this the right upper quadrant trocar grasper was used to elevate the liver by grabbing the gallbladder at this point we worked our way down towards the neck of the gallbladder with patient has significant amount of fatty tissue in the area which we dissected out able to identify the cystic duct created a window between the cystic duct and the other tissue 5 mm to clips were placed to take off the cystic duct #4 urethral catheter transversing the abdominal wall and a 14 Sparkle ocath was positioned in the cystic duct x-rays were taken which showed a very redundant corkscrew cystic duct and free flow into the distal common bile duct and duodenum without any obvious obstruction urethral catheter was then removed and we choked up on the cystic duct work her way towards the common bile duct staying well away from it we doubly clipped the security 5 mm clips transected at and we worked our way to the artery which has a significant mount of fatty tissue around it able to clip it securely with two 5 mm clips just as it entered the gallbladder infected lymph node the JANINA was around the artery and we (touched gallbladder then removed the antegrade fashion using electrocautery gallbladder wall was thickened some edema in the posterior wall was appreciated once we have freed it up from the liver itself we checked the gallbladder fossa and satisfactory hemostasis a few small areas of bleeding artery was controlled with electrocautery gallbladder was placed in an Endopouch taken out intact through the epigastric port the subhepatic suprahepatic area was then checked hemostasis appear satisfactory we placed the camera right upper quadrant trocar site to look at the umbilical area the patient had a very small umbilical hernia that we did not do anything with preoperatively she had typical diastases recti and direct visualization individual trocars removed the last the umbilical trocar wounds were closed with 4-0 Monocryl Steri-Strips applied procedure was tolerated well by the patient estimate blood loss 5 cc Addendum Margy Foreman physician chemistry research assistant was present throughout the case and helped the retraction exposure wound closure Spoke with her Micheal at [phone] Surgeon Rusty Chase MD, FACS Master Chef iJm DE DIOS Estimated Blood Loss 5 Findings Consistent with Post-Op Diagnosis Acute on chronic cholecystitis cholelithiasis Specimens Gallbladder and Complications Waiting for a long time on the slow computer so I can do my postoperative note Indications Acute cholecystitis cholelithiasis Description of Procedure merda I attest to the content of the Intraoperative Record and any orders documented therein. Any exceptions are noted below.
[2022-09-21] MEDS ORDERED: HYDROmorphone INJ 1 MG/ML SYRINGE IV PRN (09:06)
[2022-09-21] MEDS ORDERED: ONDANSETRON INJ 2 MG/ML 2 ML VIAL IV PRN (09:06)
[2022-09-21] MEDS ORDERED: PROMETHAZINE HCL 12.5 MG in SODIUM CHLORIDE 0.9% 50 ML IV PRN (09:06)
[2022-09-21] MEDS ORDERED: NALOXONE HCL 0.4 MG/1 ML VIAL/CARP IV PRN (09:06)
[2022-09-21] MEDS ORDERED: fentaNYL citrate PF 100 MCG/2 ML VIAL IV PRN (09:06)
[2022-09-21] MEDS ORDERED: FLUMAZENIL 0.1 MG/1 ML 10 ML VIAL IV PRN (09:06)
[2022-09-21] MEDS ORDERED: ATROPINE SULFATE 0.1 MG/ML 10ML SYR IV PRN (09:06)
[2022-09-21] MEDS ORDERED: ePHEDrine sulfate 50 MG/ML AMP IV PRN (09:06)
[2022-09-21] MEDS ORDERED: PROMETHAZINE HCL INJ 25 MG/ML 1 ML VIAL ONE (09:15)
[2022-09-21] MEDS ORDERED: SODIUM CHLORIDE 0.9% 50 ML BAG ONE (09:19)
--- NOTE | 2022-09-21 09:24 | Fluoroscopy Report ---
FL cholangiogram OR CLINICAL HISTORY: IOC TECHNIQUE: 2 views were obtained with the C-arm in the OR with the above procedure. Total fluoroscopy time was 2.9 seconds. Radiation dose was 0.66 mGy. Comparison: Comparison is made to gallbladder ultrasound 08/31/2022 FINDINGS/IMPRESSION: Intraoperative images were obtained of cholangiogram. Please correlate with intraoperative fluoroscopy and operative report. ACT 112: Negative or not required by law. Electronically signed by: Mick Avila M.D. 09/21/2022 9:23 AM
--- NOTE | 2022-09-21 09:53 | Anesthesiology Progress Note ---
Date of Service September 21, 2022 Anesthesia Post Procedure Vital Signs Vital Signs: Temp Pulse Pulse Pulse Resp BP BP 09/21/22 09:20 71 18 09/21/22 09:40 36.5 C 771 H 16 09/21/22 09:30 72 16 09/21/22 09:10 77 16 09/21/22 09:00 72 14 09/21/22 08:53 36.0 C L 73 16 09/21/22 06:47 36.6 C 71 18 09/21/22 06:33 36.3 C L 72 16 113/77 09/20/22 21:16 36.4 C L 64 16 09/20/22 20:15 60 16 09/20/22 18:50 68 16 09/20/22 16:03 66 16 09/20/22 15:56 36.6 C 76 20 130/84 BP Pulse Ox O2 Del Method O2 Flow Rate 09/21/22 09:20 114/71 96 Nasal Cannula 2 09/21/22 09:40 106/62 96 Nasal Cannula 2 09/21/22 09:30 103/57 L 94 Nasal Cannula 2 09/21/22 09:10 104/67 96 Oxymask 2 09/21/22 09:00 109/65 96 Oxymask 6 09/21/22 08:53 112/66 96 Oxymask 6 09/21/22 06:47 132/67 96 Room Air 09/21/22 06:33 97 Room Air 09/20/22 21:16 132/72 96 Room Air 09/20/22 20:15 110/63 98 Room Air 09/20/22 18:50 110/63 98 Room Air 09/20/22 16:03 09/20/22 15:56 98 Room Air Transfer of Care Handoff Completed per policy Notes Mental Status: alert / awake / arousable Patient Amnestic to Procedure: Yes Nausea / Vomiting: adequately controlled Pain: adequately controlled Airway Patency, RR, SpO2: stable & adequate BP & HR: stable & adequate Hydration State: stable & adequate Anesthetic Complications: no major complications apparent
[2022-09-21] MEDS ORDERED: oxyCODONE/ACETAMINOPHEN 5mg/325mg TAB PO PRN ×2 (11:08)
[2022-09-21] MEDS ORDERED: MoRPHine SULFATE 4 MG/ML 1 ML CARP\\VIAL IV PRN (11:08)
[2022-09-21] MEDS ORDERED: MoRPHine SULFATE 2 MG/ML CARP IV PRN (11:08)
[2022-09-21] MEDS ORDERED: LACTATED RINGER'S 1,000 ML IV SCH (11:08)
--- NOTE | 2022-09-21 15:09 | Discharge Summary ---
Date of Service September 21, 2022 Admission HPI Per Admitting Provider This is a 47yF with a PMH of recurrent kidney stones and HTN who presents to the [facility] on 09/20/22 after having an output RUQ US revealing evidence of cholecystitis. Of note the patient underwent colonoscopy yesterday without event. She presented to work today when she developed acute onset abdominal pain around 11am located in the epigastric region that radiated into the back. This occurred after eating some bites of fries for lunch. She took some Tums without relief. It was recommended she undergo a RUQ US for further evaluation. This showed + cholelithiasis with mild gallbladder wall thickening, gallbladder diste ntion and sonographic Hdez sign. These findings raise the possibility of acute cholecystitis. Patient denies nausea/vomiting. No fevers/chills, CP/SOB, no prior abdominal surgical history outside of cystoscopy's and tubal ligation. No pain to this severity before. No issues with eating fatty/greasy foods in the past. Principal Diagnosis acute cholecystitis Discharge Exam awake/alert Respiratory normal respiratory effort Gastrointestinal (Abdomen) Inspection/Auscultation: + abdominal surgical incision (c/d/i with steri strips); abdomen not distended Percussion/Palpation: + abdomen tender (expected incisional discomfort) and abdomen soft Discharge Data Allergies Allergy/AdvReac Type Severity Reaction Status Date / Time cat dander Allergy Unknown CAT/DOG-ITCHY Verified 09/19/22 11:45 EYES RUNNY NOSE cephalexin Allergy Unknown Hives Verified 09/19/22 11:45 tree nut Allergy Unknown Anaphylaxis Verified 09/19/22 11:45 ciprofloxacin [From Cipro] AdvReac Unknown HIVES, Verified 09/19/22 11:45 THROAT SWELLING Procedures Performed Operation Date: 09/21/22 07:15 Actual Procedures p Laparoscopic Cholecystectomy with Cholangiogram(Not Applicable) - Rusty Chase MD, FACS Ordered Studies 09/21/22 07:15 [place] cholangiogram OR Routine Hospital Course (1) Acute cholecystitis: This is a 47yF with a PMH of recurrent kidney stones and HTN who presents to the [facility] on 09/20/22 after having an output RUQ US revealing evidence of cholecystitis. She presented to work today when she developed acute onset abdominal pain around 11am located in the epigastric region that radiated into the back prompting the US to be performed. Due to imaging and history/physical she was admitted under the general surgical services. She was kept NPO with IVF and started on IV abx. On 09/21/22 she went to the OR with Dr. Chase for a laparoscopic cholecystectomy with IOC. The patient tolerated the procedure well,see op note for full details. The patient recovered int he PACU and was sent back to the nursing floor. She was given a regular diet, pain and nausea controlled with prn medications, was able to void without issues, and ambulating independently. On POD#0 she was deemed stable for discharge to home with plans to follow up in clinic within 1 week. Total Time Total Time Spent Total Time Spent (In Minutes): 10 Discharge Plan Discharge Items Patient Disposition: Home - Self-Care Reason For Visit: CHOLECYSTITIS Discharge Diagnosis: laparoscopic cholecystectomy Activity: Per Instructions section Lifting: No more than 10 pounds Bathing Comment: may shower starting 09/22/22; no soaking in tubs/pools x2 weeks Exercise/Sports: Wait until after follow-up appointment Driving/Machine Use: no driving while taking narcotics for pain Non-emergency contact: Surgeon Call non-emergency contact if: you have any medication questions, your symptoms worsen, your pain is not controlled, your pain is concerning for you, you have a fever, your temperature is above 101.5, your wound has increased redness, your wound has increased drainage and your wound pain has increased Follow-up/Referrals: Rusty Chase MD, FACS [Emergency Provider] - 09/28/22 10:15 am (Please call to schedule follow up in clinic within 1 week) Merissa Bustillo CRNP [Primary Care Provider] - Diet: Regular Addtl Attending Provider Instructions: You have steri strips over your incisions. You may shower with these on starting 09/22/22 Pending Studies at Discharge: Yes Stand-Alone Forms: [employer] Smoking Cessation Medications and DC Order Prescriptions: New oxycodone-acetaminophen [Percocet] 5-325 mg tablet 1 - 2 tab PO .q4-6h PRN (Reason: pain, for initial therapy, max 6 tabs per day) Qty: 10 0RF Continued tamsulosin 0.4 mg capsule 0.4 mg PO DAILY Qty: 30 2RF Discontinued oxycodone-acetaminophen 7.5-325 mg Tablet 1 tab PO Q6H PRN (Reason: Pain) Discharge Orders: Discharge Order (Routine); Ordered 09/21/22 Ordered By: Margy Nance Admission Data Admit Date/Time: 09/20/22 16:16 Attending Provider: Rusty Chase Admit Provider: Rusty Chase Primary Care Provider: Merissa Bustillo Other Interventions: Discharge Summary Assessment (RN) Last Done: 09/21/22 14:30 Coding Level of Care Code 98664 IN/OBS DISCH 30 MIN/LESS Diagnoses Acute cholecystitis K81.0
== END 2022-09-21 15:54 | disposition home or self-care (01) | DRG 419 ==
LOC: ED 15:47 → EDINP 16:16 → 3W 20:53

== ENCOUNTER 2023-03-19 12:10 | Inpatient (IN) ==
[2023-03-19] MEDS ORDERED: SODIUM CHLORIDE 0.9% 500 ML IV STA (12:19)
[2023-03-19] MEDS ORDERED: KETOROLAC TROMETHAMINE 15 MG/ML VIAL IV STA (12:19)
[2023-03-19] MEDS ORDERED: ONDANSETRON INJ 2 MG/ML 2 ML VIAL IV STA (12:19)
[2023-03-19 13:03] LABS: Basophils # (auto) 0.06 K/uL (0.00-0.20); Basophils % (auto) 0.4 %; Eosinophils # (auto) 0.29 K/uL (0.00-0.50); Eosinophils % (auto) 2.1 %; Hematocrit (blood only) 51.9 % (37.0-47.0); Hemoglobin 17.5 g/dl (12.0-16.0); Immature Granulocytes # (auto) 0.03 K/uL (0.01-0.20); Immature Granulocytes % (auto) 0.2 %; Lymphocytes # (auto) 1.02 K/uL (1.20-3.40); Lymphocytes % (auto) 7.4 %; Mean Corpuscular Hemoglobin 29.1 pg (25.0-34.0); Mean Corpuscular Hgb Conc 33.7 g/dL (32.0-36.0); Mean Corpuscular Volume 86.2 fL (80.0-100.0); Monocytes # (auto) 0.49 K/uL (0.11-0.59); Monocytes % (auto) 3.5 %; Neutrophils # (auto) 11.94 K/uL (1.40-6.50); Neutrophils % (auto) 86.4 %; Platelet Count 222 K/uL (130-400); RDW Coefficient of Variation 12.6 % (11.5-14.5); RDW Standard Deviation 39.6 fL (36.4-46.3); Red Blood Count 6.02 M/uL (4.20-5.40); White Blood Count 13.83 K/ul (4.8-10.8)
[2023-03-19 13:17] LABS: Albumin Globulin Ratio 1.6 (0.9-2); Albumin Level 4.7 gm/dl (3.4-5.0); BUN Creatinine Ratio 14.4 (10-20); Bilirubin,Total 0.7 mg/dl (0.2-1.0); Creatinine Clr Calc Pharmacy 76.6 ml/min; Est GFR (African American) 79.5 ml/min; Est GFR (Non-African American) 68.6 ml/min; Total Protein 7.7 gm/dl (6.0-8.3)
--- NOTE | 2023-03-19 14:30 | CT Scan Report ---
CT OF THE ABDOMEN AND PELVIS WITHOUT CONTRAST CLINICAL HISTORY: Bilateral ureteral stents, pain/N/V. COMPARISON STUDY: CT of the abdomen and pelvis March 17, 2023. TECHNIQUE: Axial images of the abdomen and pelvis were obtained without IV contrast. Images were revi ewed in the axial, sagittal, and coronal planes. Automated exposure control was utilized for the ashly dy. A dose lowering technique was utilized adhering to the principles of ALARA. FINDINGS: Lung bases are unremarkable. No pneumatosis, free air or portal venous gas is present. Exte nsive bilateral renal calculi are again noted. Bilateral ureteral stents are well positioned. Left hy dronephrosis on CT of March 17, 2023 has significantly improved. There is mild left collecting sys tem dilatation. There is no right hydronephrosis. An 8 mm proximal left ureteral calculus is noted. T here are multiple small distal bilateral ureteral calculi/calculi fragments. The largest on the right measures 4 mm. The largest on the left measures up to 3 mm. The ureteral calculus burden has signifi cantly decreased since CT of March 17, 2023. There is mild bilateral periureteral stranding. Evalu ation of the remainder of the abdomen and pelvis is suboptimal on this unenhanced exam. There is no b iliary ductal dilatation status post cholecystectomy. Liver, spleen, adrenal glands and pancreas are unremarkable. The appendix is unremarkable. There is no evidence for a bowel obstruction. Intrauterin e device is in place. There is no lymphadenopathy. No fluid collections are present. IMPRESSION: 1. Well-positioned bilateral ureteral stents. Significant improvement in left hydronephrosis since CT of March 17, 2023. Mild left collecting system dilatation. No right hydronephrosis. Mild bilatera l periureteral stranding. 2. 8 mm proximal left ureteral calculus. Multiple small distal bilateral ureteral calculi/calculi fra gments. Ureteral calculus burden significantly decreased since CT of March 17, 2023. 3. Extensive bilateral nephrolithiasis. ACT 112: Negative or not required by law. Electronically signed by: Herb Kaiser M.D. 03/19/2023 2:27 PM
[2023-03-19 14:49] LABS: Appearance Urine Cloudy (Clear); Bilirubin Urine Negative (Negative); Blood Urine 2+ (Negative); Color Urine Red; Glucose Urine UA Negative (Negative); Ketones Urine Negative (Negative); Leukocyte Esterase Urine 1+ (Negative); Nitrite Urine Negative (Negative); Protein Urine 3+ (Negative); Specific Gravity Urine 1.025 (1.000-1.030); Urobilinogen Urine Negative (Negative)
[2023-03-19 14:54] LABS: RBC Urine >30 /hpf (0-4)
[2023-03-19 14:56] LABS: Bacteria Urine 1+ (Negative)
--- NOTE | 2023-03-19 14:59 | Emergency Department Note ---
Impression & Plan Bilateral nephrolithiasis, S/P ureteral stent placement, UTI (urinary tract infection), Hematuria ED Provider Note CHIEF COMPLAINT: Kidney stone HISTORY OF PRESENTING ILLNESS: This 47-year-old female patient presents to the emergency department for evaluation of bilateral flank pain, nausea, and vomiting. The patient is also having hematuria. Her left flank pain is worse than the right. She denies any fever or chills. The patient has a history of kidney stones and had bilateral stents placed on 03/17/[address] Henning of urology. The patient has been taking Flomax and oxycodone without improvement of her pain at home. The patient states that her pain was too severe to manage at home. The patient is unsure if she was sent home on any antibiotics, but she did not pick them up if they were sent in. She denies any chest pain or SOB. She contacted Dr. Henning who referred her to the ER. She is not on any blood thinners. Upon review of urology note from 03/17/[address] the patient had a CT scan of the abdomen pelvis with obstructing proximal left ureteral stone and bilateral distal ureteral stones with left-sided hydronephrosis and additional bilateral nonobstructive stones in the kidneys. The patient underwent cystoscopy with bilateral retrograde pyelogram and bilateral ureteral stent placement. The patient was covered with IV gentamicin preoperatively. REVIEW OF SYSTEMS: See HPI for pertinent positives and pertinent negatives. ALLERGIES: Cat dander, dog dander, Keflex, tree nuts, Cipro MEDICATIONS: None PAST MEDICAL HISTORY: Denies significant past medical history. Multiple surgeries for kidney stones. Tubal Ligation. Breast surgery. CCY. PHYSICAL EXAM: VITALS: Vitals are noted on the nurse's note and reviewed by myself. GENERAL: Non toxic, no acute distress, non-diaphoretic. SKIN: Capillary refill <2 sec. EYES: PERRLA. EOMI. Conjunctivae without injection, sclerae without icterus. NOSE: Patent without discharge. MOUTH: Mucous membranes moist. Uvula midline. Airway patent. NECK: Supple without nuchal rigidity. HEART: Regular rate and rhythm without murmurs gallops or rubs. LUNGS: Clear to auscultation bilaterally without wheezes, rales or rhonchi. No retractions or accessory muscle use. ABDOMEN: Positive bowel sounds x 4. Normal tympanic percussion. Soft, mildly tender to palpation in the left lower quadrant. No masses or organomegaly. No CVA tenderness. Hdez sign negative. No guarding or rebound tenderness. No focal RLQ tenderness. MUSCULOSKELETAL: No gross musculoskeletal defects. NEURO: Patient was alert and oriented. No focal neurological deficits. DIFFERENTIAL DIAGNOSIS: Differential diagnosis includes hepatitis, pancreatitis, cholecystitis, cholelithiasis, appendicitis, kidney stone, pyelonephritis, UTI, gastritis, gastroenteritis, mesenteric adenitis, obstruction, constipation, hernia, abdominal abscess, perforation, diverticulitis, IBD, ischemic colitis, abdominal aortic aneurysm, , ectopic , ovarian cyst, ovarian torsion, acute salpingitis, or others. ED COURSE AND MEDICAL DECISION MAKING: MEDICATIONS GIVEN: 1 L normal saline solution bolus, Toradol 15 mg IV, Zofran 4 mg IV, Zosyn 4.5 g IV. INTERPRETATION OF LABS: I interpreted the labs with full lab results as below in the lab section of this note. White blood cell count elevated at 13.83, but improved from 14.66 on 03/17/2023. Hemoglobin elevated at 17.5 compared to 16.5 on 03/17/2023. Platelet count is normal. CMP is normal other than a glucose of 109 and alk phos of 113. Urinalysis with 3+ protein, 2+ blood, 1+ leukocyte Estrace, greater than 30 red blood cells, 10-30 white blood cells, 5-10 epithelial cells, 1+ bacteria concerning for infection with indwelling ureteral stents. Urine culture is pending. INTERPRETATION OF IMAGING: Imaging studies were interpreted by myself and read by radiology as per the imaging section of this note. CT scan of the abdomen pelvis without contrast shows well-positioned bilateral ureteral stents. There is significant improvement in the left hydronephrosis, but continued mild left collecting system dilation. No right hydronephrosis. Mild bilateral periureteral stranding. There is an 8 mm proximal left ureteral calculus with multiple small distal bilateral ureteral calculi/calculi fragments. Ureteral calculus burden significant decreased since CT scan on 03/17/2023. Extensive bilateral nephrolithiasis. EXTERNAL RECORDS REVIEWED: I reviewed the patient's ER records as well as urology notes and procedure report from 03/17/2023 as summarized above. CONSULTATIONS: Dr. Henning of urology. On-call hospitalist. MDM SUMMARY: Due to abnormally long wait times, I evaluated the patient in a triage room and then reevaluated the patient when she was taken back to an exam room. The patient has bilateral ureteral stents in place due to multiple small bilateral ureteral calculi with a continued large proximal left ureteral calculus. The patient had been taking her Flomax, ibuprofen, Tylenol, and oxycodone at home without relief of her symptoms. An IV lock was placed and labs were drawn. The patient was hydrated with IV fluids and given Toradol and Zofran with improvement of her symptoms. Laboratory studies without significant abnormalities. Urine is concerning for infection especially given the indwelling ureteral stents. CT scan as above did show improvement of the hydronephrosis and decreased ureteral calculus burden, but still showed multiple small distal bilateral ureteral calculi as well as an 8 mm proximal left ureteral calculus. I spoke with Dr. Henning of urology who recommended the patient be admitted for IV antibiotics with possible stent removal or surgical intervention tomorrow. Urology recommended medicine admit the patient. After discussion with the patient, the ED pharmacist, and urology given the patient's concern for allergies, the patient was given IV Zosyn since it appears that she has been given amoxicillin as well as cephalosporins after her documented cephalexin allergy many years ago. I spoke with the on-call hospitalist who agreed to admit the patient for further management. Please refer to their dictation for further details. The patient's care was transferred in stable condition. DIAGNOSIS: Kidney stones Bilateral ureteral stents present Possible UTI Hematuria Past Med/Surg History Medical History History of COVID-19 2019- H; resolved Duodenal ulcer NO CURRENT PROBLEM WITH Fibrocystic breast disease (FCBD) in female Bilateral nephrolithiasis HX KIDNEY STONES - MULTIPLE Obesity Surgical History Hx laparoscopic cholecystectomy (09/21/22) Laparoscopic Cholecystectomy with Cholangiogram(Not Applicable) - Rusty Chase MD, FACS H/O right breast biopsy Right breast biopsy. Dr. Vincent 11/03/2020 History of ureter stent Hx of cystoscopy MULTIPLE H/O lithotripsy MULTIPLE HX LASER LITHO Nausea and vomiting after administration of anesthetic agent History of bilateral tubal ligation History of tooth extraction wisdom teeth Family History Uncle Family hx of colon cancer Colorectal cancer Grandmother Breast cancer Denies family history of Ovarian cancer Prostate cancer Myocardial infarction Social History Smoking Status: Never smoker Second Hand Exposure: No; Do You Dip or Chew Tobacco: No; Hx Alcohol Use: No Hx Substance Use: No Preferred Language: Kazakh Communication Ability: Effective Visual Impairment: No Limitations Hearing Ability: Normal Photo Tech Required: No Beliefs That Will Affect Care: None marital status: Current Living Situation: Spouse and Family Current Living Situation Comment: CHILDREN current occupational status: employed current occupation: [employer] How many Children do You have: 2 Feels Safe at Home: Yes during the past year weight has: increased > 10 lbs Assistive Devices: Glasses Allergies Allergies Allergy/AdvReac Type Severity Reaction Status Date / Time cat dander Allergy Unknown CAT/DOG-ITCHY Verified 03/17/23 10:04 EYES RUNNY NOSE cephalexin Allergy Unknown Hives Verified 03/17/23 10:04 dog dander Allergy Unknown Itchy eyes Unverified 03/17/23 10:04 and runny nose tree nut Allergy Unknown Anaphylaxis Verified 03/17/23 10:04 ciprofloxacin [From Cipro] AdvReac Unknown HIVES, Verified 03/17/23 10:04 THROAT SWELLING Home Meds Home Medications Medication Instructions Recorded Confirmed oxycodone 5 mg tablet 5 mg PO Q4H PRN Pain 03/19/23 03/19/23 Previous Rx's Medication Instructions Recorded tamsulosin 0.4 mg capsule 0.4 mg PO DAILY #30 caps 03/17/23 Results & Data (ED) Vital Signs Vital Signs - 24 hr 03/19/23 12:14 03/19/23 15:14 03/19/23 17:00 Temperature 36.8 C Temperature Source Temporal Artery Scan Pulse Rate 78 Pulse Rate [Right Finger] 86 70 Respiratory Rate 18 19 16 Respiratory Effort / Characteristics Non-Labored Spontaneous Non-Labored Spontaneous Respiratory Depth Normal Normal Respiratory Pattern Regular Blood Pressure 140/92 Blood Pressure [Right Arm] 144/94 H 117/72 Blood Pressure Mean 108 Blood Pressure Mean [Right Arm] 110 87 Blood Pressure Position Sitting Pulse Oximetry 97 97 97 Oxygen Delivery Method Room Air Room Air Room Air Sepsis Recent Fever Within 48 Hours No Sepsis New/Unexplained Change in Mental Status N/A Sepsis Action Taken by Nursing No Action Required Laboratory Data 03/19/23 12:46 03/19/23 12:46 Lab Results 03/19/23 03/19/23 03/19/23 Range/Units 12:46 12:50 14:16 WBC 13.83 H (4.8-10.8) K/ul RBC 6.02 H (4.20-5.40) M/uL Hgb 17.5 H (12.0-16.0) g/dl Hct 51.9 H (37.0-47.0) % MCV 86.2 (80.0-100.0) fL MCH 29.1 (25.0-34.0) pg MCHC 33.7 (32.0-36.0) g/dL RDW Std Deviation 39.6 (36.4-46.3) fL RDW Coeff of Agusto 12.6 (11.5-14.5) % Plt Count 222 (130-400) K/uL MPV 11.0 (9.4-12.4) fL Immature Gran % (Auto) 0.2 % Neut % (Auto) 86.4 % Lymph % (Auto) 7.4 % [place] % (Auto) 3.5 % Eos % (Auto) 2.1 % Baso % (Auto) 0.4 % Neut # (Auto) 11.94 H (1.40-6.50) K/uL Lymph # (Auto) 1.02 L (1.20-3.40) K/uL [place] # (Auto) 0.49 (0.11-0.59) K/uL Eos # (Auto) 0.29 (0.00-0.50) K/uL Baso # (Auto) 0.06 (0.00-0.20) K/uL Immature Gran # (Auto) 0.03 (0.01-0.20) K/uL Sodium 140 (136-145) mmol/L Potassium 4.0 (3.5-5.1) mmol/L Chloride 104 (98-107) mmol/L Carbon Dioxide 29 (21-32) mmol/L Anion Gap 7 (3-11) BUN 14 (6-23) mg/dl Creatinine 0.97 (0.6-1.2) mg/dl Est Cr Clr Drug Dosing 76.6 ml/min Est GFR ( Amer) 79.5 ml/min Est GFR (Non-Af Amer) 68.6 ml/min BUN/Creatinine Ratio 14.4 (10-20) Glucose 109 H (70-99(Fasting)) mg/dl Calcium 10.0 (8.6-10.3) mg/dl Total Bilirubin 0.7 (0.2-1.0) mg/dl AST 20 (13-39) U/L ALT 27 (7-52) U/L Alkaline Phosphatase 113 H (34-104) U/L Total Protein 7.7 (6.0-8.3) gm/dl Albumin 4.7 (3.4-5.0) gm/dl Globulin 3.0 (2.5-4.0) gm/dl Albumin/Globulin Ratio 1.6 (0.9-2) Procalcitonin < 0.05 (0-0.5) ng/ml Urine Color Red Urine Appearance Cloudy A (Clear) Urine pH 7.0 (4.5-7.5) Ur Specific [place] 1.025 (1.000-1.030) Urine Protein 3+ H (Negative) Urine Glucose (UA) Negative (Negative) Urine Ketones Negative (Negative) Urine Blood 2+ H (Negative) Urine Nitrite Negative (Negative) Urine Bilirubin Negative (Negative) Urine Urobilinogen Negative (Negative) Ur Leukocyte Esterase 1+ H (Negative) Urine RBC >30 H (0-4) /hpf Urine WBC 10-30 H (0-5) /hpf Ur Epithelial Cells 5-10 H (0-5) /lpf Urine Bacteria 1+ H (Negative) Administered Medications Parenteral Electrolytes (Plasma-Lyte A Ph 7.4) 1,000 mls @ 125 mls/hr IV .Q8H ISABELLA Stop: 04/18/23 17:59 Last Admin: 03/19/23 18:29 Dose: 125 mls/hr Documented By: KATHERINE Discontinued Medications Sodium Chloride (Nss) 500 mls @ 999 mls/hr IV .Q31M STA Stop: 03/19/23 12:49 Last Infusion: 03/19/23 15:13 Dose: Infused Documented By: Admin: 03/19/23 12:51 Dose: 999 mls/hr Documented By: BENNETT Sodium Chloride (Nss) 500 mls @ 999 mls/hr IV .Q31M ONE Stop: 03/19/23 15:37 Last Infusion: 03/19/23 15:49 Dose: Infused Documented By: Admin: 03/19/23 15:17 Dose: 999 mls/hr Documented By: MORGAN Piperacillin Sod/Tazobactam Sod (Zosyn) 4.5 gm in 100 mls @ 200 mls/hr IV NOW ONE Stop: 03/19/23 16:07 Last Infusion: 03/19/23 16:21 Dose: Infused Documented By: Admin: 03/19/23 15:46 Dose: 200 mls/hr Documented By: KATHERINE Sodium Chloride (Nss) 1,000 mls @ 999 mls/hr IV .Q1H1M ONE Stop: 03/19/23 16:52 Last Infusion: 03/19/23 17:33 Dose: Infused Documented By: Admin: 03/19/23 16:30 Dose: 999 mls/hr Documented By: KATHERINE Ketorolac Tromethamine (Ketorolac Tromethamine 15 Mg/Ml Vial) 15 mg IV ONE STA Stop: 03/19/23 12:20 Last Admin: 03/19/23 12:51 Dose: 15 mg Documented By: BENNETT Ondansetron HCl (Ondansetron Inj 2 Mg/Ml 2 Ml Vial) 4 mg IV NOW STA Stop: 03/19/23 12:20 Last Admin: 03/19/23 12:51 Dose: 4 mg Documented By: BENNETT Imaging Data Radiologist's Impression: Abdomen/Pelvis CT 03/19/23 13:26 CT OF THE ABDOMEN AND PELVIS WITHOUT CONTRAST CLINICAL HISTORY: Bilateral ureteral stents, pain/N/V. COMPARISON STUDY: CT of the abdomen and pelvis March 17, 2023. TECHNIQUE: Axial images of the abdomen and pelvis were obtained without IV contrast. Images were reviewed in the axial, sagittal, and coronal planes. Automated exposure control was utilized for the study. A dose lowering technique was utilized adhering to the principles of ALARA. FINDINGS: Lung bases are unremarkable. No pneumatosis, free air or portal venous gas is present. Extensive bilateral renal calculi are again noted. Bilateral ureteral stents are well positioned. Left hydronephrosis on CT of March 17, 2023 has significantly improved. There is mild left collecting system dilatation. There is no right hydronephrosis. An 8 mm proximal left ureteral calculus is noted. There are multiple small distal bilateral ureteral calculi/calculi fragments. The largest on the right measures 4 mm. The largest on the left measures up to 3 mm. The ureteral calculus burden has significantly decreased since CT of March 17, 2023. There is mild bilateral periureteral stranding. Evaluation of the remainder of the abdomen and pelvis is suboptimal on this unenhanced exam. There is no biliary ductal dilatation status post cholecystectomy. Liver, spleen, adrenal glands and pancreas are unremarkable. The appendix is unremarkable. There is no evidence for a bowel obstruction. Intrauterine device is in place. There is no lymphadenopathy. No fluid collections are present. IMPRESSION: 1. Well-positioned bilateral ureteral stents. Significant improvement in left hydronephrosis since CT of March 17, 2023. Mild left collecting system dilatation. No right hydronephrosis. Mild bilateral periureteral stranding. 2. 8 mm proximal left ureteral calculus. Multiple small distal bilateral ureteral calculi/calculi fragments. Ureteral calculus burden significantly decreased since CT of March 17, 2023. 3. Extensive bilateral nephrolithiasis. ACT 112: Negative or not required by law. Electronically signed by: Herb Kaiser M.D. 03/19/2023 2:27 PM Discharge Plan Visit Data Chief Complaint: Kidney Stone Stated Complaint: KIDNEY STONE - REFERRED BY DR HENNING ED Provider: Dakota Khan ED Midlevel Provider: Hermila Lutz Discharge Problem: Bilateral nephrolithiasis, S/P ureteral stent placement, UTI (urinary tract infection), Hematuria Patient Disposition: Admitted As Inpatient Condition: Good Discharge Instructions Interventions: ED Discharge Assessment Last Done: 03/19/23 19:44 Discharge Problem: UTI (urinary tract infection) Qualifiers: Urinary tract infection type: acute cystitis Hematuria presence: with hematuria Qualified Code(s): N30.01 - Acute cystitis with hematuria Hematuria Qualifiers: Hematuria type: gross Qualified Code(s): R31.0 - Gross hematuria
[2023-03-19] MEDS ORDERED: SODIUM CHLORIDE 0.9% 500 ML IV ONE (15:07)
[2023-03-19] MEDS ORDERED: PIPERACILLIN/TAZOBACTAM 4.5 GM/100 ML BAG IV ONE (15:38)
[2023-03-19] MEDS ORDERED: SODIUM CHLORIDE 0.9% 1,000 ML IV ONE (15:52)
--- NOTE | 2023-03-19 15:53 | History & Physical Report ---
Date of Service March 19, 2023 Assessment & Plan (1) Ureteral stent present: Plan: with associated pain although much improved after one dose of Toradol Will avoid further Toradol due to history of duodenal ulcer Acetaminophen 1g PO TID, oxycodone 5-10mg PO q4h PRN for breakthrough pain NPO after midnight Consult urology (2) UTI (urinary tract infection): Plan: UA somewhat concerning for infection Blood cultures not taken in ER, will take now but notably after first dose of antibiotics Ceftriaxone 2g IV daily pending urine/blood culture results (3) Nephrolithiasis: Plan: Continue tamsulosin Consult urology (4) Hematuria: Plan: Avoiding VTE prophylaxis and further toradol Treat for infection as above, stone management per urology Plan VTE Prophyalxis - avoiding chemical prophyalxis due to hematuria Diet - regular, NPO after midnight Disposition - admit to med/surg Admission and Anticipated Discharge Date Admission Date: March 19, 2023 History of Present Illness Chief Complaint: Low abdominal pain Primary Care Provider: DIGNA Liao Charlie is a 47 year old female who presents to the ER with lower abdominal pain, nausea, vomiting and hematuria. She has a recent diagnosis of bilateral ureterolithiasis and bilateral hydroureter/nephrosis on CT March 17. This was treated with bilateral stent insertion by Dr Jane the same day and she was discharged. She reports the stent initially helped with the pain but then it came back with increasing frequency and severity the last two days. She took an oxycodone today and it didn't touch her pain therefore decided to come to the ER. She denies any dysuria, fever or chills but UA somewhat concerning for infection. Allergies Allergy/AdvReac Type Severity Reaction Status Date / Time cat dander Allergy Unknown CAT/DOG-ITCHY Verified 03/17/23 10:04 EYES RUNNY NOSE cephalexin Allergy Unknown Hives Verified 03/17/23 10:04 dog dander Allergy Unknown Itchy eyes Unverified 03/17/23 10:04 and runny nose tree nut Allergy Unknown Anaphylaxis Verified 03/17/23 10:04 ciprofloxacin [From Cipro] AdvReac Unknown HIVES, Verified 03/17/23 10:04 THROAT SWELLING Home Medications Medication Instructions Recorded Confirmed Type tamsulosin 0.4 mg capsule 0.4 mg PO DAILY #30 caps 03/17/23 03/19/23 Rx oxycodone 5 mg tablet 5 mg PO Q4H PRN Pain 03/19/23 03/19/23 History Past Med/Surg History Medical History History of COVID-19 2019- H; resolved Duodenal ulcer NO CURRENT PROBLEM WITH Fibrocystic breast disease (FCBD) in female Bilateral nephrolithiasis HX KIDNEY STONES - MULTIPLE Obesity Surgical History Hx laparoscopic cholecystectomy (09/21/22) Laparoscopic Cholecystectomy with Cholangiogram(Not Applicable) - Rusty Chase MD, FACS H/O right breast biopsy Right breast biopsy. Dr. Vincent 11/03/2020 History of ureter stent Hx of cystoscopy MULTIPLE H/O lithotripsy MULTIPLE HX LASER LITHO Nausea and vomiting after administration of anesthetic agent History of bilateral tubal ligation History of tooth extraction wisdom teeth Family History Uncle Family hx of colon cancer Colorectal cancer Grandmother Breast cancer Denies family history of Ovarian cancer Prostate cancer Myocardial infarction Social History Smoking Status: Never smoker Second Hand Exposure: No; Do You Dip or Chew Tobacco: No; Hx Alcohol Use: No Hx Substance Use: No Preferred Language: Arabic Communication Ability: Effective Visual Impairment: No Limitations Hearing Ability: Normal Client Success Specialist Required: No Beliefs That Will Affect Care: None marital status: Current Living Situation: Spouse Current Living Situation Comment: CHILDREN current occupational status: employed current occupation: [employer] How many Children do You have: 2 Feels Safe at Home: Yes Safety Concerns: Feels Safe At This Time during the past year weight has: increased > 10 lbs Assistive Devices: Glasses Review of Systems Review of Systems: All systems reviewed & are unremarkable except as noted in HPI & below Physical Exam Constitutional: WD/WN, vitals as above Eyes: + anicteric sclerae; normal pupil size ENMT: external ear and nose normal, oropharynx normal Respiratory: normal respiratory effort, lungs clear to auscultation Cardiovascular: RRR, no murmur, no edema Gastrointestinal (Abdomen): Inspection/Auscultation: abdomen normal to inspection; abdomen not distended Percussion/Palpation: + abdomen tender (suprapubic), + guarding and abdomen soft; abdomen not rigid Musculoskeletal: no cyanosis or clubbing, extremities motor strength 5/5 Skin: no rashes, warm and dry Neurologic: moves all extremities and awake; not confused Psychiatric: A+Ox3, euthymic affect Genitourinary: no CVA tenderness Results & Data Results & Data Vital Signs (Past 12 Hours) Vital Signs Temp Pulse Pulse Resp BP BP Pulse Ox 03/19/23 15:14 86 19 144/94 H 97 03/19/23 12:14 36.8 C 78 18 140/92 97 O2 Del Method 03/19/23 15:14 Room Air 03/19/23 12:14 Room Air Laboratory Results Abnormal lab results 03/19/23 03/19/23 Range/Units 12:46 14:16 WBC 13.83 H (4.8-10.8) K/ul RBC 6.02 H (4.20-5.40) M/uL Hgb 17.5 H (12.0-16.0) g/dl Hct 51.9 H (37.0-47.0) % Neut # (Auto) 11.94 H (1.40-6.50) K/uL Lymph # (Auto) 1.02 L (1.20-3.40) K/uL Glucose 109 H (70-99(Fasting)) mg/dl Alkaline Phosphatase 113 H (34-104) U/L Urine Appearance Cloudy A (Clear) Urine Protein 3+ H (Negative) Urine Blood 2+ H (Negative) Ur Leukocyte Esterase 1+ H (Negative) Urine RBC >30 H (0-4) /hpf Urine WBC 10-30 H (0-5) /hpf Ur Epithelial Cells 5-10 H (0-5) /lpf Urine Bacteria 1+ H (Negative) Diagnostic Findings CT OF THE ABDOMEN AND PELVIS WITHOUT CONTRAST CLINICAL HISTORY: Bilateral ureteral stents, pain/N/V. COMPARISON STUDY: CT of the abdomen and pelvis March 17, 2023. TECHNIQUE: Axial images of the abdomen and pelvis were obtained without IV contrast. Images were reviewed in the axial, sagittal, and coronal planes. Automated exposure control was utilized for the study. A dose lowering technique was utilized adhering to the principles of ALARA. FINDINGS: Lung bases are unremarkable. No pneumatosis, free air or portal venous gas is present. Extensive bilateral renal calculi are again noted. Bilateral ureteral stents are well positioned. Left hydronephrosis on CT of March 17, 2023 has significantly improved. There is mild left collecting system dilatation. There is no right hydronephrosis. An 8 mm proximal left ureteral calculus is noted. There are multiple small distal bilateral ureteral calculi/calculi fragments. The largest on the right measures 4 mm. The largest on the left measures up to 3 mm. The ureteral calculus burden has significantly decreased since CT of March 17, 2023. There is mild bilateral periureteral s tranding. Evaluation of the remainder of the abdomen and pelvis is suboptimal on this unenhanced exam. There is no biliary ductal dilatation status post cholecystectomy. Liver, spleen, adrenal glands and pancreas are unremarkable. The appendix is unremarkable. There is no evidence for a bowel obstruction. Intrauterine device is in place. There is no lymphadenopathy. No fluid collections are present. IMPRESSION: 1. Well-positioned bilateral ureteral stents. Significant improvement in left hydronephrosis since CT of March 17, 2023. Mild left collecting system dilatation. No right hydronephrosis. Mild bilateral periureteral stranding. 2. 8 mm proximal left ureteral calculus. Multiple small distal bilateral ureteral calculi/calculi fragments. Ureteral calculus burden significantly decreased since CT of March 17, 2023. 3. Extensive bilateral nephrolithiasis. Medications Administered ER Medications Given: Toradol 15mg IV Ondansetron 4mg IV Normal saline total 1L bolus Code Status & VTE Plan Code Status Full VTE Prophylaxis Plan VTE Prophylaxis will be ordered: No PG Care Time/CCT Total # of Minutes Spent Total Time Spent with Patient: Total time spent is greater than 50% in coordination of care (as documented) at patient's floor/unit and/or counseling patient: Coding Level of Care Code 00300 INT INP/OBS CARE 2/55MIN Diagnoses Ureteral stent present Z96.0 UTI (urinary tract infection) N39.0; R31.9 Hematuria presence: with hematuria Urinary tract infection type: site unspecified Nephrolithiasis N20.0 Hematuria R31.9 (2) UTI (urinary tract infection) Hematuria presence: with hematuria Urinary tract infection type: site unspecified Qualified Code(s): N39.0 - Urinary tract infection, site not specified; R31.9 - Hematuria, unspecified
[2023-03-19] MEDS: PLASMA-LYTE A 1,000 ML IV SCH (18:29)
[2023-03-19] MEDS ORDERED: oxyCODONE HCL IR 5 MG TAB (IMMEDIATE RELEASE) PO PRN ×2 (20:10)
[2023-03-19] MEDS: ACETAMINOPHEN 500 MG TAB PO SCH (22:27)
[2023-03-19] MEDS: cefTRIAXone SODIUM 2,000 MG in DEXTROSE 5 % MINI-B 50 ML IV SCH (22:27)
[2023-03-20] MEDS: PLASMA-LYTE A 1,000 ML IV SCH ×3 (03:19→18:19)
[2023-03-20] MEDS ORDERED: ONDANSETRON INJ 2 MG/ML 2 ML VIAL IV PRN ×2 (06:35→15:21)
[2023-03-20 07:21] LABS: Basophils # (auto) 0.03 K/uL (0.00-0.20); Basophils % (auto) 0.5 %; Eosinophils # (auto) 0.38 K/uL (0.00-0.50); Eosinophils % (auto) 6.4 %; Hematocrit (blood only) 44.2 % (37.0-47.0); Hemoglobin 14.6 g/dl (12.0-16.0); Immature Granulocytes # (auto) 0.02 K/uL (0.01-0.20); Immature Granulocytes % (auto) 0.3 %; Lymphocytes # (auto) 1.48 K/uL (1.20-3.40); Lymphocytes % (auto) 24.9 %; Mean Corpuscular Hemoglobin 29.1 pg (25.0-34.0); Mean Platelet Volume 10.8 fL (9.4-12.4); Monocytes % (auto) 6.7 %; Neutrophils # (auto) 3.64 K/uL (1.40-6.50); Neutrophils % (auto) 61.2 %; Platelet Count 163 K/uL (130-400); RDW Coefficient of Variation 12.4 % (11.5-14.5); RDW Standard Deviation 40.1 fL (36.4-46.3); Red Blood Count 5.02 M/uL (4.20-5.40); White Blood Count 5.95 K/ul (4.8-10.8)
[2023-03-20] MEDS: TAMSULOSIN HCL 0.4 MG CAP PO SCH (07:47)
[2023-03-20] MEDS: ACETAMINOPHEN 500 MG TAB PO SCH ×3 (07:47→20:19)
[2023-03-20 08:21] LABS: Calcium 8.3 mg/dl (8.6-10.3); Potassium 3.9 mmol/L (3.5-5.1)
[2023-03-20 08:26] LABS: BUN Creatinine Ratio 18.8 (10-20); Est GFR (African American) 100.3 ml/min; Est GFR (Non-African American) 86.6 ml/min
--- NOTE | 2023-03-20 09:07 | Urology Consultation ---
Date of Consultation March 20, 2023 Assessment & Plan (1) Hydronephrosis with urinary obstruction due to ureteral calculus: (2) Flank pain: (3) Ureteral stent present: Plan 47 yo F with hx of stones admitted for flank pain status post bilateral ureteral stent placement on 03/17/23. Pt afebrile with stable vitals Continues to have flank pain L>R Labs reviewedcreatinine 0.80, WBC 5.95, hemoglobin 14.6 Urine and blood cultures are pendingcontinue broad-spectrum antibiotics and narrow per sensitivity data when available CT reviewed and discussedbilateral stents are in good position, 8 mm proximal left ureteral stone, bilateral distal ureteral calculi, additional non obstructing renal stones bilaterally Discussed options for management including outpatient stone treatment if pain is controlled versus stone treatment today She would like to proceed with stone treatment today Case discussed with Dr. Bhakta, urologist commercial pest control representative Proceed with Cystoscopy, bilateral retrograde pyelogram, bilateral ureteroscopy, laser lithotripsy, stone basketing, possible ureteral dilation and bilateral ureteral stent placement Risks and benefits of procedure to be reviewed with patient by Dr. Bhakta Keep NPO for procedure Continue supportive care and antibiotics Attending note: Patient independently assessed, examined, interviewed, and evaluated. Agree with note as above. Patient's vitals and labs were all reviewed. Pertinent values in the HPI and plan section. Imaging was reviewed interpreted by myself. Agree with read. Vitals were reviewed. Discussed findings extensively with patient and family. Reviewed with nurse practitioner as well as consulting physicians/team. Patient's complicated medical and surgical history was reviewed and summarized above. Patient's surgical, medical, social, and family history were all reviewed with pertinent values as above. Discussed patient's current diagnosis as well as concerns and issues. Reviewed different options moving forward. Discussed potential risks and benefits as well as possible options and concerns. Reviewed potential surgical options and interventions. Discussed potential issues and concerns related to intervention. Risk and benefits were discussed extensively with patient and any available family. Discussed potential risks related to anesthesia. Discussed risks of bleeding infection and injury. Patient with severe bilateral stone disease with significant burden bilaterally. Multiple stones within the ureter bilaterally causing obstructive issues. Stents are in place. Patient has considerable obstructive issues and has not had difficulty tolerating stents as well as intervention with multiple stones in the past. Extensively reviewed different options. Due to ongoing issues with pain the large stone burden bilaterally and the issues with stones within the ureters discussed different options for intervention. Risks and benefits discussed at length for procedure. These include bleeding, infection, injury to surrounding tissues or organs, and risks associated with anesthesia. Patient states understanding and agrees to proceed. Will sign consent and schedule. Patient's complicated medical and surgical history was reviewed all vitals were reviewed pertinent values in the HPI all lab work and imaging was reviewed. Agree with note as above. Imaging was independently assessed by myself. Large quantity of stones bilaterally with multiple stones in the ureters bilaterally including a large obstructing stone in the left proximal ureter numerous stones in the distal right ureter and numerous stones bilaterally with a low right greater than left burden of stones. plan for cystoscopy with bilateral ureteroscopy and stone treatment. History of Present Illness Reason for Consultation: stent pain Attending Physician: Heather Bass MD History of Present Illness This is a 47-year-old female who presented to the emergency department on 03/19/2023 for evaluation of bilateral flank pain, nausea and vomiting. She is status post bilateral stent placement on 03/17/[address] Jane for bilateral ureteral calculi. She was taking tamsulosin and oxycodone without improvement. On arrival, she was afebrile and hemodynamically stable. Labs showed WBC 13.83, hemoglobin 17.5, creatinine 0.97. Urinalysis notable for 3+ protein, 2+ blood, 1+ leukocyte esterase, >30 RBC, 10-30 WBCs 5-10 epithelials and 1+ bacteria. CT abdomen pelvis showed bilateral stents in good position, significant improvement in the left hydronephrosis since a prior CT of 03/17/2023. Mild left collecting system dilatation. No right hydronephrosis. Mild bilateral pe riureteral stranding. 8 mm proximal left ureteral calculus, multiple small distal bilateral ureteral calculi/calculi fragments. Extensive bilateral nephrolithiasis. ED course: IV fluids, Zosyn, ketorolac and ondansetron. Patient seen and examined at bedside this morning. Continues to have left > right flank pain, but improved since arrival. No fever or chills. No nausea or vomiting. She is voiding without difficulty, notes hematuria. No dysuria. She is NPO. Allergies Allergy/AdvReac Type Severity Reaction Status Date / Time cat dander Allergy Unknown CAT/DOG-ITCHY Verified 03/17/23 10:04 EYES RUNNY NOSE cephalexin Allergy Unknown Hives Verified 03/17/23 10:04 dog dander Allergy Unknown Itchy eyes Unverified 03/17/23 10:04 and runny nose tree nut Allergy Unknown Anaphylaxis Verified 03/17/23 10:04 ciprofloxacin [From Cipro] AdvReac Unknown HIVES, Verified 03/17/23 10:04 THROAT SWELLING Home Medications Medication Instructions Recorded Confirmed Type tamsulosin 0.4 mg capsule 0.4 mg PO DAILY #30 caps 03/17/23 03/19/23 Rx oxycodone 5 mg tablet 5 mg PO Q4H PRN Pain 03/19/23 03/19/23 History Patient History Medical History History of COVID-19 2019- H; resolved Duodenal ulcer NO CURRENT PROBLEM WITH Fibrocystic breast disease (FCBD) in female Bilateral nephrolithiasis HX KIDNEY STONES - MULTIPLE Obesity Surgical History Hx laparoscopic cholecystectomy (09/21/22) Laparoscopic Cholecystectomy with Cholangiogram(Not Applicable) - Rusty Chase MD, FACS H/O right breast biopsy Right breast biopsy. Dr. Vincent 11/03/2020 History of ureter stent Hx of cystoscopy MULTIPLE H/O lithotripsy MULTIPLE HX LASER LITHO Nausea and vomiting after administration of anesthetic agent History of bilateral tubal ligation History of tooth extraction wisdom teeth Family History Uncle Family hx of colon cancer Colorectal cancer Grandmother Breast cancer Denies family history of Ovarian cancer Prostate cancer Myocardial infarction Social History Smoking Status: Never smoker Second Hand Exposure: No; Do You Dip or Chew Tobacco: No; Hx Alcohol Use: No Hx Substance Use: No Preferred Language: Frisian Communication Ability: Effective Visual Impairment: No Limitations Hearing Ability: Normal Polysomnograph Tech Required: No Beliefs That Will Affect Care: None marital status: Current Living Situation: Spouse Current Living Situation Comment: CHILDREN current occupational status: employed current occupation: [employer] How many Children do You have: 2 Feels Safe at Home: Yes Safety Concerns: Feels Safe At This Time during the past year weight has: increased > 10 lbs Assistive Devices: Glasses Review of Systems Constitutional: as per Subjective / HPI Gastrointestinal: as per Subjective / HPI Genitourinary: as per Subjective / HPI Physical Exam Physical Exam: General: well-appearing, no acute distress HEENT: Normocephalic Pulmonary: Nonlabored respirations Abdomen: Nondistended Extremities: Moves all 4 spontaneously Neuro: No gross deficits Psych: alert and oriented, normal mood Skin: Warm, dry, no rashes noted Results & Data Vital Signs (Past 12 Hours) Vital Signs Temp Pulse Resp BP Pulse Ox O2 Del Method 03/20/23 07:13 36.7 C 67 18 132/84 97 Room Air PG Care Time/CCT Total # of Minutes Spent Total Time Spent with Patient: Total time spent is greater than 50% in coordination of care (as documented) at patient's floor/unit and/or counseling patient: Coding Level of Care Code 01780 IN/OBS CONSULT LVL 4,60M Diagnoses Hydronephrosis with urinary obstruction due to ureteral calculus N13.2 Flank pain R10.9 Ureteral stent present Z96.0
--- NOTE | 2023-03-20 14:04 | Anesthesiology Consultation ---
Date of Service March 20, 2023 Assessment & Plan (1) Encounter for pre-operative examination: Chart Review Chart Review: Acceptable Risk for Surgery History Surgery Operation Date: 03/20/23 09:20 Proposed Procedures p Cystoscopy, Bilateral Ureteroscopy, Laser Lithotripsy, Bilateral Stent Exchange - Ketan Bhakta DO Height/Weight Height: 5 ft 4 in Weight: 92.9 kg Allergies Allergy/AdvReac Type Severity Reaction Status Date / Time cat dander Allergy Unknown CAT/DOG-ITCHY Verified 03/17/23 10:04 EYES RUNNY NOSE cephalexin Allergy Unknown Hives Verified 03/17/23 10:04 dog dander Allergy Unknown Itchy eyes Unverified 03/17/23 10:04 and runny nose tree nut Allergy Unknown Anaphylaxis Verified 03/17/23 10:04 ciprofloxacin [From Cipro] AdvReac Unknown HIVES, Verified 03/17/23 10:04 THROAT SWELLING Medications Home Medications Medication Instructions Recorded Confirmed Last Taken tamsulosin 0.4 mg capsule 0.4 mg PO DAILY #30 caps 03/17/23 03/19/23 03/19/23 10:00 oxycodone 5 mg tablet 5 mg PO Q4H PRN Pain 03/19/23 03/19/23 03/19/23 Active Medications Generic Name Dose Route Start Last Admin Trade Name Freq PRN Reason Stop Dose Admin Acetaminophen 1,000 mg 03/19/23 21:00 03/20/23 13:35 Acetaminophen 500 Mg Tab PO 04/18/23 20:59 Not Given TID ISABELLA Parenteral Electrolytes 1,000 mls @ 125 mls/hr 03/19/23 18:00 03/20/23 11:22 Plasma-Lyte A Ph 7.4 IV 04/18/23 17:59 125 mls/hr .Q8H ISABELLA Administration Ceftriaxone Sodium 2,000 mg/ 50 mls @ 100 mls/hr 03/19/23 20:30 03/19/23 23:06 Dextrose IV 03/29/23 20:29 Infused Q24H ISABELLA Infusion Protocol Ondansetron HCl 4 mg 03/20/23 06:35 03/20/23 11:43 Ondansetron Inj 2 Mg/Ml 2 Ml Vial IV 04/19/23 06:34 4 mg Q4H PRN Administration Nausea Tamsulosin HCl 0.4 mg 03/20/23 09:00 03/20/23 07:47 Tamsulosin Hcl 0.4 Mg Cap PO 04/19/23 08:59 0.4 mg DAILY ISABELLA Administration NPO Date Last Intake of Fluids: 03/19/23 Date Last Intake of Solids: 03/19/23 Past Medical History Medical History History of COVID-19 2020- H; resolved Duodenal ulcer NO CURRENT PROBLEM WITH Fibrocystic breast disease (FCBD) in female Bilateral nephrolithiasis HX KIDNEY STONES - MULTIPLE Obesity Past Family History Family History Uncle Family hx of colon cancer Colorectal cancer Grandmother Breast cancer Denies family history of Ovarian cancer Prostate cancer Myocardial infarction Past Surgical History Surgical History Hx laparoscopic cholecystectomy (09/21/22) Laparoscopic Cholecystectomy with Cholangiogram(Not Applicable) - Rusty Chase MD, FACS H/O right breast biopsy Right breast biopsy. Dr. Vincent 11/03/2020 History of ureter stent Hx of cystoscopy MULTIPLE H/O lithotripsy MULTIPLE HX LASER LITHO Nausea and vomiting after administration of anesthetic agent History of bilateral tubal ligation History of tooth extraction wisdom teeth Social History Smoking Status: Never smoker Do You Dip or Chew Tobacco: No Hx Alcohol Use: No alcohol intake frequency: holidays/special occasions only Hx Substance Use: No substance use type: does not use Physical Exam Vital Signs Last Vital Signs Temp 36.7 C 03/20/23 07:13 Pulse 67 03/20/23 07:13 Resp 18 03/20/23 07:13 BP 132/84 03/20/23 07:13 Pulse Ox 97 03/20/23 07:13 O2 Del Method Room Air 03/20/23 07:13 Testing Laboratory Results 03/20/23 06:30 03/20/23 06:30 Urine Color Red 03/19/23 14:16 Urine Appearance Cloudy (Clear) A 03/19/23 14:16 Urine pH 7.0 (4.5-7.5) 03/19/23 14:16 Ur Specific Drew 1.025 (1.000-1.030) 03/19/23 14:16 Urine Protein 3+ (Negative) H 03/19/23 14:16 Urine Glucose (UA) Negative (Negative) 03/19/23 14:16 Urine Ketones Negative (Negative) 03/19/23 14:16 Urine Nitrite Negative (Negative) 03/19/23 14:16 Ur Leukocyte Esterase 1+ (Negative) H 03/19/23 14:16 Urine RBC >30 /hpf (0-4) H 03/19/23 14:16 Urine WBC 10-30 /hpf (0-5) H 03/19/23 14:16 Ur Epithelial Cells 5-10 /lpf (0-5) H 03/19/23 14:16 03/19/23 14:16 Urine Culture - Preliminary Urine,Clean Catch Pin-point growth present, reincubating.
--- NOTE | 2023-03-20 14:24 | Hospitalist Progress Note ---
Date of Service March 20, 2023 Assessment & Plan (1) Ureteral stent present: Plan: Placed 03/[address] Jane Pain much improved after one dose of Toradol, will avoid further Toradol due to history of duodenal ulcer Acetaminophen 1g PO TID, oxycodone 5-10mg PO q4h PRN for breakthrough pain NPO after midnight Urology consulted - plan for Cystoscopy, bilateral retrograde pyelogram, bilateral ureteroscopy, laser lithotripsy, stone basketing, possible ureteral dilation and bilateral ureteral stent placement on 03/20 (2) UTI (urinary tract infection): Plan: UA somewhat concerning for infection, culture still pending Blood cultures (after 1st dose of abx) - pending Ceftriaxone 2g IV daily pending urine/blood culture results (3) Nephrolithiasis: Plan: Continue tamsulosin Urology recommendations as above (4) Hematuria: Plan: Avoiding chemical VTE prophylaxis Treat for infection as above, stone management per urology as above Plan VTE Prophylaxis - avoiding chemical prophylaxis due to hematuria. Encourge ambulation Disposition - continued inpatient stay, OR today. Possible d/c tomorrow pending OR and cultures Admission and Anticipated Discharge Date Admission Date: March 19, 2023 Supervising Physician Co-Signing Physician Notes PA Supervision Note: I did not personally see or examine the patient today, but I verified all cisneros points of LANRE Perez's assessment and plan with the following exceptions/additions: None Subjective 1310 - Patient seen resting in bed. reports mild headache/congestion that she attributes to diesel fumes from outside. No visual changes. Headache is improving. reports pain from stent is well controlled, pkan to go to the OR today with urology. Reports hematuria since stent placement, denies dysuria. Denies CP or SOB. Review of Systems Review of Systems: All systems reviewed & are unremarkable except as noted in Subjective Physical Exam Constitutional: WD/WN, vitals as above Neck: trachea midline, no thyromegaly Respiratory: normal respiratory effort, lungs clear to auscultation Cardiovascular: RRR, no murmur, no edema Gastrointestinal (Abdomen): normal bowel sounds, soft, nontender, no hepatosplenomegaly No CVA tenderness bilaterally Psychiatric: A+Ox3, euthymic affect Results & Data Results & Data Vital Signs (Past 12 Hours) Vital Signs Temp Pulse Resp BP Pulse Ox O2 Del Method 03/20/23 07:13 36.7 C 67 18 132/84 97 Room Air Laboratory Results Laboratory Results - last 24 hr 03/19/23 03/19/23 03/20/23 12:50 14:16 06:30 WBC 5.95 RBC 5.02 Hgb 14.6 D Hct 44.2 MCV 88.0 MCH 29.1 MCHC 33.0 RDW Std Deviation 40.1 RDW Coeff of Agusto 12.4 Plt Count 163 MPV 10.8 Immature Gran % (Auto) 0.3 Neut % (Auto) 61.2 Lymph % (Auto) 24.9 [place] % (Auto) 6.7 Eos % (Auto) 6.4 Baso % (Auto) 0.5 Neut # (Auto) 3.64 Lymph # (Auto) 1.48 [place] # (Auto) 0.40 Eos # (Auto) 0.38 Baso # (Auto) 0.03 Immature Gran # (Auto) 0.02 Sodium 139 Potassium 3.9 Chloride 109 H Carbon Dioxide 26 Anion Gap 4 BUN 15 Creatinine 0.80 Est Cr Clr Drug Dosing 94.0 Est GFR ( Amer) 100.3 Est GFR (Non-Af Amer) 86.6 BUN/Creatinine Ratio 18.8 Glucose 90 Calcium 8.3 L Procalcitonin < 0.05 Urine Color Red Urine Appearance Cloudy A Urine pH 7.0 Ur Specific [place] 1.025 Urine Protein 3+ H Urine Glucose (UA) Negative Urine Ketones Negative Urine Blood 2+ H Urine Nitrite Negative Urine Bilirubin Negative Urine Urobilinogen Negative Ur Leukocyte Esterase 1+ H Urine RBC >30 H Urine WBC 10-30 H Ur Epithelial Cells 5-10 H Urine Bacteria 1+ H PG Care Time/CCT Total # of Minutes Spent Total Time Spent with Patient: Total time spent is greater than 50% in coordination of care (as documented) at patient's floor/unit and/or counseling patient: Coding Level of Care Code 63705 SUB INP/OBS CARE 2/35MIN Diagnoses Ureteral stent present Z96.0 UTI (urinary tract infection) N39.0; R31.9 Hematuria presence: with hematuria Urinary tract infection type: site unspecified Nephrolithiasis N20.0 Hematuria R31.0 Hematuria type: gross (2) UTI (urinary tract infection) Hematuria presence: with hematuria Urinary tract infection type: site unspecified Qualified Code(s): N39.0 - Urinary tract infection, site not specified; R31.9 - Hematuria, unspecified (4) Hematuria Hematuria type: gross Qualified Code(s): R31.0 - Gross hematuria
[2023-03-20] MEDS ORDERED: fentaNYL citrate PF 100 MCG/2 ML VIAL ONE (15:14)
[2023-03-20] MEDS ORDERED: MIDAZOLAM HCL 1 MG/ML 2ML VIAL ONE (15:14)
[2023-03-20] MEDS ORDERED: ATROPINE SULFATE 0.1 MG/ML 10ML SYR IV PRN (15:21)
[2023-03-20] MEDS ORDERED: ePHEDrine sulfate 50 MG/ML AMP IV PRN (15:21)
[2023-03-20] MEDS ORDERED: SCOPOLAMINE 1 MG TDSY TD ONE (15:27)
[2023-03-20] MEDS: SCOPOLAMINE 1 MG TDSY TD ONE ×2 (15:28→15:46)
[2023-03-20] MEDS ORDERED: PROPOFOL IV EMULSION 10 MG/ML 20 ML VIAL IV ONE ×2 (15:37→15:54)
[2023-03-20] MEDS ORDERED: ONDANSETRON INJ 2 MG/ML 2 ML VIAL ONE (15:37)
[2023-03-20] MEDS ORDERED: DEXAMETHASONE SOD INJ 4 MG/ML VIAL ONE (15:37)
[2023-03-20] MEDS ORDERED: LIDOCAINE 2% 2 ML VIAL/AMP(20MG/ML) INFIL ONE (15:37)
[2023-03-20] MEDS ORDERED: diphenhydrAMINE 50 MG/ML VIAL ONE (15:46)
[2023-03-20] MEDS ORDERED: DIATRIZOATE MEGLUMINE 30% 100ML VIAL INSTIL PRN (15:56)
[2023-03-20] MEDS ORDERED: ceFAZolin 330 MG/ML 1 GM VIAL ONE (15:59)
--- NOTE | 2023-03-20 16:51 | Operative Report ---
PG Post Operative Report Pre & Post Diagnosis Operation Date: 03/20/23 09:20 Pre-Op Diagnosis: STENT RELATED PAIN Post-Op Diagnosis: STENT RELATED PAIN I identified the patient and participated in the time-out.: Yes Procedure Operation Date: 03/20/23 09:20 Actual Procedures p Cystoscopy with Bilateral Ureteroscopy, Bilateral Laser Lithotripsy, Bilateral Stone basket Removal, Bilateral Retrograde pyelogram, and Bilateral Stent Exchange(Bilateral) - Ketan Bhakta, Surgeon Ketan Bhakta, II, DO Printing Supervisor None Estimated Blood Loss 1 Findings Consistent with Post-Op Diagnosis Extremely large stone burden bilaterally with multiple right ureteral stones and large left ureteral stone. Stones destroyed to dust and small fragments and larger fragments removed. Specimens Stone Fragments - Right ureter Drains 6 Fr x 24 Bilateral Anesthesia Type General Complications none Disposition Disposition: Recovery Room Indications Patient with bothersome stones. Risks and benefits discussed at length. Description of Procedure Patient was consented and brought back to the operating room. Patient was placed under anesthesia in the supine position and moved to the dorsal lithotomy position. Patient was prepped and draped in the regular sterile fashion. A time out was completed. A 30degree Cystoscope was placed into the bladder and the entire bladder was examined. The UO's were identified. The stent on the right and left were grasped and partially removed. Wires were placed bilaterally. The stents were then completely removed. A second wire was then placed on the left side. The UO was cannulized with a catheter and a retrograde pyelogram was completed. A wire was then replaced. The Rigid ureteroscope was taken into the ureter. This for started on the right. The stones were identified. A laser fiber was selected and the stones were pulverized to dust and small fragments. Larger fragments were grasped and removed and sent for analysis. The rigid scope was then taken on the left side. A much larger stone was discovered in the left ureter. The stone was destroyed to small fragments however majority of the fragments went up into the renal pelvis. A second wire was then placed and the rigid scope removed. The flexible scope was then taken over the second wire and advanced to the proximal ureter and renal pelvis. The entire pelvis was examined and the stones were further treated with the laser and basketed for removal. Numerous small stones were noted in the renal pelvis on the left. Larger fragments were discovered from the stone that had been in the ureter. In the lower pole visualization was significantly limited. The entire area was once again examined. No residual large fragments or areas of concern were noted. The scope was slowly removed with the wire left in place. Contrast was placed through the scope for a pyelogram to assist in stent placement. The entire ureter was examined as the scope was slowly removed. No obstructions or other areas of concern were noted. With the wire in place, a 6 Fr Double J stent was placed. It was confirmed with fluoroscopy. At this point the flexible scope was taken onto the right side. The scope was advanced to the renal pelvis. Within the renal pelvis numerous stones were discovered. Multiple large stones were visualized. Each of the calyces had a number of stones throughout them with majority being smaller however there were numerous larger stones throughout. The stones were broken up in small pieces with the laser. Larger pieces were able to be removed. After extensive destruction of stones on the right side the entire renal pelvis was examined. Numerous small fragments were noted throughout the renal pelvis visualization was still adequate. A retrograde pyelogram was completed through the scope to assess the renal pelvis. The scope was slowly removed with the wire remaining in place. A 6 double-J ureteral stent was then placed confirming it with the fluoroscopy. With the stents in place, the bladder was emptied. The scope was removed. The patient was cleaned, aroused from anesthesia, and transferred to the pacu in stable condition having tolerated the procedure well with no complications. I was present and participated in all aspects of the procedure. The patient will be monitored in the PACU until transferred. Stones within the ureters were removed bilaterally. A large amount of stone fragments were created on the right side which will need to pass. On the left side the stone appeared to be adequately destroyed however there was decreased visualization in the lower pole towards the end of the procedure on that side. We will likely plan to maintain stents for approximately 1 week with plans to repeat imaging after being seen in the office and discuss different options for possible further treatment I attest to the content of the Intraoperative Record and any orders documented therein. Any exceptions are noted below.
[2023-03-20] MEDS: fentaNYL citrate PF 100 MCG/2 ML VIAL IV PRN ×2 (17:09→17:14)
--- NOTE | 2023-03-20 17:34 | Anesthesiology Progress Note ---
Date of Service March 20, 2023 Anesthesia Post Procedure Vital Signs Vital Signs: Temp Pulse Pulse Resp BP Pulse Ox O2 Del Method 03/20/23 17:15 76 17 141/79 H 94 Nasal Cannula 03/20/23 17:05 91 H 17 151/87 H 100 Oxymask 03/20/23 16:55 86 16 151/87 H 100 Oxymask 03/20/23 16:45 36.6 C 79 12 133/77 99 Oxymask 03/20/23 15:20 36.8 C 87 16 135/80 96 Room Air 03/20/23 07:13 36.7 C 67 18 132/84 97 Room Air 03/19/23 19:50 36.6 C 82 16 115/77 99 Room Air 03/19/23 19:00 71 18 122/84 98 Room Air O2 Flow Rate 03/20/23 17:15 2 03/20/23 17:05 5 03/20/23 16:55 9 03/20/23 16:45 9 03/20/23 15:20 03/20/23 07:13 03/19/23 19:50 03/19/23 19:00 Pain Intensity Abdomen: Pain Intensity: 7 Transfer of Care Handoff Completed per policy Notes Mental Status: alert / awake / arousable Patient Amnestic to Procedure: Yes Nausea / Vomiting: adequately controlled Pain: adequately controlled Airway Patency, RR, SpO2: stable & adequate BP & HR: stable & adequate Hydration State: stable & adequate Anesthetic Complications: no major complications apparent and Pt Satisfied with anesthetic care
[2023-03-20] MEDS ORDERED: METOCLOPRAMIDE HCL INJ 5 MG/ML 2 ML VIAL ONE (17:39)
[2023-03-20] MEDS ORDERED: KETOROLAC 30 MG/ML VIAL ONE (17:40)
[2023-03-20] MEDS ORDERED: METOCLOPRAMIDE HCL INJ 5 MG/ML 2 ML VIAL IV PRN (17:41)
[2023-03-20] MEDS ORDERED: KETOROLAC 30 MG/ML VIAL IV PRN (17:41)
[2023-03-20] MEDS ORDERED: PROMETHAZINE HCL 12.5 MG in SODIUM CHLORIDE 0.9% 50 ML IV PRN (17:41)
--- NOTE | 2023-03-20 17:47 | Fluoroscopy Report ---
INTRAOPERATIVE RADIOGRAPHS CLINICAL HISTORY: Bilateral laser lithotripsy and ureteral stent placement. Fluoro time: 39 seconds Ka,r: 14.46 mGy FINDINGS: 10 spot fluoroscopic views of the abdomen are correlated with abdominal CT dated 03/19/2023 . Wires are advanced into both ureters. Lithotripsies performed bilateral. Injected contrast shows at least moderate hydronephrosis on the right. No hydronephrosis is seen on the left. The final images show the proximal and distal ends of bilateral ureteral stents in appropriate position. An intrauteri ne device projects over the pelvis. IMPRESSION: Intraoperative images from bilateral lithotripsy and ureteral stent placement as above. Electronically signed by: Irvin Anderson M.D. 03/20/2023 5:46 PM
[2023-03-20] MEDS: CHECK SCOPOLAMINE PATCH PLACEMENT SCH (18:19)
[2023-03-20] MEDS ORDERED: ONDANSETRON INJ 2 MG/ML 2 ML VIAL IV ONE (19:00)
[2023-03-20] MEDS: cefTRIAXone SODIUM 2,000 MG in DEXTROSE 5 % MINI-B 50 ML IV SCH (20:19)
[2023-03-21] MEDS: PLASMA-LYTE A 1,000 ML IV SCH ×2 (01:24→09:07)
[2023-03-21] MEDS: CHECK SCOPOLAMINE PATCH PLACEMENT SCH ×2 (01:24→09:06)
[2023-03-21 07:24] LABS: Basophils # (auto) 0.04 K/uL (0.00-0.20); Basophils % (auto) 0.3 %; Eosinophils # (auto) 0.45 K/uL (0.00-0.50); Eosinophils % (auto) 3.5 %; Hematocrit (blood only) 42.3 % (37.0-47.0); Hemoglobin 14.4 g/dl (12.0-16.0); Immature Granulocytes # (auto) 0.05 K/uL (0.01-0.20); Immature Granulocytes % (auto) 0.4 %; Lymphocytes # (auto) 0.75 K/uL (1.20-3.40); Lymphocytes % (auto) 5.8 %; Mean Corpuscular Hemoglobin 29.3 pg (25.0-34.0); Mean Corpuscular Volume 86.2 fL (80.0-100.0); Mean Platelet Volume 11.1 fL (9.4-12.4); Monocytes # (auto) 0.78 K/uL (0.11-0.59); Monocytes % (auto) 6.1 %; Neutrophils # (auto) 10.77 K/uL (1.40-6.50); Neutrophils % (auto) 83.9 %; Platelet Count 181 K/uL (130-400); RDW Coefficient of Variation 12.3 % (11.5-14.5); RDW Standard Deviation 38.9 fL (36.4-46.3); Red Blood Count 4.91 M/uL (4.20-5.40); White Blood Count 12.84 K/ul (4.8-10.8)
[2023-03-21 08:22] LABS: Calcium 8.6 mg/dl (8.6-10.3); Potassium 4.1 mmol/L (3.5-5.1)
[2023-03-21 08:28] LABS: BUN Creatinine Ratio 13.5 (10-20); Creatinine Clr Calc Pharmacy 72.3 ml/min; Est GFR (African American) 73.1 ml/min
--- NOTE | 2023-03-21 08:44 | Urology Progress Note ---
Date of Service March 21, 2023 Assessment & Plan (1) Calculus of proximal left ureter: (2) Nephrolithiasis: (3) Ureteral stent present: Plan: - Pt POD#1 s/p bilateral ureteroscopy, bilateral laser lithotripsy and bilateral stent exchange - Doing well, progressing as expected - Afebrile, lab work reviewed - creatinine 1.04, WBC 12.84 - Tolerating bilateral ureteral stent with minimal bother - Okay to d/c from perspective when medically stable - Recommend d/c with Tamsulosin, prn Pyridium and as needed oxybutynin for stent management - Expected clinical course reviewed, all questions answered - Plan for CT imaging prior to f/u to determine stent removal vs additional procedure - Will arrange outpatient follow-up with our service - will sign off Admission and Anticipated Discharge Date Admission Date: March 19, 2023 Subjective Patient seen and examined at bedside, chart reviewed No acute issues overnight Subjectively feeling well this morning, she would like to go home Minimal stent discomfort Voiding spontaneously, has passed a few fragments/debris postprocedure Denies nausea, vomiting, fever or chills Review of Systems Constitutional: as per Subjective / HPI Gastrointestinal: as per Subjective / HPI Genitourinary: as per Subjective / HPI Physical Exam Physical Exam: General: well-appearing, no acute distress HEENT: Normocephalic Pulmonary: Nonlabored respirations Abdomen: Nondistended Extremities: Moves all 4 spontaneously Neuro: No gross deficits Psych: alert and oriented, normal mood Skin: Warm, dry, no rashes noted Results & Data Vital Signs (Past 12 Hours) Vital Signs Temp Pulse Resp BP Pulse Ox O2 Del Method 03/21/23 07:19 36.4 C L 65 16 126/74 97 Room Air 03/21/23 03:21 36.3 C L 63 16 128/77 94 Room Air 03/20/23 23:32 36.6 C 75 16 118/74 93 Room Air 03/20/23 21:34 80 18 124/78 94 Room Air PG Care Time/CCT Total # of Minutes Spent Total Time Spent with Patient: Total time spent is greater than 50% in coordination of care (as documented) at patient's floor/unit and/or counseling patient: Coding Level of Care Code 20590 SUB INP/OBS CARE 25MIN Diagnoses Calculus of proximal left ureter N20.1 Nephrolithiasis N20.0 Ureteral stent present Z96.0
[2023-03-21] MEDS: ACETAMINOPHEN 500 MG TAB PO SCH (09:06)
[2023-03-21] MEDS: TAMSULOSIN HCL 0.4 MG CAP PO SCH (09:06)
--- NOTE | 2023-03-21 11:48 | Discharge Summary ---
Discharge Summary Date of Service March 21, 2023 Notes For Next Care Provider Blood cultures pending - No growth 24 hours Urine cultures pending - pinpoint growth of gram negative bacillus --> patient was discharged with Bactrim for this Stone analysis pending Medication Changes From Visit Bactrim DS BID x 5 days Flomax daily Pyridium and oxybutynin prn Admission HPI Per Admitting Provider Mayra Guerra is a 47 year old female who presents to the ER with lower abdominal pain, nausea, vomiting and hematuria. She has a recent diagnosis of bilateral ureterolithiasis and bilateral hydroureter/nephrosis on CT March 17. This was treated with bilateral stent insertion by Dr Jane the same day and she was discharged. She reports the stent initially helped with the pain but then it came back with increasing frequency and severity the last two days. She took an oxycodone today and it didn't touch her pain therefore decided to come to the ER. She denies any dysuria, fever or chills but UA somewhat concerning for infection. Principal Dx & Hospital Course #1 = Principal Diagnosis (1) Ureteral stent present: Placed 03/[address] Jane Pain controlled inpatient with tylenol - can continue this outpatient Oxybutyin and pyrdium prn for outpatient pain management. 03/20 Cystoscopy, bilateral retrograde pyelogram, bilateral ureteroscopy, laser lithotripsy, stone basketing, possible ureteral dilation and bilateral ureteral stent placement w/ Dr. Bhakta Follow up outpatient with urology next week. (2) UTI (urinary tract infection): Culture still pending - growing pinpoint gram negative bacillus, discharged with Bactrim based on prior cultures Blood cultures (after 1st dose of abx) - pending, no growth at 24 hours (3) Nephrolithiasis: Continue tamsulosin until follow up with urology Urology recommendations as above (4) Hematuria: Treat for infection as above Plan discharge to home with outpatient urology follow up Discharge Exam Constitutional WD/WN, vitals as above Neck trachea midline, no thyromegaly Respiratory normal respiratory effort, lungs clear to auscultation Cardiovascular RRR, no murmur, no edema Gastrointestinal (Abdomen) normal bowel sounds, soft, nontender, no hepatosplenomegaly Psychiatric A+Ox3, euthymic affect Updated Medication List Medication Instructions Recorded Confirmed Type acetaminophen 500 mg tablet 1,000 mg (2 x 500 mg) PO TID 30 03/21/23 Rx (Tylenol Extra Strength) days #180 tabs oxybutynin chloride 5 mg tablet 5 mg PO BID PRN stent pain/spasm 03/21/23 Rx #10 tabs phenazopyridine 100 mg tablet 100 mg PO TID PRN pain with 03/21/23 Rx (Pyridium) urination 6 doses #6 tabs sulfamethoxazole 800 1 tab PO BID 5 days #10 tabs 03/21/23 Rx mg-trimethoprim 160 mg tablet (Bactrim DS) tamsulosin 0.4 mg capsule 0.4 mg PO DAILY 7 days #7 caps 03/21/23 Rx Hospital Stay Data Consultations 03/19/23 15:50 ED Decision to Admit Stat 03/19/23 17:58 Consult Urology Routine Procedures Performed Operation Date: 03/20/23 09:20 Actual Procedures p Cystoscopy, Bilateral Ureteroscopy, Laser Lithotripsy, Stone Removal, Bilateral Stent Exchange(Bilateral) - Ketan Bhakta, DO Diagnostic Imagining Performed 03/19/23 13:26 CT abd pelvis wo con Stat 03/20/23 [place] retrograde includes kub Routine Pending Results Patient Have Any Pending Studies at Discharge: Yes Discharge Instructions Given to Patient (Per Discharging Provider) Ms. Guerra, You were hospitalized due to kidney stones and pain from the stents that were in place. During your stay you had the following operation done with Dr. Ketan Bhakta, to treat the kidney stones and stents were replaced: Cystoscopy with Bilateral Ureteroscopy, Bilateral Laser Lithotripsy, Bilateral Stone basket Removal, Bilateral Retrograde pyelogram, and Bilateral Stent Exchange(Bilateral) You will need to follow up with urology for stent removal next week , they may want imaging before that appointment. Their contact information is in this packed. You will need to meat pickler these medications from the pharmacy: - Bactrim (antibiotics) - start this TONIGHT 03/21 for 5 days. You will take this twice a day - Flomax - start TOMORROW Morning 03/22 - and take this until your appointment with urology - Pyridium - this can be taken as needed for pain with urination, it may make your urine an orange color - Oxybutynin - this can be used as needed for stent pain/spams You can use Tylenol over the counter for pain control. If you develop pain that is uncontrolled, increase in pain with urination, fevers or signs of infection, please contact the urologist or return to the ED> Total Time Total Time Spent Total Time Spent (In Minutes): 35 Supervising Physician Co-Signing Physician Notes PA Supervision Note: I personally saw and examined the patient. I verified all cisneros points and agree with LANRE Perez with the following exceptions and/or additions: S-Pt feeling very well, minimal pain and minimal hematuria. Discussed her long h/o stones and she does not recall why she is no longer on chlorthalidone and has not seen Nephro in years O- Vitals reviewed Gen: [AAOx3, NAD] HEENT: [anicteric sclerae, EOMI] CV: [RRR no mgr nl S1S2] Pulm: [CTAB no wcr] Abd: [+BS soft NT ND no masses or hernias] Labs reviewed A/P-47 yo female here with symptomatic ureterolithiasis with bilat stents Appreciate Urology management-f/u next week Recommend f/u with Nephro and consider restarting chlorthalidone. 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
== END 2023-03-21 14:04 | disposition home or self-care (01) | DRG 660 ==
LOC: ED 12:10 → SUATTDRO 17:42 → 3W 17:42